=== PATIENT | female | born 1990 | race Caucasian/White ===

== ENCOUNTER 2020-07-16 08:35 | Outpatient (REF) | payer OTHER, SELFPAY ==
[2020-07-16 08:55] LABS: COVID-19 Test Negative (Negative); IDNOW Serial# 08D9AD1C
== END 2020-07-16 08:36 | disposition home or self-care (01) ==
LOC: HO.LAB 08:35
PROVIDERS: Visit Provider Internal Medicine
DX: Z20.822 Contact with and (suspected) exposure to COVID-19 (principal)
CPT/HCPCS: 36415; 87635; C9803

== ENCOUNTER 2023-08-28 02:51 | Inpatient (IN) | payer OTHER, SELFPAY ==
--- NOTE | ~2023-08-28 | XR_ITS ---
EXAMINATION: XR KNEE, RIGHT CLINICAL INFORMATION: Trauma. COMPARISON: None available. TECHNIQUE: Four views of the right knee. FINDINGS: The bone mineralization is within normal limits. There is an apparent distal femoral bone infarct. There are undisplaced fractures through the lateral as well as medial plateaus. There is also a mildly displaced fracture through the fibular neck. There is a moderate joint effusion with an air-fluid level. The soft tissues are unremarkable. XR/XR knee RT 3V IMPRESSION: 1. Undisplaced fractures through the lateral as well as medial plateaus. 2. Mildly displaced fracture through the fibular neck. 3. Moderate joint effusion with air-fluid level.
--- NOTE | ~2023-08-28 | FL_ITS ---
EXAMINATION: XR FLUOROSCOPY WITH IMAGES CLINICAL INFORMATION: Placement of only in the right tibia COMPARISON: 08/28/2023 TECHNIQUE: Fluoroscopy Supervised By: Dr. Bean Jones. Fluoroscopy Time: 0.6 minutes. Cumulative Dose: 3.30 mGy. DAP: 0.0574 Gycm2. Images: 4. FINDINGS: ORIF placed for compression of comminuted fracture of proximal right tibia with intra-articular involvement. FL/FL guidance in OR IMPRESSION: Well-positioned hardware
--- NOTE | ~2023-08-28 | CT_ITS ---
EXAMINATION: CT KNEE WITHOUT CONTRAST, RIGHT CLINICAL INFORMATION: Trauma. Fracture COMPARISON: None available. TECHNIQUE: Contiguous axial noncontrast CT scan images of the right knee obtained. Sagittal and coronal reformatted images also obtained. This CT examination was performed using dose optimization techniques as appropriate, variously including the following: *Automated exposure control *Adjustment of mA and/or kV according to patient size (this includes techniques or standardized protocols for targeted exams where dose is matched to indication/reason for exam; i.e. extremities or head) *Use of iterative reconstruction technique DLP: 291 mGy-cm FINDINGS: The bony structures are osteopenic. There is a comminuted fracture of the lateral tibial plateau with multiple fracture fragments and mild displacement extending to the joint space. There is also a fracture extending through the medial tibial plateau also to the joint space anteriorly without significant displacement. There is a comminuted mildly displaced fracture of the fibular head/neck. There is minimal degenerative change of the medial and lateral knee joint spaces with mild loss of joint space and subchondral sclerosis. There is a moderate joint effusion with a fat fluid level. There is arteriovascular calcification. CT/CT knee RT wo IV con IMPRESSION: 1. Comminuted fracture of the lateral tibial plateau with multiple fracture fragments and mild displacement. 2. Nondisplaced fracture of the medial tibial plateau. 3. Comminuted fracture of the fibular head/neck. 4. Lipohemarthrosis. 5. Arteriovascular calcification.
[2023-08-28 03:15] VITALS: BP 139/89; BP 150/80; PULSE 113; PULSE 121; RESP 20; TEMP 36.8; O2SAT 100; BMI 27.7
[2023-08-28] MEDS: Acetaminophen 325 MG TABLET 975 MG PO (03:39)
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
[2023-08-28 04:21] LABS: MANUAL DIFF FLAG NO
[2023-08-28 04:22] LABS: Basophils Percent Auto 0.3 % (0-2); Eosinophils Absolute Auto 0.1 X10*3/uL (0.0-0.4); Eosinophils Percent Auto 0.8 % (0-4); Imm Gran Abs Auto 0.02 X10*3/uL (0.00-0.03); Imm Gran Pct Auto 0.3 % (0.0-0.4); Lymphocytes Absolute Auto 1.1 X10*3/uL (1.2-4.9); Lymphocytes Percent Auto 15.1 % (20-40); Mean Corpuscular HGB Conc 33.3 g/dl (31.0-35.0); Mean Corpuscular Hemoglobin 26.9 pg (27.0-33.0); Mean Corpuscular Volume 80.7 fL (80.0-98.0); Mean Platelet Volume 11.5 fL (9.4-12.3); Monocytes Absolute Auto 0.3 X10*3/uL (0.1-1.2); Monocytes Percent Auto 4.4 % (2-11); Neutrophils Absolute Auto 5.9 x10*3/uL (2.0-8.3); Neutrophils Percent Auto 79.1 % (45-73); Platelet Count 206 X10*3/uL (160-400); Red Blood Count 4.09 X10*6/uL (4.20-5.50); Red Cell Distribution Width 13.1 % (11.0-16.0); White Blood Count 7.5 X10*3/uL (4.8-10.8)
[2023-08-28] MEDS: HYDROmorphone HCl 0.5 MG/0.5 ML SYRINGE IVPUSH (04:22)
[2023-08-28] MEDS: ondansetron HCL 4 MG/2 ML VIAL IVPUSH ×2 (04:22→14:49)
[2023-08-28 04:33] LABS: Ethanol 86 mg/dL
[2023-08-28 04:41] LABS: Anion Gap 17 (12-20); Blood Urea Nitrogen 20 mg/dL (9-16); Calcium 8.9 mg/dL (8.4-10.2); Carbon Dioxide 20 mmol/L (22-29); Chloride 104 mmol/L (96-108); Creatinine Clr Calc Pharmacy 57.9; Estimated Glomerular Filt Rate 53; Glucose Random 153 mg/dL (60-115); Potassium 3.8 mmol/L (3.3-5.1); Sodium 137 mmol/L (135-145)
[2023-08-28 04:49] LABS: HCG Quantitative < 2 mIU/mL
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
[2023-08-28] MEDS: Ibuprofen 400 MG TABLET PO ×2 (06:00→20:58)
[2023-08-28 07:26] VITALS: RESP 20
[2023-08-28] MEDS: HYDROmorphone HCl 1 MG/ML SYRINGE 0.5 MG IVPUSH ×3 (07:26→18:44)
[2023-08-28] MEDS: 0.9 % Sodium Chloride Flush 3 ML SYRINGE IVFLUSH ×3 (07:27→21:09)
[2023-08-28 07:29] LABS: Glucose, Whole Blood 91 mg/dL (60-115)
[2023-08-28 09:06] VITALS: BMI 29.1
[2023-08-28 09:19] VITALS: BP 107/73; PULSE 86; RESP 16; TEMP 36.1; O2SAT 98
--- NOTE | 2023-08-28 09:22 | PHA.MEDREC ---
Pharmacy Consult ? Medication Reconciliation Pharmacy has completed the medication reconciliation.
--- NOTE | 2023-08-28 09:22 | PM.EVENT ---
Event Note Date of Service: 08/28/23 Event Note: Right knee tibial plateau fx CT Scan reviewed with minimal depression Elevate Ice Edema minimizing modalities Knee immobilizer may f/u out patient Time Spent With Patient Time: Total time managing care of this patient today ____ minutes.
[2023-08-28 11:07] LABS: Glucose, Whole Blood 120 mg/dL (60-115)
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
--- NOTE | 2023-08-28 12:35 | PM.EVENT ---
Event Note Date of Service: 08/28/23 Event Note: Pt seen and examined, here with fall tibi plateu fracture, no surgery planned. PT eval tomorrow, dilaudid for pain, pt uses self manage insulin pump with back up Lantus and we shold be checking POC per hospital protol. Med rec completed Time Spent With Patient Time: Total time managing care of this patient today ____ minutes.
[2023-08-28 13:14] VITALS: BP 119/79
[2023-08-28] MEDS: Cholecalciferol (Vitamin D3) 25 MCG TABLET 50 MCG PO (13:14)
[2023-08-28] MEDS: amLODIPine Besylate 10 MG TABLET PO (13:14)
[2023-08-28] MEDS: Docusate Sodium 100 MG CAPSULE PO ×2 (13:15→20:58)
[2023-08-28] MEDS: Lactulose 20 GM/30 ML SOLUTION PO ×2 (13:15→20:59)
[2023-08-28] MEDS: Atorvastatin Calcium 40 MG TABLET PO (13:15)
--- NOTE | 2023-08-28 13:27 | PC.NURSE ---
requested pt to bring in her meds from home that are non-formulary Linzess and Medroxyprogesterone
[2023-08-28] MEDS: Heparin Sodium,Porcine 5,000 UNIT/ML VIAL 5000 UNIT SUBCUT ×2 (14:29→21:05)
[2023-08-28 15:19] VITALS: BP 127/72; PULSE 83; TEMP 36.2; O2SAT 99
--- NOTE | 2023-08-28 16:00 | MHC.CM.PN ---
PT REPORTS SHE LIVES AT HOME WITH HER S/O AND CHILDREN SHE IS INDEPENDENT WITH CARE AND USES AN INSULIN PUMP PT DECLINES TO COMPLETE A HCP PCP: JAKE LOVETT DCP: HOME NO SERVICES VIA PRIVATE TRANSPORT
[2023-08-28 16:09] LABS: Glucose, Whole Blood 134 mg/dL (60-115)
[2023-08-28 19:44] VITALS: BP 121/73; PULSE 86; RESP 16; TEMP 36.1; O2SAT 99
[2023-08-28 20:40] LABS: Glucose, Whole Blood 126 mg/dL (60-115)
[2023-08-29] MEDS: HYDROmorphone HCl 1 MG/ML SYRINGE 0.5 MG IVPUSH ×5 (00:19→21:46)
[2023-08-29 03:49] VITALS: BP 119/72; PULSE 85; RESP 16; TEMP 36.2; O2SAT 98
[2023-08-29] MEDS: Omeprazole 40 MG CAPSULE.DR PO ×2 (05:27→16:51)
[2023-08-29] MEDS: Heparin Sodium,Porcine 5,000 UNIT/ML VIAL 5000 UNIT SUBCUT ×3 (05:28→21:23)
[2023-08-29 07:18] VITALS: BP 133/76; PULSE 83; RESP 16; TEMP 36.2; O2SAT 99
[2023-08-29 07:35] LABS: Glucose, Whole Blood 127 mg/dL (60-115)
[2023-08-29] MEDS: amLODIPine Besylate 10 MG TABLET PO (08:20)
[2023-08-29] MEDS: Venlafaxine HCL 25 MG TABLET 75 MG PO (08:20)
[2023-08-29] MEDS: 0.9 % Sodium Chloride Flush 3 ML SYRINGE IVFLUSH ×3 (08:20→21:57)
[2023-08-29] MEDS: Cholecalciferol (Vitamin D3) 25 MCG TABLET 50 MCG PO (08:21)
[2023-08-29] MEDS: Ibuprofen 400 MG TABLET PO (08:21)
[2023-08-29] MEDS: Atorvastatin Calcium 40 MG TABLET PO (08:21)
[2023-08-29] MEDS: lisinopriL 40 MG TABLET PO (08:22)
[2023-08-29] MEDS: hydroCHLOROthiazide 50 MG TABLET PO (08:22)
[2023-08-29] MEDS: Docusate Sodium 100 MG CAPSULE PO ×2 (08:22→21:21)
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
--- NOTE | 2023-08-29 09:44 | P.PNIM_ITS ---
Subjective Subjective Date of Service: 08/29/23 Interval History: She still has signficant pain and taking iv dilaudid, not able to move on her own Physical Exam 2 Vital Signs: Vital Signs: Last Vital Signs Temp 97.2 F 08/29/23 07:18 Pulse 83 08/29/23 07:18 Resp 16 08/29/23 07:18 BP 133/76 08/29/23 07:18 Pulse Ox 99 08/29/23 07:18 O2 Del Method Room Air 08/29/23 07:18 BMI result Body Mass Index 29.1 General: AO X 3, no acute distress Resp: CTA bilateral CVS: S1,S2,RRR GI: +BS, NT, no distention Skin: No rash MSK imobilized right lower ext Neuro: motor grossly intact Psych: appropriate affect Objective Data Active Medications Amlodipine Besylate (Amlodipine Besylate 10 Mg Tablet) 10 mg PO DAILY [facility]; Protocol Last Admin: 08/29/23 08:20 Dose: 10 mg Documented By: ALINA Atorvastatin Calcium (Atorvastatin Calcium 40 Mg Tablet) 40 mg PO DAILY [facility] Last Admin: 08/29/23 08:21 Dose: 40 mg Documented By: ALINA Docusate Sodium (Docusate Sodium 100 Mg Capsule) 100 mg PO BID [facility] Last Admin: 08/29/23 08:22 Dose: 100 mg Documented By: ALINA Gabapentin (Gabapentin 100 Mg Capsule) 100 mg PO BEDTIME [facility] Last Admin: 08/28/23 20:58 Dose: Not Given Documented By: PABLO Non-Admin Reason: Patient Refused Heparin Sodium (Porcine) (Heparin Sodium,Porcine 5,000 Unit/Ml Vial) 5,000 unit SUBCUT Q8H [facility] Last Admin: 08/29/23 05:28 Dose: 5,000 unit Documented By: PABLO Hydrochlorothiazide (Hydrochlorothiazide 50 Mg Tablet) 50 mg PO DAILY [facility] Last Admin: 08/29/23 08:22 Dose: 50 mg Documented By: ALINA Hydromorphone HCl (Hydromorphone Hcl 1 Mg/Ml Syringe) 0.5 mg IVPUSH Q4H PRN; Protocol PRN Reason: Pain, Severe (Pain Scale 7-10) Last Admin: 08/29/23 08:18 Dose: 0.5 mg Documented By: ALINA Hydroxyzine HCl (Hydroxyzine Hcl 25 Mg Tablet) 25 mg PO DAILY PRN PRN Reason: anxiety Insulin Glargine (Insulin Glargine,Hum.Rec.Anlog 100 Unit/Ml 10 Ml Vial) 34 unit SUBCUT DAILY PRN PRN Reason: Insulin Pump Backup Insulin Pump (Patient Own (Subcutaneous Insulin Pump)) 1 each SUBCUT QIDACHS [facility]; Protocol Last Admin: 08/28/23 21:07 Dose: 1 each Documented By: PABLO Lactulose (Lactulose 20 Gm/30 Ml Solution) 20 gm PO BID [facility] Last Admin: 08/28/23 20:59 Dose: 20 gm Documented By: PABLO Lisinopril (Lisinopril 40 Mg Tablet) 40 mg PO DAILY [facility]; Protocol Last Admin: 08/29/23 08:22 Dose: 40 mg Documented By: ALINA Non-Formulary Medication (Linaclotide [Linzess]) 145 mcg PO DAILY [facility] Non-Formulary Medication (Medroxyprogesterone) 10 mg PO DAILY [facility] Omeprazole (Omeprazole 40 Mg Capsule.Dr) 40 mg PO BID@0630,1630 [facility] Last Admin: 08/29/23 05:27 Dose: 40 mg Documented By: PABLO Ondansetron HCl (Ondansetron Hcl 4 Mg/2 Ml Vial) 4 mg IVPUSH Q8H PRN PRN Reason: Nausea and Vomiting Last Admin: 08/28/23 14:49 Dose: 4 mg Documented By: LUPIS Oxycodone HCl (Oxycodone Hcl Immed Release 5 Mg Tablet) 5 mg PO Q6H PRN PRN Reason: Pain, Severe (Pain Scale 7-10) Sodium Chloride (0.9 % Sodium Chloride Flush 3 Ml Syringe) 3 ml IVFLUSH QSHIFT [facility] Last Admin: 08/29/23 08:20 Dose: 3 ml Documented By: ALINA Venlafaxine HCl (Venlafaxine Hcl 25 Mg Tablet) 75 mg PO DAILY [facility] Last Admin: 08/29/23 08:20 Dose: 75 mg Documented By: ALINA Vitamin D (Cholecalciferol (Vitamin D3) 25 Mcg Tablet) 50 mcg PO DAILY [facility] Last Admin: 08/29/23 08:21 Dose: 50 mcg Documented By: ALINA Labs 08/28/23 04:12 08/28/23 04:12 Labs: Laboratory Results - last 24 hr 08/28/23 08/28/23 08/28/23 11:03 15:58 20:14 POC Glucose 120 H 134 H 126 H 08/29/23 07:21 POC Glucose 127 H Assessment and Plan (1) Hyperlipidemia: Status: Acute (2) Essential hypertension: Status: Acute (3) Type 1 diabetes mellitus: Status: Acute (4) Closed tibia fracture: Status: Acute Plan 32/F w T1DM, HTN here with tibia plateau fx R tibia plateau fracture -conservative management with pain control with oxycodone, dilaudid, imobilizer, elevate, ice -ortho to reassess for surger [id number]--kwva management with insulin pump with back up Lantus, POC check per hospital dm protocol HTN--continue Lisinopril and HCTZ HLD--lipitor anemia--chronic and stable, Mood disorder--effexor GERD omeprazol dvt p heparin full code need for inpatient: pain control with IV narc for tibia plateau fracture and expert assessment for surgical repair Quality Stroke Does the patient have a stroke diagnosis?: No VTE Prior VTE?: No VTE Risk Level:: Medical - moderate - high VTE Device Contraindication: Treatment Not Indicated VTE Drug Contraindication: N/A - Med Ordered
[2023-08-29] MEDS: ondansetron HCL 4 MG/2 ML VIAL IVPUSH ×2 (09:55→21:23)
[2023-08-29 11:19] LABS: Glucose, Whole Blood 156 mg/dL (60-115)
--- NOTE | 2023-08-29 11:54 | MHC.CM.PN ---
PLAN IS FOR SURGICAL INTERVENTION. CM FOLLOWING FOR ANY CHANGES IN DC NEEDS.
[2023-08-29 12:23] VITALS: BP 122/78; PULSE 93; O2SAT 98
--- NOTE | 2023-08-29 12:27 | PM.PNORT ---
Subjective Subjective Date of Service: 08/29/23 Interval history: Patient resting in the recliner Pain reported with movement Immobilizer in place RLE No additional complaints Physical Exam Vital Signs: Vital Signs: Last Vital Signs Temp 97.2 F 08/29/23 07:18 Pulse 83 08/29/23 07:18 Resp 16 08/29/23 07:18 BP 133/76 08/29/23 07:18 Pulse Ox 99 08/29/23 07:18 O2 Del Method Room Air 08/29/23 07:18 BMI result Body Mass Index 29.1 Const: General: cooperative, healthy appearing and no acute distress Resp: Effort & Inspection: normal respiratory effort and able to speak in complete sentences Cardio: Rate: regular rate Peripheral pulses: Peripheral pulses 2+ throughout GI: Palpation (GI): Soft to palpation Skin: Lesions: no lesions Rashes: no rashes Extrem: Other: Right lower extremity in knee immobilizer. Compartments soft and compressible. Able to dorsi/plantar flex. Sensation intact. Pedal pulse intact. Procedures Date of Service Date of Service: 08/29/23 Progress Note: A&P Assessment and plan (1) Closed tibia fracture: Status: Acute Assessment and Plan: CT reviewed with Dr. Flores and has recommended surgery ORIF right tibial plateau. The patient was seen this afternoon with Dr. Flores who discussed the case with the patient and explained the extent of the injury and options available which include surgical intervention. Dr. Flores explained the procedure in detail along with the length of recovery and rehab course. Dr. Flores explained the risk, benefits and alternatives. Risk including, but not limited to infection, blood clots, bleeding, non union or malunion and nerve/tissue damage to surrounding areas. Dr. Flores answered all their questions and with their understanding they have consented to move forward with Operative Fixation of right tibial plateau fracture. The patient will be NPO after midnight and edema reevaluated tomorrow morning to determine if surgery may proceed or postpone until decrease in edema. (2) Type 1 diabetes mellitus: Status: Acute Time Spent With Patient Time: Total time managing care of this patient today ____ minutes. Quality Stroke Does the patient have a stroke diagnosis?: No VTE Prior VTE?: No VTE Risk Level:: Medical - moderate - high VTE Device Contraindication: Treatment Not Indicated VTE Drug Contraindication: N/A - Med Ordered
[2023-08-29 16:00] VITALS: BP 142/72; PULSE 81; RESP 18; TEMP 37.2; O2SAT 99
[2023-08-29 16:44] LABS: Glucose, Whole Blood 174 mg/dL (60-115)
[2023-08-29 20:00] VITALS: BP 141/78; PULSE 90; RESP 16; TEMP 36.9; O2SAT 100
[2023-08-29 20:35] LABS: Glucose, Whole Blood 168 mg/dL (60-115)
[2023-08-29] MEDS: Gabapentin 100 MG CAPSULE PO (21:21)
[2023-08-29] MEDS: Lactulose 20 GM/30 ML SOLUTION PO (21:21)
[2023-08-30] MEDS: HYDROmorphone HCl 1 MG/ML SYRINGE 0.5 MG IVPUSH ×4 (01:45→22:18)
[2023-08-30 03:31] VITALS: BP 117/70; PULSE 81; RESP 16; TEMP 36; O2SAT 98
[2023-08-30] MEDS: Omeprazole 40 MG CAPSULE.DR PO ×2 (06:15→17:07)
[2023-08-30] MEDS: Heparin Sodium,Porcine 5,000 UNIT/ML VIAL 5000 UNIT SUBCUT ×3 (06:15→22:19)
[2023-08-30 07:04] VITALS: BP 124/68; PULSE 80; RESP 16; TEMP 36.6; O2SAT 99
[2023-08-30 07:28] LABS: Glucose, Whole Blood 81 mg/dL (60-115)
[2023-08-30] MEDS: lisinopriL 40 MG TABLET PO (08:11)
[2023-08-30] MEDS: Docusate Sodium 100 MG CAPSULE PO (08:11)
[2023-08-30] MEDS: Atorvastatin Calcium 40 MG TABLET PO (08:11)
[2023-08-30] MEDS: amLODIPine Besylate 10 MG TABLET PO (08:11)
[2023-08-30] MEDS: Cholecalciferol (Vitamin D3) 25 MCG TABLET 50 MCG PO (08:11)
[2023-08-30] MEDS: Venlafaxine HCL 25 MG TABLET 75 MG PO (08:12)
[2023-08-30] MEDS: hydroCHLOROthiazide 50 MG TABLET PO (08:12)
[2023-08-30] MEDS: 0.9 % Sodium Chloride Flush 3 ML SYRINGE IVFLUSH ×3 (08:12→22:24)
[2023-08-30] MEDS: Lactulose 20 GM/30 ML SOLUTION PO (08:19)
--- NOTE | 2023-08-30 09:11 | HO.PM.IMPN ---
Subjective Subjective Date of Service: 08/30/23 Interval History: f/u on R tibia plateau fx, pain is controlled with dilaudid but causes itching Physical Exam Vital Signs: Vital Signs: Last Vital Signs Temp 98 F 08/30/23 07:04 Pulse 80 08/30/23 07:04 Resp 16 08/30/23 07:04 BP 124/68 08/30/23 07:04 Pulse Ox 99 08/30/23 07:04 O2 Del Method Room Air 08/30/23 07:04 BMI result Body Mass Index 29.1 General: AO X 3, no acute distress Resp: CTA bilateral CVS: S1,S2,RRR GI: +BS, NT, no distention Skin: No rash MSK imobilized right lower ext Neuro: motor grossly intact Psych: appropriate affect Objective Data Active Medications Amlodipine Besylate (Amlodipine Besylate 10 Mg Tablet) 10 mg PO DAILY [facility]; Protocol Last Admin: 08/30/23 08:11 Dose: 10 mg Documented By: ALINA Atorvastatin Calcium (Atorvastatin Calcium 40 Mg Tablet) 40 mg PO DAILY [facility] Last Admin: 08/30/23 08:11 Dose: 40 mg Documented By: ALINA Docusate Sodium (Docusate Sodium 100 Mg Capsule) 100 mg PO BID [facility] Last Admin: 08/30/23 08:11 Dose: 100 mg Documented By: ALINA Gabapentin (Gabapentin 100 Mg Capsule) 100 mg PO BEDTIME [facility] Last Admin: 08/29/23 21:21 Dose: 100 mg Documented By: ZONIA Heparin Sodium (Porcine) (Heparin Sodium,Porcine 5,000 Unit/Ml Vial) 5,000 unit SUBCUT Q8H [facility] Last Admin: 08/30/23 06:15 Dose: 5,000 unit Documented By: ZONIA Hydrochlorothiazide (Hydrochlorothiazide 50 Mg Tablet) 50 mg PO DAILY [facility] Last Admin: 08/30/23 08:12 Dose: 50 mg Documented By: ALINA Hydromorphone HCl (Hydromorphone Hcl 1 Mg/Ml Syringe) 0.5 mg IVPUSH Q4H PRN; Protocol PRN Reason: Pain, Severe (Pain Scale 7-10) Last Admin: 08/30/23 06:15 Dose: 0.5 mg Documented By: ZONIA Hydroxyzine HCl (Hydroxyzine Hcl 25 Mg Tablet) 25 mg PO DAILY PRN PRN Reason: anxiety Insulin Glargine (Insulin Glargine,Hum.Rec.Anlog 100 Unit/Ml 10 Ml Vial) 34 unit SUBCUT DAILY PRN PRN Reason: Insulin Pump Backup Insulin Pump (Patient Own (Subcutaneous Insulin Pump)) 1 each SUBCUT QIDACHS [facility]; Protocol Last Admin: 08/30/23 08:38 Dose: 1 each Documented By: ALINA Lactulose (Lactulose 20 Gm/30 Ml Solution) 20 gm PO BID [facility] Last Admin: 08/30/23 08:19 Dose: 20 gm Documented By: ALINA Lisinopril (Lisinopril 40 Mg Tablet) 40 mg PO DAILY [facility]; Protocol Last Admin: 08/30/23 08:11 Dose: 40 mg Documented By: ALINA Non-Formulary Medication (Linaclotide [Linzess]) 145 mcg PO DAILY [facility] Non-Formulary Medication (Medroxyprogesterone) 10 mg PO DAILY [facility] Omeprazole (Omeprazole 40 Mg Capsule.) 40 mg PO BID@0630,1630 [facility] Last Admin: 08/30/23 06:15 Dose: 40 mg Documented By: ZONIA Ondansetron HCl (Ondansetron Hcl 4 Mg/2 Ml Vial) 4 mg IVPUSH Q8H PRN PRN Reason: Nausea and Vomiting Last Admin: 08/29/23 21:23 Dose: 4 mg Documented By: ZONIA Oxycodone HCl (Oxycodone Hcl Immed Release 5 Mg Tablet) 5 mg PO Q6H PRN PRN Reason: Pain, Moderate(Pain Scale 4-6) Sodium Chloride (0.9 % Sodium Chloride Flush 3 Ml Syringe) [facility] Last Admin: 08/30/23 08:12 Dose: 3 ml Documented By: ALINA Venlafaxine HCl (Venlafaxine Hcl 25 Mg Tablet) 75 mg PO DAILY [facility] Last Admin: 08/30/23 08:12 Dose: 75 mg Documented By: ALINA Vitamin D (Cholecalciferol (Vitamin D3) 25 Mcg Tablet) 50 mcg PO DAILY [facility] Last Admin: 08/30/23 08:11 Dose: 50 mcg Documented By: ALINA Labs 08/28/23 04:12 08/28/23 04:12 Labs: Laboratory Results - last 24 hr 08/29/23 08/29/23 08/29/23 11:09 16:40 20:26 POC Glucose 156 H 174 H 168 H 08/30/23 07:08 POC Glucose 81 Assessment and Plan (1) Hyperlipidemia: Status: Acute (2) Essential hypertension: Status: Acute (3) Type 1 diabetes mellitus: Status: Acute (4) Closed tibia fracture: Status: Acute Plan 32/F w T1DM, HTN here with tibia plateau fx R tibia plateau fracture -pain control with dilaudid, oxy and APAP -Surgical repair tomorrow Q9HX--bmsp management with insulin pump with back up Lantus, POC check per hospital dm protocol HTN--continue Lisinopril and HCTZ HLD--lipitor anemia--chronic and stable, Mood disorder--effexor GERD omeprazol dvt p heparin full code need for inpatient: pain control with IV narc for tibia plateau fracture and expert assessment for surgical repair Quality Stroke Does the patient have a stroke diagnosis?: No VTE Prior VTE?: No VTE Risk Level:: Medical - moderate - high VTE Device Contraindication: Treatment Not Indicated VTE Drug Contraindication: N/A - Med Ordered
[2023-08-30] MEDS: ondansetron HCL 4 MG/2 ML VIAL IVPUSH (09:52)
[2023-08-30] MEDS: diphenhydrAMINE HCL 50 MG/ML VIAL 25 MG IVPUSH (09:56)
[2023-08-30] MEDS: Prochlorperazine Edisylate 10 MG/2 ML VIAL 5 MG IV (15:06)
[2023-08-30 15:14] VITALS: BP 127/73; PULSE 89; RESP 16; TEMP 36.2; O2SAT 97
[2023-08-30 16:21] LABS: Glucose, Whole Blood 93 mg/dL (60-115)
[2023-08-30 19:15] VITALS: BP 129/82; PULSE 94; RESP 18; TEMP 36.1; O2SAT 97
[2023-08-30 20:49] LABS: Glucose, Whole Blood 193 mg/dL (60-115)
[2023-08-31] VITALS (23 sets, daily range): BP systolic 122–174; BP diastolic 67–105; PULSE 83–96; RESP 8–20; TEMP 36.2–36.9; O2SAT 9–100
[2023-08-31] MEDS: HYDROmorphone HCl 1 MG/ML SYRINGE 0.5 MG IVPUSH ×4 (03:14→23:07)
[2023-08-31] MEDS: Omeprazole 40 MG CAPSULE.DR PO ×2 (06:13→17:47)
[2023-08-31 07:46] LABS: Glucose, Whole Blood 129 mg/dL (60-115)
--- NOTE | 2023-08-31 08:48 | P.PNIM_ITS ---
Subjective Subjective Date of Service: 08/31/23 Interval History: f/u on R tibia plateau fx, surgery done, has some pain in the knee Physical Exam 2 Vital Signs: Vital Signs: Last Vital Signs Temp 98 F 08/31/23 07:28 Pulse 88 08/31/23 07:28 Resp 16 08/31/23 07:28 BP 130/81 08/31/23 07:28 Pulse Ox 99 08/31/23 07:28 O2 Del Method Room Air 08/31/23 07:28 BMI result Body Mass Index 29.1 General: AO X 3, no acute distress Resp: CTA bilateral CVS: S1,S2,RRR GI: +BS, NT, no distention Skin: No rash MSK imobilized right lower ext Neuro: motor grossly intact Psych: appropriate affect Objective Data Active Medications Amlodipine Besylate (Amlodipine Besylate 10 Mg Tablet) 10 mg PO DAILY [facility]; Protocol Last Admin: 08/30/23 08:11 Dose: 10 mg Documented By: ALINA Atorvastatin Calcium (Atorvastatin Calcium 40 Mg Tablet) 40 mg PO DAILY [facility] Last Admin: 08/30/23 08:11 Dose: 40 mg Documented By: ALINA Diphenhydramine HCl (Diphenhydramine Hcl 50 Mg/Ml Vial) 25 mg IVPUSH Q6H PRN PRN Reason: Itching Last Admin: 08/30/23 09:56 Dose: 25 mg Documented By: ALINA Docusate Sodium (Docusate Sodium 100 Mg Capsule) 100 mg PO BID [facility] Last Admin: 08/30/23 22:24 Dose: Not Given Documented By: ELLE Non-Admin Reason: Patient Refused Gabapentin (Gabapentin 100 Mg Capsule) 100 mg PO BEDTIME [facility] Last Admin: 08/30/23 22:23 Dose: Not Given Documented By: ELLE Non-Admin Reason: Patient Refused Heparin Sodium (Porcine) (Heparin Sodium,Porcine 5,000 Unit/Ml Vial) 5,000 unit SUBCUT Q8H [facility] Last Admin: 08/31/23 06:08 Dose: Not Given Documented By: ELLE Non-Admin Reason: preop Hydrochlorothiazide (Hydrochlorothiazide 50 Mg Tablet) 50 mg PO DAILY [facility] Last Admin: 08/30/23 08:12 Dose: 50 mg Documented By: ALINA Hydromorphone HCl (Hydromorphone Hcl 1 Mg/Ml Syringe) 0.5 mg IVPUSH Q4H PRN; Protocol PRN Reason: Pain, Severe (Pain Scale 7-10) Last Admin: 08/31/23 07:40 Dose: 0.5 mg Documented By: KE Hydroxyzine HCl (Hydroxyzine Hcl 25 Mg Tablet) 25 mg PO DAILY PRN PRN Reason: anxiety Insulin Glargine (Insulin Glargine,Hum.Rec.Anlog 100 Unit/Ml 10 Ml Vial) 34 unit SUBCUT DAILY PRN PRN Reason: Insulin Pump Backup Insulin Pump (Patient Own (Subcutaneous Insulin Pump)) 1 each SUBCUT QIDACHS [facility]; Protocol Last Admin: 08/31/23 07:31 Dose: Not Given Documented By: KE Non-Admin Reason: NPO Lactulose (Lactulose 20 Gm/30 Ml Solution) 20 gm PO BID [facility] Last Admin: 08/30/23 22:23 Dose: Not Given Documented By: ELLE Non-Admin Reason: Patient Refused Lisinopril (Lisinopril 40 Mg Tablet) 40 mg PO DAILY [facility]; Protocol Last Admin: 08/30/23 08:11 Dose: 40 mg Documented By: ALINA Non-Formulary Medication (Linaclotide [Linzess]) 145 mcg PO DAILY [facility] Non-Formulary Medication (Medroxyprogesterone) 10 mg PO DAILY [facility] Omeprazole (Omeprazole 40 Mg Capsule.Dr) 40 mg PO BID@0630,1630 [facility] Last Admin: 08/31/23 06:13 Dose: 40 mg Documented By: ELLE Oxycodone HCl (Oxycodone Hcl Immed Release 5 Mg Tablet) 5 mg PO Q6H PRN PRN Reason: Pain, Moderate(Pain Scale 4-6) Prochlorperazine Edisylate (Prochlorperazine Edisylate 10 Mg/2 Ml Vial) 5 mg IV Q6H PRN PRN Reason: Nausea and Vomiting Last Admin: 08/30/23 15:06 Dose: 5 mg Documented By: ALINA Sodium Chloride (0.9 % Sodium Chloride Flush 3 Ml Syringe) [facility] Last Admin: 08/30/23 22:24 Dose: 3 ml Documented By: ELLE Venlafaxine HCl (Venlafaxine Hcl 25 Mg Tablet) 75 mg PO DAILY [facility] Last Admin: 08/30/23 08:12 Dose: 75 mg Documented By: ALINA Vitamin D (Cholecalciferol (Vitamin D3) 25 Mcg Tablet) 50 mcg PO DAILY [facility] Last Admin: 08/30/23 08:11 Dose: 50 mcg Documented By: ALINA Labs 08/28/23 04:12 08/28/23 04:12 Labs: Laboratory Results - last 24 hr 08/30/23 08/30/23 08/31/23 16:15 20:14 07:43 POC Glucose 93 193 H 129 H Assessment and Plan (1) Hyperlipidemia: Status: Acute (2) Essential hypertension: Status: Acute (3) Type 1 diabetes mellitus: Status: Acute (4) Closed tibia fracture: Status: Acute Plan 32/ w T1DM, HTN here with tibia plateau fx R tibia plateau fracture -pain control with dilaudid, oxy and APAP -Surgically repaired today U4BO--udyu management with insulin pump with back up Lantus, POC check per hospital dm protocol -no basal while NPO HTN--continue Lisinopril and HCTZ HLD--lipitor anemia--chronic and stable, Mood disorder--effexor GERD omeprazol dvt p heparin full code need for inpatient: pain control with IV narc for tibia plateau fracture and expert assessment for surgical repair Quality Stroke Does the patient have a stroke diagnosis?: No VTE Prior VTE?: No VTE Risk Level:: Medical - moderate - high VTE Device Contraindication: Treatment Not Indicated VTE Drug Contraindication: N/A - Med Ordered
--- NOTE | 2023-08-31 10:33 | HO.ANESPROP2 ---
HPI - Anesthesia Eval Consult details Narrative: for tibial plateau repair, no pre op block due to high risk of compartment syndrome PMFSH Active Problems Active Problems: All Active Problems Hyperlipidemia (Acute) Essential hypertension (Acute) Type 1 diabetes mellitus (Acute) Closed tibia fracture (Acute) Past Medical History Medical History Hyperlipidemia Essential hypertension Type 1 diabetes mellitus Family History Family history of problems with anesthesia: No Surgical History History of Problems with Anesthesia: No Social History Social History Household Members: Children Housing: House Do you presently have visiting nurse or other home services: No Patient Tobacco Use Status: Never used Tobacco Second Hand Smoke Exposure: No service: No Meds Allergies Allergy/AdvReac Type Severity Reaction Status Date / Time No Known Allergies Allergy Verified 08/28/23 03:18 Active Medications: Current Medications Amlodipine Besylate (Amlodipine Besylate 10 Mg Tablet) 10 mg PO DAILY [facility]; Protocol Last Admin: 08/31/23 09:32 Dose: Not Given Atorvastatin Calcium (Atorvastatin Calcium 40 Mg Tablet) 40 mg PO DAILY [facility] Last Admin: 08/31/23 09:32 Dose: Not Given Diphenhydramine HCl (Diphenhydramine Hcl 50 Mg/Ml Vial) 25 mg IVPUSH Q6H PRN PRN Reason: Itching Last Admin: 08/30/23 09:56 Dose: 25 mg Docusate Sodium (Docusate Sodium 100 Mg Capsule) 100 mg PO BID [facility] Last Admin: 08/31/23 09:32 Dose: Not Given Gabapentin (Gabapentin 100 Mg Capsule) 100 mg PO BEDTIME [facility] Last Admin: 08/30/23 22:23 Dose: Not Given Heparin Sodium (Porcine) (Heparin Sodium,Porcine 5,000 Unit/Ml Vial) 5,000 unit SUBCUT Q8H [facility] Last Admin: 08/31/23 06:08 Dose: Not Given Hydrochlorothiazide (Hydrochlorothiazide 50 Mg Tablet) 50 mg PO DAILY [facility] Last Admin: 08/31/23 09:33 Dose: Not Given Hydromorphone HCl (Hydromorphone Hcl 1 Mg/Ml Syringe) 0.5 mg IVPUSH Q4H PRN; Protocol PRN Reason: Pain, Severe (Pain Scale 7-10) Last Admin: 08/31/23 07:40 Dose: 0.5 mg Hydroxyzine HCl (Hydroxyzine Hcl 25 Mg Tablet) 25 mg PO DAILY PRN PRN Reason: anxiety Insulin Glargine (Insulin Glargine,Hum.Rec.Anlog 100 Unit/Ml 10 Ml Vial) 34 unit SUBCUT DAILY PRN PRN Reason: Insulin Pump Backup Insulin Pump (Patient Own (Subcutaneous Insulin Pump)) 1 each SUBCUT QIDACHS [facility]; Protocol Last Admin: 08/31/23 07:31 Dose: Not Given Lactulose (Lactulose 20 Gm/30 Ml Solution) 20 gm PO BID [facility] Last Admin: 08/31/23 09:33 Dose: Not Given Lisinopril (Lisinopril 40 Mg Tablet) 40 mg PO DAILY [facility]; Protocol Last Admin: 08/31/23 09:33 Dose: Not Given Non-Formulary Medication (Linaclotide [Linzess]) 145 mcg PO DAILY [facility] Non-Formulary Medication (Medroxyprogesterone) 10 mg PO DAILY [facility] Omeprazole (Omeprazole 40 Mg Capsule.Dr) 40 mg PO BID@0630,1630 [facility] Last Admin: 08/31/23 06:13 Dose: 40 mg Oxycodone HCl (Oxycodone Hcl Immed Release 5 Mg Tablet) 5 mg PO Q6H PRN PRN Reason: Pain, Moderate(Pain Scale 4-6) Prochlorperazine Edisylate (Prochlorperazine Edisylate 10 Mg/2 Ml Vial) 5 mg IV Q6H PRN PRN Reason: Nausea and Vomiting Last Admin: 08/30/23 15:06 Dose: 5 mg Sodium Chloride (0.9 % Sodium Chloride Flush 3 Ml Syringe) [facility] Last Admin: 08/31/23 09:35 Dose: Not Given Venlafaxine HCl (Venlafaxine Hcl 25 Mg Tablet) 75 mg PO DAILY [facility] Last Admin: 08/31/23 09:33 Dose: Not Given Vitamin D (Cholecalciferol (Vitamin D3) 25 Mcg Tablet) 50 mcg PO DAILY [facility] Last Admin: 08/31/23 09:32 Dose: Not Given Home Medications ?Medication ?Instructions ?Recorded ?Confirmed ?Last Taken ?Type amlodipine 5 mg tablet 10 mg PO DAILY 08/28/23 08/28/2324 History atorvastatin 40 mg tablet 40 mg PO DAILY 08/28/23 08/28/23 08/27/23 History chlorthalidone 25 mg tablet 25 mg PO DAILY 08/28/23 08/28/23 08/27/23 History cholecalciferol (vitamin D3) 50 50 mcg PO DAILY 08/28/23 08/28/23 08/27/23 History mcg (2,000 unit) capsule (Vitamin D3) docusate sodium 100 mg capsule 100 mg PO BID 08/28/23 08/28/23 08/27/23 History gabapentin 100 mg capsule 100 mg PO BEDTIME 08/28/23 08/28/23 Unknown History hydroxyzine HCl 25 mg tablet 25 mg PO DAILY PRN anxiety 08/28/23 08/28/23 Unknown History insulin glargine 100 unit/mL 34 unit subcut DAILY PRN Insulin 08/28/23 08/28/23 Unknown History subcutaneous solution (Lantus Pump Backup U-100 Insulin) insulin lispro 100 unit/mL 1 sliding scale dose subcut QIDACHS 08/28/23 08/28/23 08/27/23 History subcutaneous solution lactulose 10 gram/15 mL oral 30 ml PO BID 08/28/23 08/28/23 08/27/23 History solution linaclotide 145 mcg capsule 145 mcg PO DAILY 08/28/23 08/28/23 08/27/23 History (Linzess) lisinopril 40 mg tablet 40 mg PO DAILY 08/28/23 08/28/23 08/27/23 History medroxyprogesterone 10 mg tablet 10 mg PO DAILY 08/28/23 08/28/23 08/27/23 History omeprazole 40 mg capsule,delayed 40 mg PO BID 08/28/23 08/28/23 08/27/23 History release venlafaxine 37.5 mg tablet 75 mg PO DAILY 08/28/23 08/28/23 08/27/23 History Exam Height,Weight and Vital Signs: Height 5 ft Weight 67.5 kg Last Vital Signs Temp 98 F 08/31/23 07:28 Pulse 88 08/31/23 07:28 Resp 16 08/31/23 07:28 BP 130/81 08/31/23 09:33 Pulse Ox 99 08/31/23 07:28 O2 Del Method Room Air 08/31/23 07:28 Pertinent Lab Results Pertinent Lab Results: Laboratory Tests 08/28/23 08/28/23 08/28/23 04:12 07:25 11:03 WBC 7.5 RBC 4.09 L Hgb 11.0 L Hct 33.0 L MCV 80.7 MCH 26.9 L MCHC 33.3 RDW 13.1 Plt Count 206 MPV 11.5 Immature Gran % (Auto) 0.3 Neut % (Auto) 79.1 H Lymph % (Auto) 15.1 L [place] % (Auto) 4.4 Eos % (Auto) 0.8 Baso % (Auto) 0.3 Lymph # (Auto) 1.1 L [place] # (Auto) 0.3 Eos # (Auto) 0.1 Baso # (Auto) 0.0 Abs Immat Gran (auto) 0.02 Absolute Neuts (auto) 5.9 Absolute Nucleated RBC 0.000 Nucleated RBC % (auto) 0.0 Sodium 137 Potassium 3.8 Chloride 104 Carbon Dioxide 20 L Anion Gap 17 BUN 20 H Creatinine 1.19 Estim Creat Clear Calc 57.9 Estimated GFR 53 POC Glucose 91 120 H Random Glucose 153 H Calcium 8.9 Beta HCG, Quant < 2 Ethyl Alcohol 86 08/28/23 08/28/23 08/29/23 15:58 20:14 07:21 WBC RBC Hgb Hct MCV MCH MCHC RDW Plt Count MPV Immature Gran % (Auto) Neut % (Auto) Lymph % (Auto) [place] % (Auto) Eos % (Auto) Baso % (Auto) Lymph # (Auto) [place] # (Auto) Eos # (Auto) Baso # (Auto) Abs Immat Gran (auto) Absolute Neuts (auto) Absolute Nucleated RBC Nucleated RBC % (auto) Sodium Potassium Chloride Carbon Dioxide Anion Gap BUN Creatinine Estim Creat Clear Calc Estimated GFR POC Glucose 134 H 126 H 127 H Random Glucose Calcium Beta HCG, Quant Ethyl Alcohol 08/29/23 08/29/23 08/29/23 11:09 16:40 20:26 WBC RBC Hgb Hct MCV MCH MCHC RDW Plt Count MPV Immature Gran % (Auto) Neut % (Auto) Lymph % (Auto) [place] % (Auto) Eos % (Auto) Baso % (Auto) Lymph # (Auto) [place] # (Auto) Eos # (Auto) Baso # (Auto) Abs Immat Gran (auto) Absolute Neuts (auto) Absolute Nucleated RBC Nucleated RBC % (auto) Sodium Potassium Chloride Carbon Dioxide Anion Gap BUN Creatinine Estim Creat Clear Calc Estimated GFR POC Glucose 156 H 174 H 168 H Random Glucose Calcium Beta HCG, Quant Ethyl Alcohol 08/30/23 08/30/23 08/30/23 07:08 16:15 20:14 WBC RBC Hgb Hct MCV MCH MCHC RDW Plt Count MPV Immature Gran % (Auto) Neut % (Auto) Lymph % (Auto) [place] % (Auto) Eos % (Auto) Baso % (Auto) Lymph # (Auto) [place] # (Auto) Eos # (Auto) Baso # (Auto) Abs Immat Gran (auto) Absolute Neuts (auto) Absolute Nucleated RBC Nucleated RBC % (auto) Sodium Potassium Chloride Carbon Dioxide Anion Gap BUN Creatinine Estim Creat Clear Calc Estimated GFR POC Glucose 81 93 193 H Random Glucose Calcium Beta HCG, Quant Ethyl Alcohol 08/31/23 07:43 WBC RBC Hgb Hct MCV MCH MCHC RDW Plt Count MPV Immature Gran % (Auto) Neut % (Auto) Lymph % (Auto) [place] % (Auto) Eos % (Auto) Baso % (Auto) Lymph # (Auto) [place] # (Auto) Eos # (Auto) Baso # (Auto) Abs Immat Gran (auto) Absolute Neuts (auto) Absolute Nucleated RBC Nucleated RBC % (auto) Sodium Potassium Chloride Carbon Dioxide Anion Gap BUN Creatinine Estim Creat Clear Calc Estimated GFR POC Glucose 129 H Random Glucose Calcium Beta HCG, Quant Ethyl Alcohol Airway Mallampati Class: II TM Dist: >3cm Neck ROM: Full Heart: rrr Lungs: cta Assessment and Plan Assessment Anesthesia Assessment: Anesthesia Plan Discussed Final Anesthetic Review Family History of Problems with Anesthesia: No History of Problems with Anesthesia: No NPO: Yes ASA Class: III Final Preanesthetic Review: No Changes in Pt Med Stat, Meds/Allgs Chart Reviewed, Consent Obtained/Reviewed and Anes Risks/Benef Reviewed Patient Risk: Intermediate Procedure Risk: Intermediate Anesthetic Plan Anesthetic Plan: GA Disposition: Standard PACU
[2023-08-31 11:14] LABS: Glucose, Whole Blood 173 mg/dL (60-115)
--- NOTE | 2023-08-31 11:17 | MHC.SHP ---
Pre-Procedural Eval Section A - 24 Hr Update-Section A only Date of Service: 08/31/23 The patient is an INPATIENT: Yes Changes since office visit: No Cold of Flu in the past 2 weeks, No New Medical Problems, No Changes in Medication and No Patient answered all questions The patient has been examined within 24 hours of the surgical procedure. The History & Physical has been completed within 30 days and I have reviewed it.: Yes Section B - Complete if H&P > 30 days Chief Complaint: Right Fibula Neck Fracture Allergies: Allergies Allergy/AdvReac Type Severity Reaction Status Date / Time No Known Allergies Allergy Verified 08/28/23 03:18 Plan I have reviewed the history and physical and performed a pertinent physical examination on my patient. No changes have occurred unless specified. Time Spent With Patient Time: Total time managing care of this patient today ____ minutes.
[2023-08-31] MEDS: HYDROmorphone HCl 0.5 MG/0.5 ML SYRINGE 0.25 MG IVPUSH ×4 (14:48→15:15)
--- NOTE | 2023-08-31 15:30 | MHC.CM.PN ---
Per MD rounds no discharge today. Patient is scheduled for surgery tomorrow. DP home self care. Patient will arrange for a ride home at discharge.
[2023-08-31] MEDS: fentaNYL citrate/PF 100 MCG/2 ML VIAL 25 MCG IVPUSH (16:00)
[2023-08-31] MEDS: oxyCODONE HCl Immed Release 5 MG TABLET PO (16:19)
[2023-08-31] MEDS: ceFAZolin Sodium/Dextrose,Iso 2 GM/50 ML PIGGYBACK IV (17:47)
[2023-08-31] MEDS: 0.9 % Sodium Chloride Flush 3 ML SYRINGE IVFLUSH ×2 (17:48→19:36)
[2023-08-31 18:13] LABS: Glucose, Whole Blood 201 mg/dL (60-115)
[2023-08-31] MEDS: Lactulose 20 GM/30 ML SOLUTION PO (19:31)
[2023-08-31] MEDS: Docusate Sodium 100 MG CAPSULE PO (19:31)
[2023-08-31 20:18] LABS: Glucose, Whole Blood 143 mg/dL (60-115)
[2023-09-01] VITALS (9 sets, daily range): BP systolic 128–193; BP diastolic 68–92; PULSE 82–100; RESP 16–18; TEMP 36.1–36.7; O2SAT 94–98
[2023-09-01] MEDS: hydrOXYzine HCL 25 MG TABLET PO (00:35)
[2023-09-01] MEDS: oxyCODONE HCl Immed Release 5 MG TABLET PO ×2 (00:37→07:45)
[2023-09-01] MEDS: HYDROmorphone HCl 1 MG/ML SYRINGE IVPUSH ×3 (03:34→22:19)
--- NOTE | 2023-09-01 03:35 | MHC.PIE ---
p; pt in room crying in pain, note; pt reports pain meds given (dilaudid 0.5 and oxy 5 did little for pain ) i; dr ng notified. new order one time dose dilaudid 1 mg iv now e; will cont to monitor
[2023-09-01] MEDS: HYDROmorphone HCl 1 MG/ML SYRINGE 0.5 MG IVPUSH ×2 (05:18→09:12)
[2023-09-01] MEDS: Omeprazole 40 MG CAPSULE.DR PO ×2 (05:21→16:08)
--- NOTE | 2023-09-01 05:42 | PC.NURSE ---
2300 pt bladder scanned for less than 150. pt reported no urge to urinate. 0530. pt bladder scanned for over 500. pt reports urge to urinate, pt incourage to get up and on to commode with pt able to urinate over 500 onto commode.
[2023-09-01] MEDS: lisinopriL 40 MG TABLET PO (07:44)
[2023-09-01] MEDS: Docusate Sodium 100 MG CAPSULE PO ×2 (07:44→20:30)
[2023-09-01] MEDS: Atorvastatin Calcium 40 MG TABLET PO (07:45)
[2023-09-01] MEDS: hydroCHLOROthiazide 50 MG TABLET PO (07:45)
[2023-09-01] MEDS: amLODIPine Besylate 10 MG TABLET PO (07:45)
[2023-09-01] MEDS: Cholecalciferol (Vitamin D3) 25 MCG TABLET 50 MCG PO (07:45)
[2023-09-01] MEDS: 0.9 % Sodium Chloride Flush 3 ML SYRINGE IVFLUSH ×4 (07:46→21:42)
[2023-09-01 07:55] LABS: Glucose, Whole Blood 146 mg/dL (60-115)
[2023-09-01 08:36] LABS: Hematocrit 28.2 % (37.0-47.0); Hemoglobin 9.2 g/dl (12.0-16.0); Mean Corpuscular HGB Conc 32.6 g/dl (31.0-35.0); Mean Corpuscular Hemoglobin 26.5 pg (27.0-33.0); Mean Corpuscular Volume 81.3 fL (80.0-98.0); Mean Platelet Volume 11.9 fL (9.4-12.3); Platelet Count 222 X10*3/uL (160-400); Red Blood Count 3.47 X10*6/uL (4.20-5.50); Red Cell Distribution Width 12.6 % (11.0-16.0); White Blood Count 9.5 X10*3/uL (4.8-10.8)
[2023-09-01 08:54] LABS: Anion Gap 15 (12-20); Blood Urea Nitrogen 21 mg/dL (9-16); Carbon Dioxide 23 mmol/L (22-29); Chloride 101 mmol/L (96-108); Creatinine Clr Calc Pharmacy 67.7; Estimated Glomerular Filt Rate > 60; Glucose Random 143 mg/dL (60-115); Potassium 4.3 mmol/L (3.3-5.1); Sodium 135 mmol/L (135-145)
--- NOTE | 2023-09-01 09:23 | HO.POSTANES ---
Post Anesthesia Evaluation Post Anesthesia Evaluation Date of Service: 08/31/23 Vital Signs: Vital Signs Temp Pulse Resp BP Pulse Ox O2 Del Method 09/01/23 08:00 98.1 F 83 18 193/92 H 97 Room Air 09/01/23 07:45 193/92 H 09/01/23 07:45 193/92 H 09/01/23 07:44 193/92 H 09/01/23 03:10 97.4 F 85 16 170/80 H 97 Room Air 08/31/23 23:07 97.3 F 85 19 166/81 H 98 Room Air Anesthesia: General Mental Status: Awake Pain Control: Satisfactory (no block done due to risk of compartment syndrome on this type of fracture, anticipated pain post op, relieved with ,eds.) Nausea/Vomiting: None Hydration: Adequate Anesthesia-Related Issues: No Anes. Related Issues
--- NOTE | 2023-09-01 09:26 | PM.PNORT ---
Subjective Subjective Date of Service: 09/01/23 Interval history: POD1 s/p right tibial plateau ORIF Patient is resting in bed - Complains of uncontrolled pain No overnight events No additional complaints Physical Exam Vital Signs: Vital Signs: Last Vital Signs Temp 98.1 F 09/01/23 08:00 Pulse 83 09/01/23 08:00 Resp 18 09/01/23 08:00 BP 193/92 H 09/01/23 08:00 Pulse Ox 97 09/01/23 08:00 O2 Del Method Room Air 09/01/23 08:00 O2 Flow Rate 1 08/31/23 16:44 BMI result Body Mass Index 29.1 Const: General: cooperative, healthy appearing and no acute distress Resp: Effort & Inspection: normal respiratory effort and able to speak in complete sentences Cardio: Rate: regular rate Peripheral pulses: Peripheral pulses 2+ throughout GI: Palpation (GI): Soft to palpation Skin: Lesions: no lesions Rashes: no rashes Extrem: Other: Right lower extremity compartments are soft and compressible. Dressing is c/d/i. Able to dorsi/plantar flex slightly. Sensation intact. Pedal pulse intact. Procedures Date of Service Date of Service: 09/01/23 Progress Note: A&P Assessment and plan (1) Type 1 diabetes mellitus: Status: Acute (2) Closed tibia fracture: Status: Acute Assessment and Plan: Continue pain mgmnt Begin Lovenox for dvt ppx begin PT for RLE tibial plateau ORIF - [facility] Dispo planning-Pending PT eval, pain mgmnt - medications adjusted Time Spent With Patient Time: Total time managing care of this patient today ____ minutes. Quality Stroke Does the patient have a stroke diagnosis?: No VTE Prior VTE?: No VTE Risk Level:: Medical - moderate - high VTE Device Contraindication: Treatment Not Indicated VTE Drug Contraindication: N/A - Med Ordered
[2023-09-01] MEDS: Acetaminophen 1,000 MG/100 ML PIGGYBACK 400 MG IV ×3 (09:49→21:42)
--- NOTE | 2023-09-01 10:30 | PC.NURSE ---
Pt endorsing severe pain MD Dominique made aware additional 0.5mg IV Dilaudid ordered, pending pharmacy approval. MD aware pt BP this AM 193/90, BP recheck 181/88, no additional orders at this time.
[2023-09-01] MEDS: HYDROmorphone HCl 0.5 MG/0.5 ML SYRINGE IVPUSH (10:46)
--- NOTE | 2023-09-01 11:20 | P.OP_ITS ---
Operative Note Operative Note Date of Service: 08/31/23 Narrative: Date of Service: 08/31/23 Pre-op diagnosis: Right tibial plateau fracture Post-op diagnosis: same Procedure: ORIF right tibial plateau Implants: Ana Tibial plateau locking plate Hydroset bone substitute 10 cc Surgeon: Houston Flores MD Anesthesia: GETA and local Was an Lead Worker Of Housekeeping [employer] used for this Procedure?: Yes Lead Worker Of Housekeeping [employer] Laundry: Tracey Soriano Estimated blood loss (mL): 20 Tourniquet time (min): 65 IV fluids (mL): 1,200 Pathology: none sent Condition: stable Disposition: PACU Patient was brought to the operating room and placed supine on the surgical table. He was prepped and draped in standard sterile fashion and a time out was called to identify proper site, proper procedure and IV antibiotics per weight were administered. I began by exsanguinating the limb. I then made a curvilinear incision over the ITB extending distally over the joint line and arching anteriorly over Gerdy's tubercle. Full thickness skin flaps were developed and the ITB was incised in line with the skin incision. The capsule was identified and then incised releasing hematogenous fluid. The coronal ligaments were transected and the lateral meniscus was tagged and retracted proximally. There was a split lateral plateau fracture with posteromedial depression.. I elevated the ITB off of Gerdy's tubercle and lateral and distal to this I made a small cortical window and placed a tamp through this. Under both radiographic and dire ct visualization I tamped up the articular surface until I was satisfied that the articular anatomy was as closely reproduced as possible. I then mixed 10 ml of Hydroset and injected this intoh the metaphyseal portion of the fracture. I confirmed that this remained intra-osseous both visually and with flouro guidance. Once this was dry a lateral locking plate was selected and then placed. Using standard AO technique my proximal locking screws and distal non- locking cortical screws were placed. Biplanar fluro was used to confirm fracture reduction and hardware alignment. Once I was satisfied with both final fluorscopic images were taken. The tourniquet was then let down and there was no brisk bleeding. The anterior compartment fascia was left open. A layered closure was performed with the meniscus repaired to the capsule laterally and then the ITB and then skin with absorbable subq and the maurisio. Sterile dressings were applies and a hinged knee brace as well. Patient was extubated and brought to the recovery room in stable condition. There were no known complications.
--- NOTE | 2023-09-01 11:37 | HO.PM.IMPN ---
Subjective Subjective Date of Service: 09/01/23 Interval History: f/u on R tibia plateau fx, surgery done yesterday, having lots of pain in the knee and could not sleep well Physical Exam Vital Signs: Vital Signs: Last Vital Signs Temp 98.1 F 09/01/23 08:00 Pulse 83 09/01/23 08:00 Resp 18 09/01/23 08:00 BP 181/88 H 09/01/23 10:22 Pulse Ox 97 09/01/23 08:00 O2 Del Method Room Air 09/01/23 08:00 O2 Flow Rate 1 08/31/23 16:44 BMI result Body Mass Index 29.1 General: AO X 3, no acute distress Resp: CTA bilateral CVS: S1,S2,RRR GI: +BS, NT, no distention Skin: No rash MSK imobilized right lower ext Neuro: motor grossly intact Psych: appropriate affect Objective Data Active Medications Amlodipine Besylate (Amlodipine Besylate 10 Mg Tablet) 10 mg PO DAILY [facility]; Protocol Last Admin: 09/01/23 07:45 Dose: 10 mg Documented By: WARREN Atorvastatin Calcium (Atorvastatin Calcium 40 Mg Tablet) 40 mg PO DAILY [facility] Last Admin: 09/01/23 07:45 Dose: 40 mg Documented By: WARREN Diphenhydramine HCl (Diphenhydramine Hcl 50 Mg/Ml Vial) 25 mg IVPUSH Q6H PRN PRN Reason: Itching Last Admin: 08/30/23 09:56 Dose: 25 mg Documented By: ALINA Docusate Sodium (Docusate Sodium 100 Mg Capsule) 100 mg PO BID [facility] Last Admin: 09/01/23 07:44 Dose: 100 mg Documented By: WARREN Enoxaparin Sodium (Enoxaparin Sodium 40 Mg/0.4 Ml Syringe) 40 mg SUBCUT Q24H [facility] Gabapentin (Gabapentin 100 Mg Capsule) 100 mg PO BEDTIME [facility] Last Admin: 08/31/23 19:34 Dose: Not Given Documented By: ELLE Non-Admin Reason: Patient Refused Hydrochlorothiazide (Hydrochlorothiazide 50 Mg Tablet) 50 mg PO DAILY [facility] Last Admin: 09/01/23 07:45 Dose: 50 mg Documented By: WARREN Hydromorphone HCl (Hydromorphone Hcl 1 Mg/Ml Syringe) 0.5 mg IVPUSH Q4H PRN; Protocol PRN Reason: Pain, Severe (Pain Scale 7-10) Last Admin: 09/01/23 09:12 Dose: 0.5 mg Documented By: WARREN Hydroxyzine HCl (Hydroxyzine Hcl 25 Mg Tablet) 25 mg PO DAILY PRN PRN Reason: anxiety Last Admin: 09/01/23 00:35 Dose: 25 mg Documented By: ELLE Acetaminophen ([facility]) 1,000 mg in 100 mls @ 400 mls/hr IV Q6H [facility] Stop: 09/02/23 03:29 Last Infusion: 09/01/23 10:04 Dose: Infused Documented By: WARREN Insulin Glargine (Insulin Glargine,Hum.Rec.Anlog 100 Unit/Ml 10 Ml Vial) 34 unit SUBCUT DAILY PRN PRN Reason: Insulin Pump Backup Insulin Pump (Patient Own (Subcutaneous Insulin Pump)) 1 each SUBCUT QIDACHS [facility]; Protocol Last Admin: 09/01/23 09:12 Dose: 1 each Documented By: WARREN Lactulose (Lactulose 20 Gm/30 Ml Solution) 20 gm PO BID [facility] Last Admin: 09/01/23 08:13 Dose: Not Given Documented By: WARREN Non-Admin Reason: Patient Refused Lisinopril (Lisinopril 40 Mg Tablet) 40 mg PO DAILY [facility]; Protocol Last Admin: 09/01/23 07:44 Dose: 40 mg Documented By: WARREN Non-Formulary Medication (Linaclotide [Linzess]) 145 mcg PO DAILY [facility] Non-Formulary Medication (Medroxyprogesterone) 10 mg PO DAILY [facility] Omeprazole (Omeprazole 40 Mg Capsule.Dr) 40 mg PO BID@0630,1630 [facility] Last Admin: 09/01/23 05:21 Dose: 40 mg Documented By: ELLE Oxycodone HCl (Oxycodone Hcl Immed Release 5 Mg Tablet) 10 mg PO Q4H PRN PRN Reason: Pain, Moderate(Pain Scale 4-6) Prochlorperazine Edisylate (Prochlorperazine Edisylate 10 Mg/2 Ml Vial) 5 mg IV Q6H PRN PRN Reason: Nausea and Vomiting Last Admin: 08/30/23 15:06 Dose: 5 mg Documented By: ALINA Sodium Chloride (0.9 % Sodium Chloride Flush 3 Ml Syringe) [facility] Last Admin: 09/01/23 07:46 Dose: 3 ml Documented By: WARREN Sodium Chloride (0.9 % Sodium Chloride Flush 3 Ml Syringe) 3 [facility] Last Admin: 09/01/23 08:12 Dose: Not Given Documented By: WARREN Non-Admin Reason: Duplicate Order Venlafaxine HCl (Venlafaxine Hcl 25 Mg Tablet) 75 mg PO DAILY [facility] Last Admin: 09/01/23 07:46 Dose: Not Given Documented By: WARREN Non-Admin Reason: Patient Refused Vitamin D (Cholecalciferol (Vitamin D3) 25 Mcg Tablet) 50 mcg PO DAILY [facility] Last Admin: 09/01/23 07:45 Dose: 50 mcg Documented By: WARREN Labs 09/01/23 08:11 09/01/23 08:11 Labs: Laboratory Results - last 24 hr 08/31/23 08/31/23 09/01/23 16:40 20:09 07:50 MCV MCH MCHC RDW Plt Count MPV Absolute Nucleated RBC Nucleated RBC % (auto) Anion Gap Estim Creat Clear Calc Estimated GFR POC Glucose 201 H 143 H 146 H Random Glucose Calcium 09/01/23 08:11 MCV 81.3 MCH 26.5 L MCHC 32.6 RDW 12.6 Plt Count 222 MPV 11.9 Absolute Nucleated RBC 0.000 Nucleated RBC % (auto) 0.0 Anion Gap 15 Estim Creat Clear Calc 67.7 Estimated GFR > 60 POC Glucose Random Glucose 143 H Calcium 9.0 Assessment and Plan (1) Hyperlipidemia: Status: Acute (2) Essential hypertension: Status: Acute (3) Type 1 diabetes mellitus: Status: Acute (4) Closed tibia fracture: Status: Acute Plan 30/ w T1DM, HTN here with tibia plateau fx R tibia plateau fracture -s/p surgical repair on 08/30 -pain control with dilaudid and transition to PO oxy and APAP - [id number]--soxf management with insulin pump with back up Lantus, POC check per hospital dm protocol HTN--continue Lisinopril and HCTZ, BP higher likely d/t pain, pain meds adjusted HLD--lipitor anemia--chronic and stable, Mood disorder--effexor GERD omeprazol dvt p heparin full code need for inpatient: pain control with IV narc for tibia plateau fracture and expert assessment for surgical repair PT eval and ultimately home Quality Stroke Does the patient have a stroke diagnosis?: No VTE Prior VTE?: No VTE Risk Level:: Medical - moderate - high VTE Device Contraindication: Treatment Not Indicated VTE Drug Contraindication: N/A - Med Ordered
[2023-09-01 11:40] LABS: Glucose, Whole Blood 132 mg/dL (60-115)
[2023-09-01] MEDS: oxyCODONE HCl Immed Release 5 MG TABLET 10 MG PO ×2 (12:06→20:30)
[2023-09-01] MEDS: Enoxaparin Sodium 40 MG/0.4 ML SYRINGE SUBCUT (13:22)
[2023-09-01 16:21] LABS: Glucose, Whole Blood 166 mg/dL (60-115)
[2023-09-01 20:17] LABS: Glucose, Whole Blood 210 mg/dL (60-115)
[2023-09-01] MEDS: Lactulose 20 GM/30 ML SOLUTION PO (20:30)
[2023-09-01] MEDS: Gabapentin 100 MG CAPSULE PO (20:30)
[2023-09-02] VITALS (7 sets, daily range): BP systolic 104–133; BP diastolic 61–76; PULSE 77–100; RESP 16–18; TEMP 36–36.5; O2SAT 96–99
[2023-09-02] MEDS: oxyCODONE HCl Immed Release 5 MG TABLET 10 MG PO ×4 (01:39→16:46)
[2023-09-02] MEDS: Acetaminophen 1,000 MG/100 ML PIGGYBACK 400 MG IV (03:04)
[2023-09-02] MEDS: HYDROmorphone HCl 1 MG/ML SYRINGE IVPUSH ×4 (04:26→23:40)
--- NOTE | 2023-09-02 05:22 | PC.NURSE ---
throughout the night pt c/o pain 6-9/10 and numbness on right sole, provide by eMar, PRN oxycodone, dilaudid, and scheduled gabapentin. provided compression boots on left leg, pt refused for the right leg. ice pack on right knee. two times OOB to bedside commode. voided well greater than 700 mL, pt changed pump herself on left posterior upper arm, offered for help. will cont. monitor.
[2023-09-02] MEDS: Omeprazole 40 MG CAPSULE.DR PO ×2 (06:02→15:58)
--- NOTE | 2023-09-02 06:03 | PC.NURSE ---
pt changed the insulin pump to RLQ.
[2023-09-02 07:41] LABS: Glucose, Whole Blood 188 mg/dL (60-115)
[2023-09-02] MEDS: lisinopriL 40 MG TABLET PO (07:50)
[2023-09-02] MEDS: Docusate Sodium 100 MG CAPSULE PO ×2 (07:50→20:43)
[2023-09-02] MEDS: amLODIPine Besylate 10 MG TABLET PO (07:50)
[2023-09-02] MEDS: Atorvastatin Calcium 40 MG TABLET PO (07:50)
[2023-09-02] MEDS: hydroCHLOROthiazide 50 MG TABLET PO (07:50)
[2023-09-02] MEDS: Cholecalciferol (Vitamin D3) 25 MCG TABLET 50 MCG PO (07:51)
[2023-09-02] MEDS: 0.9 % Sodium Chloride Flush 3 ML SYRINGE IVFLUSH ×4 (07:53→20:45)
--- NOTE | 2023-09-02 08:40 | P.PNOP_ITS ---
Subjective Subjective Date of Service: 09/02/23 Interval history: POD2 s/p right tibial plateau ORIF Patient is resting in bed - Complains of uncontrolled pain No overnight events No additional complaints Physical Exam Vital Signs: Vital Signs: Last Vital Signs Temp 97.0 F 09/02/23 07:29 Pulse 88 09/02/23 07:29 Resp 16 09/02/23 07:29 BP 122/72 09/02/23 07:29 Pulse Ox 96 09/02/23 07:29 O2 Del Method Room Air 09/02/23 07:29 O2 Flow Rate 1 08/31/23 16:44 BMI result Body Mass Index 29.1 Const: General: cooperative, healthy appearing and no acute distress Resp: Effort & Inspection: normal respiratory effort and able to speak in complete sentences Cardio: Rate: regular rate Peripheral pulses: Peripheral pulses 2+ throughout GI: Palpation (GI): Soft to palpation Skin: Lesions: no lesions Rashes: no rashes Extrem: Other: Right lower extremity compartments are soft and compressible. Dressing is c/d/i. Able to dorsi/plantar flex slightly. Sensation intact. Pedal pulse intact. Procedures Date of Service Date of Service: 09/02/23 Progress Note: A&P Assessment and plan (1) Type 1 diabetes mellitus: Status: Acute (2) Closed tibia fracture: Status: Acute Assessment and Plan: Continue pain mgmnt Begin Lovenox for dvt ppx begin PT for RLE tibial plateau ORIF - [facility] Dispo planning-Pending PT eval, pain mgmnt - medications adjusted Time Spent With Patient Time: Total time managing care of this patient today ____ minutes. Quality Stroke Does the patient have a stroke diagnosis?: No VTE Prior VTE?: No VTE Risk Level:: Medical - moderate - high VTE Device Contraindication: Treatment Not Indicated VTE Drug Contraindication: N/A - Med Ordered
--- NOTE | 2023-09-02 09:46 | P.PNIM_ITS ---
Subjective Subjective Date of Service: 09/02/23 Interval History: f/u on R tibia plateau fx, surgery done 08/30, still have not achieved acceptable pain control Physical Exam 2 Vital Signs: Vital Signs: Last Vital Signs Temp 97.0 F 09/02/23 07:29 Pulse 88 09/02/23 07:29 Resp 16 09/02/23 07:29 BP 122/72 09/02/23 07:29 Pulse Ox 96 09/02/23 07:29 O2 Del Method Room Air 09/02/23 07:29 O2 Flow Rate 1 08/31/23 16:44 BMI result Body Mass Index 29.1 Const: Other: General: AO X 3, no acute distress Resp: CTA bilateral CVS: S1,S2,RRR GI: +BS, NT, no distention Skin: No rash MSK imobilized right lower ext Neuro: motor grossly intact Psych: appropriate affect Objective Data Active Medications Amlodipine Besylate (Amlodipine Besylate 10 Mg Tablet) 10 mg PO DAILY [facility]; Protocol Last Admin: 09/02/23 07:50 Dose: 10 mg Documented By: SHARON Atorvastatin Calcium (Atorvastatin Calcium 40 Mg Tablet) 40 mg PO DAILY [facility] Last Admin: 09/02/23 07:50 Dose: 40 mg Documented By: SHARON Diphenhydramine HCl (Diphenhydramine Hcl 50 Mg/Ml Vial) 25 mg IVPUSH Q6H PRN PRN Reason: Itching Last Admin: 08/30/23 09:56 Dose: 25 mg Documented By: ALINA Docusate Sodium (Docusate Sodium 100 Mg Capsule) 100 mg PO BID [facility] Last Admin: 09/02/23 07:50 Dose: 100 mg Documented By: SHARON Enoxaparin Sodium (Enoxaparin Sodium 40 Mg/0.4 Ml Syringe) 40 mg SUBCUT Q24H [facility] Last Admin: 09/01/23 13:22 Dose: 40 mg Documented By: SHANTELLE Gabapentin (Gabapentin 100 Mg Capsule) 100 mg PO BEDTIME [facility] Last Admin: 09/01/23 20:30 Dose: 100 mg Documented By: MIRYAM Hydrochlorothiazide (Hydrochlorothiazide 50 Mg Tablet) 50 mg PO DAILY [facility] Last Admin: 09/02/23 07:50 Dose: 50 mg Documented By: SHARON Hydromorphone HCl (Hydromorphone Hcl 1 Mg/Ml Syringe) 1 mg IVPUSH Q6H PRN; Protocol PRN Reason: Pain, Severe (Pain Scale 7-10) Last Admin: 09/02/23 04:26 Dose: 1 mg Documented By: MIRYAM Hydroxyzine HCl (Hydroxyzine Hcl 25 Mg Tablet) 25 mg PO DAILY PRN PRN Reason: anxiety Last Admin: 09/01/23 00:35 Dose: 25 mg Documented By: ELLE Insulin Glargine (Insulin Glargine,Hum.Rec.Anlog 100 Unit/Ml 10 Ml Vial) 34 unit SUBCUT DAILY PRN PRN Reason: Insulin Pump Backup Insulin Pump (Patient Own (Subcutaneous Insulin Pump)) 1 each SUBCUT QIDACHS [facility]; Protocol Last Admin: 09/02/23 08:52 Dose: 1 each Documented By: WARREN Lactulose (Lactulose 20 Gm/30 Ml Solution) 20 gm PO BID [facility] Last Admin: 09/02/23 07:54 Dose: Not Given Documented By: SHARON Non-Admin Reason: Patient Refused Lisinopril (Lisinopril 40 Mg Tablet) 40 mg PO DAILY [facility]; Protocol Last Admin: 09/02/23 07:50 Dose: 40 mg Documented By: SHARON Non-Formulary Medication (Linaclotide [Linzess]) 145 mcg PO DAILY [facility] Non-Formulary Medication (Medroxyprogesterone) 10 mg PO DAILY [facility] Omeprazole (Omeprazole 40 Mg Capsule.Dr) 40 mg PO BID@0630,1630 [facility] Last Admin: 09/02/23 06:02 Dose: 40 mg Documented By: MIRYAM Oxycodone HCl (Oxycodone Hcl Immed Release 5 Mg Tablet) 10 mg PO Q4H PRN PRN Reason: Pain, Moderate(Pain Scale 4-6) Last Admin: 09/02/23 07:50 Dose: 10 mg Documented By: SHARON Prochlorperazine Edisylate (Prochlorperazine Edisylate 10 Mg/2 Ml Vial) 5 mg IV Q6H PRN PRN Reason: Nausea and Vomiting Last Admin: 08/30/23 15:06 Dose: 5 mg Documented By: ALINA Sodium Chloride (0.9 % Sodium Chloride Flush 3 Ml Syringe) 3 ml IVFLUSH QSHIFT [facility] Last Admin: 09/02/23 07:53 Dose: 3 ml Documented By: SHARON Sodium Chloride (0.9 % Sodium Chloride Flush 3 Ml Syringe) 3 ml IVFLUSH QSINFT [facility] Last Admin: 09/02/23 07:51 Dose: Not Given Documented By: SHARON Non-Admin Reason: Duplicate Order Venlafaxine HCl (Venlafaxine Hcl 25 Mg Tablet) 75 mg PO DAILY [facility] Last Admin: 09/02/23 07:54 Dose: Not Given Documented By: SHARON Non-Admin Reason: Patient Refused Vitamin D (Cholecalciferol (Vitamin D3) 25 Mcg Tablet) 50 mcg PO DAILY [facility] Last Admin: 09/02/23 07:51 Dose: 50 mcg Documented By: SHARON Labs 09/01/23 08:11 09/01/23 08:11 Labs: Laboratory Results - last 24 hr 09/01/23 09/01/23 09/01/23 11:35 16:08 20:14 POC Glucose 132 H 166 H 210 H 09/02/23 07:32 POC Glucose 188 H Assessment and Plan (1) Hyperlipidemia: Status: Acute (2) Essential hypertension: Status: Acute (3) Type 1 diabetes mellitus: Status: Acute (4) Closed tibia fracture: Status: Acute Plan 32/ w T1DM, HTN here with tibia plateau fx R tibia plateau fracture -s/p surgical repair on 08/30 -pain control with dilaudid PRN, adding long acting oxycontin 10 bid, PRN oxycodone as well - R4HU--ghir management with insulin pump with back up Lantus, POC check per hospital dm protocol, pump is function and she has enough insulin HTN--continue Lisinopril and HCTZ, BP is controlled HLD--lipitor anemia--chronic and stable, Mood disorder--effexor GERD omeprazole dvt Lovenox full code need for inpatient: pain control with IV narc for tibia plateau fracture and expert assessment for surgical repair PT eval and ultimately home Quality Stroke Does the patient have a stroke diagnosis?: No VTE Prior VTE?: No VTE Risk Level:: Medical - moderate - high VTE Device Contraindication: Treatment Not Indicated VTE Drug Contraindication: N/A - Med Ordered
[2023-09-02] MEDS: oxyCODONE HCl ER 10 MG TAB.ER.12H PO ×2 (10:43→20:44)
[2023-09-02 11:14] LABS: Glucose, Whole Blood 206 mg/dL (60-115)
--- NOTE | 2023-09-02 14:31 | MHC.CM.PN ---
CM MET WITH PT TO DISCUSS DC PLANS SHE IS AWARE PT HAS CLEARED HER TO RETURN HOME SHE SAYS HER MOTHER WILL BE HOME TOMORROW, SHE WILL FIND OUT WHAT TIME TODAY SHE IS AGREEABLE TO HOME PT/OT [facility] WILL START CARE ON TUESDAY PLAN IS FOR PT TO DC HOME TOMORROW BLS TRANSPORT
[2023-09-02] MEDS: Enoxaparin Sodium 40 MG/0.4 ML SYRINGE SUBCUT (15:55)
[2023-09-02 16:24] LABS: Glucose, Whole Blood 246 mg/dL (60-115)
[2023-09-02 20:33] LABS: Glucose, Whole Blood 177 mg/dL (60-115)
[2023-09-02] MEDS: Lactulose 20 GM/30 ML SOLUTION PO (20:43)
[2023-09-02] MEDS: Gabapentin 100 MG CAPSULE PO (20:44)
[2023-09-03] VITALS (8 sets, daily range): BP systolic 99–126; BP diastolic 55–73; PULSE 62–96; RESP 16–18; TEMP 36.2–36.8; O2SAT 97–99
[2023-09-03] MEDS: HYDROmorphone HCl 1 MG/ML SYRINGE IVPUSH (05:22)
[2023-09-03] MEDS: Omeprazole 40 MG CAPSULE.DR PO ×2 (05:22→15:44)
[2023-09-03 07:39] LABS: Glucose, Whole Blood 259 mg/dL (60-115)
[2023-09-03] MEDS: Lactulose 20 GM/30 ML SOLUTION PO (08:04)
[2023-09-03] MEDS: oxyCODONE HCl ER 10 MG TAB.ER.12H PO ×2 (08:05→21:06)
[2023-09-03] MEDS: Docusate Sodium 100 MG CAPSULE PO ×2 (08:05→21:06)
[2023-09-03] MEDS: amLODIPine Besylate 10 MG TABLET PO (08:05)
[2023-09-03] MEDS: Cholecalciferol (Vitamin D3) 25 MCG TABLET 50 MCG PO (08:06)
[2023-09-03] MEDS: 0.9 % Sodium Chloride Flush 3 ML SYRINGE IVFLUSH ×4 (08:06→21:58)
[2023-09-03] MEDS: hydroCHLOROthiazide 50 MG TABLET PO (08:06)
[2023-09-03] MEDS: Atorvastatin Calcium 40 MG TABLET PO (08:06)
[2023-09-03] MEDS: lisinopriL 40 MG TABLET PO (08:06)
[2023-09-03] MEDS: Acetaminophen 325 MG TABLET 650 MG PO ×3 (08:14→23:30)
--- NOTE | 2023-09-03 08:36 | HO.PM.IMPN ---
Subjective Subjective Date of Service: 09/03/23 Interval History: still c/o pain, 11/18 Physical Exam Vital Signs: Vital Signs: Last Vital Signs Temp 97.4 F 09/03/23 03:18 Pulse 94 09/03/23 07:49 Resp 18 09/03/23 07:49 BP 114/69 09/03/23 07:49 Pulse Ox 98 09/03/23 07:49 O2 Del Method Room Air 09/03/23 07:49 O2 Flow Rate 1 08/31/23 16:44 BMI result Body Mass Index 29.1 no change, imobolizer in place, some swelling around knee Objective Data Active Medications Acetaminophen (Acetaminophen 325 Mg Tablet) 650 mg PO Q4H PRN PRN Reason: Pain, Mild (Pain Scale 1-3) Last Admin: 09/03/23 08:14 Dose: 650 mg Documented By: ALFREDO Amlodipine Besylate (Amlodipine Besylate 10 Mg Tablet) 10 mg PO DAILY [facility]; Protocol Last Admin: 09/03/23 08:05 Dose: 10 mg Documented By: ALFREDO Atorvastatin Calcium (Atorvastatin Calcium 40 Mg Tablet) 40 mg PO DAILY [facility] Last Admin: 09/03/23 08:06 Dose: 40 mg Documented By: ALFREDO Diphenhydramine HCl (Diphenhydramine Hcl 50 Mg/Ml Vial) 25 mg IVPUSH Q6H PRN PRN Reason: Itching Last Admin: 08/30/23 09:56 Dose: 25 mg Documented By: ALINA Docusate Sodium (Docusate Sodium 100 Mg Capsule) 100 mg PO BID [facility] Last Admin: 09/03/23 08:05 Dose: 100 mg Documented By: ALFREDO Enoxaparin Sodium (Enoxaparin Sodium 40 Mg/0.4 Ml Syringe) 40 mg SUBCUT Q24H [facility] Last Admin: 09/02/23 15:55 Dose: 40 mg Documented By: WARREN Gabapentin (Gabapentin 100 Mg Capsule) 100 mg PO BEDTIME [facility] Last Admin: 09/02/23 20:44 Dose: 100 mg Documented By: MIRYAM Hydrochlorothiazide (Hydrochlorothiazide 50 Mg Tablet) 50 mg PO DAILY [facility] Last Admin: 09/03/23 08:06 Dose: 50 mg Documented By: ALFREDO Hydroxyzine HCl (Hydroxyzine Hcl 25 Mg Tablet) 25 mg PO DAILY PRN PRN Reason: anxiety Last Admin: 09/01/23 00:35 Dose: 25 mg Documented By: ELLE Insulin Glargine (Insulin Glargine,Hum.Rec.Anlog 100 Unit/Ml 10 Ml Vial) 34 unit SUBCUT DAILY PRN PRN Reason: Insulin Pump Backup Insulin Pump (Patient Own (Subcutaneous Insulin Pump)) 1 each SUBCUT QIDACHS [facility]; Protocol Last Admin: 09/03/23 08:04 Dose: 1 each Documented By: ALFREDO Lactulose (Lactulose 20 Gm/30 Ml Solution) 20 gm PO BID [facility] Last Admin: 09/03/23 08:04 Dose: 20 gm Documented By: ALFREDO Lisinopril (Lisinopril 40 Mg Tablet) 40 mg PO DAILY [facility]; Protocol Last Admin: 09/03/23 08:06 Dose: 40 mg Documented By: ALFREDO Non-Formulary Medication (Linaclotide [Linzess]) 145 mcg PO DAILY [facility] Non-Formulary Medication (Medroxyprogesterone) 10 mg PO DAILY [facility] Omeprazole (Omeprazole 40 Mg Capsule.Dr) 40 mg PO BID@0630,1630 [facility] Last Admin: 09/03/23 05:22 Dose: 40 mg Documented By: MIRYAM Oxycodone HCl (Oxycodone Hcl Immed Release 5 Mg Tablet) 10 mg PO Q4H PRN PRN Reason: Pain, Moderate(Pain Scale 4-6) Last Admin: 09/02/23 16:46 Dose: 10 mg Documented By: WARREN Oxycodone HCl (Oxycodone Hcl Er 10 Mg Tab.Er.12h) 10 mg PO BID [facility] Last Admin: 09/03/23 08:05 Dose: 10 mg Documented By: ALFREDO Prochlorperazine Edisylate (Prochlorperazine Edisylate 10 Mg/2 Ml Vial) 5 mg IV Q6H PRN PRN Reason: Nausea and Vomiting Last Admin: 08/30/23 15:06 Dose: 5 mg Documented By: ALINA Sodium Chloride (0.9 % Sodium Chloride Flush 3 Ml Syringe) 3 ml IVFLUSH QSHIFT [facility] Last Admin: 09/03/23 08:06 Dose: 3 ml Documented By: ALFREDO Sodium Chloride (0.9 % Sodium Chloride Flush 3 Ml Syringe) 3 ml IVFLUSH QSHIFT [facility] Last Admin: 09/03/23 08:07 Dose: Not Given Documented By: ALFREDO Non-Admin Reason: Duplicate Order Venlafaxine HCl (Venlafaxine Hcl 25 Mg Tablet) 75 mg PO DAILY [facility] Last Admin: 09/03/23 08:07 Dose: Not Given Documented By: ALFREDO Non-Admin Reason: Patient Refused Vitamin D (Cholecalciferol (Vitamin D3) 25 Mcg Tablet) 50 mcg PO DAILY [facility] Last Admin: 09/03/23 08:06 Dose: 50 mcg Documented By: ALFREDO Labs 09/01/23 08:11 09/01/23 08:11 Labs: Laboratory Results - last 24 hr 09/02/23 09/02/23 09/02/23 11:05 16:15 20:27 POC Glucose 206 H 246 H 177 H 09/03/23 07:35 POC Glucose 259 H Assessment and Plan (1) Hyperlipidemia: Status: Acute (2) Essential hypertension: Status: Acute (3) Type 1 diabetes mellitus: Status: Acute (4) Closed tibia fracture: Status: Acute Plan / w T1DM, HTN here with tibia plateau fx R tibia plateau fracture -s/p surgical repair on 08/30 -transition to oral pain meds with oxycontin and oxycodon, stop dilausidl [id number]--ahvx management with insulin pump with back up Lantus, POC check per hospital dm protocol, pump is function and she has enough insulin HTN--continue Lisinopril and HCTZ, BP is controlled HLD--lipitor anemia--chronic and stable, Mood disorder--effexor GERD omeprazole dvt Lovenox full code need for inpatient: pain control with IV narc for tibia plateau fracture and expert assessment for surgical repair PT redcommend home, will try for today Quality Stroke Does the patient have a stroke diagnosis?: No VTE Prior VTE?: No VTE Risk Level:: Medical - moderate - high VTE Device Contraindication: Treatment Not Indicated VTE Drug Contraindication: N/A - Med Ordered
[2023-09-03 11:16] LABS: Glucose, Whole Blood 225 mg/dL (60-115)
[2023-09-03] MEDS: oxyCODONE HCl Immed Release 5 MG TABLET 10 MG PO ×4 (11:21→23:45)
[2023-09-03] MEDS: Sodium Phosphate,Mono-Dibasic 133 ML ENEMA PR (12:42)
[2023-09-03 12:45] LABS: Glucose, Whole Blood 259 mg/dL (60-115)
[2023-09-03] MEDS: hydrOXYzine HCL 25 MG TABLET PO (14:38)
[2023-09-03] MEDS: Enoxaparin Sodium 40 MG/0.4 ML SYRINGE SUBCUT (14:39)
[2023-09-03 16:17] LABS: Glucose, Whole Blood 339 mg/dL (60-115)
[2023-09-03 17:28] LABS: Anion Gap 17 (12-20); Carbon Dioxide 22 mmol/L (22-29); Chloride 100 mmol/L (96-108); Potassium 4.2 mmol/L (3.3-5.1); Sodium 135 mmol/L (135-145)
[2023-09-03 20:24] LABS: Glucose, Whole Blood 243 mg/dL (60-115)
--- NOTE | 2023-09-03 21:03 | PM.PNORT ---
Subjective Subjective Date of Service: 09/03/23 Interval history: POD3 s/p right tibial plateau ORIF Patient is resting in bed - Complains of uncontrolled pain No overnight events No additional complaints Physical Exam Vital Signs: Vital Signs: Last Vital Signs Temp 97.2 F 09/03/23 19:48 Pulse 96 09/03/23 19:48 Resp 18 09/03/23 19:48 BP 117/73 09/03/23 19:48 Pulse Ox 99 09/03/23 19:48 O2 Del Method Room Air 09/03/23 19:48 O2 Flow Rate 1 08/31/23 16:44 BMI result Body Mass Index 29.1 Const: General: cooperative, healthy appearing and no acute distress Resp: Effort & Inspection: normal respiratory effort and able to speak in complete sentences Cardio: Rate: regular rate Peripheral pulses: Peripheral pulses 2+ throughout GI: Palpation (GI): Soft to palpation Skin: Lesions: no lesions Rashes: no rashes Extrem: Other: Right lower extremity compartments are soft and compressible. incision c/d/i. Able to dorsi/plantar flex slightly. Sensation intact. Pedal pulse intact. Procedures Date of Service Date of Service: 09/03/23 Progress Note: A&P Assessment and plan (1) Type 1 diabetes mellitus: Status: Acute (2) Closed tibia fracture: Status: Acute Assessment and Plan: Continue pain mgmnt Lovenox for dvt ppx PT for RLE tibial plateau ORIF - [facility]- spoke to PT about exercises for right foot to prevent foot frop --requested night splint for RLE Dispo planning-Pending, pain mgmnt Time Spent With Patient Time: Total time managing care of this patient today ____ minutes. Quality Stroke Does the patient have a stroke diagnosis?: No VTE Prior VTE?: No VTE Risk Level:: Medical - moderate - high VTE Device Contraindication: Treatment Not Indicated VTE Drug Contraindication: N/A - Med Ordered
[2023-09-03] MEDS: Gabapentin 100 MG CAPSULE PO (21:06)
[2023-09-03] MEDS: Melatonin 3 MG TABLET 6 MG PO (23:45)
[2023-09-04 01:59] VITALS: BP 116/74; PULSE 89; RESP 18; TEMP 36.7; O2SAT 99
[2023-09-04] MEDS: oxyCODONE HCl Immed Release 5 MG TABLET 10 MG PO ×2 (03:39→17:34)
[2023-09-04] MEDS: diphenhydrAMINE HCL 50 MG/ML VIAL 25 MG IVPUSH (03:40)
[2023-09-04] MEDS: Omeprazole 40 MG CAPSULE.DR PO ×2 (06:04→16:08)
[2023-09-04 07:29] VITALS: BP 127/78; PULSE 83; RESP 17; TEMP 36.6; O2SAT 98
[2023-09-04 07:45] LABS: Glucose, Whole Blood 113 mg/dL (60-115)
[2023-09-04] MEDS: amLODIPine Besylate 10 MG TABLET PO (08:12)
[2023-09-04] MEDS: lisinopriL 40 MG TABLET PO (08:12)
[2023-09-04] MEDS: hydroCHLOROthiazide 50 MG TABLET PO (08:13)
[2023-09-04] MEDS: oxyCODONE HCl ER 10 MG TAB.ER.12H PO (08:13)
[2023-09-04] MEDS: Docusate Sodium 100 MG CAPSULE PO (08:13)
[2023-09-04] MEDS: Cholecalciferol (Vitamin D3) 25 MCG TABLET 50 MCG PO (08:13)
[2023-09-04] MEDS: Atorvastatin Calcium 40 MG TABLET PO (08:14)
[2023-09-04] MEDS: 0.9 % Sodium Chloride Flush 3 ML SYRINGE IVFLUSH ×2 (08:16→16:10)
[2023-09-04] MEDS: Prochlorperazine Edisylate 10 MG/2 ML VIAL 5 MG IV (08:23)
[2023-09-04] MEDS: Acetaminophen 325 MG TABLET 650 MG PO (11:39)
[2023-09-04 11:41] LABS: Glucose, Whole Blood 170 mg/dL (60-115)
--- NOTE | 2023-09-04 11:47 | PM.PNORT ---
Subjective Subjective Date of Service: 09/04/23 Interval history: POD4 s/p right tibial plateau ORIF Patient is resting in bed - Pain is better controlled today, but patient reports stiffness in her Rt foot and calf. No overnight events No additional complaints Physical Exam Vital Signs: Vital Signs: Last Vital Signs Temp 97.8 F 09/04/23 07:29 Pulse 83 09/04/23 07:29 Resp 17 09/04/23 07:29 BP 127/78 09/04/23 07:29 Pulse Ox 98 09/04/23 07:29 O2 Del Method Room Air 09/04/23 07:29 O2 Flow Rate 1 08/31/23 16:44 BMI result Body Mass Index 29.1 Const: General: cooperative, healthy appearing and no acute distress Resp: Effort & Inspection: normal respiratory effort and able to speak in complete sentences Cardio: Rate: regular rate Peripheral pulses: Peripheral pulses 2+ throughout GI: Palpation (GI): Soft to palpation Skin: Lesions: no lesions Rashes: no rashes Extrem: Other: Right lower extremity compartments are soft and compressible. incision c/d/i. Able to dorsi/plantar flex slightly. Sensation intact. Pedal pulse intact. Patient foot resting in plantar flexion with limited active dorsiflexion. Procedures Date of Service Date of Service: 09/04/23 Progress Note: A&P Assessment and plan (1) Type 1 diabetes mellitus: Status: Acute (2) Closed tibia fracture: Status: Acute Assessment and Plan: Continue pain mgmnt Lovenox for dvt ppx PT for RLE tibial plateau ORIF - [facility]- spoke to PT about exercises for right foot to prevent foot frop --requested night splint for RLE Dispo planning-Pending, pain mgmnt Time Spent With Patient Time: Total time managing care of this patient today ____ minutes. Quality Stroke Does the patient have a stroke diagnosis?: No VTE Prior VTE?: No VTE Risk Level:: Medical - moderate - high VTE Device Contraindication: Treatment Not Indicated VTE Drug Contraindication: N/A - Med Ordered
[2023-09-04 12:00] VITALS: BP 108/66; PULSE 94; RESP 16; TEMP 36.4; O2SAT 99
--- NOTE | 2023-09-04 15:00 | MHC.CM.PN ---
Addendum entered by Delia Josue 09/04/23 15:52: BLS TRANSPORT SCHEDULED FOR 1800 HOURS Original Note: CM MET WITH PT TO DISCUSS DC SHE REPORTS HER MOTHER IS STILL NOT HOME, BUT HER SISTER WILL HELP HER IF NEEDED HER SISTER WILL ALSO GO TO THE PHARMACY FOR HER TODAY SHE SAYS SHE SPOKE TO THE ORTHO PA AND THEY SAID SHE SHOULD ASK FOR A RX FOR A WALKER MESSAGE SENT TO [facility] REQUESTING RX PT WILL DC HOME VIA [facility] AND IS AWARE [facility] WILL PROVIDE SOC ON TUESDAY
[2023-09-04 15:55] VITALS: BP 102/61; PULSE 91; RESP 17; TEMP 36; O2SAT 98
[2023-09-04] MEDS: Enoxaparin Sodium 40 MG/0.4 ML SYRINGE SUBCUT (16:09)
--- NOTE | 2023-09-04 16:30 | W.MHC.F2F ---
Service Date Service Date: 09/04/23 Encounter Date of encounter: 09/04/23 Reasons for Services Signs and symptoms assessed: Fracture knee, not able to walk Reason for physical therapy: home safety and mobility, therapeutic exercises, restore joint function and gait/transfer training Reason for occupational therapy: home safety and mobility, therapeutic exercises, gait/transfer training and ADL training Homebound: Leaving the home is medically contraindicated at this time without the asist of a device and/or another person due th the listed conditions above and below. Reason homebound: unsteady gait / fall risk, fall risk related to blood pressure changes and bedbound/chairbound Homebound supporting statement: Homebound due to fracture right knee, and is not to put weight on the right foot and therefore needs the assistance of another person Certification: Based on the above findings, I certify that this patient is confined to the home and needs intermittent longterm care, physical therapy and/or speech therapy, or continues to need occupational therapy. The patient is under my care, and I have initiated the establishment of the plan of care. The patient will be followed by a physician who will periodically review the plan of care. Time Spent With Patient Time: Total time managing care of this patient today ____ minutes.
[2023-09-04 16:37] LABS: Glucose, Whole Blood 148 mg/dL (60-115)
== END 2023-09-04 18:24 | disposition home or self-care (01) | DRG 313 ==
LOC: HO.ED 04:02 → HO.EDOVER 05:58 → HO.S3 07:37
PROVIDERS: Orthopaedic Surgery; Admitting Provider Internal Medicine; Emergency Provider Emergency Medicine Emergency Medical Services; PCP Family Medicine; Visit Provider Internal Medicine
DX: S82.141A Displaced bicondylar fracture of right tibia, initial encounter for closed fracture (principal); D64.9 Anemia, unspecified; E10.9 Type 1 diabetes mellitus without complications; E78.5 Hyperlipidemia, unspecified; I10 Essential (primary) hypertension; K21.9 Gastro-esophageal reflux disease without esophagitis; Z79.4 Long term (current) use of insulin; W22.8XXA Striking against or struck by other objects, initial encounter; Z96.41 Presence of insulin pump (external) (internal); Z79.899 Other long term (current) drug therapy
CPT/HCPCS: 36415; 73562; 73700; 80048; 80051; 80307; 82947; 84702; 85025; 85027; 97110; 97116; 97162; 97530; 99285; C1713; J0131; J0690; J0737; J1100; J1170; J1200; J1644; J1650; J2250; J2405; J2704; J2795; J3010

== ENCOUNTER → 2023-08-28 05:41 | Outpatient (BNV) | payer OTHER, SELFPAY | PROVIDERS: Admitting Provider Internal Medicine; Emergency Provider Emergency Medicine Emergency Medical Services; PCP Family Medicine; Visit Provider Physician Assistant | DX: S82.101A Unspecified fracture of upper end of right tibia, initial encounter for closed fracture (principal); E10.69 Type 1 diabetes mellitus with other specified complication | CPT/HCPCS: 27535; 99024; 99222; 99232; 99499 ==

== ENCOUNTER → 2023-08-28 05:41 | Outpatient (BNV) | payer OTHER, SELFPAY | PROVIDERS: Admitting Provider Internal Medicine; Emergency Provider Emergency Medicine Emergency Medical Services; PCP Family Medicine; Visit Provider Internal Medicine | DX: S82.201A Unspecified fracture of shaft of right tibia, initial encounter for closed fracture (principal) | CPT/HCPCS: 99222; 99232; 99239; 99499; G0180 ==

== ENCOUNTER 2023-09-12 09:53 | Outpatient (REF) | payer OTHER, SELFPAY ==
--- NOTE | ~2023-09-12 | XR_ITS ---
EXAMINATION: XR KNEE, RIGHT CLINICAL INFORMATION: Pain in unspecified knee area COMPARISON: Right knee 08/28/2023 TECHNIQUE: AP and lateral of the right knee. FINDINGS: Since the prior study, the patient has undergone ORIF of the nondisplaced fractures of the lateral as well as the medial tibial plateaus with sideplate and horizontal and oblique screws. There is no evidence of hardware complication. No significant change in position or alignment of the mildly displaced fracture through the fibular neck. There is a moderate joint effusion. Amorphous calcification in the distal femur is unchanged and likely represents an enchondroma. XR/XR knee RT 2V IMPRESSION: Status post ORIF of the nondisplaced fractures of the lateral as well as the medial tibial plateaus. No change in position or alignment of the mildly displaced fracture through the fibular neck.
== END 2023-09-12 09:54 | disposition home or self-care (01) ==
LOC: HO.HOSX 09:53
PROVIDERS: Visit Provider Physician Assistant
DX: S82.201D Unspecified fracture of shaft of right tibia, subsequent encounter for closed fracture with routine healing (principal)
CPT/HCPCS: 73560; 99212

== ENCOUNTER 2023-09-12 11:15 | Outpatient (AMB) | payer OTHER, SELFPAY ==
--- NOTE | 2023-09-12 11:36 | MHC.OFFVIS ---
Vital Signs 09/12/23 11:43 Height 5 ft Weight 142 lb BMI 27.7 Intake Visit Reasons: N/P P/O ORIF tibial plateau NE 08/31/23 Intake Note: Karol is a 32 year old female who presents today for a post op appointment s/p right ORIF tibial plateau 08/31/23 NE. Patient reports she is having a lot of pain and discomfort. Allergies No Known Allergies Allergy (Verified 09/12/23 11:42) HPI HPI N/P P/O ORIF tibial plateau NE 08/31/23: Details: 32-year-old female who presents in the office today 12 days status post right tibial plateau ORIF, which was performed on 08/31/[address] Flores. While in the office today the patient reports having ?a lot? of pain and discomfort in the right knee. Patient has a significant medical history of diabetes mellitus, type 1. [facility] Medical History Hyperlipidemia Essential hypertension Type 1 diabetes mellitus Social History Household Members: Children Housing: House Do you presently have visiting nurse or other home services: No Patient Tobacco Use Status: Never used Tobacco Second Hand Smoke Exposure: No service: No Review of Systems Const All systems reviewed & are unremarkable except as noted in HPI and below Physical Exam Vital Signs: BMI result Body Mass Index 27.7 Const General: cooperative, healthy appearing and no acute distress Resp Effort & Inspection: normal respiratory effort and able to speak in complete sentences Cardio Rate: regular rate Peripheral pulses: Peripheral pulses 2+ throughout GI Palpation (GI): Soft to palpation Skin Lesions: no lesions Rashes: no rashes Extrem Other: Right knee: Right lateral incision site are clean, dry, and intact. Aida intact. No surround erythema or drainage. No signs of infection. Able to plantarflex and dorsiflex. NVI. Assessment & Plan Assessment & Plan (1) Closed tibia fracture: Comment: Right tibial plateau ORIF 08/31/2023 NE Code(s): S82.209A - Unspecified fracture of shaft of unspecified tibia, initial encounter for closed fracture Category: Surgical Qualifiers: Encounter type: initial encounter Fracture alignment: displaced Laterality: right Plan Ms. Sheffield is a 32-year-old female who presents in the office today 12 days status post right tibial plateau ORIF, which was performed on 08/31/[address] Flores. While in the office today the patient reports having ?a lot? of pain and discomfort in the right knee. Patient has a significant medical history of diabetes mellitus, type 1. Sheldon were removed and steri-stripes were applied. She will transition into an ACL brace, off the shelf, locked in extension with ambulation. She may unlock the brace to work on ROM during non-weight bearing activities. The patient was given a blue night splint, off the shelf, today to help assist the patient and keep her foot dorsiflexed. Follow-up will be in 4 weeks, or sooner if needed. X-rays of the right knee which were obtained while in the office today and were reviewed by me, Tracey Soriano PA-C, revealed Intact orthopedic hardware with routine healing. Orders: Orders XR knee RT 2V Today M25.569 - Pain in unspecified knee Patient Instructions: Scribed by Farida Palma ophthalmic medical assistant, for Tracey Soriano PA-C on 09/12/2023 at 11:29 am, EST. Coding Level of Care Code Global (17954) Diagnoses Closed tibia fracture S82.209A Encounter type: initial encounter Fracture alignment: displaced Laterality: right
[2023-09-12 11:43] VITALS: BMI 27.7
== END 2023-09-12 12:23 | disposition home or self-care (01) ==
PROVIDERS: PCP Family Medicine; Visit Provider Physician Assistant
DX: S82.209A Unspecified fracture of shaft of unspecified tibia, initial encounter for closed fracture (principal)
CPT/HCPCS: 99024

== ENCOUNTER 2023-10-18 11:04 | Outpatient (REF) | payer OTHER, SELFPAY ==
--- NOTE | ~2023-10-18 | XR_ITS ---
EXAMINATION: XR KNEE, RIGHT CLINICAL INFORMATION: Pain in unspecified knee. COMPARISON: 08/31/2023 fluoroscopic in OR images, 08/28/2023 CT and x-rays right knee. TECHNIQUE: Three view of the right knee. FINDINGS: Moderate joint effusion. Status post ORIF with plate and screw transfixing previously noted comminuted fracture of the lateral tibial plateau. Alignment is maintained. Hardware appears intact. Fracture lines are still visible, although there has been some interval bridging callus formation. Previously described fracture of the fibular neck redemonstrated, but difficult to assess due to overlying bone and hardware. Redemonstration of heterogeneous sclerosis in the distal shaft of the femur. Previously identified fracture through the medial tibial plateau is less conspicuous. XR/XR knee RT 3V IMPRESSION: 1. Status post ORIF with plate and screw transfixing previously noted comminuted fracture of the lateral tibial plateau. Alignment is maintained. Hardware appears intact. Fracture lines are still visible, although there has been some interval bridging callus formation. 2. Previously described fracture of the fibular neck redemonstrated, but difficult to assess due to overlying bone and hardware. 3. Redemonstration of heterogeneous sclerosis in the distal shaft of the femur possibly related to bone infarct or chondroid lesion. 4. Previously identified fracture through the medial tibial plateau is less conspicuous.
== END 2023-10-18 11:05 | disposition home or self-care (01) ==
LOC: HO.HOSX 11:04
PROVIDERS: Visit Provider Physician Assistant
DX: S82.141A Displaced bicondylar fracture of right tibia, initial encounter for closed fracture (principal); Y92.9 Unspecified place or not applicable; Y93.9 Activity, unspecified; Y99.9 Unspecified external cause status
CPT/HCPCS: 73562; 99212

== ENCOUNTER 2023-10-18 12:35 | Outpatient (AMB) | payer OTHER, SELFPAY ==
[2023-10-18 12:38] VITALS: BMI 27.7
--- NOTE | 2023-10-18 12:38 | MHC.OFFVIS ---
Vital Signs 10/18/23 12:38 Height 5 ft Weight 142 lb BMI 27.7 Intake Visit Reasons: PO-ORIF tibial plateau NE 08/31/23-w/xray Intake Note: Karol is a 32 year old female who presents today for a post op appointment s/p right ORIF tibial plateau 08/31/23 NE. Patient reports having no pain or discomfort. Allergies No Known Allergies Allergy (Verified 10/18/23 12:51) HPI HPI PO-ORIF tibial plateau NE 08/31/23-w/xray: Details: Ms.. Sheffield presents to the office today status post right tibial plateau ORIF performed on 08/31/[address] Flores. Patient continues to be nonweightbearing. She reports no pain. She has continued with physical therapy. Denies any additional complaints. [facility] Medical History Hyperlipidemia Essential hypertension Type 1 diabetes mellitus Social History Household Members: Children Housing: House Do you presently have visiting nurse or other home services: No Patient Tobacco Use Status: Never used Tobacco Second Hand Smoke Exposure: No service: No Review of Systems Const All systems reviewed & are unremarkable except as noted in HPI and below Physical Exam Vital Signs: BMI result Body Mass Index 27.7 Const General: cooperative, healthy appearing and no acute distress Resp Effort & Inspection: normal respiratory effort and able to speak in complete sentences Cardio Rate: regular rate Peripheral pulses: Peripheral pulses 2+ throughout GI Palpation (GI): Soft to palpation Skin Lesions: no lesions Rashes: no rashes Extrem Other: Right knee normal to inspection no ecchymosis erythema or edema. Prior incision site is completely healed with no signs of infection. ROM 10-90 degrees. NVI. Assessment & Plan Assessment & Plan (1) Closed tibia fracture: Comment: Right tibial plateau ORIF 08/31/2023 NE Code(s): S82.209A - Unspecified fracture of shaft of unspecified tibia, initial encounter for closed fracture Category: Surgical Qualifiers: Encounter type: initial encounter Fracture alignment: displaced Laterality: right Plan Ms. Sheffield presents to the office today status post right tibial plateau ORIF performed on 08/31/[address] Flores. Patient continues to be nonweightbearing. She reports no pain. She has continued with physical therapy. Denies any additional complaints. The patient will continue to remain nonweightbearing. She may unlock her brace while sedentary to work on ROM and her physical therapy. While she is ambulatory she should have her brace locked in extension at all times. She will f/u in 6 weeks, sooner if needed. X-rays obtained in the office today were reviewed by me, Tracey Soriano PA-C, and revealed intact orthopedic hardware with routine healing. Orders: Orders XR knee RT 3V Today M25.569 - Pain in unspecified knee Coding Level of Care Code Global (62984) Diagnoses Closed tibia fracture S82.209A Encounter type: initial encounter Fracture alignment: displaced Laterality: right
== END 2023-10-18 13:25 | disposition home or self-care (01) ==
PROVIDERS: PCP Family Medicine; Visit Provider Physician Assistant
DX: S82.209A Unspecified fracture of shaft of unspecified tibia, initial encounter for closed fracture (principal)
CPT/HCPCS: 99024

== ENCOUNTER 2023-12-02 10:46 | Outpatient (REF) | payer OTHER, SELFPAY | END 2023-12-02 10:47 | disposition home or self-care (01) | LOC: HO.HOSX 10:46 | PROVIDERS: Visit Provider Physician Assistant | DX: S82.209A Unspecified fracture of shaft of unspecified tibia, initial encounter for closed fracture (principal) | CPT/HCPCS: 99212 ==

== ENCOUNTER 2023-12-02 14:23 | Outpatient (AMB) | payer OTHER, SELFPAY ==
--- NOTE | 2023-12-02 14:28 | MHC.OFFVIS ---
Intake Visit Reasons: PO-ORIF tibial plateau NE 08/31/23 Intake Note: Karol is a 32 year old female who presents today for a post op appointment s/p right ORIF tibial plateau 08/31/23 NE. Patient reports she is doing good. She has been working with PT which is helping her, however she has been noticing some swelling which she was told from PT that is normal. Allergies No Known Allergies Allergy (Verified 12/02/23 14:32) HPI HPI PO-ORIF tibial plateau NE 08/31/23: Details: 32-year-old female who presents in the office today 3 months status post right tibial plateau ORIF, which was performed on 08/31/[address] Flores. I last saw the patient in the office on 10/18/23 when the patient was to remain non-weight bearing. She was instructed that she may unlock the brace when sedentary to work on ROM and PT but while ambulating the brace should be locked in extension.? ? While in the office today, the patient reports she has been doing good. She confirms participating in PT, which she states is helping her. She does reports mild edema that she discussed with PT and was told this was normal. ? ? Patient has a significant medical history of diabetes mellitus, type 1.? [facility] Medical History Hyperlipidemia Essential hypertension Type 1 diabetes mellitus Social History Household Members: Children Housing: House Do you presently have visiting nurse or other home services: No Patient Tobacco Use Status: Never used Tobacco Second Hand Smoke Exposure: No service: No Review of Systems Const All systems reviewed & are unremarkable except as noted in HPI and below Physical Exam Const General: cooperative, healthy appearing and no acute distress Resp Effort & Inspection: normal respiratory effort and able to speak in complete sentences Cardio Rate: regular rate Peripheral pulses: Peripheral pulses 2+ throughout GI Palpation (GI): Soft to palpation Skin Lesions: no lesions Rashes: no rashes Extrem Other: Right knee: Incision sites are clean, dry, and intact; completely healed. No signs of infection. ROM is 0-95 degrees. NVI Assessment & Plan Assessment & Plan (1) Closed tibia fracture: Comment: Right tibial plateau ORIF 08/31/2023 NE Code(s): S82.209A - Unspecified fracture of shaft of unspecified tibia, initial encounter for closed fracture Category: Surgical Qualifiers: Encounter type: initial encounter Fracture alignment: displaced Laterality: right Plan Ms. Sheffield is a 32-year-old female who presents in the office today 3 months status post right tibial plateau ORIF, which was performed on 08/31/[address] Flores. I last saw the patient in the office on 10/18/23 when the patient was to remain non-weight bearing. She was instructed that she may unlock the brace when sedentary to work on ROM and PT but while ambulating the brace should be locked in extension.? ? While in the office today, the patient reports she has been doing good. She confirms participating in PT, which she states is helping her. She does reports mild edema that she discussed with PT and was told this was normal. ? ? Patient has a significant medical history of diabetes mellitus, type 1.? ? The patient is going to continue to work with physical therapy. She may begin to weight bear as tolerated, as this is three months out from her surgery. She will stay in the brace, at this time. Physical therapy will begin to wean her out of the brace once quad control allows. Follow-up will be in 6 weeks, or sooner if needed. ? Patient Instructions: Scribed by Farida Palma biomedical technician, for Tracey Soriano PA-C on 12/02/2023 at 2:26 pm, EST.? Coding Level of Care Code Global (92178) Diagnoses Closed tibia fracture S82.209A Encounter type: initial encounter Fracture alignment: displaced Laterality: right
== END 2023-12-02 15:03 | disposition home or self-care (01) ==
PROVIDERS: PCP Family Medicine; Visit Provider Physician Assistant
DX: S82.201A Unspecified fracture of shaft of right tibia, initial encounter for closed fracture (principal)
CPT/HCPCS: 99213

== ENCOUNTER 2024-01-13 11:26 | Outpatient (REF) | payer OTHER, SELFPAY | END 2024-01-13 11:27 | disposition home or self-care (01) | LOC: HO.HOSX 11:26 | PROVIDERS: Visit Provider Physician Assistant | DX: M25.561 Pain in right knee (principal); S82.209D Unspecified fracture of shaft of unspecified tibia, subsequent encounter for closed fracture with routine healing; Z98.890 Other specified postprocedural states | CPT/HCPCS: 73560; 99212 ==

== ENCOUNTER 2024-01-13 13:18 | Outpatient (AMB) | payer OTHER, SELFPAY ==
--- NOTE | 2024-01-13 13:43 | MHC.OFFVIS ---
Intake Visit Reasons: OV-ORIF tibial plateau NE 08/31/23 Intake Note: Karol is a 32 year old female who presents today for a follow up visit s/p right ORIF tibial plateau 08/31/23 NE. Pt states her leg has been starting to be more painful and she states she is having trouble walking again. Pt states she has to take multiple breaks while walking. Pt states her ROM is doing well she is just concerned about the pain. Pt states she is still going to PT 2x a week but missed 2 weeks of PT due to another health issue. Allergies No Known Allergies Allergy (Verified 01/13/24 13:43) [facility] Medical History Hyperlipidemia Essential hypertension Type 1 diabetes mellitus Social History Household Members: Children Housing: House Do you presently have visiting nurse or other home services: No Patient Tobacco Use Status: Never used Tobacco Second Hand Smoke Exposure: No service: No Review of Systems Const All systems reviewed & are unremarkable except as noted in HPI and below Physical Exam Const General: cooperative, healthy appearing and no acute distress Resp Effort & Inspection: normal respiratory effort and able to speak in complete sentences Cardio Rate: regular rate Peripheral pulses: Peripheral pulses 2+ throughout GI Palpation (GI): Soft to palpation Skin Lesions: no lesions Rashes: no rashes Extrem Other: Right knee: Incision sites are clean, dry, and intact; completely healed. Hypersensitivity at the lateral incision site. No signs of infection. ROM is 0-110 degrees. NVI Assessment & Plan Assessment & Plan (1) Closed tibia fracture: Comment: Right tibial plateau ORIF 08/31/2023 NE Code(s): S82.209A - Unspecified fracture of shaft of unspecified tibia, initial encounter for closed fracture Category: Surgical Qualifiers: Encounter type: initial encounter Fracture alignment: displaced Laterality: right Plan Ms. Rockwell is a 33-year-old female who presents in the office today 4 months status post right tibial plateau ORIF, which was performed on 08/31/[address] Flores. I last saw the patient in the office on 12/02/23 when she was recommended to continue physical therapy and may weight bear as tolerated. She was advised to remain in the brace until PT weans her out of the brace once quad control allows. While in the office today, the patient reports worsening right knee pain and difficulty with ambulation. She states she has to take multiple breaks while ambulating. She reports good range of motion; however, she is concerned about her right knee pain. She is doing physical therapy twice a week. She missed 2 weeks of physical therapy sessions due to other health issues. Patient has a significant medical history of diabetes mellitus, type 1. I educated the patient that it is normal to have continuous pain and difficulty with standing for prolonged duration of time. She will restart physical therapy to work on the hypersensitivity over the lateral incision site. Follow-up will be 6 weeks, or sooner if needed. X-rays of the right knee which were obtained while in the office today and were reviewed by me, Tracey Soriano PA-C, revealed: Intact orthopedic hardware with routine healing. Orders: Orders XR knee RT 2V 01/13/24 M25.569 - Pain in unspecified knee Patient Instructions: Scribed by Ana Morrison medical laboratory technicians, for Tracey Soriano PA-C on 01/13/24 at 1:46 pm EST. Coding Level of Care Code Est Pt Level 3 (28667) Diagnoses Closed tibia fracture S82.209A Encounter type: initial encounter Fracture alignment: displaced Laterality: right
== END 2024-01-13 14:31 | disposition home or self-care (01) ==
PROVIDERS: PCP Family Medicine; Visit Provider Physician Assistant
DX: S82.201D Unspecified fracture of shaft of right tibia, subsequent encounter for closed fracture with routine healing (principal)
CPT/HCPCS: 99213

== ENCOUNTER 2024-02-24 12:38 | Outpatient (AMB) | payer OTHER, SELFPAY ==
--- NOTE | 2024-02-24 12:54 | A.OFFVIS_ITS ---
Vital Signs 02/24/24 12:55 Height 5 ft Weight 142 lb BMI 27.7 Intake Visit Reasons: OV-ORIF tibial plateau NE 08/31/23 Intake Note: Karol is a 33 year old female who presents today for a follow up of her Right Knee s/p Right Tibial Plateau ORIF 08/31/23. At patients last visit with Tracey Soriano patient reported that she had continued pain and difficulty standing/walking for prolonged periods of time. She was reassured that this is normal in post operative recovery. Patient reports that she is having continued pain in the knee, worse at the end of the day. Increased pain with flexion of the knee. She has discontinued therapy as she recently had ingrown toenails removed and has a busy schedule with three kids. She is requesting a cane rx Allergies No Known Allergies Allergy (Verified 01/13/24 13:43) HPI HPI OV-ORIF tibial plateau NE 08/31/23: Details: Doing well 6 mo post op. Pain over hardware and with extended ambulation. [facility] Medical History Hyperlipidemia Essential hypertension Type 1 diabetes mellitus Social History Household Members: Children Housing: House Do you presently have visiting nurse or other home services: No Patient Tobacco Use Status: Never used Tobacco Second Hand Smoke Exposure: No service: No Physical Exam Vital Signs: BMI result Body Mass Index 27.7 Const General: cooperative, healthy appearing and no acute distress Resp Effort & Inspection: normal respiratory effort and able to speak in complete sentences Cardio Rate: regular rate Peripheral pulses: Peripheral pulses 2+ throughout GI Palpation (GI): Soft to palpation Skin Lesions: no lesions Rashes: no rashes Extrem Other: Right knee: Incision sites are clean, dry, and intact; completely healed. Hypersensitivity at the lateral incision site. No signs of infection. ROM is 0- 125 degrees. NVI Assessment & Plan Assessment & Plan (1) Closed tibia fracture: Comment: Right tibial plateau ORIF 08/31/2023 NE Code(s): S82.209A - Unspecified fracture of shaft of unspecified tibia, initial encounter for closed fracture Category: Surgical Qualifiers: Encounter type: initial encounter Fracture alignment: displaced Laterality: right Plan: Continued pain over hardware but otherwise improving. Continue activity as tolerated. F/u 3 mo and can discuss JOHNNY Coding Level of Care Code Est Pt Level 3 (90867) Diagnoses Closed tibia fracture S82.209A Encounter type: initial encounter Fracture alignment: displaced Laterality: right
[2024-02-24 12:55] VITALS: BMI 27.7
== END 2024-02-24 13:28 | disposition home or self-care (01) ==
PROVIDERS: PCP Family Medicine; Visit Provider Orthopaedic Surgery
DX: S82.209A Unspecified fracture of shaft of unspecified tibia, initial encounter for closed fracture (principal)
CPT/HCPCS: 99213

== ENCOUNTER → 2024-02-24 12:38 | Outpatient (BNVA) | payer OTHER, SELFPAY | PROVIDERS: PCP Family Medicine; Visit Provider Orthopaedic Surgery | DX: S82.209D Unspecified fracture of shaft of unspecified tibia, subsequent encounter for closed fracture with routine healing (principal) | CPT/HCPCS: 99212 ==

== ENCOUNTER 2024-05-24 08:32 | Outpatient (AMB) | payer OTHER, SELFPAY ==
[2024-05-24 08:34] VITALS: BMI 27.7
--- NOTE | 2024-05-24 08:34 | A.OFFVIS_ITS ---
Vital Signs 05/24/24 08:34 Height 5 ft Weight 142 lb BMI 27.7 Intake Visit Reasons: OV-ORIF tibial plateau-discuss JOHNNY Intake Note: Karol is a 33 year old female who presents today for a follow up of her right knee s/p Right Tibial Plateau ORIF 08/31/23. Discuss possible JOHNNY. Patient reports that she is having continued pain with walking, pain increases with walking and cold temperatures Allergies No Known Allergies Allergy (Verified 05/24/24 08:36) HPI HPI OV-ORIF tibial plateau-discuss JOHNNY: Details: This is a 33-year-old woman who is now proximally 9 months status post ORIF right tibial plateau. She is doing very well. She is working out and lifting weights and jogging occasionally and she only has pain when she does deep squatting. She has pain over the hardware at other times however. She has no swelling. Her knee range of motion is full according to her. Her only significant complaint is pain over the hardware anterolaterally. [facility] Medical History Hyperlipidemia Essential hypertension Type 1 diabetes mellitus Social History Household Members: Children Housing: House Do you presently have visiting nurse or other home services: No Patient Tobacco Use Status: Never used Tobacco Second Hand Smoke Exposure: No service: No Physical Exam Vital Signs: BMI result Body Mass Index 27.7 Extrem Other: Full range of motion right knee. Well-healed anterolateral incision. She has tenderness over the anterolateral tibial plateau. Is 2+ dorsalis pedis pulse in his walking normally. Assessment & Plan Assessment & Plan (1) Closed tibia fracture: Comment: Right tibial plateau ORIF 08/31/2023 NE Code(s): S82.209A - Unspecified fracture of shaft of unspecified tibia, initial encounter for closed fracture Category: Surgical Qualifiers: Encounter type: initial encounter Fracture alignment: displaced Laterality: right Plan: This is a 33-year-old woman with a displaced tibial plateau fracture treated with ORIF last summer. She is doing very well but has some pain on over the hardware. She has no knee pain, or at least minimal knee pain, and none with sedentary activities. Occasionally with squatting in the gym she has some discomfort. I think it is reasonable to remove the hardware in approximately 2- 3 months. I discussed with her the risks, benefits and alternatives including, but not limited to, the risk of infection, pain, bleeding, need for additional surgery. She expressed understanding and we will proceed forward accordingly Coding Level of Care Code Est Pt Level 4 (64728) Diagnoses Closed tibia fracture S82.209A Encounter type: initial encounter Fracture alignment: displaced Laterality: right
--- OUTSIDE RECORDS SUMMARY | 2024-05-24 08:40 | XMS_ITS | Clinical Summary ---
Author Organization [facility], Address [address] [place] [address] [place] [address] Phone Care Team Providers Care Electronics Lead Name Role Phone RigobertoPorfirio [email or web address] Primary Care Provider Allergies Active Allergy Reactions Criticality Noted Date Comments Iodinated Contrast Media 09/15/2022 Other reaction(s): vomiting Metoclopramide 09/15/2022 Other reaction(s): rash pt reports severe agitation with this medication Medications atorvastatin (LIPITOR) 40 MG tablet Take 40 mg by mouth 1 (one) time each day 10/24/2022 Active chlorthalidone 25 MG tablet Take 1 tablet (25 mg total) by mouth 1 (one) time each day 30 tablet 5 02/10/2023 Active lisinopril 40 MG tablet Take 1 tablet (40 mg total) by mouth 1 (one) time each day 30 tablet 5 02/10/2023 Active Insulin Lispro (HUMALOG SC) Inject 2-12 Units under the skin in the morning and 2-12 Units at noon and 2-12 Units in the evening. Inject with meals. Active medroxyPROGESTE Lew (PROVERA) 10 MG tablet Take 10 mg by mouth 1 (one) time each day Active amLODIPine (NORVASC) 5 MG tablet Take 2 tablets (10 mg total) by mouth 1 (one) time each day 60 tablet 11 08/23/2023 5 Active Active Problems Problem Noted Date Diagnosed Date Proteinuria 08/16/2023 Primary hypertension 08/15/2023 Microalbuminuria 08/15/2023 Chronic kidney disease, stage 2 (mild) 4 Type 1 diabetes mellitus 10/29/2022 Hyperlipidemia 10/29/2022 Anemia 10/29/2022 Immunizations Name Administration Dates Next Due H1N1 Inj Preservative Free 03/05/2009 Influenza Whole 03/05/2009 Influenza, MDCK, PF, Quadrivalent 03/07/2018 Tdap 07/19/2018,03/07/2018,04/18/2014 Family History Medical History Relation Comments Other Father back pain Depression Mother Constipation Son Other Son renal agenesis Relation Status Comments Father Mother Son Social History Tobacco Use Types Packs/Day Years Used Date Smoking Tobacco: Never Smokeless Tobacco: Never Comments Unknown Sex and Gender Information Value Date Recorded Sex Assigned at Not on file Legal Sex Female 2:16 PM EDT Gender Identity Not on file Sexual Orientation Not on file Last Filed Vital Signs Vital Sign Reading Time Taken Comments Blood Pressure 120/86 08/23/2023 4:55 PM EDT Pulse 89 10/29/2022 3:22 PM EDT Temperature - - Respiratory Rate - - Oxygen Saturation - - Inhaled Oxygen Concentration - - Weight - - Height - - Body Mass Index - - Plan of Treatment Upcoming Encounters Date Type Department Care Team (Late st Contact Info) Description 08/16/2024 1:30 PM EDT Office Visit [facility], [address] [place] [address] Thuan De Guzman MD [address] [place] [address] Health Maintenance Due Date Last Done Comments Pneumococcal Vaccine: Pediat rics (0 to 5 Years) and At-Risk Patients (6 to 64 Years) (1 of 2 - PCV) 1998 Hepatitis B Vaccine (1 of 3 - 19+ 3-dose series) 12/09/2011 06/25/2021, 04/06/2021 Diabetes: Hemoglobin A1C 10/29/2022 Diabetes: Pedal Pulse Checked 10/29/2022 Diabetes: Sensory Foot Exam 10/29/2022 Diabetes: Visual Foot Exam 10/29/2022 Influenza Vaccine (#1) 2023 , 03/07/2018, 03/05/2009 Diabetes: Ophthalmology Exam 05/13/2024 05/13/2023, 08/25/2022 Insurance [facility] [employer] Care Teams Electronics Lead Relationship Specialty Start Date End Date Erick Angeles PCP - General 09/22/22
--- OUTSIDE RECORDS SUMMARY | 2024-05-24 08:40 | XMS_ITS | Encounter Summary ---
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 Name Role Phone Erick Angeles MD Primary Care Pr ovider Reason for Visit * Reason Comments Consult * Consultation (Routine) - Closed Specialty Diagnoses / Procedures Referred By Contact Referred To Contact Hematology / Hematology and Oncology Diagnoses Normocytic anemia Erick Angeles MD [address] [place] [id number] Phone: tel: fax: [facility] Hematology Oncology [address] [place] [phone] Phone: tel: fax: Referral ID Status Reason Start Date Expiration Date V isits Requested Visits Authorized [id number] Closed Specialty Services Required 02/20/2024 02/19/2025 1 1 Encounter Details Date Type Department Care Team (Late st Contact Info) Description 04/24/2024 1:00 PM EST Office Visit [facility] Hematology Oncology [address] [place] [phone] Rhonda Rg PA [address] [place] [address] Normocytic anemia (Primary Dx); Menorrhagia with regular cycle Social History Tobacco Use Types Packs/Day Years Used Date Smoking Tobacco: Never Smokeless Tobacco: Never Tobacco Cessation:Counseling Given: Not Answered Alcohol Use Standard Drinks/Week Comments Yes 0 (1 standard drink = 0.6 oz pur e alcohol) Comments Unknown Sex and Gender Information Value Date Recorded Sex Assigned at Not on file Legal Sex Female 4:54 AM EST Gender Identity Not on file Sexual Orientation Not on file documented as of this encounter Last Filed Vital Signs Vital Sign Reading Time Taken Comments Blood Pressure 112/75 04/24/2024 12:56 PM EST Pulse 81 04/24/2024 12:56 PM EST Temperature 36.4 ??C (97.5 ??F) 04/24/2024 12:[address] Respiratory Rate - - Oxygen Saturation 100% 04/24/2024 12:56 PM EST Inhaled Oxygen Concentration - - Weight 67.6 kg (149 lb) 04/24/2024 12:56 PM EST Height 152.4 cm (5') 04/24/2024 12:56 PM EST Body Mass Index 29.1 04/24/2024 12:56 PM EST documented in this encounter Ordered Prescriptions Prescription Sig Dispense Quantity Refills Last Filled Start Date End Date ferrous sulfate (Slow Fe) 137 mg (45 mg iron) tablet extended release Take 1 tablet by mouth every other day. 45 tablet 1 04/24/2024 07/23/2024 documented in this encounter Progress Notes * WAQAR Garces - 04/24/2024 1:00 PM EST Images from the original note were not included. Hematology/Oncology Consult Note Date of Consult: 04/24/2024 Patient's Primary Care Physician: Erick Angeles MD Subjective History of Present Illness 33-year-old female with PMHx of DM, HTN, HLD, constipation, fatty liver, GERD, elevated LFTs, anxiety, depression who was referred to our hematology clinic by PCP team for further evaluation of anemia. She is accompanied by her mother. Records indicate presence of anemia since at least 2020. She has normal renal and thyroid functions. LFTs have been elevated, she is followed by GI. Cause was not identified and it was deemed fatty liver/BRINK. She drinks alcohol every other weekend. No excessive tylenol use. Per PCP notes, she has hx of WYATT due to heavy menses, which started after she had tubes tied in 2019. She is on Norethindrone to control menses since late 2023, which helped a little but for the first couple days her flow is still heavy. She took iron supplements in the past, was off the iron for 3months due to constipation. Resumed iron in February, she has been taking it daily but she reports constipation. She has BM every other day but stools are hard. She takes lubiprostone and stool softener, with no significant response. NO other source of clinical bleeding or black stools. She had a blood transfusion in 2018 right after she gave to her daughter due to hemorrhage. Per GI notes, she has ongoing issues with swallowing. She takes Omeprazole. Had EGD in June 2023 that noted changes consistent with eosinophilic esophagitis; however, biopsies did not support diagnosis. 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; COMMENT: perineal Type 1 diabetes (CMS/HCC) DX:Type 1 diabetes (HCC) Past Surgical History Past Surgical History: Procedure Laterality Date APPENDECTOMY 04/11/2003 PROCEDURE: HISTORICAL APPENDECTOMY; COMMENT: age 13 HAND SURGERY Left 12/16/2022 PROCEDURE: HISTORICAL HAND SURGERY LEG SURGERY 08/31/2023 PROCEDURE: HISTORICAL LEG SURGERY; COMMENT: Right tibial plateau fracture status post ORIF TUBAL LIGATION Bilateral 2019 PROCEDURE: HISTORICAL TUBAL LIGATION Eye surgery - June 2022 due to retinal detachment Family History Family History Problem Relation Name Age of Onset Other (Other: back pain) Father Depression Mother Other (Other: only 1 kidney) Son Breast cancer Neg Hx Ovarian cancer Neg Hx Colon cancer Neg Hx Pancreatic cancer Neg Hx Kidney cancer Neg Hx Cancer of Small Bowel Neg Hx Uterine cancer Neg Hx Personal and Social History Social History Tobacco Use Smoking Status Never Smokeless Tobacco Never Social History Substance and Sexual Activity Alcohol Use Yes Social History Substance and Sexual Activity Drug Use No REVIEW OF SYSTEMS: Constitutional: No fevers, weight loss, nightsweats, chills, fatigue HEENT: No oral lesions Respiratory: No cough, shortness of breath Cardiac: No chest pain, palpitations GI: No nausea, vomiting, diarrhea, constipation, abdominal pain : No urinary complaints Skin: No rashes or ease of bruising Neuro: No headaches, dizziness, focal weakness, paresthesias Musculoskeletal: No bone pain, no joint pain. Hem/Lymph : No palpable lymph nodes, no bleeding or easy bruising Objective Medications Current Outpatient Medications: acetaminophen (TYLENOL) 325 mg tablet, Take 2 tablets (650 mg total) by mouth., Disp: , Rfl: atorvastatin (LIPITOR) 40 mg tablet, Take 1 tablet (40 mg total) by mouth 1 (one) time each day., Disp: , Rfl: chlorthalidone (HYGROTON) 25 mg tablet, Take 1 tablet (25 mg total) by mouth 1 (one) time each day., Disp: , Rfl: cholecalciferol (VITAMIN D-3) 50 mcg (2,000 unit) capsule, Take 1 capsule (2,000 Units total) by mouth 1 (one) time each day., Disp: , Rfl: cyclobenzaprine (FLEXERIL) 5 mg tablet, TAKE 1 TABLET BY MOUTH AT BEDTIME NEEDED FOR MUSCLE SPASMS., Disp: , Rfl: docusate sodium (COLACE) 100 mg capsule, Take 1 capsule (100 mg total) by mouth 2 (two) times a day., Disp: , Rfl: escitalopram (LEXAPRO) 20 mg tablet, Take 1 tablet (20 mg total) by mouth 1 (one) time each day., Disp: , Rfl: ferrous sulfate 324 mg (65 mg elemental iron) EC tablet, Take 1 tablet (324 mg total) by mouth daily., Disp: , Rfl: gabapentin (NEURONTIN) 100 mg capsule, Take 1 Capsule by mouth at bedtime., Disp: , Rfl: Glucagon HCl, rDNA, (Glucagon Emergency Kit, human,) 1 mg injection, Inject 1 Kit into the muscle once for 1 dose., Disp: , Rfl: insulin lispro (HumaLOG KwikPen Insulin) 100 unit/mL injection pen, Inject into the skin 3 times daily (before meals). 2 to 12 units three times daily sliding scale, Disp: , Rfl: lisinopril (PRINIVIL,ZESTRIL) 40 mg tablet, Take 1 tablet (40 mg total) by mouth 1 (one) time each day., Disp: , Rfl: lubiprostone (AMITIZA) 24 mcg capsule, Take 1 capsule (24 mcg total) by mouth 2 (two) times a day with meals. Take with meals, Disp: 180 each, Rfl: 3 norethindrone (FRANCIS,KAEL,ZEHRA,MICRONOR) 0.35 mg tablet, Take 1 tablet (0.35 mg total) by mouth 1 (one) time each day., Disp: , Rfl: omeprazole (PriLOSEC) [address] capsule, Take 1 capsule (40 mg total) by mouth 2 (two) times a day.,Disp: , Rfl: Omnipod 5 G6 Pods, Gen 5, cartridge, USE TO INFUSE INSULIN CONTINUOUSLY, CHANGE POD EVERY 3 DAYS, Disp: , Rfl: alcohol swabs pads, medicated, 1 Each by Does not apply route 4 times daily., Disp: , Rfl: amLODIPine (NORVASC) 5 mg tablet, Take 1 Tablet by mouth daily for 180 days., Disp: , Rfl: ferrous sulfate (Slow Fe) 137 mg (45 mg iron) tablet extended release, Take 1 tablet by mouth everyother day., Disp: 45 tablet, Rfl: 1 LORazepam (ATIVAN) 0.5 mg tablet, Take 1 tablet (0.5 mg total) by mouth 1 (one) time each day if needed for anxiety. Max Daily Amount: 0.5 mg, Disp: 28 tablet, Rfl: 0 pen needle, diabetic (BD Ultra-Fine Short Pen Needle) 31 gauge x 5/16 needle, USE 5 TIMES A DAY, Disp: , Rfl: silver sulfADIAZINE (Silvadene) 1 % cream, Apply topically 1 (one) time each day. (Patient not taking: Reported on 04/24/2024), Disp: 50 g, Rfl: 0 Trulance 3 mg tablet, Take 1 tablet (3 mg total) by mouth 1 (one) time each day. (Patient not taking: Reported on 04/24/2024), Disp: , Rfl: Allergies Allergies Allergen Reactions Iodinated Contrast Media Itching Physical Exam Vitals: 04/24/24 1256 BP: 112/75 BP Location: Right arm BP Cuff Size: Adult long Pulse: 81 Temp: 36.4 ??C (97.5 ??F) SpO2: 100% Weight: 67.6 kg (149 lb) Height: 1.524 m (60 ) Body mass index is 29.1 kg/m??. General: well appearing, in no acute distress Eyes: conjunctiva pink and sclera are Normal without icterus Oral cavity: No erythema or exudates Neck Neck supple, no adenopathy, Lymph: No palpable cervical, supraclavicular or axillary adenopathy. Resp: CTA; normal inspiratory effort, no wheezes, rhonchi or rales Cardio: RRR, no murmurs rubs or gallops Abdomen: soft non tender, non distended, normoactive bowel sounds, MSK: FROM of UE and Les bilaterally; no edema Skin: warm, dry, no rashes Neuro: alert and oriented, normal speech, normal gait Imaging US Liver - 05/10/23 - 0942 Report Status:Signed HISTORY: The patient is a 32-year-old female with abnormal liver function enzyme levels. FINDINGS: Real-time ultrasonography of the abdominal right upper quadrant is performed. The visualized portion of the inferior vena cava is patent. The mid body of the pancreas is of normal appearance; the remainder of the pancreas is poorly visualized. The liver is normal in echotexture and size, with a span of 14.8 cm. No hepatic mass is seen. The portal vein is patent with hepatopetal flow. There is no intra- or extra-hepatic biliary dilatation. The gallbladder is of normal appearance without calculus, wall thickening, or pericholecystic fluid. There is no sonographic Hand's sign per technologist notes. Survey images of the right kidney demonstrate no hydronephrosis. The right kidney measures 10.6 cm in length. No ascites is seen. IMPRESSION: The pancreas is incompletely visualized on this study. Otherwise, normal examination. Dictating Physician: DANG REY MD Labs HGB HISTORY: TSH 1.20 (05/20/23) Assessment & Plan Anemia (WYATT); menorrhagia: Chronic anemia since 2020 after she developed heavy menses Mild; stable Hx of WYATT in the setting of heavy menses On BCPs since late 2023 On iron supplementation but can not tolerate it very well due to constipation B12 is wnl Folate is suboptimal, would benefit from supplementation if it remains in the single digits Most recent labs showed that iron levels are satisfactory ? Superimposed anemia of chronic disease Update anemia labs today - ok to discuss results via mychart She is agreeable to infusion if indicated Stop ferrous sulfate Start Slow Fe every other day instead to see if she can tolerate it better (an alternative would beover the counter <BLOOD BUILDER> as suggested during visit) C/W bowel regimen FU with GI FOV in 3 months with labs prior ; RTO sooner prn If anemia remains stable/controlled, then PCP team can monitor it moving forward and she may returnif an iron infusion is needed in the future Please note, this note may have been created in part by using [employer] dictation software, and therefore, it may contain typographical and/or grammatical errors inherent in a voice recognition software program Sign: Rhonda Rg PA-C Hematology/Oncology [facility] [phone] Cosigned by Tahmina Gabriel DO at 04/24/2024 9:38 PM EST documented in this encounter Plan of Treatment Upcoming Encounters Date Type Department Care Team (Late st Contact Info) Description 06/18/2024 11:00 AM EDT Office Visit Gastroenterology - 299 [facility] [address] [phone] Aj Riley PA [address] [address] 06/28/2024 10:30 AM EDT Office Visit Orthopedic Surgery - [place] [address] [phone] Juan Luis Geronimo DPM [address] [address] 07/23/2024 1:30 PM EDT Office Visit [facility] Hematology Oncology [address] [place] [phone] Rhonda Rg PA [address] [place] [address] Scheduled Orders Name Type Priority Associated Diagnoses Orde r Schedule Iron and TIBC Lab Routine Normocytic anemia Menorrhagia with regular cycle Expected: 07/23/2024, Expires: 08/22/2024 CBC and differential Lab Routine Normocytic anemia Menorrhagia with regular cycle Expected: 07/23/2024 (Approximate), Expires: 08/22/2024 Ferritin Lab Routine Normocytic anemia Menorrhagia with regular cycle Expected: 07/23/2024 (Approximate), Expires: 08/22/2024 Vitamin B12 and folate Lab Routine Normocytic anemia Menorrhagia with regular cycle Expected: 07/23/2024 (Approximate), Expires: 08/22/2024 documented as of this encounter Results * (ABNORMAL) Lactate dehydrogenase (04/24/2024 1:40 PM EST) Pathologist [facility] LDH 279(H) 120 - 246 unit/L LAB CHEMISTRY METHOD 04/24/2024 8:33 PM EST [facility] Blood Venous blood specimen / Unknown Venipuncture / Unknown 04/24/2024 1:40 PM EST 04/24/2024 4:39 PM EST us Rhonda ZAVALETA LAB BLOOD ORDERABLES Final Resul t [facility] [address] [place] [address], * Vitamin B12 and folate (04/24/2024 1:40 PM EST) Vitamin B-12 461 250 - 900 pcg/mL LAB CHEMISTRY METHOD 04/24/2024 9:01 PM EST [facility] Folate 9.1 2.8 - 17.0 ng/ml LAB CHEMISTRY METHOD 04/24/2024 9:01 PM EST [facility] Blood Venous blood specimen / Unknown Venipuncture / Unknown 04/24/2024 1:40 PM EST 04/24/2024 4:39 PM EST Rhonda ZAVALETA LAB BLOOD ORDERABLES Final Resul t Performing Organization Address [facility] Co de Phone Number [facility] [address] [place] [address], [place] [phone] * (ABNORMAL) Reticulocyte count (04/24/2024 1:40 PM EST) Retic Ct Abs 0.100(H) 0.030 - 0.090 M/mcL LAB HEMETOLOGY METHOD 04/24/2024 5:01 PM EST [facility] Retic Ct Pct 2.4(H) 0.7 - 1.7 % LAB HEMETOLOGY METHOD 04/24/2024 5:01 PM [facility] Immature Retic Fract 15.9 2.3 - 15.9 % LAB HEMETOLOGY METHOD 04/24/2024 5:01 PM [facility] Reticulocyte Hemoglobin 29.7 >29.0 pcg LAB HEMETOLOGY METHOD 04/24/2024 5:01 PM [facility] Blood Venous blood specimen / Unknown Venipuncture / Unknown 04/24/2024 1:40 PM EST 04/24/2024 4:38 PM EST Rhonda ZAVALETA LAB BLOOD ORDERABLES Final Resul t Performing Organization Address [facility]/ZIP Co de Phone Number [facility] [address] [place] [address], [place] [phone] * Iron and TIBC (04/24/2024 1:40 PM EST) Iron 56 40 - 150 mcg/dL LAB CHEMISTRY METHOD 04/24/2024 9:01 PM EST [facility] TIBC 368 250 - 450 mcg/dL LAB CHEMISTRY METHOD 04/24/2024 9:01 PM EST [facility] Iron Saturation 15 15 - 50 % LAB CHEMISTRY METHOD 04/24/2024 9:01 PM EST [facility] Blood Venous blood specimen / Unknown Venipuncture / Unknown 04/24/2024 1:40 PM EST 04/24/2024 4:39 PM EST us Rhonda ZAVALETA LAB BLOOD ORDERABLES Final Resul t Performing Organization Address City/[facility]/ZIP Co de Phone Number [facility] [address] [place] [address], [place] [phone] * Haptoglobin (04/24/2024 1:40 PM EST) Haptoglobin 128 16 - 200 mg/dL LAB CHEMISTRY METHOD 04/24/2024 9:01 PM EST [facility] Blood Venous blood specimen / Unknown Venipuncture / Unknown 04/24/2024 1:40 PM EST 04/24/2024 4:39 PM EST us Rhonda ZAVALETA LAB BLOOD ORDERABLES Final Resul t Performing Organization Address [facility]/ZIP Co de Phone Number [facility] [address] [place] [address], [place] [phone] * Ferritin (04/24/2024 1:40 PM EST) Ferritin 44 8 - 252 ng/mL LAB CHEMISTRY METHOD 04/24/2024 9:01 PM EST [facility] Blood Venous blood specimen / Unknown Venipuncture / Unknown 04/24/2024 1:40 PM EST 04/24/2024 4:39 PM EST us Rhonda ZAVALETA LAB BLOOD ORDERABLES Final Resul t Performing Organization Address City/[facility]/ZIP Co de Phone Number [facility] [address] [place] [address], [place] [phone] * Erythropoietin (04/24/2024 1:40 PM EST) Erythropoietin 8.1 2.6 - 18.5 mIU/mL 04/27/2024 11:22 PM EST [facility] Comment: Test performed at [facility], [address], [place], [place] ??[address] ? [phone] Josie Melgar MD, PhD - Health Worker Blood Venous blood specimen / Unknown Venipuncture / Unknown 04/24/2024 1:40 PM EST 04/24/2024 4:39 PM EST Rhonda ZAVALETA LAB BLOOD ORDERABLES Final Resul t [facility] [address] 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
--- OUTSIDE RECORDS SUMMARY | 2024-05-24 08:40 | XMS_ITS | Data Portability ---
Author Organization [facility], [address] Address [address] [place] [address] Care Team Providers Care Bessemer Regulator Name Role Phone JAKE LOVETT Primary Care Provider Assessment No assessment recorded. Plan of Treatment Reminders Order Date Submit Date Provider Last Modified By Organization Details Last Modified Time Details Appointments None recorded. Lab rapid SARS CoV 2 Ag, QL IA, respiratory specimen 2022 023 [place] [address], [address] [place] [address], [phone], 18:39:28 rapid strep group A, throat 2022 023 [place] [address], [address] [place] [address], [phone], 18:39:27 Referral None recorded. Procedures None recorded. Surgeries None recorded. Imaging None recorded. Medication Orders amoxicillin 875 mg tablet 2022 023 [facility] #[id number], [address] [facility], [place], [address], 18:40:06 Patient TargetsNo targets recorded. Patient Instructions Encounter Date Encounter Id Patient Instructions Last Modified By Organization Details Last Modified Time 06/28/2022 [id number] strep throat: care instructions eal Not available 06/28/2022 18:39:28 Reason for Referral None Reported. Results Created Date Observation Date Name Description Value Unit Range Abnormal Flag Note LastModifiedBy Organization Detail LastModifiedTime 06/29/19 23 06/28/2022 rapid strep group A, throa t Unknown Analyte Normal = Negati ve Not Available [address] [address], [address], 06/28/2022 18:08:47 06/29/19 23 06/28/2022 rapid strep group A, throa t Unknown Analyte positi ve Not Available [address], [address], 06/28/2022 18:08:47 Result Notes None recorded. Problems Name Problem SNOMED Code Status Onset Date Resolution Date Notes Provider Name and Address Organization Details Recorded Time Diabetes mellitus 59769145 Active 2022 [facility] Farrell - [facility] 18:12:30 Hypertensive disorder 96357731 Active 2022 Mehreen wood PA - [facility] 18:12:36 Hypercholestero lemia 02765201 Active 2022 Mehreen wood PA - [facility] 18:12:43 Problem Notes None recorded. Medical Equipment None Reported. Allergies No known drug allergies Medications Name Sig Start Date Stop Date Status Note LastModified by Organization Details LastModified Time cyclobenzap rine 10 mg tablet TAKE 1 TABLET BY MOUTH DAILY AT BEDTIME FOR 7 DAYS 06/28 completed Not Available Not Available Not Available medroxyprog esterone 10 mg tablet TAKE 1 TABLET BY MOUTH EVERY DAY active Not Available Not Available No t Available atorvastati n 40 mg tablet TAKE 1 TABLET BY MOUTH EVERY DAY active Not Available Not Available No t Available BD Alcohol Swabs USE 4 TIMES A DAY 06/28 completed Not Available Not Available Not Available norgestimat e 0.25 mg-ethinyl estradiol 35 mcg tablet TAKE 1 TABLET BY MOUTH EVERY DAY 06/28 completed Not Available Not Available Not Available acetaminoph en 325 mg tablet TAKE 2 TABLETS BY MOUTH EVERY 6 HOURS FOR 7 DAYS NEEDED FOR PAIN active Not Available Not Available No t Available polyethylen e glycol 3350 17 gram oral powder packet TAKE 1 PACKET DAILY BY MOUTH active Not Available Not Available No t Available atorvastati n 10 mg tablet TAKE 1 TABLET BY MOUTH EVERY DAY active Not Available Not Available No t Available ofloxacin 0.3 % eye drops INSTILL 1 DROP INTO THE LEFT EYE 4 TIMES A DAY.START ING 3 DAYS PRIOR TO SURGERY AND CONTINUIN G 06/28 completed Not Available Not Available Not Available FreeStyle Lancets 28 gauge USE 4 TIMES A DAY 06/28 completed Not Available Not Available Not Available amoxicillin 875 mg tablet Take 1 tablet every 12 hours by oral route for 10 days. 2022 active Not Available Not Available Not Avai lable prednisolon e acetate 1 % eye drops,suspe nsion INSTILL 1 DROP INTO THE LEFT EYE 4 TIMES A DAY. STARTING THE DAY AFTER SURGERY AND CONTINUIN G active Not Available Not Available No t Available lisinopril 10 mg tablet TAKE 1 TABLET BY MOUTH EVERY DAY active Not Available Not Available No t Available ergocalcife rol (vitamin D2) 1,250 mcg (50,000 unit) capsule active Not Available Not Available Not Available insulin lispro (U-100) 100 unit/mL subcutaneou s solution INFUSE INSULIN VIA INSULIN PUMP CONTINUOU SLY, MAX DAILY DOSE 60 UNITS, E10.9 active Not Available Not Available No t Available ibuprofen 600 mg tablet TAKE 1 TABLET BY MOUTH EVERY 6 HOURS FOR 7 DAYS 06/28 completed Not Available Not Available Not Available lisinopril 2.5 mg tablet TAKE 1 TABLET BY MOUTH EVERY DAY 06/28 completed Not Available Not Available Not Available insulin lispro (U-100) 100 unit/mL subcutaneou s pen PLEASE SEE ATTACHED FOR DETAILED DIRECTION S active Not Available Not Available No t Available BD Ultra-Fine Mini Pen Needle 31 gauge x 06/24 USE PEN NEEDLES TO INJECT INSULIN 4 TIMES A DAY 06/28 completed Not Available Not Available Not Available FreeStyle Lite Meter kit USE DIRECTED FOR TYPE 1 DIABETES MELLITUS 4 X DAILY. 06/28 completed Not Available Not Available Not Available FreeStyle Lite Strips TEST 4 TIMES DAILY (MUST LAST 30 DAYS PER INS) 06/28 completed Not Available Not Available Not Available Lantus Solostar U-100 Insulin 100 unit/mL (3 mL) subcutaneou s pen INJECT 26 UNITS IN THE MORNING AND 26 UNITS AT BEDTIME BY SUBCUTANE OUS INJECTION DAILY 06/28 completed Not Available Not Available Not Available Baqsimi 3 mg/actuatio n nasal spray PLEASE SEE ATTACHED FOR DETAILED DIRECTION S 06/28 completed Not Available Not Available Not Available Omnipod 5 G6 Pods (Gen 5) subcutaneou s cartridge USE TO INFUSE INSULIN CONTINUOU SLY, CHANGE POD EVERY 3 DAYS 06/28 completed Not Available Not Available Not Available Omnipod 5 G6 Intro Kit (Gen 5) subcutaneou s cartridge with controller USE TO INFUSE INSULIN CONTINUOU SLY, CHANGE POD EVERY 3 DAYS, E10.9 06/28 completed Not Available Not Available Not Available Vitals Date Recorded Body height Body mass index (BMI) Body weight Pain severity - 0-10 verbal numeric rating [Score] - Reported Oxygen saturation Oxygen saturation in Arterial blood by Pulse oximetry Heart rate Respiratory rate Body temperature Systolic blood pressure Diastolic blood pressure Provider Name and Address Organization Details Last Updated DateTime 152.4 cm 27.3 kg/m2 04293.9 3 g 7 99 % 99 % 102 /min 18 /min 98.2 [degF] 119 mm[Hg] 83 mm[Hg] Mehreen [email or web address] 18:16:02 Social History Question Answer Notes LastModified by Organizat ion Details LastModified Time Tobacco Smoking Status Never Smoker [facility] Farrell [facility] 06/28/2022 18:13:05 What Is Your Level Of Alcohol Consumption? Occasional Information not available 06/28/2022 How Many Times Per Week Do You Consume Alcohol? Less Than 1 Time Per Week Information not available 06/28/2022 Do You Use Any Illicit Or Recreational Drugs? No Information not available 06/28/2022 Have You Recently Traveled Abroad? No Information not available 06/28/2022 Do You Or Have You Ever Used Any Other Forms Of Tobacco Or Nicotine? No Information not available 06/28/2022 Sex: Unknown Functional Status None recorded. Mental Status None recorded. Family History Relationship Description Onset Age of this Age Resolved Age Notes LastModified by Organization Details LastModified Time Father No current problems or disability [email or web address] Not available 06/28 18:12:53 Mother No current problems or disability [email or web address] Not available 06/28 18:12:53 Medical History No medical history recorded. Gynecological HistoryNo gynecological history recorded. Obstetrics History GPAL:G 0 P 0 0 0 0 Immunizations Vaccine Type Date Status Note Provider Nam e and Address Organization Details Recorded Time Influenza, MDCK, quadrivalent, PF 8 completed Mehreen Monfette null, PA - [facility] 06/28/2022 18:10:01 COVID-19, mRNA, LNP-S, PF, 30 mcg/0.3 mL dose 1 completed Mehreen Monfette null, PA - [facility] 06/28/2022 18:10:01 COVID-19, mRNA, LNP-S, PF, 30 mcg/0.3 mL dose 1 completed Mehreen Monfette null, PA - [facility] 06/28/2022 18:10:01 Tdap 5 completed Mehreen Monfette null, PA - [facility] 06/28/2022 18:10:01 Tdap 8 completed Mehreen Monfette null, PA - [facility] 06/28/2022 18:10:01 Influenza, split virus, trivalent, preservative 4 completed Mehreen Monfette null, PA - [facility] 06/28/2022 18:10:01 Influenza, split virus, trivalent, preservative 9 completed Mehreen Monfette null, PA - [facility] 06/28/2022 18:10:01 Novel [id number], preservative-free 9 completed Mehreen Monfette null, PA - [facility] 06/28/2022 18:10:01 Hep B, adult 2 completed Mehreen Monfette null, PA - [facility] 06/28/2022 18:10:01 Hep B, adult 1 completed Mehreen Monfette null, PA - [facility] 06/28/2022 18:10:01 Influenza, split virus, quadrivalent, PF 3 completed Mehreen Lazar [facility] 06/28/2022 18:10:01 Past Encounters Encounter ID Performer Location Encounter Start Date Encounter Closed Date Diagnosis/Indication Diagnosis SNOMED-CT Code Diagnosis ICD10 Code Diagnosis Note [id number] [address] [address] 11/08/2017 17:55:18 11/08/2017 20:02:04 [id number] [address] [address] [place] [address] 03/07/2017 15:22:26 03/07/2017 16:55:09 [id number] [address] [facility] [place] [address] 05/17/2018 17:28:36 05/17/2018 18:20:48 [id number] [address] [place] [address] 04/27/2017 14:06:25 04/27/2017 14:31:00 [id number] [address] [place] [address] 10/31/2021 12:37:26 10/31/2021 13:24:23 [id number] [address] [place] [address] 12/05/2017 14:02:01 12/05/2017 15:13:33 [id number] [address] [place] [address] 05/17/2021 12:07:21 05/17/2021 12:59:00 [id number] [address] [place] [address] 07/17/2017 13:29:56 07/17/2017 14:19:38 [id number] [address] [place] [address] 08/26/2020 15:48:54 08/26/2020 17:03:04 [id number] [address] [place] [address] 10/17/2017 14:03:10 10/17/2017 14:28:02 [id number] [address] [place] [address] 03/09/2016 18:21:27 03/09/2016 18:54:12 [id number] [address] [place] [address] 11/06/2017 19:42:44 11/06/2017 20:17:26 [id number] [address] [place] [address] 10/04/2016 09:41:44 10/04/2016 11:06:41 [id number] [address] [place] [address] 06/28/2017 17:04:49 06/28/2017 17:52:31 [id number] [address] [place] [address] 08/15/2018 12:11:29 08/15/2018 13:06:45 [id number] [address] [place] [address] 11/21/2021 19:40:10 11/23/2021 20:02:35 [id number] [address] [place] [address] 02/09/2016 13:59:41 02/09/2016 14:27:17 [id number] Oleg Walters MD [address] [place] [address] 06/28/2022 14:49:19 06/28/2022 18:53:19 Streptococcal sore throat 68958724 J02.0 Health Concerns Section Related Observation LastModified by Organization Detai ls LastModified Time None Recorded Concern Status LastModified by Organization Details LastModified Time None Recorded Advance Directives Directive None Recorded Payers Encounter Date Sequence Insurance Name Policy Number Policy Basilio Covered Member ID Basilio Member ID Guarantor Name 08/26/2020 1 [employer] (MEDICAID HMO) LETY Sheffield [id number] Karol Sheffield 05/17/2021 1 [employer] ([employer]ICAID HMO) LETY Sheffield [id number] Karol Sheffield 10/31/2021 1 [employer] (MEDICAID HMO) LETY Sheffield [id number] Karol Sheffield 11/21/2021 1 [employer] (MEDICAID HMO) LETY Sheffield [id number] Karol Sheffield 06/28/2022 1 [facility] (MEDICAID HMO) LETY Sheffield [id number] Karol Sheffield Notes Date Note Type Note Provider Name and Address Organization Details Recorded Time 06/28/2022 text/html Sore throatRepor shantell bypatient.Location:[facility] Severity:moderate Quality:sharp Onset/Timin days Associated Symptoms:no cough; no sputum production; no shortness of breath; no wheezing; no sinus pain; no vomiting; no nausea; No hoarseness Context:sick contact Modifying Factors:exposed to Strep household * Oleg Walters MD [address] [place] [address] [place], [address], PA - [facility] 06/29/2022 11:35:32 OBGyn Episode No OBEpisode recorded.
--- OUTSIDE RECORDS SUMMARY | 2024-05-24 08:40 | XMS_ITS | Encounter Summary ---
Author Organization [facility] Address [address] [place] [address] Phone Care Team Providers Care Biometrics Specialist Name Role Phone Erick Angeles Primary Care Provider Encounter Details Date Type Department Care Team (Late Contact Info) Description 12/09/2023 Documentation Only [facility] [address] [place] [address] Shane Barr MD [address] [place] [address] [place] [address] Social History Tobacco Use Types Packs/Day Years Used Date Smoking Tobacco: Never Smokeless Tobacco: Never Comments Unknown Sex and Gender Information Value Date Recorded Sex Assigned at Not on file Legal Sex Female 2:16 PM EDT Gender Identity Not on file Sexual Orientation Not on file documented as of this encounter Plan of Treatment Upcoming Encounters Date Type Department Care Team (Late st Contact Info) Description 08/16/2024 1:30 PM EDT Office Visit [facility] [address] [place] [address] Thuan De Guzman MD [address] [place] [address] [place] [address] documented as of this encounter Visit Diagnoses Not on filedocumented in this encounter Care Teams Biometrics Specialist Relationship Specialty Start Date End Date Erick Angeles PCP - General 09/22/22 documented as of this encounter
--- OUTSIDE RECORDS SUMMARY | 2024-05-24 08:40 | XMS_ITS | Encounter Summary ---
Author Organization [facility] Address [address] [place] [address] Phone Care Team Providers Care Chainstitch Felled Seam Operator Name Role Phone Erick Angeles Primary Care Provider Encounter Details Date Type Department Care Team (Late st Contact Info) Description 08/15/2023 Documentation Only [facility] [address] [place] [address] Inna Macias [address] [place] [address] Social History Tobacco Use Types Packs/Day Years [...] Visit [facility] [address] [place] [address] Thuan De Guzman MD [address] [place] [address] [place] [address] documented as of this encounter Visit Diagnoses Not on filedocumented in this encounter Care Teams Chainstitch Felled Seam Operator Relationship Specialty Start Date End Date Erick Angeles PCP - General 09/22/22 documented as of this encounter
--- OUTSIDE RECORDS SUMMARY | 2024-05-24 08:40 | XMS_ITS | Clinical Summary ---
Author Organization [address] Address [address] [place] [phone] Phone Care Team Providers Care Human Resources Associate Name Role Phone Erick Angeles MD Primary Care Pr ovider Allergies Active Allergy Reactions Criticality Noted Date Comments Iodinated Contrast Media Itching 01/04/2023 Medications acetaminophen (TYLENOL) 325 mg tablet Take 2 tablets (650 mg total) by mouth. 04/21/19 20 Active alcohol swabs pads, medicated 1 Each by Does not apply route 4 times daily. 07/07/19 22 Active amLODIPine (NORVASC) 5 mg tablet Take 1 Tablet by mouth daily for 180 days. 10/19/19 24 Active atorvastatin (LIPITOR) 40 mg tablet Take 1 tablet (40 mg total) by mouth 1 (one) time each day. 08/31/19 24 Active chlorthalidone (HYGROTON) 25 mg tablet Take 1 tablet (25 mg total) by mouth 1 (one) time each day. 10/19/19 24 Active cholecalciferol (VITAMIN D-3) 50 mcg (2,000 unit) capsule Take 1 capsule (2,000 Units total) by mouth 1 (one) time each day. 06/22/19 24 Active cyclobenzaprine (FLEXERIL) 5 mg tablet TAKE 1 TABLET BY MOUTH AT BEDTIME NEEDED FOR MUSCLE SPASMS. 03/09/20 23 Active docusate sodium (COLACE) 100 mg capsule Take 1 capsule (100 mg total) by mouth 2 (two) times a day. 10/19/19 24 Active gabapentin (NEURONTIN) 100 mg capsule Take 1 Capsule by mouth at bedtime. 10/19/19 24 Active Glucagon HCl, rDNA, (Glucagon Emergency Kit, human,) 1 mg injection Inject 1 Kit into the muscle once for 1 dose. 01/01/20 17 Active insulin lispro (HumaLOG KwikPen Insulin) 100 unit/mL injection pen Inject into the skin 3 times daily (before meals). 2 to 12 units three times daily sliding scale 06/23/19 22 Active pen needle, diabetic (BD Ultra-Fine Short Pen Needle) 31 gauge x 5/16 needle USE 5 TIMES A DAY 07/19/19 18 Active lisinopril (PRINIVIL,ZESTR IL) 40 mg tablet Take 1 tablet (40 mg total) by mouth 1 (one) time each day. 10/19/19 Active omeprazole (PriLOSEC) [address] capsule Take 1 capsule (40 mg total) by mouth 2 (two) times a day. 10/19/19 24 Active silver sulfADIAZINE (Silvadene) 1 % cream Apply topically 1 (one) time each day. 50 g 02/16/20 24 025 Active Additional Information Patient not taking.Reported on 04/24/2024 LORazepam (ATIVAN) 0.5 mg tabletIndicatio ns:Anxiety and depression Take 1 tablet (0.5 mg total) by mouth 1 (one) time each day if needed for anxiety. Max Daily Amount: 0.5 mg 28 tablet 02/20/20 Active norethindrone (FRANCIS,KAEL,H EAT,MICRONOR ) 0.35 mg tablet Take 1 tablet (0.35 mg total) by mouth 1 (one) time each day. Active ferrous sulfate 324 mg (65 mg elemental iron) EC tablet Take 1 tablet (324 mg total) by mouth daily. 10/19/19 24 Active Omnipod 5 G6 Pods, Gen 5, cartridge USE TO INFUSE INSULIN CONTINUOUSLY, CHANGE POD EVERY 3 DAYS 02/16/20 Active Trulance 3 mg tablet Take 1 tablet (3 mg total) by mouth 1 (one) time each day. 02/14/20 24 Active lubiprostone (AMITIZA) 24 mcg capsuleIndicati ons:Chronic constipation Take 1 capsule (24 mcg total) by mouth 2 (two) times a day with meals. Take with meals 180 each 3 03/19/20 24 025 Active escitalopram (LEXAPRO) 20 mg tabletIndicatio ns:Generalized anxiety disorder,Major depressive disorder, recurrent, moderate (CMS/HCC) TAKE 1 TABLET BY MOUTH EVERY DAY 90 tablet 1 04/26/19 25 Active ferrous sulfate (Slow Fe) 137 mg (45 mg iron) tablet extended release Take 1 tablet by mouth every other day. 45 tablet 1 04/24/19 25 025 Active escitalopram (LEXAPRO) 20 mg tablet Take 1 tablet (20 mg total) by mouth 1 (one) time each day. 10/19/19 24 025 Discontinued Active Problems Problem Noted Date Diagnosed Date Abnormal LFTs 03/19/2024 Pharyngoesophageal dysphagia 03/19/2024 Herpes simplex vulvovaginitis 02/20/2024 Diabetic neuropathy associat ed with type 1 diabetes mellitus 10/19/2023 Fatty liver 10/19/2023 Generalized anxiety disorder 10/19/2023 Hemorrhoids 10/19/2023 Menorrhagia with regular cycle 10/19/2023 Moderate episode of recurrent major depressive d isorder 10/19/2023 Recurrent UTI 10/19/2023 Tibia/fibula fracture, right, closed, initial en counter 10/19/2023 Chronic kidney disease, stage 2 (mild) ASCUS of cervix with negative high risk HPV 06/09 Overview (01/11/2024): Cotesting in 3 years per ASCCP guidelines Elevated alkaline phosphatase level 06/22/2023 Gastroesophageal reflux dise ase with esophagitis without hemorrhage 06/22/2023 Anxiety and depression 02/24/2023 Diabetic nephropathy associa shantell with type 1 diabetes mellitus 02/24/2023 Insomnia due to other mental disorder 02/24/2023 Degenerative joint disease (DJD) of lumbar spine 09/01/2022 Chronic constipation 06/15/2022 Normocytic anemia 06/15/2022 Primary hypertension 06/15/2022 Diabetic retinopathy 06/26/2021 Vitamin D deficiency 01/05/2021 Type 1 diabetes mellitus 07/20/2018 Hyperlipidemia 12/31/2016 Tattoo of skin 01/30/2015 Encounters Date Type Department Care Team Description 04/24/2024 1:00 PM EST Office Visit [facility] Hematology Oncology [address] [place] [phone] Rhonda Rg PA Normocytic anemia (Primary Dx); Menorrhagia with regular cycle 03/26/2024 Telephone Adult Medicine [facility] [address] [place] [phone] Sumi Otero RN 03/20/2024 Telephone Gastroenterology - [address] [phone] Emmy Davis [place] 03/19/2024 10:40 AM EST Office Visit Gastroenterology - [address] [phone] Aj Riley PA Chronic constipation (Primary Dx); Abnormal LFTs; Pharyngoesophageal dysphagia 03/01/2024 2:00 PM EST Office Visit Orthopedic Surgery [facility] [address] [phone] Juan Luis Geronimo DPM Ingrowing nail (Primary Dx); Diabetic mononeuropathy simplex (CMS/HCC) from Last 3 Months Immunizations Name Administration Dates Next Due H1N1 Inj Preservative Free 03/05/2009 Hepatitis B (Recombivax HB-D ialysis) 18yo and older 06/25/2021,04/06/2021 Influenza Quadravalent, MDCK , 0.5ml, preservative free (Flucelvax) 6mo and older 03/07/2018 Influenza Quadravalent, MDCK , 0.5ml, with preservative (Flucelvax) 6mo and older 04/28/2022 Influenza trivalent, with pr eservative (Fluzone; Afluria) 6mo and older 01/17/2014,03/05/2009 Influenza, Unspecified 03/05/2009 PPD Test 12/07/2017 Tdap Tetanus diptheria acell ular pertussis (Boostrix; Adacel) 7yo and older 07/19/2018,03/07/2018,04/18/2014 Surgical History Surgery Date Site/Laterality Comments APPENDECTOMY 04/11/2003 PROCEDURE: HISTORICAL APPENDECTOMY; COMMENT: age 13 TUBAL LIGATION 2019 Bilateral PROCEDURE: HISTORICAL TUBAL LIGATION HAND SURGERY 12/16/2022 Left PROCEDURE: HISTORICAL HAND SURGERY LEG SURGERY 08/31/2023 PROCEDURE: HISTORICAL LEG SURGERY; COMMENT: Right tibial plateau fracture status post ORIF Medical History Medical History Date Comments Type 1 diabetes (CMS/HCC) DX:Typ e 1 diabetes (HCC) 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 (herpes simplex virus 1) infection; COMMENT: perineal Family History Medical History Relation Name Comments Other: back pain Father Depression Mother Other: only 1 kidney Son Breast cancer Neg Hx Cancer of Small Bowel Neg Hx Colon cancer Neg Hx Kidney cancer Neg Hx Ovarian cancer Neg Hx Pancreatic cancer Neg Hx Uterine cancer Neg Hx Relation Name Status Comments Father Alive Mother Alive Son Alive Social History Tobacco Use Types Packs/Day Years [...] on file Sexual Orientation Not on file Obstetrics History Last Filed Vital Signs Vital Sign Reading Time Taken Comments Blood Pressure 112/75 04/24/2024 12:56 PM EST Pulse 81 04/24/2024 12:56 PM EST Temperature 36.4 ??C (97.5 ??F) 04/24/2024 12:[address] Respiratory Rate 18 02/20/2024 8:33 AM EST Oxygen Saturation 100% 04/24/2024 12:56 PM EST Inhaled Oxygen Concentration - - Weight 67.6 kg (149 lb) 04/24/2024 12:56 PM EST Height 152.4 cm (5') 04/24/2024 12:56 PM EST Body Mass Index 29.1 04/24/2024 12:56 PM EST Plan of Treatment Upcoming Encounters Date Type Department Care Team (Late st Contact Info) Description 06/18/2024 11:00 AM EDT Office Visit Gastroenterology - 299 Thu 299 [facility] [address] [place] [phone] Aj Riley PA [address] [phone] 06/28/2024 10:30 AM EDT Office Visit Orthopedic Surgery [place] [address] [phone] Juan Luis Geronimo, DPM [address] [address] 07/23/2024 1:30 PM EDT Office Visit [facility] Hematology Oncology [address] [place] [phone] Rhonda Rg PA [address] [place] [address] Health Maintenance Due Date Last Done Comments Hepatitis A Vaccines (1 of 2 - Risk 2-dose series) 12/09/2011 DTaP,Tdap,and Td Vaccines (3 - Td or Tdap) 01/18/2019 07/19/2018, 03/07/2018, 04/18/2014 COVID-19 Vaccine (3 - Pfizer risk series) 02/20/2021 01/23/2021, 01/02/2021 Hepatitis B Vaccines (3 of 3 - 19+ 3-dose series) 10/05/2021 06/25/2021, 04/06/2021 Social Influencers of Health Screening 03/14/2022 Diabetes: Annual Retina Eye Exam 02/23/2024 02/22/2023 Diabetes: Annual Foot Exam 06/21/2024 06/22/2023 Diabetes: Blood Sugar Control Test (HGBA1C) 08/19/2024 02/20/2024, 10/19/2023, 10/19/2023 Depression Screening 10/18/2024 10/19/2023 Diabetes: Annual Urine Albumin-Creatinine Ratio (uACR) 01/30/2025 01/31/2024, 06/22/2023 Diabetes: Annual GFR (Glomerular Filtration Rate) 02/19/2025 02/20/2024, 02/24/2023, 11/28/2022 Hypertension/CHF/CAD Annual BMP Blood Test 02/19/2025 02/20/2024, 02/24/2023, 11/28/2022 Cervical Cancer Screening: HPV 06/08/2028 06/09/2023 Cholesterol Screening (Lipid Panel) 02/19/2029 02/20/2024, 02/24/2023 Influenza Vaccine Discontinued 04/28/2022, , 01/17/2014, Additional history exists HIV Screening Completed 06/09/2023 Hepatitis C Screening Completed 06/09/2023 HIB Vaccines Aged Out No longer eligi ble based on patient's age to complete this topic HPV Vaccines Aged Out No longer eligi ble based on patient's age to complete this topic IPV Vaccines Aged Out No longer eligi ble based on patient's age to complete this topic MMR Vaccines Aged Out No longer eligi ble based on patient's age to complete this topic Meningococcal ACWY Vaccine Aged Out N o longer eligible based on patient's age to complete this topic Meningococcal B Vacine Aged Out No lo nger eligible based on patient's age to complete this topic Pneumococcal Vaccine: Pediatrics (0 to 5 Years) and At-Risk Patients (6 to 64 Years) Discontinued RSV Immunization Patients Under 20 months Aged Out No longer eligible based on patient's age to complete this topic Varicella Vaccines Aged Out No longer eligible based on patient's age to complete this topic Procedures Procedure Name Priority Date/Time Associated Diagnosis Comments CBC WITH AUTO DIFFERENTIAL Routine 04/24/2024 1:40 PM EST Normocytic anemia LACTATE DEHYDROGENASE Routine 04/24/2024 1:40 PM EST Normocytic anemia VITAMIN B12 AND FOLATE Routine 04/24/2024 1:40 PM EST Normocytic anemia RETICULOCYTE COUNT Routine 04/24/2024 1: 40 PM EST Normocytic anemia IRON AND TIBC Routine 04/24/2024 1:40 PM EST Normocytic anemia HAPTOGLOBIN Routine 04/24/2024 1:40 PM EST Normocytic anemia FERRITIN Routine 04/24/2024 1:40 PM EST Normocytic anemia ERYTHROPOIETIN Routine 04/24/2024 1:40 PM EST Normocytic anemia CBC AND DIFFERENTIAL Routine 04/24/2024 1:40 PM EST Normocytic anemia HEPATIC FUNCTION PANEL Routine 03/19/2024 11:15 AM EST Abnormal LFTs COMPREHENSIVE METABOLIC PANEL Routine 02/20/2024 10:23 AM EST 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 (CMS/HCC) HEMOGLOBIN A1C Routine 02/20/2024 10:23 AM EST 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 (CMS/HCC) LIPID PANEL WITH REFLEX TO DIRECT LDL Routine 02/20/2024 10:23 AM EST Mixed hyperlipidemia HM DEPRESSION SCREENING Routine 10/19/2023 HM URINE ALBUMIN CREATININE RATIO Routine 06/22/2023 HM DIABETES FOOT EXAM Routine 06/22/2023 HM HPV Routine 06/09/2023 HM HEPATITIS C SCREENING Routine 06/09/2023 HM HIV SCREENING Routine 06/09/2023 HM DIABETES EYE EXAM Routine 02/22/2023 from Last 3 Months or Most Recently Relevant to Health Maintenance Results * Vitamin B12 and folate (04/24/2024 1:40 PM EST) Vitamin B-12 461 250 - 900 pcg/mL LAB CHEMISTRY METHOD 04/24/2024 9:01 PM EST [facility] Folate 9.1 2.8 - 17.0 ng/ml LAB CHEMISTRY METHOD 04/24/2024 9:01 PM [facility] Blood Venous blood specimen / Unknown Venipuncture / Unknown 04/24/2024 1:40 PM EST 04/24/2024 4:39 PM EST us Rhonda ZAVALETA LAB BLOOD ORDERABLES Final Resul t [facility] [address] [place] [address], * (ABNORMAL) CBC auto differential (04/24/2024 1:40 PM EST) WBC 7.3 4.8 - 10.8 K/mcL LAB HEMETOLOGY METHOD 04/24/2024 5:01 PM [facility] RBC 4.30 3.80 - 4.80 M/mcL LAB HEMETOLOGY METHOD 04/24/2024 5:01 PM [facility] Hemoglobin 11.4(L) 11.5 - 16.0 g/dL LAB HEMETOLOGY METHOD 04/24/2024 5:01 PM [facility] Hematocrit 37.1 35.0 - 47.0 % LAB HEMETOLOGY METHOD 04/24/2024 5:01 PM [facility] MCV 86.5 79.0 - 98.0 FL LAB HEMETOLOGY METHOD 04/24/2024 5:01 PM [facility] MCH 26.6(L) 27.0 - 32.0 pcg LAB HEMETOLOGY METHOD 04/24/2024 5:01 PM [facility] MCHC 30.7(L) 32.0 - 37.0 g/dL LAB HEMETOLOGY METHOD 04/24/2024 5:01 PM [facility] RDW 13.8 11.0 - 15.0 % LAB HEMETOLOGY METHOD 04/24/2024 5:01 PM [facility] Platelets 270 130 - 400 K/mcL LAB HEMETOLOGY METHOD 04/24/2024 5:01 PM [facility] MPV 12.2(H) 7.0 - 11.0 FL LAB HEMETOLOGY METHOD 04/24/2024 5:01 PM [facility] NRBC 0.0 <1.0 % LAB HEMETOLOGY METHOD 04/24/2024 5:01 PM [facility] NRBC Absolute 0.00 <0.10 K/mcL LAB HEMETOLOGY METHOD 04/24/2024 5:01 PM [facility] Neutrophils Relative 61.2 % LAB HEMETOLOGY METHOD 04/24/2024 5:01 PM [facility] Lymphocytes Relative 29.7 % LAB HEMETOLOGY METHOD 04/24/2024 5:01 PM [facility] Monocytes Relative 5.5 % LAB HEMETOLOGY METHOD 04/24/2024 5:01 PM [facility] Eosinophils Relative 2.9 % LAB HEMETOLOGY METHOD 04/24/2024 5:01 PM [facility] Basophils Relative 0.3 % LAB HEMETOLOGY METHOD 04/24/2024 5:01 PM [facility] Immature Granulocytes Relative 0.4 % LAB HEMETOLOGY METHOD 04/24/2024 5:01 PM [facility] Neutrophils Absolute 4.46 1.50 - 7.00 K/mcL LAB HEMETOLOGY METHOD 04/24/2024 5:01 PM [facility] Lymphocytes Absolute 2.16 1.00 - 5.00 K/mcL LAB HEMETOLOGY METHOD 04/24/2024 5:01 PM [facility] Monocytes Absolute 0.40 0.20 - 1.00 K/mcL LAB HEMETOLOGY METHOD 04/24/2024 5:01 PM [facility] Eosinophils Absolute 0.21 0.00 - 0.50 K/[facility] LAB HEMETOLOGY METHOD 04/24/2024 5:01 PM EST [facility] Basophils Absolute 0.02 0.00 - 0.20 K/[facility] LAB HEMETOLOGY METHOD 04/24/2024 5:01 PM EST [facility] Immature Granulocytes Absolute 0.03 0.00 - 0.03 K/[facility] LAB HEMETOLOGY METHOD 04/24/2024 5:01 PM EST [facility] Blood Venous blood specimen / Unknown Venipuncture / Unknown 04/24/2024 1:40 PM EST 04/24/2024 4:38 PM EST us Rhonda Ifrah PA LAB BLOOD ORDERABLES Final Resul t [facility] [address] [place] [address], * Erythropoietin (04/24/2024 1:40 PM EST) Erythropoietin 8.1 2.6 - 18.5 mIU/mL 04/27/2024 11:22 PM EST [facility] Comment: Test performed at [facility], [address] , [place], [place] ??[address] ? [phone] Josie Melgar MD, PhD - [employer] Blood Venous blood specimen / Unknown Venipuncture / Unknown 04/24/2024 1:40 PM EST 04/24/2024 4:39 PM EST us Rhonda Ifrah PA LAB BLOOD ORDERABLES Final Resul t [facility] [address] [place] [address] * Iron and TIBC (04/24/2024 1:40 PM EST) Iron 56 40 - 150 mcg/dL LAB CHEMISTRY METHOD 04/24/2024 9:01 PM [facility] TIBC 368 250 - 450 mcg/dL LAB CHEMISTRY METHOD 04/24/2024 9:01 PM [facility] Iron Saturation 15 15 - 50 % LAB CHEMISTRY METHOD 04/24/2024 9:01 PM [facility] Blood Venous blood specimen / Unknown Venipuncture / Unknown 04/24/2024 1:40 PM EST 04/24/2024 4:39 PM EST us Rhonda ZAVALETA LAB BLOOD ORDERABLES Final Resul t Performing Organization Address City/[facility]/ZIP Co de Phone Number [facility] [address] [place] [address], [place] [phone] * (ABNORMAL) Reticulocyte count (04/24/2024 1:40 PM EST) Retic Ct Abs 0.100(H) 0.030 - 0.090 M/mcL LAB HEMETOLOGY METHOD 04/24/2024 5:01 PM [facility] Retic Ct Pct 2.4(H) 0.7 - 1.7 % LAB HEMETOLOGY METHOD 04/24/2024 5:01 PM [facility] Immature Retic Fract 15.9 2.3 - 15.9 % LAB HEMETOLOGY METHOD 04/24/2024 5:01 PM [facility] Reticulocyte Hemoglobin 29.7 >29.0 pcg LAB HEMETOLOGY METHOD 04/24/2024 5:01 PM [facility] Blood Venous blood specimen / Unknown Venipuncture / Unknown 04/24/2024 1:40 PM EST 04/24/2024 4:38 PM EST us Rhonda ZAVALETA LAB BLOOD ORDERABLES Final Resul t [facility] [address] [place] [address], [place] [phone] * (ABNORMAL) Lactate dehydrogenase (04/24/2024 1:40 PM EST) LDH 279(H) 120 - 246 unit/L LAB CHEMISTRY METHOD 04/24/2024 8:33 PM EST [facility] Blood Venous blood specimen / Unknown Venipuncture / Unknown 04/24/2024 1:40 PM EST 04/24/2024 4:39 PM EST Rhonda ZAVALETA LAB BLOOD ORDERABLES Final Resul t [facility] [address] [place] [address], [place] [phone] * Haptoglobin (04/24/2024 1:40 PM EST) Pathologist [facility] Haptoglobin 128 16 - 200 mg/dL LAB CHEMISTRY METHOD 04/24/2024 9:01 PM EST [facility] Blood Venous blood specimen / Unknown Venipuncture / Unknown 04/24/2024 1:40 PM EST 04/24/2024 4:39 PM EST Rhonda ZAVALETA LAB BLOOD ORDERABLES Final Resul t [facility] [address] [place] [address], [place] [phone] * Ferritin (04/24/2024 1:40 PM EST) Pathologist [facility] Ferritin 44 8 - 252 ng/mL LAB CHEMISTRY METHOD 04/24/2024 9:01 PM EST [facility] Blood Venous blood specimen / Unknown Venipuncture / Unknown 04/24/2024 1:40 PM EST 04/24/2024 4:39 PM EST us Rhonda ZAVALETA LAB BLOOD ORDERABLES Final Resul t [facility] [address] [place] [address], [place] [phone] * (ABNORMAL) Hepatic function panel (03/19/2024 11:15 AM EST) Total Protein 6.8 6.0 - 8.0 g/dL LAB CHEMISTRY METHOD 03/19/2024 12:25 PM EST [facility] Albumin 3.5 3.2 - 5.0 g/dL LAB CHEMISTRY METHOD 03/19/2024 12:25 PM EST [facility] Total Bilirubin 0.2 0.0 - 1.4 mg/dL LAB CHEMISTRY METHOD 03/19/2024 12:25 PM [facility] Bilirubin, Direct <0.1 0.0 - 0.3 mg/dL LAB CHEMISTRY METHOD 03/19/2024 12:25 PM [facility] Bilirubin, Indirect LAB CHEMISTRY METHOD 03/19/2024 12:25 PM [facility] Comment:Unable to calculate Indirect Bilirubin. ALT (SGPT) 78(H) 10 - 60 unit/L LAB CHEMISTRY METHOD 03/19/2024 12:25 PM [facility] AST (SGOT) 87(H) 10 - 42 unit/L LAB CHEMISTRY METHOD 03/19/2024 12:25 PM EST [facility] Alkaline Phosphatase 233(H) 42 - 121 unit/L LAB CHEMISTRY METHOD 03/19/2024 12:25 PM [facility] Blood Venous blood specimen / Unknown Venipuncture / Unknown 03/19/2024 11:15 AM EST 03/19/2024 11:30 AM EST us Aj ZAVALETA LAB BLOOD ORDERABLES Final R esult [facility] [address] [place] [address], [place] [phone] * (ABNORMAL) Lipid panel with reflex to direct LDL (02/20/2024 10:23 AM EST) Cholesterol 237(H) 0 - 200 mg/dL LAB CHEMISTRY METHOD 02/20/2024 12:34 PM [facility] Triglycerides 260(H) 0 - 150 mg/dL LAB CHEMISTRY METHOD 02/20/2024 12:34 PM EST [facility] HDL 55 >=40 mg/dL LAB CHEMISTRY METHOD 02/20/2024 12:34 PM [facility] LDL Calculated 130(H) 0 - 100 mg/dL LAB CHEMISTRY METHOD 02/20/2024 12:34 PM [facility] VLDL Cholesterol [place] 52 mg/dL LAB CHEMISTRY METHOD 02/20/2024 12:34 PM [facility] Non HDL Chol. (LDL+VLDL) 182(H) <145 mg/dL LAB CHEMISTRY METHOD 02/20/2024 12:34 PM [facility] Chol/HDL Ratio 4.3 0.0 - 4.4 LAB CHEMISTRY METHOD 02/20/2024 12:34 PM [facility] Blood Venous blood specimen / Unknown Venipuncture / Unknown 02/20/2024 10:23 AM EST 02/20/2024 10:23 AM EST Erick Angeles MD LAB BLOOD ORDERA BLES Final Result [facility] [address] [place] [address], * (ABNORMAL) Hemoglobin A1c (02/20/2024 10:23 AM EST) Hemoglobin A1C 8.2(H) <6.5 % LAB CHEMISTRY METHOD 02/20/2024 2:17 PM [facility] Mean Bld Glu Estim. 189 mg/dL LAB CHEMISTRY METHOD 02/20/2024 2:17 PM [facility] Blood Venous blood specimen / Unknown Venipuncture / Unknown 02/20/2024 10:23 AM EST 02/20/2024 10:23 AM EST Erick Angeles MD LAB BLOOD ORDERA BLES Final Result [facility] [address] [place] [address], [place] [phone] * (ABNORMAL) Comprehensive metabolic panel (02/20/2024 10:23 AM EST) Sodium 139 133 - 145 mmol/L LAB CHEMISTRY METHOD 02/20/2024 12:34 PM [facility] Potassium 4.5 3.5 - 5.5 mmol/L LAB CHEMISTRY METHOD 02/20/2024 12:34 PM [facility] Chloride 106 96 - 110 mmol/L LAB CHEMISTRY METHOD 02/20/2024 12:34 PM [facility] CO2 26 21 - 32 mmol/L LAB CHEMISTRY METHOD 02/20/2024 12:34 PM [facility] Anion Gap 7 3 - 11 LAB CHEMISTRY METHOD 02/20/2024 12:34 PM [facility] Glucose 174(H) 70 - 100 mg/dL LAB CHEMISTRY METHOD 02/20/2024 12:34 PM [facility] BUN 25 5 - 25 mg/dL LAB CHEMISTRY METHOD 02/20/2024 12:34 PM [facility] Creatinine 1.07 0.50 - 1.10 mg/dL LAB CHEMISTRY METHOD 02/20/2024 12:34 PM [facility] eGFR 71 >=60 mL/min/1. 73m2 LAB CHEMISTRY METHOD 02/20/2024 12:34 PM [facility] Comment:Calculation based on the??Chronic Kidney Disease Epidemiology Collaboration (CKD-EPI) equation refit??without adjustment for race. BUN/Creatinine Ratio 23.4 LAB CHEMISTRY METHOD 02/20/2024 12:34 PM [facility] Calcium 9.8 8.5 - 10.5 mg/dL LAB CHEMISTRY METHOD 02/20/2024 12:34 PM [facility] AST (SGOT) 81(H) 10 - 42 unit/L LAB CHEMISTRY METHOD 02/20/2024 12:34 PM [facility] ALT (SGPT) 88(H) 10 - 60 unit/L LAB CHEMISTRY METHOD 02/20/2024 12:34 PM [facility] Alkaline Phosphatase 229(H) 42 - 121 unit/L LAB CHEMISTRY METHOD 02/20/2024 12:34 PM [facility] Total Protein 7.0 6.0 - 8.0 g/dL LAB CHEMISTRY METHOD 02/20/2024 12:34 PM [facility] Albumin 3.6 3.2 - 5.0 g/dL LAB CHEMISTRY METHOD 02/20/2024 12:34 PM [facility] Total Bilirubin 0.2 0.0 - 1.4 mg/dL LAB CHEMISTRY METHOD 02/20/2024 12:34 PM [facility] Blood Venous blood specimen / Unknown Venipuncture / Unknown 02/20/2024 10:23 AM EST 02/20/2024 10:23 AM EST Erick Angeles MD LAB BLOOD ORDERA BLES Final Result [facility] [address] [place] [address], [place] [phone] * Depression Screening (10/19/2023) Depression Screening abstracted Historical Provider HEALTH MAINTENANCE Final Result * Urine Albumin Creatinine Ratio (06/22/2023) [facility] Urine Albumin Creatinine Ratio abstracted [facility] Provider HEALTH MAINTENANCE Final Result * Diabetes Foot Exam (06/22/2023) [facility] Diabetes: Annual Foot Exam abstracted [facility] Provider HEALTH MAINTENANCE Final Result * Cervical Cancer Screening: HPV (06/09/2023) [facility] Cervical Cancer Screening: HPV negative,a bstracted Result [facility] Provider HEALTH MAINTENANCE Final Result * HIV Screening (06/09/2023) [facility] HIV Screening abstracted Result [facility] Provider HEALTH MAINTENANCE Final Result * Hepatitis C Screening (06/09/2023) [facility] Hepatitis C Screening abstracted Result [facility] Provider HEALTH MAINTENANCE Final Result * Diabetes Eye Exam (02/22/2023) [facility] Diabetes: Annual Retina Eye Exam abstracted Result [facility] Provider HEALTH MAINTENANCE Final Result from Last 3 Months or Most Recently Relevant to Health Maintenance Insurance [facility] Care Teams Human Resources Associate Relationship Specialty Start Date End Date Erick Angeles MD [address] [place], [place] PCP - General Internal Medicine 10/30/21
--- OUTSIDE RECORDS SUMMARY | 2024-05-24 08:40 | XMS_ITS | Clinical Summary ---
Author Organization [facility] Address [address] [place] [address] Care Team Providers Care Tablet Making Machine Operator Helper Name Role Phone Pcp, No Primary Care Provider Unavailabl e Allergies No known active allergies Medications Medication Sig Dispensed Refills Start Date End Date Status oxyCODONE (ROXICODONE) 5 MG immediate release tablet Take 1 tablet (5 mg total) by mouth every 4 (four) hours as needed for severe pain. Max Daily Amount: 30 mg 15 tablet 11/28/2022 Active Social History Tobacco Use Types Packs/Day Years Used Date Smoking Tobacco: Never Assessed Sex and Gender Information Value Date Recorded Sex Assigned at Female 11/28/2022 7:19 PM EDT Gender Identity Female 11/28/2022 7:19 PM EDT Sexual Orientation Heterosexual (straight) 11/28 7:19 PM EDT Last Filed Vital Signs Vital Sign Reading Time Taken Comments Blood Pressure 142/82 11/28/2022 10:44 PM EDT Pulse 86 11/28/2022 10:44 PM EDT Temperature 36.8 ??C (98.2 ??F) 11/28/2022 10:44 PM E DT Respiratory Rate 20 11/28/2022 10:44 PM EDT Oxygen Saturation 99% 11/28/2022 10:44 PM EDT Inhaled Oxygen Concentration - - Weight - - Height - - Body Mass Index - - Plan of Treatment Health Maintenance Due Date Last Done Comments Hepatitis C Virus Screening 1992 HIV Screening 2005 DTaP/Tdap/Td Vaccines (1 - Tdap) 12/09/2011 Hepatitis B Vaccines (1 of 3 - 19+ 3-dose series) 12/09/2011 Pap Smear (Ages 21-65) 2013 Influenza Vaccine 11/10/2023 COVID-19 Vaccine (2023-2 5 season) 2023 HPV Vaccines Aged Out No longer eligi ble based on patient's age to complete this topic Pneumococcal Vaccine: Pediat bang (0-5 Years) and At-Risk Patients (6 to 49 Years) Aged Out No longer eligible b ased on patient's age to complete this topic Care Teams Tablet Making Machine Operator Helper Relationship Specialty Start Date End Date Pcp, No PCP - General 11/28/22
--- OUTSIDE RECORDS SUMMARY | 2024-05-24 08:40 | XMS_ITS | Encounter Summary ---
Author Organization [facility] Address [address] [place] [address] Phone Care Team Providers Care Leather Sorter Name Role Phone Erick Angeles Primary Care Provider Encounter Details Date Type Department Care Team (Late st Contact Info) Description 09/22/2022 Documentation Only [facility] [address] [place] [address] Erick Angeles [address] [place] [id number] Social History Tobacco Use Types Packs/Day Years Used Date Smoking Tobacco: Never Assessed Comments Unknown Sex and Gender Information Value Date Recorded Sex Assigned at Not on file Legal Sex Female 2:16 PM EDT Gender Identity Not on file Sexual Orientation Not on file documented as of this encounter Plan of Treatment Upcoming Encounters Date Type Department Care Team (Late st Contact Info) Description 08/16/2024 1:30 PM EDT Office Visit [facility] [address] [place] [address] Thuan De Guzman MD [address] [place] [address] [place] [address] documented as of this encounter Visit Diagnoses Not on filedocumented in this encounter Care Teams Leather Sorter Relationship Specialty Start Date End Date Erick Angeles PCP - General 09/22/22 documented as of this encounter
--- OUTSIDE RECORDS SUMMARY | 2024-05-24 08:41 | XMS_ITS | Encounter Summary ---
Author Organization [facility] Address [address] [place] [address] Phone Care Team Providers Care Custodial Laborer Name Role Phone Erick Angeles Primary Care Provider Encounter Details Date Type Department Care Team (Late st Contact Info) Description 08/17/2023 Documentation Only [facility] [address] [place] [address] Inna Macias [address] [place] [address] Social History Tobacco Use Types [...] Visit [facility] [address] [place] [address] Thuan De Guzman MD [address] [place] [address] [place] [address] documented as of this encounter Visit Diagnoses Not on filedocumented in this encounter Care Teams Custodial Laborer Relationship Specialty Start Date End Date Erick Angeles PCP - General 09/22/22 documented as of this encounter
--- OUTSIDE RECORDS SUMMARY | 2024-05-24 08:41 | XMS_ITS | Clinical Summary ---
Author Organization [facility] Address [address] [place] [address] Care Team Providers Care Reeling Machine Setup Operator Name Role Phone Unavailable Primary Care Provider Unavailabl e Allergies Active Allergy Reactions Criticality Noted Date Comments Iodinated Contrast Media 09/15/2022 Other reaction(s): vomiting Metoclopramide 09/15/2022 Other reaction(s): rash pt reports severe agitation with this medication Medications Alcohol Swabs (B-D SINGLE USE SWABS REGULAR) pads USE 4 TIMES A DAY 03/26/20 22 Active Blood Glucose Monitoring Suppl (FreeStyle Lite) w/Device kit USE DIRECTED FOR TYPE 1 DIABETES MELLITUS 4 X DAILY. 03/06/20 22 Active chlorthalidone (Hygroton) 25 MG tablet Take 25 mg by mouth in the morning. 07/03/19 23 Active Continuous Blood Gluc Sensor (Dexcom G6 Sensor) [facility] 08/19/19 23 Active Continuous Blood Gluc Transmit (Dexcom G6 transmitter) [facility] 07/28/19 23 Active cyclobenzaprine (Flexeril) 5 MG tablet 08/19/19 23 Active ergocalciferol (Vitamin D2) 1.25 MG (75162 UT) capsule TAKE 1 CAPSULE BY MOUTH ONCE A WEEK FOR 56 DAYS. 06/17/19 23 Active Baqsimi Two Pack 3 MG/DOSE nasal powder PLEASE SEE ATTACHED FOR DETAILED DIRECTIONS 03/30/20 22 Active FREESTYLE LITE test strip 08/24/19 23 Active hydrOXYzine HCl (Atarax) 25 MG tablet 08/19/19 23 Active Insulin Disposable Pump (Omnipod 5 G6 Pod, Gen 5,) [facility] 07/27/19 23 Active B-D UF III MINI PEN NEEDLES 31G X 5 MM [facility] USE PEN NEEDLES TO INJECT INSULIN 4 TIMES A DAY 06/04/19 23 Active lisinopril 40 MG tablet Take 40 mg by mouth in the morning. 06/29/19 23 Active Continuous Blood Gluc Sensor (Dexcom G6 Sensor) [facility] Dexcom G6 sensor 3 pack, See Instructions, # 3 each, Refills 3, Tot. Refills 3, Maintenance, E11.9 for 90 days supply [facility]: [address]-29, 11/30/22 15:21:00 EDT, Supply, 153, cm, 11/29/22 18:40:00 EDT, Height, 59, kg, 11/29/22 18:40:00 EDT, Dry Weight 02/09/20 22 Active nitrofurantoin, macrocrystal-monoh ydrate, (Macrobid) 100 MG capsule TAKE 1 CAPSULE BY MOUTH TWICE A DAY FOR 5 DAYS 10/23/19 23 Active oxyCODONE (Roxicodone) 5 MG immediate release tablet Take 5 mg by mouth every 4 (four) hours if needed. 11/29/19 23 Active amLODIPine (Norvasc) 5 MG tablet Take 1 tablet by mouth in the morning. 03/07/20 23 Active DULoxetine (Cymbalta) [address] capsule TAKE 1 CAPSULE BY MOUTH DAILY FOR 7 DAYS, THEN 2 CAPSULES DAILY 02/29/20 23 Active gabapentin (Neurontin) 300 MG capsule TAKE 1 CAPSULE BY MOUTH EVERYDAY AT BEDTIME 03/06/20 23 Active insulin glargine (Lantus SoloStar) 100 UNIT/ML pen Inject under the skin. Active lactulose (Chronulac) 10 GM/15ML solution TAKE 30 ML BY MOUTH TWICE A DAY 04/28/19 24 Active ondansetron ODT (Zofran-ODT) 4 MG disintegrating tablet TAKE 1 TABLET EVERY 6 HOURS NEEDED NAUSEA 12/18/19 23 Active cefpodoxime (Vantin) 200 MG tablet TAKE 1 TABLET BY MOUTH 2 TIMES PER DAY FOR 5 DAYS TAKE 1 HOUR PRIOR TO TAKING YOUR OMEPRAZOLE 10/05/19 24 Active cephalexin (Keflex) 500 MG capsule TAKE 1 CAPSULE BY MOUTH 4 TIMES A DAY,X5 DAYS 09/16/19 24 Active docusate sodium (Colace) 100 MG capsule 10/19/19 24 Active omeprazole (PriLOSEC) [address] capsule Take 40 mg by mouth 2 times daily. 08/03/19 24 Active medroxyPROGESTERon e (Provera) 10 MG tablet Take 1 tablet by mouth Once per day. Active insulin lispro (HumaLOG) 100 UNIT/ML injection PLEASE SEE ATTACHED FOR DETAILED DIRECTIONS Active gabapentin (Neurontin) 100 MG capsule 10/19/19 Active atorvastatin (Lipitor) 10 MG tablet Take 1 tablet by mouth Once per day. Active atorvastatin (Lipitor) 40 MG tablet Take 1 tablet by mouth Once per day. Active venlafaxine (Effexor) 37.5 MG tablet TAKE 1 TABLET BY MOUTH DAILY FOR 7 DAYS, THEN 2 TABLETS DAILY FOR 90 DAYS. 06/23/19 24 Active sulfamethoxazole-t rimethoprim (Bactrim DS) 800-160 MG tablet Take 1 tablet by mouth 2 times daily. 10/02/19 24 Active GaviLyte-G 236 g solution TAKE 240 ML DISSOLVED IN WATER DIRECTED 08/03/19 Active LORazepam (Ativan) 0.5 MG tablet 10/19/19 Active BD Insulin Syringe U/F 31G X 5/16 0.5 ML misc USE DIRECTED FOR INSULIN ADMINISTRATION UP TO 4 TIMES DAILY, USED IN CASE OF PUMP FAILURE 07/15/19 Active ferrous sulfate 324 (65 Fe) MG EC tablet Take 324 mg by mouth Once per day. 10/19/19 Active escitalopram (Lexapro) 20 MG tablet 10/19/19 Active prednisoLONE acetate (Pred-Forte) 1 % ophthalmic suspension Administer 1 drop into the left eye 4 times daily. Shake 2-3 times before using. 10 mL 10/21/19 Active Linzess 290 MCG capsule Take 290 mcg by mouth Once per day. 10/26/19 Active valACYclovir (Valtrex) 1 g tablet Take 1,000 mg by mouth 2 times daily. 12/28/19 Active lidocaine 2 % gel USE 5 ML TOPICALLY NEEDED UP TO 3 TIMES PER DAY. 12/24/19 Active Active Problems Problem Noted Date Diagnosed Date History of panretinal photocoagulation 4 Epiretinal membrane, both eyes 01/24/2024 Family History Medical History Relation Name Comments Glaucoma Maternal Grandmother Glaucoma Mother Relation Name Status Comments Maternal Grandmother Mother Social History Tobacco Use Types Packs/Day Years Used Date Smoking Tobacco: Never Smokeless Tobacco: Never Tobacco Cessation:Counseling Given: Not Answered Comments Unknown Sex and Gender Information Value Date Recorded Sex Assigned at Female 02/08/2022 10:39 AM EDT Legal Sex Female 10:39 AM EDT Gender Identity Female 02/08/2022 10:39 AM EDT Sexual Orientation Straight 02/08/2022 10 :39 AM EDT Plan of Treatment Upcoming Encounters Date Type Department Care Team (Late st Contact Info) Description 07/09/2024 11:00 AM EDT Office Visit [facility] [address] [place] [address] Syd, Aidee, OD [address] [place] [address] Health Maintenance Due Date Last Done Comments Depression Screening 1992 Diabetes: Hemoglobin A1C 1992 HIV Screening 1992 Lipid Panel 1992 SDOH Screening 1992 Diabetes: Foot Exam 2002 Alcohol/Substance Use Screening 2004 Family Planning (PISQ) 12/09/2007 Hepatitis C Screening 2010 Pneumococcal Vaccine: Pediatrics (0 to 5 Years) and At-Risk Patients (6 to 49) Years) (1 of 2 - PCV) 12/09/2011 Pap Smear 2013 Hepatitis B Vaccines (3 of 3 - 19+ 3-dose series) 10/05/2021 06/25/2021, 04/06/2021 Cervical Cancer Screening 2022 HPV/Cotest 2022 Diabetes: Urine Protein Screening 10/30/2023 10/29/2022 COVID-19 Vaccine ( - season) 2023 01/23/2021, 01/02/2021 Influenza Vaccine (#1) 2023 , 03/07/2018, 01/17/2014, Additional history exists Eye Exam 01/08/2025 01/09/2024, 12/12, 01/09/2024, Additional history exists Tobacco Screening 01/19/2025 01/20/2024 DTaP/Tdap/Td Vaccines (4 - Td or Tdap) 07/19/2028 07/19/2018, 03/07/2018, 04/18/2014 Zoster Vaccines (1 of 2) 2042 RSV Patients and Patients Aged 60 years or older (1 - 1-dose 75+ series) 12/09/2067 HIB Vaccines Aged Out No longer eligi ble based on patient's age to complete this topic HPV Vaccines Aged Out No longer eligi ble based on patient's age to complete this topic Hepatitis A Vaccines Aged Out No long er eligible based on patient's age to complete this topic IPV Vaccines Aged Out No longer eligi ble based on patient's age to complete this topic Meningococcal Vaccine Aged Out No ron ina eligible based on patient's age to complete this topic RSV under 20 months Aged Out No longe r eligible based on patient's age to complete this topic Rotavirus Vaccines Aged Out No longer eligible based on patient's age to complete this topic Insurance [employer] Member Subscriber Plan / Payer (Ef fective 2022-Present) Name:Karol Sheffield Relation to Subscriber:Self Name:Karol Sheffield Payer ID:Not on file Group ID:[id number] Type:Not on file Address: [address] [employer]
--- OUTSIDE RECORDS SUMMARY | 2024-05-24 08:41 | XMS_ITS | Encounter Summary ---
Author Organization [facility] Address [address] [place] [address] Phone Care Team Providers Care Fire Control Mechanic Name Role Phone Erick Angeles Primary Care Provider Encounter Details Date Type Department Care Team (Late st Contact Info) Description 08/15/2023 Documentation Only [facility] [address] [place] [address] Inna Macias [address] [place] [address] Social History Tobacco Use Types [...] Visit [facility] [address] [place] [address] Thuan De Guzman MD [address] [place] [address] [place] [address] documented as of this encounter Visit Diagnoses Not on filedocumented in this encounter Care Teams Fire Control Mechanic Relationship Specialty Start Date End Date Erick Angeles PCP - General 09/22/22 documented as of this encounter
--- OUTSIDE RECORDS SUMMARY | 2024-05-24 08:41 | XMS_ITS | Encounter Summary ---
Author Organization [facility] Address [address] [place] [address] Phone Care Team Providers Care Try On Baster Name Role Phone Erick Angeles Primary Care Provider [phone] Encounter Details Date Type Department Care Team (Late st Contact Info) Description 08/16/2023 Documentation Only [facility] [address] [place] [address] Inna Macias [address] [place] [address] Social History Tobacco Use Types [...] [facility] [address] [place] [address] Thuan De Guzman MD [address] [place] [address] [place] [address] documented as of this encounter Visit Diagnoses Not on filedocumented in this encounter Care Teams Try On Baster Relationship Specialty Start Date End Date Erick Angeles PCP - General 09/22/22 documented as of this encounter
--- OUTSIDE RECORDS SUMMARY | 2024-05-24 08:41 | XMS_ITS | Encounter Summary ---
Author Organization [facility] Address [address] [place] [address] Phone Care Team Providers Care Gang Ripsaw Operator Name Role Phone Erick Angeles Primary Care Provider Encounter Details Date Type Department Care Team (Late st Contact Info) Description 08/25/2023 Documentation Only [facility] [address] [place] [address] Inna Macias [address] [place] [address] Social History Tobacco Use Types [...] Visit [facility] [address] [place] [address] Thuan De Guzman MD [address] [place] [address] [place] [address] documented as of this encounter Visit Diagnoses Not on filedocumented in this encounter Care Teams Gang Ripsaw Operator Relationship Specialty Start Date End Date Erick Angeles PCP - General 09/22/22 documented as of this encounter
--- OUTSIDE RECORDS SUMMARY | 2024-05-24 08:41 | XMS_ITS | Encounter Summary ---
Author Organization [facility] Address [address] [place] [address] Phone Care Team Providers Care Hazmat Cdl A Driver Name Role Phone Erick Angeles Primary Care Provider Reason for Visit * Reason Comments Med Refill Encounter Details Date Type Department Care Team (Late st Contact Info) Description 09/10/2023 Refill [facility] [address] [place] [address] Thuan De Guzman MD [address] [place] [address] [place] [address] Social History Tobacco Use Types [...] Visit [facility] [address] [place] [address] Thuan De Guzman MD [address] [facility] [place] [address] documented as of this encounter Visit Diagnoses Not on filedocumented in this encounter Care Teams Hazmat Cdl A Driver Relationship Specialty Start Date End Date Erick Angeles PCP - General 6/14/23 documented as of this encounter
--- OUTSIDE RECORDS SUMMARY | 2024-05-24 08:41 | XMS_ITS | Encounter Summary ---
Author Organization [facility] Address [address] [place] [address] Phone Care Team Providers Care Assurance Manager Name Role Phone Erick Angeles Primary Care Provider Encounter Details Date Type Department Care Team (Late st Contact Info) Description 08/15/2023 Documentation Only [facility] [address] [place] [place] [address] Inna Macias [address] [place] [address] Social History Tobacco Use Types [...] Visit [facility] [address] [place] [address] Thuan De Guzman MD [address] [place] [address] [place] [address] documented as of this encounter Visit Diagnoses Not on filedocumented in this encounter Care Teams Assurance Manager Relationship Specialty Start Date End Date Erick Angeles PCP - General 09/22/22 documented as of this encounter
== END 2024-05-24 09:08 | disposition home or self-care (01) ==
PROVIDERS: PCP Family Medicine; Visit Provider Orthopaedic Surgery
DX: S82.201D Unspecified fracture of shaft of right tibia, subsequent encounter for closed fracture with routine healing (principal)
CPT/HCPCS: 99214

== ENCOUNTER → 2024-05-24 08:32 | Outpatient (BNVA) | payer OTHER, SELFPAY | PROVIDERS: PCP Family Medicine; Visit Provider Orthopaedic Surgery | DX: S82.201D Unspecified fracture of shaft of right tibia, subsequent encounter for closed fracture with routine healing (principal) | CPT/HCPCS: 99212 ==

== ENCOUNTER 2024-07-17 12:27 | Outpatient (AMB) | payer OTHER, SELFPAY ==
--- NOTE | 2024-07-17 12:32 | MHC.OFFVIS ---
Vital Signs 07/17/24 12:41 Height 5 ft Weight 142 lb BMI 27.7 Intake Visit Reasons: Preop RT knee JOHNNY 07/25/24 NE Intake Note: Karol is a 33 year old female who presents today for a pre op appointment for her RT knee removal of hardware 07/25/24 NE. Allergies No Known Allergies Allergy (Verified 07/17/24 12:32) HPI HPI Preop RT knee JOHNNY 07/25/24 NE: Details: Ms. Sheffield is a 33-year-old female who presents the office today for her preoperative history and physical examination pending right knee removal of hardware on 07/25/[address] Flores. Of note patient is a type 1 diabetic and for surgical procedures in the past she has had to stay overnight for observation as result of hyperglycemia postoperatively. [facility] Medical History Hyperlipidemia Essential hypertension Type 1 diabetes mellitus Social History Household Members: Children Housing: House Do you presently have visiting nurse or other home services: No Patient Tobacco Use Status: Never used Tobacco Second Hand Smoke Exposure: No service: No Review of Systems Const All systems reviewed & are unremarkable except as noted in HPI and below Physical Exam Vital Signs: BMI result Body Mass Index 27.7 Const General: cooperative, healthy appearing, comfortable, no acute distress, well developed, alert and awake Orientation/consciousness: patient oriented x3 HEENT Head: Yes normal to inspection, Yes normocephalic and Yes atraumatic Eyes General: appearance normal, both eyes and all related structures Neck Neck: Yes normal visual inspection and Yes no lymphadenopathy Resp Effort & Inspection: normal respiratory effort and able to speak in complete sentences Cardio Rate: regular rate Peripheral pulses: Peripheral pulses 2+ throughout GI Inspection: Yes normal to inspection Palpation (GI): Soft to palpation Skin General skin exam: no rashes or lesions noted Neuro General: patient oriented x3 Extrem Other: Full range of motion right knee. Well-healed anterolateral incision. She has tenderness over the anterolateral tibial plateau. Is 2+ dorsalis pedis pulse in his walking normally. Psych Mental Status: mental status grossly normal Assessment & Plan Assessment & Plan (1) Closed tibia fracture: Comment: Right tibial plateau ORIF 08/31/2023 NE Code(s): S82.209A - Unspecified fracture of shaft of unspecified tibia, initial encounter for closed fracture Category: Surgical Qualifiers: Encounter type: initial encounter Fracture alignment: displaced Laterality: right (2) Painful orthopaedic hardware: Code(s): T84.84XA - Pain due to internal orthopedic prosthetic devices, implants and grafts, initial encounter Category: Medical Plan Ms. Sheffield is a 33-year-old female who presents the office today for her preoperative history and physical examination pending right knee removal of hardware on 07/25/[address] Flores. Of note patient is a type 1 diabetic and for surgical procedures in the past she has had to stay overnight for observation as result of hyperglycemia postoperatively. I discussed in detail the procedure and what to expect pre and post operatively. We discussed the risks, benefits and alternatives to the surgery as well as the rehabilitation course. The risks; which include, but are not limited to infection, bleeding, nerve injury, ongoing pain, swelling, and stiffness, perioperative risk of injury to bones and soft tissues, and blood clots. I?ve answered all questions and with their understanding they have consented to move forward with removal of hardware right knee with Dr. Flores. Coding Level of Care Code Global (10740) Diagnoses Closed tibia fracture S82.209A Encounter type: initial encounter Fracture alignment: displaced Laterality: right Painful orthopaedic hardware T84.84XA
[2024-07-17 12:41] VITALS: BMI 27.7
--- OUTSIDE RECORDS SUMMARY | 2024-07-17 15:03 | XMS_ITS | Encounter Summary ---
Author Organization [facility] Address [address] [place] [address] Phone Care Team Providers Care Presentation Specialist Name Role Phone Erick Angeles Primary Care Provider Encounter Details Date Type Department Care Team (Late st Contact Info) Description 08/15/2023 Documentation Only [facility] [address] [place] [address] Inna Macias [address] [place] [address] Social History Tobacco Use Types [...] Visit [facility] [address] [place] [address] Thuan De Guzman MD [address] [place] [address] [place] [address] documented as of this encounter Visit Diagnoses Not on filedocumented in this encounter Care Teams Presentation Specialist Relationship Specialty Start Date End Date Erick Angeles PCP - General 09/22/22 documented as of this encounter
--- OUTSIDE RECORDS SUMMARY | 2024-07-17 15:03 | XMS_ITS | Encounter Summary ---
Author Organization [facility] Address [address] [place] [address] Phone Care Team Providers Care Milk Pickup Driver Name Role Phone Erick Angeles Primary Care Provider Encounter Details Date Type Department Care Team (Late st Contact Info) Description 08/15/2023 Documentation Only [facility] [address] [place] [address] Inna Macias [address] [place] [address] Social History Tobacco Use Types [...] Visit [facility] [address] [place] [address] Thuan De Guzman MD [address] [place] [address] [place] [address] documented as of this encounter Visit Diagnoses Not on filedocumented in this encounter Care Teams Milk Pickup Driver Relationship Specialty Start Date End Date Erick Angeles PCP - General 09/22/22 documented as of this encounter
--- OUTSIDE RECORDS SUMMARY | 2024-07-17 15:03 | XMS_ITS | Encounter Summary ---
Author Organization [facility] Address [address] [place] [address] Phone Care Team Providers Care Middle School Resource Teacher Name Role Phone Ercik Angeles Primary Care Provider Encounter Details Date Type Department Care Team (Late st Contact Info) Description 08/15/2023 Documentation Only [facility] [address] [place] [address] Inna Macias [address] [place] [address] Social History Tobacco Use Types [...] Visit [facility] [address] [place] [address] Thuan De Guzman MD [address] [place] [address] [place] [address] documented as of this encounter Visit Diagnoses Not on filedocumented in this encounter Care Teams Middle School Resource Teacher Relationship Specialty Start Date End Date Erick Angeles PCP - General 09/22/22 documented as of this encounter
--- OUTSIDE RECORDS SUMMARY | 2024-07-17 15:03 | XMS_ITS | Clinical Summary ---
Author Organization [facility] Address [address] [place] [address] Care Team Providers Care Electric Meter Tester Name Role Phone Pcp, No Primary Care [...] age to complete this topic Care Teams Electric Meter Tester Relationship Specialty Start Date End Date Pcp, No PCP - General 11/28/22
--- OUTSIDE RECORDS SUMMARY | 2024-07-17 15:03 | XMS_ITS | Encounter Summary ---
Author Organization [facility] Address [address] [place] [address] Phone Care Team Providers Care Linter Operator Name Role Phone Erick Angeles Primary Care Provider Encounter Details Date Type Department Care Team (Late st Contact Info) Description 09/22/2022 Documentation Only [facility] [address] [place] [address] Erick Angeles [address] [place] [id number] Social History Tobacco Use Types Packs/Day Years [...] Visit [facility] [address] [place] [address] Thuan De Guzman MD [address] [place] [address] [place] [address] documented as of this encounter Visit Diagnoses Not on filedocumented in this encounter Care Teams Linter Operator Relationship Specialty Start Date End Date Erick Angeles PCP - General 09/22/22 documented as of this encounter
--- OUTSIDE RECORDS SUMMARY | 2024-07-17 15:03 | XMS_ITS | Encounter Summary ---
Author Organization [facility] Address [address] [place] [address] Phone Care Team Providers Care Quality Assurance Qa Lab Analyst Name Role Phone Erick Angeles Primary Care Provider Encounter Details Date Type Department Care Team (Late st Contact Info) Description 08/17/2023 Documentation Only [facility] [address] [place] [address] Inna Macias [address] [place] [address] Social History Tobacco Use Types [...] [facility] [address] [place] [address] Thuan De Guzman MD [address] [place] [address] [place] [address] documented as of this encounter Visit Diagnoses Not on filedocumented in this encounter Care Teams Quality Assurance Qa Lab Analyst Relationship Specialty Start Date End Date Erick Agneles PCP - General 09/22/22 documented as of this encounter
--- OUTSIDE RECORDS SUMMARY | 2024-07-17 15:03 | XMS_ITS | Encounter Summary ---
Author Organization [facility] Address [address] [place] [address] Phone Care Team Providers Care Process Controller Name Role Phone Erick Angeles Primary Care Provider Encounter Details Date Type Department Care Team (Late Contact Info) Description 12/09/2023 Documentation Only [facility] [address] [place] [address] Shane Barr MD [address] [place] [address] [place] [address] Social History Tobacco Use Types [...] Visit [facility] [address] [place] [address] Thuan De Guzman MD [address] [place] [address] [place] [address] documented as of this encounter Visit Diagnoses Not on filedocumented in this encounter Care Teams Process Controller Relationship Specialty Start Date End Date Erick Angeles PCP - General 09/22/22 documented as of this encounter
--- OUTSIDE RECORDS SUMMARY | 2024-07-17 15:03 | XMS_ITS | Clinical Summary ---
Author Organization [facility] [facility] Address [address] [address] [place] [address] Care Team Providers Care Stripping Shovel Operator Name Role Phone Unavailable Primary Care [...] Continuous Blood Gluc Sensor (Dexcom G6 Sensor) [facility] 08/19/19 23 Active Continuous Blood Gluc Transmit (Dexcom G6 transmitter) [facility] [place] 07/28/19 23 Active cyclobenzaprine (Flexeril) 5 MG tablet 08/19/19 23 Active ergocalciferol (Vitamin D2) 1.25 MG (36806 UT) capsule TAKE 1 CAPSULE BY MOUTH ONCE A WEEK FOR 56 DAYS. 06/17/19 23 Active Baqsimi Two Pack 3 MG/DOSE nasal powder PLEASE SEE ATTACHED FOR DETAILED DIRECTIONS 03/30/20 22 Active FREESTYLE LITE test strip 08/24/19 23 Active hydrOXYzine HCl (Atarax) 25 MG tablet 08/19/19 23 Active Insulin Disposable Pump (Omnipod 5 G6 Pod, Gen 5,) [facility] [place] 07/27/19 23 Active B-D UF III MINI PEN NEEDLES 31G X 5 MM [facility] [place] USE PEN NEEDLES TO INJECT INSULIN 4 TIMES A DAY 06/04/19 23 Active lisinopril 40 MG tablet Take 40 mg by mouth in the morning. 06/29/19 23 Active Continuous Blood Gluc Sensor (Dexcom G6 Sensor) [facility] [place] Dexcom G6 sensor 3 pack, See Instructions, # 3 each, Refills 3, Tot. Refills 3, Maintenance, E11.9 for 90 days supply [facility]: [id number], 11/30/22 15:21:00 EDT, Supply, 153, cm, 11/29/22 [...] UP TO 3 TIMES PER DAY. 12/24/19 24 Active Active Problems Problem Noted Date Diagnosed Date History of panretinal photocoagulation 4 Epiretinal membrane, both eyes 01/24/2024 Encounters Date Type Department Care Team Description 07/09/2024 3:30 PM EDT Office Visit [facility] [address] [place] [address] Syd, Aidee, OD Dry eye syndrome of both eyes (Primary Dx) 07/09/2024 Travel from Last 3 Months Family History Medical History Relation Name Comments [...] 10 :39 AM EDT Plan of Treatment Health Maintenance Due Date Last Done Comments Depression Screening 1992 Diabetes: Hemoglobin A1C 1992 HIV Screening 1992 Lipid Panel 1992 SDOH Screening 1992 Diabetes: Foot Exam 2002 Alcohol/Substance Use Screening 2004 Family Planning (PISQ) 12/09/2007 Hepatitis C Screening 2010 Hepatitis A Vaccines (1 of 2 - Risk 2-dose series) 12/09/2011 Pneumococcal Vaccine: Pediatrics (0 to 5 Years) and At-Risk Patients (6 to 49) Years) (1 of 2 - PCV) 12/09/2011 Pap Smear 2013 Hepatitis B Vaccines (3 of 3 - 19+ 3-dose series) 10/05/2021 06/25/2021, 06/25/2021, 04/06/2021, Additional history exists Cervical Cancer Screening 2022 HPV/Cotest 2022 Diabetes: Urine Protein Screening 10/30/2023 10/29/2022 COVID-19 Vaccine ( season) 2023 01/23/2021, 01/02/2021 Influenza Vaccine (#1) 2023 , 03/07/2018, 01/17/2014, Additional history exists Tobacco Screening 01/19/2025 01/20/2024 Eye Exam 07/09/2025 07/09/2024, 06/11, 07/09/2024, Additional history exists DTaP/Tdap/Td Vaccines (4 - Td or Tdap) [...] age to complete this topic Insurance ACO ACO
--- OUTSIDE RECORDS SUMMARY | 2024-07-17 15:03 | XMS_ITS | Clinical Summary ---
Author Organization [facility], Address [address] [place] [address] [place] [address] Phone Care Team Providers Care Applications Support Specialist Name Role Phone Alli Angelesselenavernonjavy Primary Care Provider Allergies Active Allergy Reactions [...] [facility] [place], [address] [place] [address] Thuan De Guzman MD [address] [place] [address] Health Maintenance Due Date Last Done Comments Pneumococcal Vaccine: Pediat rics (0 to 5 Years) and At-Risk Patients (6 to 64 Years) (1 of 2 - PCV) 1998 Hepatitis B Vaccine (1 of 3 - 19+ 3-dose series) 12/09/2011 06/25/2021, 06/25/2021, 04/06/2021, Additional history exists Diabetes: Pedal Pulse Checked 10/29/2022 Diabetes: Sensory Foot Exam 10/29/2022 Diabetes: Visual Foot Exam 10/29/2022 Diabetes: Ophthalmology Exam 05/13/2024 05/13/2023, 08/25/2022 Diabetes: Hemoglobin A1C 05/22/2024 02/20/2024 Influenza Vaccine (Season Ended) 2024 04/28/2022, 03/07/2018, 03/05/2009, Additional history exists Insurance [facility] Care Teams Applications Support Specialist Relationship Specialty Start Date End Date Erick Angeles PCP - General 09/22/22
--- OUTSIDE RECORDS SUMMARY | 2024-07-17 15:03 | XMS_ITS | Encounter Summary ---
Author Organization [facility] Address [address] [place] [address] Phone Care Team Providers Care Ballistics Teacher Name Role Phone Erick Angeles Primary Care Provider Encounter Details Date Type Department Care Team (Late st Contact Info) Description 08/16/2023 Documentation Only [facility] [address] [place] [address] Inna Macias [address] [place] [address] Social History Tobacco Use Types [...] [facility] [address] [place] [address] Thuan De Guzman MD [address] [place] [address] [place] [address] documented as of this encounter Visit Diagnoses Not on filedocumented in this encounter Care Teams Ballistics Teacher Relationship Specialty Start Date End Date Erick Angeles PCP - General 09/22/22 documented as of this encounter
--- OUTSIDE RECORDS SUMMARY | 2024-07-17 15:03 | XMS_ITS | Clinical Summary ---
Author Organization [address] Address [address] [place] [phone] Phone Care Team Providers Care Associate Artistic Director Name Role Phone Erick Angeles MD Primary Care Pr ovider Allergies Active Allergy Reactions Criticality Noted Date Comments Iodinated Contrast Media Itching 01/04/2023 Medications acetaminophen (TYLENOL) 325 mg tablet Take 2 tablets (650 mg total) by mouth. 0 Active alcohol swabs pads, medicated 1 Each by Does not apply route 4 times daily. 2 Active atorvastatin (LIPITOR) 40 mg tablet Take 1 tablet (40 mg total) by mouth 1 (one) time each day. 4 Active chlorthalidone (HYGROTON) 25 mg tablet Take 1 tablet (25 mg total) by mouth 1 (one) time each day. 4 Active cholecalciferol (VITAMIN D-3) 50 mcg (2,000 unit) capsule Take 1 capsule (2,000 Units total) by mouth 1 (one) time each day. 4 Active cyclobenzaprine (FLEXERIL) 5 mg tablet TAKE 1 TABLET BY MOUTH AT BEDTIME NEEDED FOR MUSCLE SPASMS. 3 Active docusate sodium (COLACE) 100 mg capsule Take 1 capsule (100 mg total) by mouth 2 (two) times a day. 4 Active gabapentin (NEURONTIN) 100 mg capsule Take 1 Capsule by mouth at bedtime. 4 Active Glucagon HCl, rDNA, (Glucagon Emergency Kit, human,) 1 mg injection Inject 1 Kit into the muscle once for 1 dose. 7 Active insulin lispro (HumaLOG KwikPen Insulin) 100 unit/mL injection pen Inject into the skin 3 times daily (before meals). 2 to 12 units three times daily sliding scale 2 Active pen needle, diabetic (BD Ultra-Fine Short Pen Needle) 31 gauge x 5/16 needle USE 5 TIMES A DAY 8 Active lisinopril (PRINIVIL,ZESTRI L) 40 mg tablet Take 1 tablet (40 mg total) by mouth 1 (one) time each day. 4 Active omeprazole (PriLOSEC) [address] capsule Take 1 capsule (40 mg total) by mouth 2 (two) times a day. 4 Active silver sulfADIAZINE (Silvadene) 1 % cream Apply topically 1 (one) time each day. 50 g 4 02/16/20 25 Active Additional Information Patient not taking.Reported on 07/09/2024 LORazepam (ATIVAN) 0.5 mg tabletIndication s:Anxiety and depression Take 1 tablet (0.5 mg total) by mouth 1 (one) time each day if needed for anxiety. Max Daily Amount: 0.5 mg 28 tablet 4 Active norethindrone (FRANCIS,KAEL,HE ATHER,MICRONOR) 0.35 mg tablet Take 1 tablet (0.35 mg total) by mouth 1 (one) time each day. Active ferrous sulfate 324 mg (65 mg elemental iron) EC tablet Take 1 tablet (324 mg total) by mouth daily. 4 Active Omnipod 5 G6 Pods, Gen 5, cartridge USE TO INFUSE INSULIN CONTINUOUSLY, CHANGE POD EVERY 3 DAYS 4 Active Trulance 3 mg tablet Take 1 tablet (3 mg total) by mouth 1 (one) time each day. 4 Active lubiprostone (AMITIZA) 24 mcg capsuleIndicatio ns:Chronic constipation Take 1 capsule (24 mcg total) by mouth 2 (two) times a day with meals. Take with meals 180 each 3 4 03/19/20 25 Active escitalopram (LEXAPRO) 20 mg tabletIndication s:Generalized anxiety disorder,Major depressive disorder, recurrent, moderate (CMS/HCC) TAKE 1 TABLET BY MOUTH EVERY DAY 90 tablet 1 5 Active ferrous sulfate (Slow Fe) 137 mg (45 mg iron) tablet extended release Take 1 tablet by mouth every other day. 45 tablet 1 5 07/24/19 25 Active Additional Information Patient not taking.Reported on 07/09/2024 amLODIPine (NORVASC) 5 mg tabletIndication s:Essential (primary) hypertension TAKE 1 TABLET BY MOUTH EVERY DAY 90 tablet 1 5 Active hydrOXYzine HCL (ATARAX) 25 mg tabletIndication s:Anxiety disorder, unspecified TAKE 1 TABLET BY MOUTH AT BEDTIME NEEDED FOR ANXIETY 90 tablet 1 5 Active prucalopride (Motegrity) 2 mg tabletIndication s:Chronic constipation Take 2 mg by mouth 1 (one) time each day. 90 tablet 3 5 07/10/19 26 Active polyethylene glycol (MIRALAX) 17 gram packetIndication s:Chronic constipation Take 17 g by mouth 1 (one) time each day. 1530 g 3 5 07/10/19 26 Active pantoprazole (PROTONIX) 40 mg EC tabletIndication s:Pharyngoesopha geal dysphagia,Gastro esophageal reflux disease without esophagitis Take 1 tablet (40 mg total) by mouth 1 (one) time each day. Do not crush, chew, or split. 90 each 3 5 07/10/19 26 Active Active Problems Problem Noted Date Diagnosed Date Abnormal LFTs 03/19/2024 Pharyngoesophageal dysphagia 03/19/2024 Assessment & Plan (07/09/2024 12:18 PM EDT): Reschedule barium swallow Repeat EGD if unremarkable EOE suspected: PPI not helping, flovent a little helpful ?dupixent Orders: XR Esophagram; Future pantoprazole (PROTONIX) 40 mg EC tablet; Take 1 tablet (40 mg total) by mouth 1 (one) time each day. Do not crush, chew, or split. 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 Potential side effects discussed, including depression/SI. If not covered, restart Linzess 290mcg daily and Miralax daily Cont stool softners Prunes/Kiwi Orders: prucalopride (Motegrity) 2 mg tablet; Take 2 mg by mouth 1 (one) time each day. polyethylene glycol (MIRALAX) 17 gram packet; Take 17 g by mouth 1 (one) time each day. Normocytic anemia 06/15/2022 Primary hypertension 06/15/2022 Diabetic retinopathy 06/26/2021 Vitamin D deficiency 01/05/2021 Type 1 diabetes mellitus 07/20/2018 Hyperlipidemia 12/31/2016 Tattoo of skin 01/30/2015 Encounters Date Type Department Care Team Description 07/17/2024 Telephone Gastroenterology - [address] [facility] [address] [place] [phone] Emmy Davis MA [employer] 07/09/2024 11:20 AM EDT Office Visit Gastroenterology - [address] [facility] 299 [facility] [address] [place] [phone] Aj Riley PA Chronic constipation (Primary Dx); Pharyngoesophageal dysphagia; Gastroesophageal reflux disease without esophagitis; BRINK (nonalcoholic steatohepatitis) 06/28/2024 10:30 AM EDT Office Visit Orthopedic Surgery [facility] [address] [facility] [address] [place] [phone] Juan Luis Geronimo DPM Diabetic mononeuropathy simplex (CMS/HCC) (Primary Dx) 06/07/2024 Telephone Gastroenterology - [address] [phone] Yessy Turner MA 04/24/2024 1:00 PM EST Office Visit [facility] Hematology Oncology [address] [place] [phone] Rhonda Rg PA Normocytic anemia (Primary Dx); Menorrhagia with regular cycle from Last 3 Months Immunizations Name Administration [...] Right tibial plateau fracture status post ORIF ESOPHAGOGASTRODUODENOSCOPY 06/10/2023 - 07/10/2023 esophageal mucosal changes consistent with EoE, dilated. Biopsy chronic esophagitis including eosinophils (up to 16/HPF) and reactive changes Medical History Medical History Date Comments Type [...] EST Inhaled Oxygen Concentration - - Weight 67.1 kg (148 lb) 07/09/2024 11:21 AM EDT Height 152.4 cm (5') 07/09/2024 11:21 AM EDT Body Mass Index 28.9 07/09/2024 11:21 AM EDT Plan of Treatment Upcoming Encounters Date Type Department Care Team (Late st Contact Info) Description 07/23/2024 1:30 PM EDT Office Visit [facility] Hematology Oncology [address] [place] [phone] Rhonda Rg PA [address] [place] [address] 10/08/2024 9:40 AM EDT Office Visit Gastroenterology - [address] Thu [address] [facility] [address] [phone] Aj Riley PA [address] [phone] Health Maintenance Due Date Last Done Comments Hepatitis A Vaccines (1 of 2 - Risk 2-dose series) 12/09/2011 COVID-19 Vaccine (3 - Pfizer risk series) [...] 11/28/2022 Cervical Cancer Screening: HPV 06/08/2028 06/09/2023 DTaP,Tdap,and Td Vaccines (4 - Td or Tdap) 07/19/2028 07/19/2018, 03/07/2018, 04/18/2014 Cholesterol Screening (Lipid Panel) 02/19/2029 02/20/2024, 02/24/2023 [...] age to complete this topic Meningococcal B Vaccine Aged Out No l onger eligible based on patient's age to complete [...] Routine 04/24/2024 1:40 PM EST Normocytic anemia COMPREHENSIVE METABOLIC PANEL Routine 02/20/2024 10:23 AM [...] EXAM Routine 06/22/2023 HM HPV Routine 06/09/2023 HEPATITIS C SCREENING Routine 06/09/2023 HIV SCREENING Routine 06/09/2023 DIABETES EYE EXAM Routine 02/22/2023 from Last 3 Months or Most Recently Relevant to Health Maintenance Results * Vitamin B12 and folate (04/24/2024 1:40 PM EST) Vitamin B-12 461 250 - 900 pcg/mL LAB CHEMISTRY METHOD 04/24/2024 9:01 PM EST [facility] Folate 9.1 2.8 - 17.0 ng/ml LAB CHEMISTRY METHOD 04/24/2024 9:01 PM EST [facility] Blood Venous blood specimen / Unknown Venipuncture / Unknown 04/24/2024 1:40 PM EST 04/24/2024 4:39 PM EST us Rhonda ZAVALETA LAB BLOOD ORDERABLES Final Resul t [facility] [address] [place] [address], * (ABNORMAL) CBC auto differential (04/24/2024 1:40 PM EST) [facility] WBC 7.3 4.8 - 10.8 K/mcL LAB HEMETOLOGY METHOD 04/24/2024 5:01 PM [facility] RBC 4.30 3.80 - 4.80 M/mcL LAB HEMETOLOGY METHOD 04/24/2024 5:01 PM [facility] Hemoglobin 11.4(L) 11.5 - 16.0 g/dL LAB HEMETOLOGY METHOD 04/24/2024 5:01 PM [facility] Hematocrit 37.1 35.0 - 47.0 % LAB HEMETOLOGY METHOD 04/24/2024 5:01 PM [facility] MCV 86.5 79.0 - 98.0 FL LAB HEMETOLOGY METHOD 04/24/2024 5:01 PM [facility] MCH 26.6(L) 27.0 - 32.0 pcg LAB HEMETOLOGY METHOD 04/24/2024 5:01 PM [facility] MCHC 30.7(L) 32.0 - 37.0 g/dL LAB HEMETOLOGY METHOD 04/24/2024 5:01 PM [facility] RDW 13.8 11.0 - 15.0 % LAB HEMETOLOGY METHOD 04/24/2024 5:01 PM [facility] Platelets 270 130 - 400 K/mcL LAB HEMETOLOGY METHOD 04/24/2024 5:01 PM [facility] MPV 12.2(H) 7.0 - 11.0 FL LAB HEMETOLOGY METHOD 04/24/2024 5:01 PM [facility] NRBC 0.0 <1.0 % LAB HEMETOLOGY METHOD 04/24/2024 5:01 PM [facility] NRBC Absolute 0.00 <0.10 K/mcL LAB HEMETOLOGY METHOD 04/24/2024 5:01 PM [facility] Neutrophils Relative 61.2 % LAB HEMETOLOGY METHOD 04/24/2024 5:01 PM [facility] Lymphocytes Relative 29.7 % LAB HEMETOLOGY METHOD 04/24/2024 5:01 PM [facility] Monocytes Relative 5.5 % LAB HEMETOLOGY METHOD 04/24/2024 5:01 PM [facility] Eosinophils Relative 2.9 % LAB HEMETOLOGY METHOD 04/24/2024 5:01 PM [facility] Basophils Relative 0.3 % LAB HEMETOLOGY METHOD 04/24/2024 5:01 PM [facility] Immature Granulocytes Relative 0.4 % LAB HEMETOLOGY METHOD 04/24/2024 5:01 PM [facility] Neutrophils Absolute 4.46 1.50 - 7.00 K/mcL LAB HEMETOLOGY METHOD 04/24/2024 5:01 PM [facility] Lymphocytes Absolute 2.16 1.00 - 5.00 K/mcL LAB HEMETOLOGY METHOD 04/24/2024 5:01 PM [facility] Monocytes Absolute 0.40 0.20 - 1.00 K/mcL LAB HEMETOLOGY METHOD 04/24/2024 5:01 PM [facility] Eosinophils Absolute 0.21 0.00 - 0.50 K/mcL LAB HEMETOLOGY METHOD 04/24/2024 5:01 PM [facility] Basophils Absolute 0.02 0.00 - 0.20 K/mcL LAB HEMETOLOGY METHOD 04/24/2024 5:01 PM [facility] Immature Granulocytes Absolute 0.03 0.00 - 0.03 K/mcL LAB HEMETOLOGY METHOD 04/24/2024 5:01 PM EST [facility] Blood Venous blood specimen / Unknown Venipuncture / Unknown 04/24/2024 1:40 PM EST 04/24/2024 4:38 PM EST Rhonda ZAVALETA LAB BLOOD ORDERABLES Final Resul t Performing Organization Address City/[facility]/ZIP Co de Phone Number [facility]) [facility] [address] [place] [address], [place] [phone] * Erythropoietin (04/24/2024 1:40 PM EST) Erythropoietin 8.1 2.6 - 18.5 mIU/mL 04/27/2024 11:22 PM EST [facility] Comment: Test performed at [facility], [address] , [place], [place] ??[address] ? [phone] Josie Melgar MD, PhD - Crossband Layer Blood Venous blood specimen / Unknown Venipuncture / Unknown 04/24/2024 1:40 PM EST 04/24/2024 4:39 PM EST Rhonda ZAVALETA LAB BLOOD ORDERABLES Final Resul t Performing Organization Address [facility]/ZIP Co de Phone Number [facility] [address] [place] [address] * Iron and TIBC (04/24/2024 1:40 PM EST) Iron 56 40 - 150 mcg/dL LAB CHEMISTRY METHOD 04/24/2024 9:01 PM EST [facility] TIBC 368 250 - 450 mcg/dL LAB CHEMISTRY METHOD 04/24/2024 9:01 PM EST [facility] Iron Saturation 15 15 - 50 % LAB CHEMISTRY METHOD 04/24/2024 9:01 PM EST [facility] Blood Venous blood specimen / Unknown Venipuncture / Unknown 04/24/2024 1:40 PM EST 04/24/2024 4:39 PM EST Rhonda ZAVALETA LAB BLOOD ORDERABLES Final Resul t Performing Organization Address [facility] Co de Phone Number [facility] [address] [place] [address], [place] [phone] * (ABNORMAL) Reticulocyte count (04/24/2024 1:40 PM EST) Pathologist [facility] Retic Ct Abs 0.100(H) 0.030 - 0.090 M/mcL LAB HEMETOLOGY METHOD 04/24/2024 5:01 PM EST [facility] Retic Ct Pct 2.4(H) 0.7 - 1.7 % LAB HEMETOLOGY METHOD 04/24/2024 5:01 PM [facility] Immature Retic Fract 15.9 2.3 - 15.9 % LAB HEMETOLOGY METHOD 04/24/2024 5:01 PM EST [facility] Reticulocyte Hemoglobin 29.7 >29.0 pcg LAB HEMETOLOGY METHOD 04/24/2024 5:01 PM EST [facility] Blood Venous blood specimen / Unknown Venipuncture / Unknown 04/24/2024 1:40 PM EST 04/24/2024 4:38 PM EST Rhonda ZAVALETA LAB BLOOD ORDERABLES Final Resul t Performing Organization Address City/[facility]/ZIP Co de Phone Number [facility] [address] [place] [address], [place] [phone] * (ABNORMAL) Lactate dehydrogenase (04/24/2024 1:40 PM EST) Pathologist [facility] LDH 279(H) 120 - 246 unit/L LAB CHEMISTRY METHOD 04/24/2024 8:33 PM [facility] Blood Venous blood specimen / Unknown Venipuncture / Unknown 04/24/2024 1:40 PM EST 04/24/2024 4:39 PM EST us Rhonda ZAVALETA LAB BLOOD ORDERABLES Final Resul t Performing Organization Address [facility]/ZIP Co de Phone Number [facility] [address] [place] [address], [place] [phone] * Haptoglobin (04/24/2024 1:40 PM EST) Pathologist [facility] Haptoglobin 128 16 - 200 mg/dL LAB CHEMISTRY METHOD 04/24/2024 9:01 PM EST [facility] Blood Venous blood specimen / Unknown Venipuncture / Unknown 04/24/2024 1:40 PM EST 04/24/2024 4:39 PM EST us Rhonda ZAVALETA LAB BLOOD ORDERABLES Final Resul t Performing Organization Address [facility]/ZIP Co de Phone Number [facility] [address] [place] [address], [place] [phone] * Ferritin (04/24/2024 1:40 PM EST) [facility] Ferritin 44 8 - 252 ng/mL LAB CHEMISTRY METHOD 04/24/2024 9:01 PM EST [facility] Blood Venous blood specimen / Unknown Venipuncture / Unknown 04/24/2024 1:40 PM EST 04/24/2024 4:39 PM EST Rhonda ZAVALETA LAB BLOOD ORDERABLES Final Resul t Performing Organization Address City/[facility]/ZIP Co de Phone Number [facility] [address] [place] [address], [place] [phone] * (ABNORMAL) Lipid panel with reflex to direct LDL (02/20/2024 10:23 AM EST) Pathologist [facility] Cholesterol 237(H) 0 - 200 mg/dL LAB CHEMISTRY METHOD 02/20/2024 12:34 PM EST [facility] Triglycerides 260(H) 0 - 150 mg/dL LAB CHEMISTRY METHOD 02/20/2024 12:34 PM EST [facility] HDL 55 >=40 mg/dL LAB CHEMISTRY METHOD 02/20/2024 12:34 PM [facility] LDL Calculated 130(H) 0 - 100 mg/dL LAB CHEMISTRY METHOD 02/20/2024 12:34 PM EST [facility] VLDL Cholesterol [place] 52 mg/dL LAB CHEMISTRY METHOD 02/20/2024 12:34 PM [facility] Non HDL Chol. (LDL+VLDL) 182(H) <145 mg/dL LAB CHEMISTRY METHOD 02/20/2024 12:34 PM [facility] Chol/HDL Ratio 4.3 0.0 - 4.4 LAB CHEMISTRY METHOD 02/20/2024 12:34 PM [facility] Blood Venous blood specimen / Unknown Venipuncture / Unknown 02/20/2024 10:23 AM EST 02/20/2024 10:23 AM EST Erick Angeles MD LAB BLOOD ORDERA BLES Final Result [facility] [address] [place] [address], * (ABNORMAL) Hemoglobin A1c (02/20/2024 10:23 AM EST) Hemoglobin A1C 8.2(H) <6.5 % LAB CHEMISTRY METHOD 02/20/2024 2:17 PM EST [facility] Mean Bld Glu Estim. 189 mg/dL LAB CHEMISTRY METHOD 02/20/2024 2:17 PM EST [facility] Blood Venous blood specimen / Unknown Venipuncture / Unknown 02/20/2024 10:23 AM EST 02/20/2024 10:23 AM EST Erick Angeles MD LAB BLOOD ORDERA BLES Final Result [facility] [address] [place] [address], [place] [phone] * (ABNORMAL) Comprehensive metabolic panel (02/20/2024 10:23 AM EST) Sodium 139 133 - 145 mmol/L LAB CHEMISTRY METHOD 02/20/2024 12:34 PM [facility] Potassium 4.5 3.5 - 5.5 mmol/L LAB CHEMISTRY METHOD 02/20/2024 12:34 PM [facility] Chloride 106 96 - 110 mmol/L LAB CHEMISTRY METHOD 02/20/2024 12:34 PM [facility] CO2 26 21 - 32 mmol/L LAB CHEMISTRY METHOD 02/20/2024 12:34 PM [facility] Anion Gap 7 3 - 11 LAB CHEMISTRY METHOD 02/20/2024 12:34 PM [facility] Glucose 174(H) 70 - 100 mg/dL LAB CHEMISTRY METHOD 02/20/2024 12:34 PM [facility] BUN 25 5 - 25 mg/dL LAB CHEMISTRY METHOD 02/20/2024 12:34 PM [facility] Creatinine 1.07 0.50 - 1.10 mg/dL LAB CHEMISTRY METHOD 02/20/2024 12:34 PM [facility] eGFR 71 >=60 mL/min/1. 73m2 LAB CHEMISTRY METHOD 02/20/2024 12:34 PM [facility] Comment:Calculation based on the??Chronic Kidney Disease Epidemiology Collaboration (CKD-EPI) equation refit??without adjustment for race. BUN/Creatinine Ratio 23.4 LAB CHEMISTRY METHOD 02/20/2024 12:34 PM [facility] Calcium 9.8 8.5 - 10.5 mg/dL LAB CHEMISTRY METHOD 02/20/2024 12:34 PM [facility] AST (SGOT) 81(H) 10 - 42 unit/L LAB CHEMISTRY METHOD 02/20/2024 12:34 PM [facility] ALT (SGPT) 88(H) 10 - 60 unit/L LAB CHEMISTRY METHOD 02/20/2024 12:34 PM [facility] Alkaline Phosphatase 229(H) 42 - 121 unit/L LAB CHEMISTRY METHOD 02/20/2024 12:34 PM [facility] Total Protein 7.0 6.0 - 8.0 g/dL LAB CHEMISTRY METHOD 02/20/2024 12:34 PM [facility] Albumin 3.6 3.2 - 5.0 g/dL LAB CHEMISTRY METHOD 02/20/2024 12:34 PM [facility] Total Bilirubin 0.2 0.0 - 1.4 mg/dL LAB CHEMISTRY METHOD 02/20/2024 12:34 PM [facility] Blood Venous blood specimen / Unknown Venipuncture / Unknown 02/20/2024 10:23 AM EST 02/20/2024 10:23 AM EST Erick Angeles MD LAB BLOOD ORDERA BLES Final Result [facility] [address] [place] [address], * Depression Screening (10/19/2023) Depression Screening abstracted us Historical Provider HEALTH MAINTENANCE Final Result * Urine Albumin Creatinine Ratio (06/22/2023) Urine Albumin Creatinine Ratio abstracted Historical Provider HEALTH MAINTENANCE Final Result * Diabetes Foot Exam (06/22/2023) HM Diabetes: Annual Foot Exam abstracted [facility] Provider HEALTH MAINTENANCE Final Result * Cervical Cancer Screening: HPV (06/09/2023) [facility] Cervical Cancer Screening: HPV negative,a bstracted Result [facility] Provider HEALTH MAINTENANCE Final Result * HIV Screening (06/09/2023) [facility] HIV Screening abstracted [facility] Provider HEALTH MAINTENANCE Final Result * Hepatitis C Screening (06/09/2023) [facility] Hepatitis C Screening abstracted Result [facility] Provider HEALTH MAINTENANCE Final Result * Diabetes Eye Exam (02/22/2023) [facility] Diabetes: Annual Retina Eye Exam abstracted Result [facility] Provider HEALTH MAINTENANCE Final Result from Last 3 Months or Most Recently Relevant to Health Maintenance Insurance [facility] Care Teams Associate Artistic Director Relationship Specialty Start Date End Date Erick Angeles MD [address] [place], [place] PCP - General Internal Medicine 10/30/21
--- OUTSIDE RECORDS SUMMARY | 2024-07-17 15:03 | XMS_ITS | Data Portability ---
Author Organization [facility], [address] Address [address] [place] [address] Care Team Providers Care Jack Winder Name Role Phone JAKE LOVETT Primary Care Provider Assessment No assessment recorded. Plan of Treatment Reminders Order Date Submit Date Provider Last Modified By Organization Details Last Modified Time Details Appointments None recorded. Lab rapid SARS CoV 2 Ag, QL IA, respiratory specimen 2022 023 [place] [address] 20[facility], [address] [place] [address], [address], 18:39:28 rapid strep group A, throat 2022 023 [place] [address] 20995[facility], [address] [place] [address], [address], 18:39:27 Referral None recorded. Procedures None recorded. Surgeries None recorded. Imaging None recorded. Medication Orders amoxicillin 875 mg tablet 2022 023 [facility] #[id number], [address] [facility], [place], [address], 18:40:06 Patient TargetsNo targets recorded. Patient Instructions Encounter Date Encounter Id Patient Instructions Last Modified By Organization Details Last Modified Time 06/28/2022 [id number] strep throat: care instructions eal Not available 06/28/2022 18:39:28 Reason for Referral None Reported. Results Created Date Observation Date Name Description Value Unit Range Abnormal Flag Note LastModifiedBy Organization Detail LastModifiedTime 06/29/19 23 06/28/2022 rapid strep group A, throa t Unknown Analyte Normal = Negati ve Not Available [address], [address], 06/28/2022 18:08:47 06/29/19 23 06/28/2022 rapid strep group A, throa t Unknown Analyte positi ve Not Available [address], [address], 06/28/2022 18:08:47 Result Notes None recorded. Problems Name Problem SNOMED Code Status Onset Date Resolution Date Notes Provider Name and Address Organization Details Recorded Time Diabetes mellitus 71316708 Active 2022 WAQAR Farrell - [facility] 3 18:12:30 Hypertensive disorder 71177941 Active 2022 Mehreen wood PA - [facility] 3 18:12:36 Hypercholestero lemia 82412315 Active 2022 [facility] - [facility] [...] Not Available norgestimat e 0.25 mg-ethinyl estradiol 0.035 mg tablet TAKE 1 TABLET BY MOUTH [...] Ultra-Fine Mini Pen Needle 31 gauge x 16 USE PEN NEEDLES TO INJECT INSULIN 4 [...] Last Updated DateTime 152.4 cm 27.3 kg/m2 92695.9 3 g 7 99 % 99 % 102 /min 18 /min 98.2 [degF] 119 mm[Hg] 83 mm[Hg] Mehreen Rachel [facility] [employer] [facility] 18:16:02 Social History Question Answer Notes LastModified by Organizat ion Details LastModified Time Tobacco Smoking Status Never Smoker WAQAR Farrell [facility] 06/28/2022 18:13:05 What Is Your Level [...] PA - [facility] 06/28/2022 18:10:01 Novel oaniikmpg-[id number], preservative-free 9 completed Mehreen Monfette null, PA - [facility] 06/28/2022 18:10:01 Hep B, adult 2 completed Mehreen Monfette null, PA - [facility] 06/28/2022 18:10:01 Hep B, adult 1 completed Mehreen Monfette null, PA - [facility] 06/28/2022 18:10:01 Influenza, split virus, quadrivalent, PF 3 completed Mehreen [facility] 06/28/2022 18:10:01 Past Encounters Encounter ID Performer Location Encounter Start Date Encounter Closed Date Diagnosis/Indication Diagnosis SNOMED-CT Code Diagnosis ICD10 Code Diagnosis Note [id number] [address] [address] 11/08/2017 17:55:18 11/08/2017 20:02:04 [id number] [address] [place] [address] 03/07/2017 15:22:26 03/07/2017 16:55:09 [id number] [address] [place] [address] 05/17/2018 17:28:36 05/17/2018 18:20:48 [id number] [address] [place] [address] 04/27/2017 14:06:25 04/27/2017 14:31:00 [id number] [address] [place] [address] 10/31/2021 12:37:26 10/31/2021 13:24:23 [id number] [address] [place] [address] 12/05/2017 14:02:01 12/05/2017 15:13:33 [id number] [address] [place] [address] 05/17/2021 12:07:21 05/17/2021 12:59:00 [id number] [address] [place] [address] 07/17/2017 13:29:56 07/17/2017 14:19:38 [id number] [address] [place] [address] 08/26/2020 15:48:54 08/26/2020 17:03:04 [id number] [address] [place] [address] 10/17/2017 14:03:10 10/17/2017 14:28:02 [id number] [address] [place] [address] 03/09/2016 18:21:27 03/09/2016 18:54:12 [id number] [address] [place] [address] 11/06/2017 19:42:44 11/06/2017 20:17:26 [id number] [address] [place] [address] 10/04/2016 09:41:44 10/04/2016 11:06:41 [id number] [address] [place] [address] 06/28/2017 17:04:49 06/28/2017 17:52:31 [id number] [address] [place] [address] 08/15/2018 12:11:29 08/15/2018 13:06:45 [id number] [address] [place] [address] 11/21/2021 19:40:10 11/23/2021 20:02:35 [id number] [address] [place] [address] 02/09/2016 13:59:41 02/09/2016 14:27:17 [id number] Oleg Walters MD [address] [place] [address] 06/28/2022 14:49:19 06/28/2022 18:53:19 Streptococcal sore throat 37293593 J02.0 Health Concerns Section Related Observation LastModified by Organization Detai ls LastModified Time None Recorded Concern Status LastModified by Organization Details LastModified Time None Recorded Advance Directives Directive None Recorded Payers Encounter Date Sequence Insurance Name Policy Number Policy Basilio Covered Member ID Basilio Member ID Guarantor Name 08/26/2020 1 [facility] PLAN (MEDICAID HMO) LETY Sheffield [id number] Karol Sheffield 05/17/2021 1 [facility] (MEDICAID HMO) LETY Sheffield [id number] Karol Sheffield 10/31/2021 1 [facility] PLAN (MEDICAID HMO) LETY Sheffield [id number] Karol Sheffield 11/21/2021 1 [facility] PLAN (MEDICAID HMO) LETY Sheffield [id number] Karol Sheffield 06/28/2022 1 [facility] PLAN (MEDICAID HMO) LETY Sheffield [id number] Karol Sheffield Notes Date Note Type Note Provider Name and Address Organization Details Recorded Time 06/28/2022 text/html Sore throatRepor shantell [facility] Severity:moderate Quality:sharp Onset/Timin days Associated Symptoms:no cough; no sputum production; no shortness of breath; no wheezing; no sinus pain; no vomiting; no nausea; No hoarseness Context:sick contact Modifying Factors:exposed to Strep household * Oleg Walters MD [address] [place], [place] [address], [address], PA - [facility] 06/29/2022 11:35:32 OBGyn Episode No OBEpisode recorded.
--- OUTSIDE RECORDS SUMMARY | 2024-07-17 15:04 | XMS_ITS | Encounter Summary ---
Author Organization [facility] Address [address] [place] [address] Phone Care Team Providers Care Radio Repairer Name Role Phone Erick Angeles Primary Care Provider Reason for Visit * Reason Comments Med Refill Encounter Details Date Type Department Care Team (Late st Contact Info) Description 09/10/2023 Refill [facility] [address] [place] [address] Thuan De Guzman MD [address] [place] [address] [place] [address] Social History Tobacco Use Types [...] Visit [facility] [address] [place] [address] Thuan De Guzman MD [address] [facility] [place] [address] documented as of this encounter Visit Diagnoses Not on filedocumented in this encounter Care Teams Radio Repairer Relationship Specialty Start Date End Date Erick Angeles PCP - General 6/14/23 documented as of this encounter
--- OUTSIDE RECORDS SUMMARY | 2024-07-17 15:04 | XMS_ITS | Encounter Summary ---
Author Organization [facility] Address [address] [place] [address] Care Team Providers Care Nurse Special Name Role Phone Erick Angeles MD Primary Care Pr ovider Reason for Visit * Reason Onset Date Comments Motegrity 07/17/2024 Encounter Details Date Type Department Care Team (Late st Contact Info) Description 07/17/2024 Telephone Gastroenterology - [address] [place] [address] Emmy Davis MA Motegrity Social History Tobacco Use Types Packs/Day Years Used Date Smoking Tobacco: Never Smokeless Tobacco: Never Alcohol Use Standard Drinks/Week Comments Yes 0 (1 standard drink = 0.6 oz pur e alcohol) Comments Unknown Sex and Gender Information Value Date Recorded Sex Assigned at Not on file Legal Sex Female 4:54 AM EST Gender Identity Not on file Sexual Orientation Not on file documented as of this encounter Progress Notes * Emmy Davis MA - 07/17/2024 11:23 AM EDT Motegrity was denied by insurance. LMOM for pt to cb documented in this encounter Plan of Treatment Upcoming Encounters Date Type Department Care Team (Late st Contact Info) Description 07/23/2024 1:30 PM EDT Office Visit [facility] Hematology Oncology [address] [place] [address] Rhonda Rg PA [address] [place] [address] 10/08/2024 9:40 AM EDT Office Visit Gastroenterology - [address] [address] Aj Riley PA [address] [address] documented as of this encounter Visit Diagnoses Not on filedocumented in this encounter Care Teams Nurse Special Relationship Specialty Start Date End Date Erick Angeles MD [address] [facility], [place] PCP - General Internal Medicine 10/30/21 documented as of this encounter
--- OUTSIDE RECORDS SUMMARY | 2024-07-17 15:04 | XMS_ITS | Encounter Summary ---
Author Organization [facility] Address [address] [place] [address] Phone Care Team Providers Care Worm Farmer Name Role Phone Erick Angeles Primary Care Provider Encounter Details Date Type Department Care Team (Late st Contact Info) Description 08/25/2023 Documentation Only [facility] [address] [place] [address] Inna Macias [address] [place] [address] Social History Tobacco Use Types [...] Visit [facility] [address] [place] [address] Thuan De Guzman MD [address] [place] [address] [place] [address] documented as of this encounter Visit Diagnoses Not on filedocumented in this encounter Care Teams Worm Farmer Relationship Specialty Start Date End Date Erick Angeles PCP - General 09/22/22 documented as of this encounter
== END 2024-07-17 12:58 | disposition home or self-care (01) ==
LOC: HO.HOS 12:27
PROVIDERS: PCP Family Medicine; Visit Provider Physician Assistant
DX: S82.201A Unspecified fracture of shaft of right tibia, initial encounter for closed fracture (principal); T84.84XA Pain due to internal orthopedic prosthetic devices, implants and grafts, initial encounter
CPT/HCPCS: 99024

== ENCOUNTER → 2024-07-17 12:27 | Outpatient (BNVA) | payer OTHER, SELFPAY | PROVIDERS: PCP Family Medicine; Visit Provider Physician Assistant | DX: S82.201A Unspecified fracture of shaft of right tibia, initial encounter for closed fracture (principal); T84.84XA Pain due to internal orthopedic prosthetic devices, implants and grafts, initial encounter | CPT/HCPCS: 99212 ==

== ENCOUNTER 2024-07-25 05:53 | Day surgery (SDC) | payer OTHER, SELFPAY ==
[2024-07-23 07:50] VITALS: BMI 27.7
--- OUTSIDE RECORDS SUMMARY | 2024-07-23 17:00 | XMS_ITS | Encounter Summary ---
Author Organization [facility] Address [address] [place] [address] Phone Care Team Providers Care Explosives Worker Name Role Phone Erick Angeles Primary Care Provider Encounter Details Date Type Department Care Team (Late st Contact Info) Description 08/15/2023 Documentation Only [facility] [address] [place] [address] Inna Macias [address] [place] [address] Social History Tobacco Use Types [...] Visit [facility] [address] [place] [address] Thuan De Guzman MD [address] [place] [address] [place] [address] documented as of this encounter Visit Diagnoses Not on filedocumented in this encounter Care Teams Explosives Worker Relationship Specialty Start Date End Date Erick Angeles PCP - General 09/22/22 documented as of this encounter
--- OUTSIDE RECORDS SUMMARY | 2024-07-23 17:00 | XMS_ITS | Clinical Summary ---
Author Organization [facility] [place], Address [address] [place] [address] [place] [address] Phone Care Team Providers Care Track Repair Laborer Name Role Phone Erick Angeles Primary Care Provider Allergies Active Allergy Reactions [...] mellitus 10/29/2022 Hyperlipidemia 10/29/2022 Anemia 10/29/2022 Immunizations Immunization Administration Dates Next Due H1N1 Inj Preservative [...] Visit [facility] [place], [address] [facility] [place] [address] Thuan De Guzman MD [address] [facility] [place] [address] Health Maintenance Due Date Last Done Comments Hepatitis B Vaccine (1 of 3 - 19+ 3-dose series) 12/09/2011 06/25/2021, 06/25/2021, 04/06/2021, Additional history exists Pneumococcal Vaccine: Peds ( 0 to 5 Years) and At-Risk Patients (6 to 49 Years) (1 of 2 - PCV) 12/09/2011 Diabetes: Pedal Pulse Checked 10/29/2022 Diabetes: Sensory Foot Exam 10/29/2022 Diabetes: Visual Foot Exam 10/29/2022 Diabetes: Ophthalmology Exam 05/13/2024 05/13/2023, 08/25/2022 Diabetes: Hemoglobin A1C 05/22/2024 02/20/2024 Influenza Vaccine (Season Ended) 2024 04/28/2022, 03/07/2018, 03/05/2009, Additional history exists Insurance [facility] [employer] Care Teams Track Repair Laborer Relationship Specialty Start Date End Date Erick Angeles PCP - General 09/22/22
--- OUTSIDE RECORDS SUMMARY | 2024-07-23 17:00 | XMS_ITS | Clinical Summary ---
Author Organization [facility] Address [address] [facility] 7t [place] [address] Care Team Providers Care Sales Office Coordinator Name Role Phone Unavailable Primary Care Provider [...] Continuous Blood Gluc Sensor (Dexcom G6 Sensor) [facility] 08/19/19 23 Active Continuous Blood Gluc Transmit (Dexcom G6 transmitter) [facility] 07/28/19 23 Active cyclobenzaprine (Flexeril) 5 MG tablet 08/19/19 23 Active ergocalciferol (Vitamin D2) 1.25 MG (32261 UT) capsule TAKE 1 CAPSULE BY MOUTH ONCE A WEEK FOR 56 DAYS. 06/17/19 23 Active Baqsimi Two Pack 3 MG/DOSE nasal powder PLEASE SEE ATTACHED FOR DETAILED DIRECTIONS 03/30/20 22 Active FREESTYLE LITE test strip 08/24/19 23 Active hydrOXYzine HCl (Atarax) 25 MG tablet 08/19/19 23 Active Insulin Disposable Pump (Omnipod 5 G6 Pod, Gen 5,) [facility] 07/27/19 23 Active B-D UF III MINI PEN NEEDLES 31G X 5 MM [facility] USE PEN NEEDLES TO INJECT INSULIN 4 TIMES A DAY 06/04/19 23 Active lisinopril 40 MG tablet Take 40 mg by mouth in the morning. 06/29/19 23 Active Continuous Blood Gluc Sensor (Dexcom G6 Sensor) [facility] Dexcom G6 sensor 3 pack, See Instructions, # 3 each, Refills 3, Tot. Refills 3, Maintenance, E11.9 for 90 days supply [facility]: [id number], 11/30/22 15:21:00 EDT, Supply, 153, cm, 11/29/22 [...] Description 07/09/2024 3:30 PM EDT Office Visit [facility] OPT[facility] [address] [place] [address] Syd, Aidee, OD Dry eye syndrome of [...] 03/07/2018, 01/17/2014, Additional history exists Eye Exam 07/09/2025 07/09/2024, 06/11, 07/09/2024, Additional history exists Tobacco Screening 07/20/2025 07/20/2024 DTaP/Tdap/Td Vaccines (4 - Td or Tdap) [...]
--- OUTSIDE RECORDS SUMMARY | 2024-07-23 17:00 | XMS_ITS | Encounter Summary ---
Author Organization [facility] Address [address] [place] [address] Phone Care Team Providers Care Canvas Goods Maker Name Role Phone Erick Angeles Primary Care Provider Encounter Details Date Type Department Care Team (Late st Contact Info) Description 09/22/2022 Documentation Only [facility] [address] [place] [address] Erick Angeles [address] [place] [address] Social History Tobacco Use Types Packs/Day Years [...] Visit [facility] [address] [place] [address] Thuan De Guzman MD [address] [place] [address] [place] [address] documented as of this encounter Visit Diagnoses Not on filedocumented in this encounter Care Teams Canvas Goods Maker Relationship Specialty Start Date End Date Erick Angeles PCP - General 09/22/22 documented as of this encounter
--- OUTSIDE RECORDS SUMMARY | 2024-07-23 17:00 | XMS_ITS | Encounter Summary ---
Author Organization [facility] Address [address] [place] [address] Phone Care Team Providers Care Direct Selling Counselor Name Role Phone Erick Angeles Primary Care Provider Encounter Details Date Type Department Care Team (Late st Contact Info) Description 08/17/2023 Documentation Only [facility] [address] [place] [address] Inna Macias [address] [place] [address] Social History Tobacco Use Types [...] Visit [facility] [address] [place] [address] Thuan De Guzman MD [address] [place] [address] [place] [address] documented as of this encounter Visit Diagnoses Not on filedocumented in this encounter Care Teams Direct Selling Counselor Relationship Specialty Start Date End Date Erick Angeles PCP - General 09/22/22 documented as of this encounter
--- OUTSIDE RECORDS SUMMARY | 2024-07-23 17:00 | XMS_ITS | Data Portability ---
Author Organization [facility], [address] Address [address] [place] [address] Care Team Providers Care Computator Name Role Phone JAKE LOVETT Primary Care Provider Assessment No assessment recorded. Plan of Treatment Reminders Order Date Submit Date Provider Last Modified By Organization Details Last Modified Time Details Appointments None recorded. Lab rapid SARS CoV 2 Ag, QL IA, respiratory specimen 2022 023 [place] [address] [facility], [address] [place] [address], [address], 18:39:28 rapid strep group A, throat 2022 023 [place] [address] 20[facility], [address] [place] [address], [address], 18:39:27 Referral None recorded. Procedures None recorded. Surgeries None recorded. Imaging None recorded. Medication Orders amoxicillin 875 mg tablet 2022 023 [facility]/Pharmacy #[id number], [address] [facility], [place], [address], 18:40:06 Patient TargetsNo targets recorded. Patient Instructions Encounter Date Encounter Id Patient Instructions Last Modified By Organization Details Last Modified Time 06/28/2022 [id number] strep throat: care instructions eal Not available 06/28/2022 18:39:28 Reason for Referral None Reported. Results Created Date Observation Date Name Description Value Unit Range Abnormal Flag Note LastModifiedBy Organization Detail LastModifiedTime 06/29/19 23 06/28/2022 rapid strep group A, throa t Unknown Analyte Normal = Negati ve Not Available [address], [address], 06/28/2022 18:08:47 06/29/19 23 06/28/2022 rapid strep group A, throa t Unknown Analyte positi ve Not Available [address], [address], 06/28/2022 18:08:47 Result Notes None recorded. Problems Name Problem SNOMED Code Status Onset Date Resolution Date Notes Provider Name and Address Organization Details Recorded Time Diabetes mellitus 23829292 Active 2022 WAQAR Farrell - [facility] 3 18:12:30 Hypertensive disorder 49588805 Active 2022 Mehreen wood PA - [facility] 18:12:36 Hypercholestero lemia 85051343 Active 2022 Mehreen wood PA - [facility] [...] Last Updated DateTime 152.4 cm 27.3 kg/m2 42675.9 3 g 7 99 % 99 % 102 /min 18 /min 98.2 [degF] 119 mm[Hg] 83 mm[Hg] Mehreen Rachel [employer] [facility] 18:16:02 Social History Question Answer Notes LastModified by Organizat ion Details LastModified Time Tobacco Smoking Status Never Smoker [facility]rell [facility] 06/28/2022 18:13:05 What Is Your Level [...] PA - [facility] 06/28/2022 18:10:01 Novel kqywpqkcm-E6Q2-14, preservative-free 9 completed Mehreen Monfette null, PA [...] SNOMED-CT Code Diagnosis ICD10 Code Diagnosis Note [id number] [address] [address] 11/08/2017 17:55:18 11/08/2017 20:02:04 [id number] [facility] [address] [place] [address] 03/07/2017 15:22:26 03/07/2017 16:55:09 [id number] [facility] [address] [place] [address] 05/17/2018 17:28:36 05/17/2018 18:20:48 [id number] [facility] [address] [place] [address] 04/27/2017 14:06:25 04/27/2017 14:31:00 [id number] [address] [place] [address] 10/31/2021 12:37:26 10/31/2021 13:24:23 [id number] [address] [address] [place] [address] 12/05/2017 14:02:01 12/05/2017 15:13:33 [id number] [address] [place] [address] 05/17/2021 12:07:21 05/17/2021 12:59:00 [id number] [address] [place] [address] 07/17/2017 13:29:56 07/17/2017 14:19:38 [id number] [address] [address] [place] [address] 08/26/2020 15:48:54 08/26/2020 17:03:04 [id number] [address] [place] [address] 10/17/2017 14:03:10 10/17/2017 14:28:02 [id number] [address] [place] [address] 03/09/2016 18:21:27 03/09/2016 18:54:12 [id number] [address] [place] [address] 11/06/2017 19:42:44 11/06/2017 20:17:26 [id number] [address] [place] [address] 10/04/2016 09:41:44 10/04/2016 11:06:41 [id number] [address] [place] [address] 06/28/2017 17:04:49 06/28/2017 17:52:31 [id number] [address] [place] [address] 08/15/2018 12:11:29 08/15/2018 13:06:45 [id number] [address] [place] [address] 11/21/2021 19:40:10 11/23/2021 20:02:35 [id number] [address] [place] [address] 02/09/2016 13:59:41 02/09/2016 14:27:17 [id number] Oleg Walters MD [address] [place] [address] 06/28/2022 14:49:19 06/28/2022 18:53:19 Streptococcal sore throat 54918998 J02.0 Health Concerns Section Related Observation LastModified by Organization Detai ls LastModified Time None Recorded Concern Status LastModified by Organization Details LastModified Time None Recorded Advance Directives Directive None Recorded Payers Encounter Date Sequence Insurance Name Policy Number Policy Basilio Covered Member ID Basilio Member ID Guarantor Name 08/26/2020 1 [facility] PLAN (MEDICAID HMO) LETY Sheffield [id number] Karol Sheffield 05/17/2021 1 [facility] (MEDICAID HMO) LETY Sheffield [id number] Karol Sheffield 10/31/2021 1 [facility] PLAN (MEDICAID HMO) LETY Sheffield [id number] Karol Sheffield 11/21/2021 1 [facility] PL[facility] (MEDICAID HMO) LETY Sheffield [id number] Karol Sheffield 06/28/2022 1 [facility] PL[facility] (MEDICAID HMO) LETY Sheffield [id number] Karol Sheffield Notes Date Note Type Note Provider Name and Address Organization Details Recorded Time 06/28/2022 text/html Sore throatRepor shantell [facility]patient.[facility] Severity:moderate Quality:sharp Onset/Timin days Associated Symptoms:no cough; no sputum production; no shortness of breath; no wheezing; no sinus pain; no vomiting; no nausea; No hoarseness Context:sick contact Modifying Factors:exposed to Strep household * Oleg Walters MD [address] [place], [place] [address], [address], PA - [facility] 06/29/2022 11:35:32 OBGyn Episode No OBEpisode recorded.
--- OUTSIDE RECORDS SUMMARY | 2024-07-23 17:00 | XMS_ITS | Encounter Summary ---
Author Organization [facility] Address [address] [place] [address] Care Team Providers Care Shoe Salesperson Name Role Phone Erick Angeles MD Primary Care Pr ovider Reason for Visit * Reason Onset Date Comments Motegrity 07/17/2024 Encounter Details Date Type Department Care Team (Late st Contact Info) Description 07/17/2024 Telephone Gastroenterology - 299 Thu [address] [place] [address] Emmy Davis MA Motegrity Social [...] on file documented as of this encounter Ordered Prescriptions Prescription Sig Dispense Quantity Refills Last Filled Start Date End Date linaCLOtide (Linzess) 145 mcg capsuleIndications :Chronic constipation Take 1 capsule (145 mcg total) by mouth 1 (one) time each day before breakfast. 30 each 11 07/18/2024 documented in this encounter Progress Notes * Emmy Davis MA - 07/18/2024 3:12 PM EDT Pt would like to go back to [place] since Motegrity was denied. She will call pharmacy to find out if Pantoprazole needs a PA as well. She states Linzess shouldn'tneed one because it was authorized not too long ago. * Emmy Davis MA - 07/17/2024 11:23 AM EDT Motegrity was denied by insurance. LMOM for pt to cb documented in this encounter Plan of Treatment Upcoming Encounters Date Type Department Care Team (Late st Contact Info) Description 10/08/2024 9:40 AM EDT Office Visit Gastroenterology - 299 Thu [address] [place] [phone] Aj Riley PA [address] [place] [id number] documented as of this encounter Visit Diagnoses Diagnosis Chronic constipation- Primary Unspecified constipation documented in this encounter Care Teams Shoe Salesperson Relationship Specialty Start Date End Date Erick Angeles MD [address] [place], [place] PCP - General Internal Medicine 10/30/21 documented as of this encounter
--- OUTSIDE RECORDS SUMMARY | 2024-07-23 17:00 | XMS_ITS | Encounter Summary ---
Author Organization [facility] Address [address] [place] [address] Phone Care Team Providers Care Wood Floor Refinisher Name Role Phone Erick Angeles Primary Care Provider Encounter Details Date Type Department Care Team (Late st Contact Info) Description 08/15/2023 Documentation Only [facility] [address] [address] Inna Macias [address] [place] [address] Social History Tobacco Use Types [...] Visit [facility] [address] [address] Thuan De Guzman MD [address] [place] [address] [place] [address] documented as of this encounter Visit Diagnoses Not on filedocumented in this encounter Care Teams Wood Floor Refinisher Relationship Specialty Start Date End Date Erick Angeles PCP - General 09/22/22 documented as of this encounter
--- OUTSIDE RECORDS SUMMARY | 2024-07-23 17:00 | XMS_ITS | Encounter Summary ---
Author Organization [facility] Address [address] [place] [address] Phone Care Team Providers Care Assistant Director Of Security Name Role Phone Erick Angeles Primary Care Provider Encounter Details Date Type Department Care Team (Late Contact Info) Description 12/09/2023 Documentation Only [facility] [address] [place] [address] Shane Barr MD [address] [place] [address] [place] [address] Social History Tobacco Use Types [...] Visit [facility] [address] [place] [address] Thuan De Guzman MD [address] [place] [address] [place] [address] documented as of this encounter Visit Diagnoses Not on filedocumented in this encounter Care Teams Assistant Director Of Security Relationship Specialty Start Date End Date Erick Angeles PCP - General 09/22/22 documented as of this encounter
--- OUTSIDE RECORDS SUMMARY | 2024-07-23 17:00 | XMS_ITS | Clinical Summary ---
Author Organization [facility] Address [address] [place] [address] Care Team Providers Care Antenna Design Engineer Name Role Phone Pcp, No Primary Care [...] age to complete this topic Care Teams Antenna Design Engineer Relationship Specialty Start Date End Date Pcp, No PCP - General 11/28/22
--- OUTSIDE RECORDS SUMMARY | 2024-07-23 17:00 | XMS_ITS | Encounter Summary ---
Author Organization [facility] Address [address] [place] [address] Phone Care Team Providers Care Aircraft Avionics Technician Name Role Phone Erick Angeles Primary Care Provider Encounter Details Date Type Department Care Team (Late st Contact Info) Description 08/15/2023 Documentation Only [facility] [address] [place] [address] Inna Macias [address] [place] [address] Social History Tobacco Use Types [...] Visit [facility] [address] [place] [address] Thuan De Guzman MD [address] [place] [address] [place] [address] documented as of this encounter Visit Diagnoses Not on filedocumented in this encounter Care Teams Aircraft Avionics Technician Relationship Specialty Start Date End Date Erick Angeles PCP - General 09/22/22 documented as of this encounter
--- OUTSIDE RECORDS SUMMARY | 2024-07-23 17:00 | XMS_ITS | Clinical Summary ---
Author Organization [address] Address [address] [place] [phone] Phone Care Team Providers Care Gut Carrier Name Role Phone Erick Angeles MD Primary Care Pr ovider Allergies Active Allergy Reactions Criticality Noted Date Comments Iodinated Contrast Media Itching 01/04/2023 Medications acetaminophen (TYLENOL) 325 mg tablet Take 2 tablets (650 mg total) by mouth. 04/21/19 20 Active alcohol swabs pads, medicated 1 Each by Does not apply route 4 times daily. 07/07/19 22 Active atorvastatin (LIPITOR) 40 mg tablet Take [...] (one) time each day. 10/19/19 24 Active omeprazole (PriLOSEC) [address] capsule Take 1 capsule (40 mg total) by mouth 2 (two) times a day. 10/19/19 24 Active silver sulfADIAZINE (Silvadene) 1 % cream Apply topically 1 (one) time each day. 50 g 02/16/20 24 025 Active Additional Information Patient not taking.Reported on 07/09/2024 norethindrone (KAEL BLANCO H EATHER,MICRONOR ) 0.35 mg tablet Take 1 tablet (0.35 mg total) by mouth 1 (one) time each day. Active ferrous sulfate 324 mg (65 mg elemental iron) EC tablet Take 1 tablet (324 mg total) by mouth daily. 10/19/19 24 Active Omnipod 5 G6 Pods, Gen 5, cartridge USE TO INFUSE INSULIN CONTINUOUSLY, CHANGE POD EVERY 3 DAYS 02/16/20 24 Active Trulance 3 mg tablet Take 1 [...] ns:Generalized anxiety disorder,Major depressive disorder, recurrent, moderate (CMS/HCC V24, CMS/HCC V28) TAKE 1 TABLET BY MOUTH EVERY DAY 90 tablet 1 04/26/19 25 Active ferrous sulfate (Slow Fe) 137 mg (45 mg iron) tablet extended release Take 1 tablet by mouth every other day. 45 tablet 1 04/24/19 25 025 Active Additional Information Patient not taking.Reported on 07/09/2024 amLODIPine (NORVASC) 5 mg tabletIndicatio ns:Essential (primary) hypertension TAKE 1 TABLET BY MOUTH EVERY DAY 90 tablet 1 05/28/19 25 Active hydrOXYzine HCL (ATARAX) 25 mg tabletIndicatio ns:Anxiety disorder, unspecified TAKE 1 TABLET BY MOUTH AT BEDTIME NEEDED FOR ANXIETY 90 tablet 1 06/14/19 25 Active prucalopride (Motegrity) 2 mg tabletIndicatio ns:Chronic constipation Take 2 mg by mouth 1 (one) time each day. 90 tablet 3 07/10/19 25 026 Active polyethylene glycol (MIRALAX) 17 gram packetIndicatio ns:Chronic constipation Take 17 g by mouth 1 (one) time each day. 1530 g 3 07/10/19 25 026 Active pantoprazole (PROTONIX) 40 mg EC tabletIndicatio ns:Pharyngoesop hageal dysphagia,Gastr oesophageal reflux disease without esophagitis Take 1 tablet (40 mg total) by mouth 1 (one) time each day. Do not crush, chew, or split. 90 each 07/10/19 25 026 Active linaCLOtide (Linzess) 145 mcg capsuleIndicati ons:Chronic constipation Take 1 capsule (145 mcg total) by mouth 1 (one) time each day before breakfast. 30 each 11 07/19/19 026 Active LORazepam (ATIVAN) 0.5 mg tabletIndicatio ns:Anxiety and depression TAKE 1 TABLET (0.5 MG TOTAL) BY MOUTH DAILY NEEDED FOR ANXIETY MAX DAILY AMOUNT: 0.5 MG 28 tablet 07/19/19 25 Active LORazepam (ATIVAN) 0.5 mg tabletIndicatio ns:Anxiety and depression Take 1 tablet (0.5 mg total) by mouth 1 (one) time each day if needed for anxiety. Max Daily Amount: 0.5 mg 28 tablet 02/20/20 24 025 Discontinued Active Problems Problem Noted [...] associat ed with type 1 diabetes mellitus ([facility] V24, [facility] V28) 10/19/2023 Fatty liver 10/19/2023 Generalized anxiety disorder 10/19/2023 Hemorrhoids 10/19/2023 Menorrhagia with regular cycle 10/19/2023 Moderate episode of recurren t major depressive disorder ([facility] V24, [facility] V28) 10/19/2023 Recurrent UTI 10/19/2023 Tibia/fibula fracture, right, closed, initial en counter 10/19/2023 Chronic kidney disease, stage 2 (mild) ASCUS of cervix with negative high risk HPV 06/09 Overview (01/11/2024): Cotesting in 3 years per ASCCP guidelines Elevated alkaline phosphatase level 06/22/2023 Gastroesophageal reflux dise ase with esophagitis without hemorrhage 06/22/2023 Anxiety and depression 02/24/2023 Diabetic nephropathy associa shantell with type 1 diabetes mellitus ([facility] V24, [facility] V28) 02/24/2023 Insomnia due to other mental disorder 02/24/2023 Degenerative joint disease (DJD) of lumbar spine 09/01/2022 Chronic constipation 06/15/2022 Assessment & Plan (07/09/2024 12:18 PM EDT): Failed Rima Leger and Amitiza (Linzess worked best) Plan to [...] anemia 06/15/2022 Primary hypertension 06/15/2022 Diabetic retinopathy ([facility] V24, [facility] V28) 06/26/2021 Vitamin D deficiency 01/05/2021 Type 1 diabetes mellitus ([facility] V24, [facility] V 28) 07/20/2018 Hyperlipidemia 12/31/2016 Tattoo of skin 01/30/2015 Encounters Date Type Department Care Team Description 07/17/2024 Telephone Gastroenterology - [address] [phone] Emmy Davis [place] Motegrity 07/09/2024 11:20 AM EDT Office Visit Gastroenterology - [address] [phone] Aj Riley PA Chronic constipation (Primary Dx); Pharyngoesophageal dysphagia; Gastroesophageal reflux disease without esophagitis; BRINK (nonalcoholic steatohepatitis) 06/28/2024 10:30 AM EDT Office Visit Orthopedic Surgery [facility] [address] [phone] Juan Luis Geronimo, DPM Diabetic mononeuropathy simplex ([facility] V24, [facility] V28) (Primary Dx) 06/07/2024 Telephone Gastroenterology - [address] [phone] Yessy Turner MA 04/24/2024 1:00 PM EST Office Visit [facility] Hematology Oncology [address] [place] [phone] Rhonda Rg PA Normocytic anemia (Primary Dx); [...] Medical History Date Comments Type 1 diabetes ([facility]/HCC V24 , CMS/HCC V28) DX:Type 1 diabetes (HCC) HSV-1 (herpes simplex virus [...] Office Visit Gastroenterology - [address] [place] [address] Aj Riley PA [address] [place] [address] Health Maintenance Due Date Last Done Comments [...] 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 (CMS/HCC V24, CMS/HCC V28) HEMOGLOBIN A1C Routine 02/20/2024 10:23 AM EST 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 (CMS/HCC V24, CMS/HCC V28) LIPID PANEL WITH REFLEX TO DIRECT LDL [...] folate (04/24/2024 1:40 PM EST) Vitamin B-12 735 946 - 900 pcg/mL LAB CHEMISTRY METHOD 04/24/2024 9:01 PM [facility] Folate 9.1 2.8 - 17.0 ng/ml LAB CHEMISTRY METHOD 04/24/2024 9:01 PM [facility] Blood Venous blood specimen / Unknown Venipuncture / Unknown 04/24/2024 1:40 PM EST 04/24/2024 4:39 PM EST us Rhonda ZAVALETA LAB BLOOD ORDERABLES Final Resul t [facility] [address] [place] [address], * (ABNORMAL) CBC auto differential (04/24/2024 1:40 PM EST) [facility] WBC 7.3 4.8 - 10.8 K/mcL LAB HEMETOLOGY METHOD 04/24/2024 5:01 PM [facility] RBC 4.30 3.80 - 4.80 M/mcL LAB HEMETOLOGY METHOD 04/24/2024 5:01 PM [facility] Hemoglobin 11.4(L) 11.5 - 16.0 g/dL LAB HEMETOLOGY METHOD 04/24/2024 5:01 PM [facility] Hematocrit 37.1 35.0 - 47.0 % LAB HEMETOLOGY METHOD 04/24/2024 5:01 PM [facility] MCV 86.5 79.0 - 98.0 FL LAB HEMETOLOGY METHOD 04/24/2024 5:01 PM [facility] MCH 26.6(L) 27.0 - 32.0 pcg LAB HEMETOLOGY METHOD 04/24/2024 5:01 PM [facility] MCHC 30.7(L) 32.0 - 37.0 g/dL LAB HEMETOLOGY METHOD 04/24/2024 5:01 PM [facility] RDW 13.8 11.0 - 15.0 % LAB HEMETOLOGY METHOD 04/24/2024 5:01 PM [facility] Platelets 270 130 - 400 K/mcL LAB HEMETOLOGY METHOD 04/24/2024 5:01 PM [facility] MPV 12.2(H) 7.0 - 11.0 FL LAB HEMETOLOGY METHOD 04/24/2024 5:01 PM [facility] NRBC 0.0 <1.0 % LAB HEMETOLOGY METHOD 04/24/2024 5:01 PM [facility] NRBC Absolute 0.00 <0.10 K/mcL LAB HEMETOLOGY METHOD 04/24/2024 5:01 PM [facility] Neutrophils Relative 61.2 % LAB HEMETOLOGY METHOD 04/24/2024 5:01 PM [facility] Lymphocytes Relative 29.7 % LAB HEMETOLOGY METHOD 04/24/2024 5:01 PM [facility] Monocytes Relative 5.5 % LAB HEMETOLOGY METHOD 04/24/2024 5:01 PM [facility] Eosinophils Relative 2.9 % LAB HEMETOLOGY METHOD 04/24/2024 5:01 PM [facility] Basophils Relative 0.3 % LAB HEMETOLOGY METHOD 04/24/2024 5:01 PM [facility] Immature Granulocytes Relative 0.4 % LAB HEMETOLOGY METHOD 04/24/2024 5:01 PM [facility] Neutrophils Absolute 4.46 1.50 - 7.00 K/mcL LAB HEMETOLOGY METHOD 04/24/2024 5:01 PM [facility] Lymphocytes Absolute 2.16 1.00 - 5.00 K/mcL LAB HEMETOLOGY METHOD 04/24/2024 5:01 PM EST [facility] Monocytes Absolute 0.40 0.20 - 1.00 K/mcL LAB HEMETOLOGY METHOD 04/24/2024 5:01 PM EST [facility] Eosinophils Absolute 0.21 0.00 - 0.50 K/mcL LAB HEMETOLOGY METHOD 04/24/2024 5:01 PM EST [facility] Basophils Absolute 0.02 0.00 - 0.20 K/mcL LAB HEMETOLOGY METHOD 04/24/2024 5:01 PM EST [facility] Immature Granulocytes Absolute 0.03 0.00 - 0.03 K/mcL LAB HEMETOLOGY METHOD 04/24/2024 5:01 PM EST [facility] Blood Venous blood specimen / Unknown Venipuncture / Unknown 04/24/2024 1:40 PM EST 04/24/2024 4:38 PM EST us Rhonda Ifrah PA LAB BLOOD ORDERABLES Final Resul t [facility] [address] [place] [address], * Erythropoietin (04/24/2024 1:40 PM EST) Erythropoietin 8.1 2.6 - 18.5 mIU/mL 04/27/2024 11:22 PM EST [facility] Comment: Test performed at [facility], [address] , [place], [place] ??[address] ? [phone] Josie Melgar MD, PhD - Chronic Disease Manager Blood Venous blood specimen / Unknown Venipuncture / Unknown 04/24/2024 1:40 PM EST 04/24/2024 4:39 PM EST us Rhonda Ifrah PA LAB BLOOD ORDERABLES Final Resul t [facility] [address] [place] [address] * Iron and TIBC (04/24/2024 1:40 PM EST) Iron 56 40 - 150 mcg/dL LAB CHEMISTRY METHOD 04/24/2024 9:01 PM [facility] TIBC 368 250 - 450 mcg/dL LAB CHEMISTRY METHOD 04/24/2024 9:01 PM [facility] Iron Saturation 15 15 - 50 % LAB CHEMISTRY METHOD 04/24/2024 9:01 PM [facility] Blood Venous blood specimen / Unknown Venipuncture / Unknown 04/24/2024 1:40 PM EST 04/24/2024 4:39 PM EST us Rhonda ZAVALETA LAB BLOOD ORDERABLES Final Resul t [facility] [address] [place] [address], * (ABNORMAL) Reticulocyte count (04/24/2024 1:40 PM EST) Retic Ct Abs 0.100(H) 0.030 - 0.090 M/mcL LAB HEMETOLOGY METHOD 04/24/2024 5:01 PM [facility] Retic Ct Pct 2.4(H) 0.7 - 1.7 % LAB HEMETOLOGY METHOD 04/24/2024 5:01 PM [facility] Immature Retic Fract 15.9 2.3 - 15.9 % LAB HEMETOLOGY METHOD 04/24/2024 5:01 PM [facility] Reticulocyte Hemoglobin 29.7 >29.0 pcg LAB HEMETOLOGY METHOD 04/24/2024 5:01 PM [facility] Blood Venous blood specimen / Unknown Venipuncture / Unknown 04/24/2024 1:40 PM EST 04/24/2024 4:38 PM EST Rhonda ZAVALETA LAB BLOOD ORDERABLES Final Resul t Performing Organization Address City/[facility]/ZIP Co de Phone Number [facility] [address] [place] [address], [place] [phone] * (ABNORMAL) Lactate dehydrogenase (04/24/2024 1:40 PM EST) LDH 279(H) 120 - 246 unit/L LAB CHEMISTRY METHOD 04/24/2024 8:33 PM EST [facility] Blood Venous blood specimen / Unknown Venipuncture / Unknown 04/24/2024 1:40 PM EST 04/24/2024 4:39 PM EST Rhonda ZAVALETA LAB BLOOD ORDERABLES Final Resul t Performing Organization Address [facility] Co de Phone Number [facility] [address] [place] [address], [place] [phone] * Haptoglobin (04/24/2024 1:40 PM EST) Haptoglobin 128 16 - 200 mg/dL LAB CHEMISTRY METHOD 04/24/2024 9:01 PM EST [facility] Blood Venous blood specimen / Unknown Venipuncture / Unknown 04/24/2024 1:40 PM EST 04/24/2024 4:39 PM EST Rhonda ZAVALETA LAB BLOOD ORDERABLES Final Resul t Performing Organization Address City/[facility]/ZIP Co de Phone Number [facility] [address] [place] [address], [place] [phone] * Ferritin (04/24/2024 1:40 PM EST) Ferritin 44 8 - 252 ng/mL LAB CHEMISTRY METHOD 04/24/2024 9:01 PM EST [facility] Blood Venous blood specimen / Unknown Venipuncture / Unknown 04/24/2024 1:40 PM EST 04/24/2024 4:39 PM EST us Rhonda ZAVALETA LAB BLOOD ORDERABLES Final Resul t [facility] [address] [place] [address], [place] [phone] * (ABNORMAL) Lipid panel with reflex to direct LDL (02/20/2024 10:23 AM EST) Pathologist [facility] Cholesterol 237(H) 0 - 200 mg/dL LAB CHEMISTRY METHOD 02/20/2024 12:34 PM EST [facility] Triglycerides 260(H) 0 - 150 mg/dL LAB CHEMISTRY METHOD 02/20/2024 12:34 PM EST [facility] HDL 55 >=40 mg/dL LAB CHEMISTRY METHOD 02/20/2024 12:34 PM EST [facility] LDL Calculated 130(H) 0 - 100 mg/dL LAB CHEMISTRY METHOD 02/20/2024 12:34 PM EST [facility] VLDL Cholesterol [place] 52 mg/dL LAB CHEMISTRY METHOD 02/20/2024 12:34 PM EST [facility] Non HDL Chol. (LDL+VLDL) 182(H) <145 mg/dL LAB CHEMISTRY METHOD 02/20/2024 12:34 PM EST [facility] Chol/HDL Ratio 4.3 0.0 - 4.4 LAB CHEMISTRY METHOD 02/20/2024 12:34 PM EST [facility] Blood Venous blood specimen / Unknown Venipuncture / Unknown 02/20/2024 10:23 AM EST 02/20/2024 10:23 AM EST us Erick Angeles MD LAB BLOOD ORDERA BLES Final Result [facility] [address] [place] [address], [place] [phone] * (ABNORMAL) Hemoglobin A1c (02/20/2024 10:23 AM EST) Hemoglobin A1C 8.2(H) <6.5 % LAB CHEMISTRY METHOD 02/20/2024 2:17 PM [facility] Mean Bld Glu Estim. 189 mg/dL LAB CHEMISTRY METHOD 02/20/2024 2:17 PM [facility] Blood Venous blood specimen / Unknown Venipuncture / Unknown 02/20/2024 10:23 AM EST 02/20/2024 10:23 AM EST Erick Angeles MD LAB BLOOD ORDERA BLES Final Result [facility] [address] [place] [address], * (ABNORMAL) Comprehensive metabolic panel (02/20/2024 10:23 AM EST) Pathologist [facility] Sodium 139 133 - 145 mmol/L LAB CHEMISTRY METHOD 02/20/2024 12:34 PM [facility] Potassium 4.5 3.5 - 5.5 mmol/L LAB CHEMISTRY METHOD 02/20/2024 12:34 PM [facility] Chloride 106 96 - 110 mmol/L LAB CHEMISTRY METHOD 02/20/2024 12:34 PM [facility] CO2 26 21 - 32 mmol/L LAB CHEMISTRY METHOD 02/20/2024 12:34 PM [facility] Anion Gap 7 3 - 11 LAB CHEMISTRY METHOD 02/20/2024 12:34 PM [facility] Glucose 174(H) 70 - 100 mg/dL LAB CHEMISTRY METHOD 02/20/2024 12:34 PM [facility] BUN 25 5 - 25 mg/dL LAB CHEMISTRY METHOD 02/20/2024 12:34 PM [facility] Creatinine 1.07 0.50 - 1.10 mg/dL LAB CHEMISTRY METHOD 02/20/2024 12:34 PM [facility] eGFR 71 >=60 mL/min/1. 73m2 LAB CHEMISTRY METHOD 02/20/2024 12:34 PM [facility] Comment:Calculation based on the??Chronic Kidney Disease Epidemiology Collaboration (CKD-EPI) equation refit??without adjustment for race. BUN/Creatinine Ratio 23.4 LAB CHEMISTRY METHOD 02/20/2024 12:34 PM [facility] Calcium 9.8 8.5 - 10.5 mg/dL LAB CHEMISTRY METHOD 02/20/2024 12:34 PM [facility] AST (SGOT) 81(H) 10 - 42 unit/L LAB CHEMISTRY METHOD 02/20/2024 12:34 PM [facility] ALT (SGPT) 88(H) 10 - 60 unit/L LAB CHEMISTRY METHOD 02/20/2024 12:34 PM [facility] Alkaline Phosphatase 229(H) 42 - 121 unit/L LAB CHEMISTRY METHOD 02/20/2024 12:34 PM [facility] Total Protein 7.0 6.0 - 8.0 g/dL LAB CHEMISTRY METHOD 02/20/2024 12:34 PM [facility] Albumin 3.6 3.2 - 5.0 g/dL LAB CHEMISTRY METHOD 02/20/2024 12:34 PM [facility] Total Bilirubin 0.2 0.0 - 1.4 mg/dL LAB CHEMISTRY METHOD 02/20/2024 12:34 PM [facility] Blood Venous blood specimen / Unknown Venipuncture / Unknown 02/20/2024 10:23 AM EST 02/20/2024 10:23 AM EST Erick Angeles MD LAB BLOOD ORDERA BLES Final Result [facility] [address] [place] [address], * Depression Screening (10/19/2023) [facility] Depression Screening abstracted Historical Provider HEALTH MAINTENANCE Final Result * Urine Albumin Creatinine Ratio (06/22/2023) [facility] Urine Albumin Creatinine Ratio abstracted Historical Provider HEALTH MAINTENANCE Final Result * Diabetes Foot Exam (06/22/2023) [facility] Diabetes: Annual Foot Exam abstracted [facility] Provider HEALTH MAINTENANCE Final Result * Cervical Cancer Screening: HPV (06/09/2023) [facility] Cervical Cancer Screening: HPV negative,a bstracted Result [facility] Provider HEALTH MAINTENANCE Final Result * HIV Screening (06/09/2023) [facility] HIV Screening abstracted [facility] Provider HEALTH MAINTENANCE Final Result * Hepatitis C Screening (06/09/2023) [facility] Hepatitis C Screening abstracted [facility] Provider HEALTH MAINTENANCE Final Result * Diabetes Eye Exam (02/22/2023) [facility] Diabetes: Annual Retina Eye Exam abstracted Historical Provider HEALTH MAINTENANCE Final Result from Last 3 Months or Most Recently Relevant to Health Maintenance Insurance [facility] [place] [address] Care Teams Gut Carrier Relationship Specialty Start Date End Date Erick Angeles MD [address] [facility], [place] PCP - General Internal Medicine 10/30/21
--- OUTSIDE RECORDS SUMMARY | 2024-07-23 17:00 | XMS_ITS | Encounter Summary ---
Author Organization [facility] Address [address] [place] [address] Phone Care Team Providers Care Recording Studio Set Up Worker Name Role Phone Erick Angeles Primary Care Provider Reason for Visit * Reason Comments Med Refill Encounter Details Date Type Department Care Team (Late st Contact Info) Description 09/10/2023 Refill [facility] [address] [place] [address] Thuan De Guzman MD [address] [place] [address] [place] [address] Social History Tobacco Use Types [...] [facility] [address] [place] [address] Thuan De Guzman MD [address] [facility] [facility] [place] [address] documented as of this encounter Visit Diagnoses Not on filedocumented in this encounter Care Teams Recording Studio Set Up Worker Relationship Specialty Start Date End Date Erick Angeles PCP - General 6/14/23 documented as of this encounter
--- OUTSIDE RECORDS SUMMARY | 2024-07-23 17:00 | XMS_ITS | Encounter Summary ---
Author Organization [facility] Address [address] [place] [address] Phone Care Team Providers Care Frame Expander Name Role Phone Erick Angeles Primary Care Provider [phone] Encounter Details Date Type Department Care Team (Late st Contact Info) Description 08/16/2023 Documentation Only [facility] [address] [place] [address] Inna Macias [address] [place] [address] Social History Tobacco Use Types [...] Visit [facility] [address] [place] [address] Thuan De Guzman MD [address] [place] [address] [place] [address] documented as of this encounter Visit Diagnoses Not on filedocumented in this encounter Care Teams Frame Expander Relationship Specialty Start Date End Date Erick Angeles PCP - General 09/22/22 documented as of this encounter
--- OUTSIDE RECORDS SUMMARY | 2024-07-23 17:00 | XMS_ITS | Encounter Summary ---
Author Organization [facility] Address [address] [place] [address] Phone Care Team Providers Care Staffing Mgr Name Role Phone Erick Angeles Primary Care Provider Encounter Details Date Type Department Care Team (Late st Contact Info) Description 08/25/2023 Documentation Only [facility] [address] [place] [address] Inna Macias [address] [place] [address] Social History Tobacco Use Types [...] Visit [facility] [address] [place] [address] Thuan De Guzman MD [address] [place] [address] [place] [address] documented as of this encounter Visit Diagnoses Not on filedocumented in this encounter Care Teams Staffing Mgr Relationship Specialty Start Date End Date Erick Angeles PCP - General 09/22/22 documented as of this encounter
[2024-07-25] VITALS (25 sets, daily range): BP systolic 115–165; BP diastolic 67–93; PULSE 69–92; RESP 11–18; TEMP 36.1–36.7; O2SAT 93–100; BMI 28.5
--- NOTE | ~2024-07-25 | FL_ITS ---
EXAMINATION: FL GUIDANCE ONLY HISTORY: or guidance COMPARISON: Correlation is made with plain films of the right knee dated 01/13/2024. TECHNIQUE: Fluoroscopy time: Less than 1 minute. Cumulative Dose: 0.49420 mGy. DAP: [id number] mGym2 Images: 1. FINDINGS: Single AP view of the right knee demonstrates removal of the previously noted hardware along the proximal and lateral tibia. FL/FL guidance in OR IMPRESSION: Fluoroscopy during procedure. Please see procedure report for additional information. Electronically signed by: Gómez Olmedo MD 07/25/2024 09:18 AM EDT
[2024-07-25] MEDS: Lactated Ringers 1,000 ML 50 ML IVCONT (06:46)
--- NOTE | 2024-07-25 07:26 | HO.ANESPROP2 ---
HPI - Anesthesia Eval Consult details Narrative: removal hardware PMFSH Active Problems Active Problems: All Active Problems Painful orthopaedic hardware (Acute) Closed tibia fracture (Acute) Past Medical History Medical History Insulin pump in place History of blood transfusion Hyperlipidemia Essential hypertension Type 1 diabetes mellitus Family History Family history of problems with anesthesia: No Surgical History Surgical History History of appendectomy H/O hand surgery H/O eye surgery Tubal ligation status H/O knee surgery History of Problems with Anesthesia: No Social History Social History Household Members: Children Housing: House Are you a primary childcare administrator to a significant other at home: No Do you presently have visiting nurse or other home services: No Patient Tobacco Use Status: Never used Tobacco Second Hand Smoke Exposure: No Use of substances other than those prescribed or required for medical reasons: No Have you been hit, kicked, punched, or otherwise hurt by someone within the past year? If so, by whom?: No Are you DNR?: No Advance Directives: No Advance Directives Information Provided: No Advance Directives on File: No Patient : No : No Poor oral hygiene: No service: No Meds Allergies Allergy/AdvReac Type Severity Reaction Status Date / Time Iodinated Contrast Media Allergy Severe Rash, Verified 07/25/24 06:02 [IV Contrast Dye] Nausea Active Medications: Current Medications Lactated Ringer's (Lr) 1,000 mls @ 50 mls/hr IVCONT .Q20H REINA Last Admin: 07/25/24 06:46 Dose: 50 mls/hr Home Medications ?Medication ?Instructions ?Recorded ?Confirmed ?Last Taken ?Type amlodipine 5 mg tablet 10 mg PO DAILY 08/28/23 07/25/24 07/25/24 History atorvastatin 40 mg tablet 40 mg PO DAILY 08/28/23 07/25/24 08/27/23 History chlorthalidone 25 mg tablet 25 mg PO DAILY 08/28/23 07/25/24 08/27/23 History cholecalciferol (vitamin D3) 50 50 mcg PO DAILY 08/28/23 07/25/24 08/27/23 History mcg (2,000 unit) capsule (Vitamin D3) docusate sodium 100 mg capsule 100 mg PO BID 08/28/23 07/25/24 08/27/23 History gabapentin 100 mg capsule 100 mg PO BEDTIME 08/28/23 07/25/24 Unknown History hydroxyzine HCl 25 mg tablet 25 mg PO DAILY PRN anxiety 08/28/23 07/25/24 Unknown History insulin glargine 100 unit/mL 48 unit subcut DAILY PRN Insulin 08/28/23 07/25/24 07/25/24 05:00 History subcutaneous solution (Lantus Pump Backup 24 units U-100 Insulin) insulin lispro 100 unit/mL 1 sliding scale dose subcut QIDACHS 08/28/23 07/25/24 08/27/23 History subcutaneous solution linaclotide 145 mcg capsule 145 mcg PO DAILY 08/28/23 07/25/24 08/27/23 History (Linzess) lisinopril 40 mg tablet 40 mg PO DAILY 08/28/23 07/25/24 07/24/24 History medroxyprogesterone 10 mg tablet 10 mg PO DAILY 08/28/23 07/25/24 08/27/23 History omeprazole 40 mg capsule,delayed 40 mg PO BID 08/28/23 07/25/24 08/27/23 History release venlafaxine 37.5 mg tablet 75 mg PO DAILY 08/28/23 07/25/24 08/27/23 History Exam Height,Weight and Vital Signs: Height 5 ft Weight 66.3 kg Last Vital Signs Temp 97.2 F 07/25/24 06:18 Pulse 86 07/25/24 06:18 Resp 16 07/25/24 06:18 BP 130/78 07/25/24 06:18 Pulse Ox 98 07/25/24 06:18 O2 Del Method Room Air 07/25/24 06:18 Airway Mallampati Class: II TM Dist: >3cm Neck ROM: Full Heart: rrr Lungs: cta Assessment and Plan Assessment Anesthesia Assessment: Anesthesia Plan Discussed and Chart Reviewed Final Anesthetic Review Family History of Problems with Anesthesia: No History of Problems with Anesthesia: No NPO: Yes ASA Class: III Final Preanesthetic Review: No Changes in Pt Med Stat, Meds/Allgs Chart Reviewed, Consent Obtained/Reviewed and Anes Risks/Benef Reviewed Patient Risk: Intermediate Procedure Risk: Low Anesthetic Plan Anesthetic Plan: GA Disposition: Standard PACU
--- NOTE | 2024-07-25 07:30 | PC.NURSE ---
Patients omnipod monitor as well as cell phone brought into OR in labeled plastic bag per anesthesia Dr. Gutierrez to ensure proper blood sugar monitoring during case. Patients blood sugar reading in the 250's when rolling out of preop. ACTIONSCRIPT DEVELOPER aware.
--- NOTE | 2024-07-25 07:30 | MHC.SHP ---
Pre-Procedural Eval Section A - 24 Hr Update-Section A only Date of Service: 07/25/24 The patient is an INPATIENT: No Changes since office visit: No Cold of Flu in the past 2 weeks, No New Medical Problems, No Changes in Medication and No Patient answered all questions The patient has been examined within 24 hours of the surgical procedure. The History & Physical has been completed within 30 days and I have reviewed it.: Yes Section B - Complete if H&P > 30 days Chief Complaint: Unspecified fracture of shaft of unspecified tibia Allergies: Allergies Allergy/AdvReac Type Severity Reaction Status Date / Time Iodinated Contrast Media Allergy Severe Rash, Verified 07/25/24 06:02 [IV Contrast Dye] Nausea Plan I have reviewed the history and physical and performed a pertinent physical examination on my patient. No changes have occurred unless specified. Time Spent With Patient Time: Total time managing care of this patient today ____ minutes.
--- NOTE | 2024-07-25 08:30 | PM.OP ---
Brief Operative Note Date of Service: 07/25/24 Pre-op diagnosis: retained ortho hardware right tibia Post-op diagnosis: same Procedure: JOHNNY right tibia, deep Implants: none Surgeon: Houston Flores MD Anesthesia: GETA Was an Certified Master Locksmith used for this Procedure?: Yes Certified Master Locksmith: Tracey Soriano Estimated blood loss (mL): 50 IV fluids (mL): 750 Pathology: none sent Condition: stable Disposition: PACU
[2024-07-25] MEDS: fentaNYL citrate/PF 100 MCG/2 ML VIAL 25 MCG IVPUSH ×4 (08:40→09:05)
[2024-07-25] MEDS: ondansetron HCL 4 MG/2 ML VIAL IVPUSH (08:54)
[2024-07-25] MEDS: Ketorolac Tromethamine 15 MG/ML VIAL IVPUSH (08:57)
[2024-07-25] MEDS: Haloperidol Lactate 5 MG/ML VIAL 1 MG IVPUSH (09:46)
[2024-07-25] MEDS: Lactated Ringers 1,000 ML 100 ML IVCONT ×2 (13:51→23:59)
[2024-07-25] MEDS: Acetaminophen 325 MG TABLET 650 MG PO (13:57)
--- NOTE | 2024-07-25 14:44 | PHA.MEDREC ---
Addendum entered by Chase Galan RPh 07/25/24 15:05: MED REC CHECKED BY [facility] Original Note: Pharmacy Consult ? Medication Reconciliation Pharmacy has completed the medication reconciliation. Spoke with patient and she confirmed her medications. Patient confirmed she is taking her Atorvastatin 40mg tab on Mondays, Wednesdays and Fridays due to her liver panel being high.
--- NOTE | 2024-07-25 15:23 | P.CONHOSP_ITS ---
History of Present Illness Data of Consult Service Date: 07/25/24 Requesting physician: Houston Flores Primary Care Provider: Erick Angeles MD [facility] Reason for consult: Medical management 33-year-old female with a history of type 1 diabetes, hypertension,hyperlipidemia presents for elective hardware removal by ortho. Per notes surgery uneventful procedure. Consulted for medical management Review of Systems Review of Systems: Denies chest pain Denies shortness of breath Denies nausea vomiting diarrhea Denies fever and chills PMFSH Medical History (Updated 07/25/24 @ 15:27 by Beto Wolff DO) Essential hypertension Type 1 diabetes mellitus Insulin pump in place History of blood transfusion Hyperlipidemia Surgical History History of appendectomy H/O hand surgery H/O eye surgery Tubal ligation status H/O knee surgery Social History Household Members: Children Housing: House Are you a primary pet caregiver to a significant other at home: No Do you presently have visiting nurse or other home services: No Comment: faces scale; pt was asleep most of the time in pacu Patient Tobacco Use Status: Never used Tobacco Second Hand Smoke Exposure: No Use of substances other than those prescribed or required for medical reasons: No Have you been hit, kicked, punched, or otherwise hurt by someone within the past year? If so, by whom?: No Are you DNR?: No Advance Directives: No Advance Directives Information Provided: No Advance Directives on File: No Patient : No : No Poor oral hygiene: No service: No Meds Allergies Allergy/AdvReac Type Severity Reaction Status Date / Time Iodinated Contrast Media Allergy Severe Rash, Verified 07/25/24 06:02 [IV Contrast Dye] Nausea Active Medications: Current Medications Acetaminophen (Acetaminophen 325 Mg Tablet) 650 mg PO Q6H PRN PRN Reason: pain (scale score 4-6) Last Admin: 07/25/24 13:57 Dose: 650 mg Acetaminophen (Acetaminophen 325 Mg Tablet) 650 mg PO Q6H PRN PRN Reason: Pain, Mild 1-3,fever,headache Amlodipine Besylate (Amlodipine Besylate 10 Mg Tablet) 10 mg PO DAILY REINA; Protocol Atorvastatin Calcium (Atorvastatin Calcium 40 Mg Tablet) 40 mg PO DAILY [facility] Docusate Sodium (Docusate Sodium 100 Mg Capsule) 100 mg PO BID [facility] Gabapentin (Gabapentin 100 Mg Capsule) 100 mg PO BEDTIME [facility] Hydrochlorothiazide (Hydrochlorothiazide 25 Mg Tablet) 25 mg PO DAILY [facility] Hydroxyzine HCl (Hydroxyzine Hcl 25 Mg Tablet) 25 mg PO DAILY PRN PRN Reason: anxiety Lactated Ringer's (Lr) 1,000 mls @ 100 mls/hr IVCONT .Q10H [facility] Last Admin: 07/25/24 13:51 Dose: 100 mls/hr Lisinopril (Lisinopril 40 Mg Tablet) 40 mg PO DAILY [facility]; Protocol Non-Formulary Medication (Linaclotide [Linzess]) 145 mcg PO DAILY [facility] Omeprazole (Omeprazole 40 Mg Capsule.Dr) 40 mg PO BID@0630,1630 [facility] Sodium Chloride (0.9 % Sodium Chloride Flush 3 Ml Syringe) 3 ml IVFLUSH QSHIFT [facility] Venlafaxine HCl (Venlafaxine Hcl 25 Mg Tablet) 75 mg PO DAILY [facility] Vitamin D (Cholecalciferol (Vitamin D3) 25 Mcg Tablet) 50 mcg PO DAILY [facility] Home Medications ?Medication ?Instructions ?Recorded ?Confirmed ?Last Taken ?Type amlodipine 5 mg tablet 10 mg PO DAILY 08/28/23 07/25/24 07/24/24 History atorvastatin 40 mg tablet 40 mg PO MOWEFR 08/28/23 07/25/24 07/23/24 History chlorthalidone 25 mg tablet 25 mg PO DAILY 08/28/23 07/25/24 07/24/24 History cholecalciferol (vitamin D3) 50 50 mcg PO DAILY 08/28/23 07/25/24 07/24/24 History mcg (2,000 unit) capsule (Vitamin D3) gabapentin 100 mg capsule 100 mg PO BEDTIME PRN Muscle Pain 08/28/23 07/25/24 Unknown History hydroxyzine HCl 25 mg tablet 25 mg PO DAILY PRN anxiety 08/28/23 07/25/24 Unknown History insulin glargine 100 unit/mL 48 unit subcut DAILY PRN Insulin 08/28/23 07/25/24 Unknown History subcutaneous solution (Lantus Pump Backup U-100 Insulin) insulin lispro 100 unit/mL 1 sliding scale dose subcut QIDACHS 08/28/23 07/25/2407/24/25 History subcutaneous solution linaclotide 145 mcg capsule 145 mcg PO DAILY 08/28/23 07/25/24 07/24/24 History (Linzess) lisinopril 40 mg tablet 40 mg PO DAILY 08/28/23 07/25/24 07/24/24 History venlafaxine 37.5 mg tablet 75 mg PO DAILY 08/28/23 07/25/24 07/24/24 History Vitamin C 1 tab PO DAILY 07/25/24 07/25/24 07/24/24 History ferrous sulfate 142 mg (45 mg 142 mg PO DAILY 07/25/24 07/25/24 07/24/24 History iron) tablet,extended release (Slow Release Iron) lorazepam 0.5 mg tablet 0.5 mg PO DAILY PRN anxiety 07/25/24 07/25/24 Unknown History pantoprazole 40 mg tablet,delayed 40 mg PO DAILY@0630 07/25/24 07/25/24 07/24/24 History release Physical Exam Vital Signs and Narrative: Vital Signs: Last Vital Signs Temp 97.1 F 07/25/24 15:08 Pulse 81 07/25/24 15:08 Resp 16 07/25/24 15:08 BP 127/73 07/25/24 15:08 Pulse Ox 100 07/25/24 15:08 O2 Del Method Room Air 07/25/24 15:08 O2 Flow Rate 2 07/25/24 10:30 BMI result Body Mass Index 28.5 Const: Other: Awake alert no acute distress Resp: Other: Clear to auscultation bilaterally no rales rhonchi or wheezes Cardio: Other: No S4; positive S1-S2; no S3 murmurs rubs or gallops GI: Other: Soft nontender nondistended normoactive bowel sounds Extrem: Other: No edema. Results Imaging Radiologist's Impressions: Impressions Guidance Fluoroscopy 07/25/24 07:33 IMPRESSION: Fluoroscopy during procedure. Please see procedure report for additional information. Electronically signed by: Gómez Olmedo MD 07/25/2024 09:18 AM EDT Assessment and Plan (1) Painful orthopaedic hardware: Status: Acute (2) Type 1 diabetes mellitus: Qualifiers: Diabetes mellitus complication status: with other specified complication Qualified Code(s): E10.69 - Type 1 diabetes mellitus with other specified complication Status: Acute (3) Essential hypertension: Status: Acute Plan 33-year-old with a history of type 1 diabetes hypertension hypercholesterolemia presents for painful hardware removal by Orthopedics. Uneventful procedure 1. Status post hardware removal -as per ortho 2.Diabetes type 1 -continue insulin pump; patient we will manage herself. (recently filled) -we will DC Lantus as patient only uses as backup to pump -check point of cares q.i.d. a.c. and HS however no sliding scale is indicated -diabetic diet 3.Hypertension -acceptable control on current therapy -adjust only if indicated
[2024-07-25] MEDS: Omeprazole 40 MG CAPSULE.DR PO (16:05)
[2024-07-25] MEDS: Atorvastatin Calcium 40 MG TABLET PO (16:11)
[2024-07-25 16:22] LABS: Glucose, Whole Blood 156 mg/dL (60-115)
[2024-07-25] MEDS: Subcutaneous Insulin Pump 1 EACH SUBCUT ×2 (16:23→21:00)
[2024-07-25 20:09] LABS: Glucose, Whole Blood 229 mg/dL (60-115)
[2024-07-25] MEDS: Docusate Sodium 100 MG CAPSULE PO (20:22)
[2024-07-25] MEDS: Acetaminophen 1,000 MG/100 ML PIGGYBACK 400 MG IV (20:22)
[2024-07-25] MEDS: Gabapentin 100 MG CAPSULE PO (20:22)
[2024-07-26 03:40] VITALS: BP 136/79; PULSE 71; RESP 18; TEMP 37.1; O2SAT 100
[2024-07-26] MEDS: Acetaminophen 325 MG TABLET 650 MG PO ×2 (04:07→10:29)
[2024-07-26 06:27] LABS: MANUAL DIFF FLAG NO
[2024-07-26] MEDS: Omeprazole 40 MG CAPSULE.DR PO (06:29)
[2024-07-26 06:44] LABS: Basophils Percent Auto 0.3 % (0-2); Eosinophils Absolute Auto 0.2 X10*3/uL (0.0-0.4); Eosinophils Percent Auto 3.6 % (0-4); Hematocrit 31.3 % (37.0-47.0); Hemoglobin 9.9 g/dl (12.0-16.0); Imm Gran Abs Auto 0.01 X10*3/uL (0.00-0.03); Imm Gran Pct Auto 0.2 % (0.0-0.4); Lymphocytes Absolute Auto 1.8 X10*3/uL (1.2-4.9); Lymphocytes Percent Auto 28.7 % (20-40); Mean Corpuscular HGB Conc 31.6 g/dl (31.0-35.0); Mean Corpuscular Hemoglobin 26.1 pg (27.0-33.0); Mean Corpuscular Volume 82.6 fL (80.0-98.0); Mean Platelet Volume 11.9 fL (9.4-12.3); Monocytes Absolute Auto 0.5 X10*3/uL (0.1-1.2); Neutrophils Absolute Auto 3.7 x10*3/uL (2.0-8.3); Neutrophils Percent Auto 59.2 % (45-73); Platelet Count 220 X10*3/uL (160-400); Red Blood Count 3.79 X10*6/uL (4.20-5.50); Red Cell Distribution Width 12.6 % (11.0-16.0); White Blood Count 6.2 X10*3/uL (4.8-10.8)
[2024-07-26 07:19] LABS: Anion Gap 10 (12-20); Blood Urea Nitrogen 15 mg/dL (9-16); Calcium 8.2 mg/dL (8.4-10.2); Carbon Dioxide 25 mmol/L (22-29); Chloride 109 mmol/L (96-108); Creatinine Clr Calc Pharmacy 77.8; Estimated Glomerular Filt Rate > 60; Glucose Fasting 125 mg/dL (60-99); Potassium 3.9 mmol/L (3.3-5.1); Sodium 140 mmol/L (135-145)
--- NOTE | 2024-07-26 07:19 | PM.PNORT ---
Subjective Subjective Date of Service: 07/26/24 Interval history: Postop day 1 status post right knee removal of hardware Patient resting comfortably in bed this morning Reports that her dizziness has improved significantly from yesterday No acute events overnight Pain well managed No other acute complaints or concerns at this time Physical Exam Vital Signs: Vital Signs: Last Vital Signs Temp 98.7 F 07/26/24 03:40 Pulse 71 07/26/24 03:40 Resp 18 07/26/24 03:40 BP 136/79 07/26/24 03:40 Pulse Ox 100 07/26/24 03:40 O2 Del Method Room Air 07/26/24 03:40 O2 Flow Rate 2 07/25/24 10:30 BMI result Body Mass Index 28.5 Extrem: Other: Dressing on right knee clean, dry, intact No evidence of surrounding erythema, ecchymosis No evidence of infection Patient is able to flex and extend the digits of the right foot without difficulty Compartments soft, nontender Distal sensation intact Capillary refill brisk Procedures Date of Service Date of Service: 07/26/24 Progress Note: A&P Assessment and plan (1) Closed tibia fracture: Status: Acute Plan 1. Status post removal of hardware of right knee DOS 07/25/2024 Patient appears to be recovering well postoperatively Patient is educated about the typical recovery course Continue pain management: Patient states that she is only interested in Tylenol for pain management at this time PT eval-discharge home with outpatient PT when cleared by surgeon Time Spent With Patient Time: Total time managing care of this patient today ____ minutes. Quality Stroke Does the patient have a stroke diagnosis?: No VTE Prior VTE?: No VTE Risk Level:: Surgical - moderate VTE Device Contraindication: N/A - Device Ordered VTE Drug Contraindication: Treatment Not Indicated
[2024-07-26 07:31] LABS: Glucose, Whole Blood 110 mg/dL (60-115)
[2024-07-26 07:33] VITALS: BP 164/81; PULSE 66; RESP 16; TEMP 36.3; O2SAT 97
--- NOTE | 2024-07-26 07:41 | P.DS_ITS ---
DS: Providers Provider Date of Service: 07/26/24 Date of discharge: 07/26/24 Primary care physician: Erick Angeles MD Consults: 07/25/24 13:19 Consult to Hospitalist Routine Comment: Consulting Provider: [facility] Hospitalists Reason For Exam: post op dizziness, type 1 Diabetic DS: Diagnosis Discharge Diagnosis (1) Closed tibia fracture: Status: Acute DS: Summary Hospital Course Hospital Course: The patient underwent a successful removal of hardware of right knee on 07/25/2024, was transferred to PACU and then to the floor to recover. During their stay, their vitals were stable, afebrile at 97.4. Labs were unremarkable, H/H 9.9/ 31.3. They also received Physical Therapy services twice a day. Physical therapy should include gait training, ROM to tolerance and quad strength. Shr is WBAT. The dressing should remain intact and dry at all times. Any concerns with the dressing, please contact orthopedic office. No showering. No driving until able to ambulate without pain. The plan is to be discharged Time Attestation Discharge Coordination Time (in mins): 30 Quality: Safe Use of Opioids Does Pt have an Active Cancer Diagnosis on the Problem List?: No Quality: Stroke Does the patient have a stroke diagnosis?: No Physical Exam Vital Signs: Vital Signs: Last Vital Signs Temp 97.4 F 07/26/24 07:33 Pulse 66 07/26/24 07:33 Resp 16 07/26/24 07:33 BP 164/81 H 07/26/24 07:33 Pulse Ox 97 07/26/24 07:33 O2 Del Method Room Air 07/26/24 07:33 O2 Flow Rate 2 07/25/24 10:30 BMI result Body Mass Index 28.5 Extrem: Other: Dressing on right knee clean, dry, intact No evidence of surrounding erythema, ecchymosis No evidence of infection Patient is able to flex and extend the digits of the right foot without difficulty Compartments soft, nontender Distal sensation intact Capillary refill brisk DS: Data Data Completed and Pending Completed studies during hospitalization [Text1]: Procedures Reposition Right Tibia with Internal Fixation Device, Open Approach (08/28/23) Labs on day of discharge: Laboratory Results - last 24 hr 07/25/24 07/25/24 07/26/24 16:19 20:05 06:24 WBC 6.2 RBC 3.79 L Hgb 9.9 L Hct 31.3 L MCV 82.6 MCH 26.1 L MCHC 31.6 RDW 12.6 Plt Count 220 MPV 11.9 Immature Gran % (Auto) 0.2 Neut % (Auto) 59.2 Lymph % (Auto) 28.7 Wood % (Auto) 8.0 Eos % (Auto) 3.6 Baso % (Auto) 0.3 Lymph # (Auto) 1.8 Wood # (Auto) 0.5 Eos # (Auto) 0.2 Baso # (Auto) 0.0 Abs Immat Gran (auto) 0.01 Absolute Neuts (auto) 3.7 Absolute Nucleated RBC 0.000 Nucleated RBC % (auto) 0.0 Sodium 140 Potassium 3.9 Chloride 109 H Carbon Dioxide 25 Anion Gap 10 L BUN 15 Creatinine 0.89 Estim Creat Clear Calc 77.8 Estimated GFR > 60 POC Glucose 156 H 229 H Fasting Glucose 125 H Calcium 8.2 L D 07/26/24 07:26 WBC RBC Hgb Hct MCV MCH MCHC RDW Plt Count MPV Immature Gran % (Auto) Neut % (Auto) Lymph % (Auto) Wood % (Auto) Eos % (Auto) Baso % (Auto) Lymph # (Auto) Wood # (Auto) Eos # (Auto) Baso # (Auto) Abs Immat Gran (auto) Absolute Neuts (auto) Absolute Nucleated RBC Nucleated RBC % (auto) Sodium Potassium Chloride Carbon Dioxide Anion Gap BUN Creatinine Estim Creat Clear Calc Estimated GFR POC Glucose 110 Fasting Glucose Calcium Discharge Plan Discharge Patient Disposition: Home, Self-Care Referrals: Tracey Soriano PA-C [Physician Quality Management Nurse] - 08/02/24 1:15 pm Discharge Medications: Continued (DME) Crutches See Rx Instructions .ROUTE .MEDSUPPLY Qty: 1 0RF Rx Instructions: As directed (DME) Wheelchair See Rx Instructions .ROUTE .MEDSUPPLY Qty: 1 0RF Rx Instructions: with leg rest (DME) 3 in 1 commode See Rx Instructions .ROUTE .MEDSUPPLY Qty: 1 0RF Rx Instructions: as instructed atorvastatin 40 mg tablet 40 mg PO MOWEFR insulin glargine [Lantus U-100 Insulin] 100 unit/mL solution 48 unit subcut DAILY PRN (Reason: Insulin Pump Backup) chlorthalidone 25 mg tablet 25 mg PO DAILY amlodipine 5 mg tablet 10 mg PO DAILY venlafaxine 37.5 mg tablet 75 mg PO DAILY hydroxyzine HCl 25 mg tablet 25 mg PO DAILY PRN (Reason: anxiety) gabapentin 100 mg capsule 100 mg PO BEDTIME PRN (Reason: Muscle Pain) insulin lispro 100 unit/mL solution 1 sliding scale dose subcut QIDACHS Rx Instructions: MAX DAILY DOSE 60 UNITS; UTILIZES OMNIPOD 5 G6 PODS lisinopril 40 mg tablet 40 mg PO DAILY cholecalciferol (vitamin D3) [Vitamin D3] 50 mcg (2,000 unit) capsule 50 mcg PO DAILY Linzess 145 mcg capsule 145 mcg PO DAILY acetaminophen 325 mg Tablet 650 mg PO Q6H PRN (Reason: pain (scale score 4-6)) Qty: 30 0RF No Action lorazepam 0.5 mg tablet 0.5 mg PO DAILY PRN (Reason: anxiety) pantoprazole 40 mg tablet,delayed release (DR/EC) 40 mg PO DAILY@0630 ferrous sulfate [Slow Release Iron] 142 mg (45 mg iron) tablet extended release 142 mg PO DAILY Vitamin C 1 tab PO DAILY Discharge Orders: Discharge Order (Routine); Ordered 07/26/24 Ordered By: Henri Hassan Diet: Advance to usual diet Activity on Discharge: Walk with crutches Activity Restrictions/Additional Instructions: * WBAT with crutches until able to perform straight leg and safely able to ambulate * ROM of the knee * Dressing changes as needed * No tub bath or shower-Keep dressing clean, dry and intact * Follow up with orthopedics in 2 weeks Print Language: Romansh
[2024-07-26] MEDS: Venlafaxine HCL 25 MG TABLET 75 MG PO (08:01)
[2024-07-26] MEDS: Cholecalciferol (Vitamin D3) 25 MCG TABLET 50 MCG PO (08:01)
[2024-07-26] MEDS: lisinopriL 40 MG TABLET PO (08:01)
[2024-07-26] MEDS: amLODIPine Besylate 10 MG TABLET PO (08:01)
[2024-07-26] MEDS: Docusate Sodium 100 MG CAPSULE PO (08:02)
[2024-07-26] MEDS: Subcutaneous Insulin Pump 1 EACH SUBCUT (08:06)
--- NOTE | 2024-07-26 08:12 | PC.NURSE ---
Pt states understanding for D/C, no questions at this time, IV removed.
--- NOTE | 2024-07-26 08:52 | HO.POSTANES ---
Post Anesthesia Evaluation Post Anesthesia Evaluation Date of Service: 07/26/24 Vital Signs: Vital Signs Temp Pulse Resp BP Pulse Ox O2 Del Method 07/26/24 07:33 97.4 F 66 16 164/81 H 97 Room Air 07/26/24 03:40 98.7 F 71 18 136/79 100 Room Air 07/25/24 23:58 97.6 F 73 18 141/74 H 97 Room Air Anesthesia: General Mental Status: Awake Pain Control: Satisfactory (COMPLAINS OF PAIN, BEING TREATED) Nausea/Vomiting: None Hydration: Adequate Anesthesia-Related Issues: No Anes. Related Issues
--- NOTE | 2024-07-26 09:42 | MHC.CM.PN ---
Patient lives at home w/ S.O. and 3 children. Ambulates w/ crutches. Mother assists w/ ADL's PRN. Has insulin pump and dexcom. PCP Dr. Angeles No HCP. CM provided education and offered assistance. Patient declined. DP: PT rec home w/ family support. Medically cleared for dc. Family will transport ~11am. RN aware.
[2024-07-26 10:43] VITALS: BP 160/88; PULSE 68; RESP 16; TEMP 36.3; O2SAT 98
--- NOTE | 2024-07-26 16:33 | P.OP_ITS ---
Operative Note Operative Note Date of Service: 07/25/24 Narrative: Date of Service: 07/25/24 Pre-op diagnosis: retained ortho hardware right tibia Post-op diagnosis: same Procedure: JOHNNY right tibia, deep Implants: none Surgeon: Houston Flores MD Anesthesia: GETA Was an Reconciliation Manager used for this Procedure?: Yes Reconciliation Manager: Tracey Soriano Estimated blood loss (mL): 50 IV fluids (mL): 750 Pathology: none sent Condition: stable Disposition: PACU Patient was brought to the operating room and placed supine on the surgical table. She was prepped and draped in standard sterile fashion and a time out was called to proper site, proper procedure and IV antibiotics per weight were administered. I began by making an incision over the previous surgical incision over the right tibia. Full thickness flaps were taken down to the plate and a periosteal elevator was used to remove soft tissue from the plate. 8 screws and the plate were then removed without difficulty. The screw holes and extraneous bone were debrided with a currette and rongeur. I then irrigated and performed a layered closure with absorbable suture and skin glue. Local anesthetic was administered before and after incision. The patient was placed in sterile dressings, extubated and brought to the recovery room in stable condition.
== END 2024-07-26 11:45 | disposition home or self-care (01) ==
LOC: HO.SSS 11:45 → HO.S3 12:41
PROVIDERS: Physician Assistant; PCP Family Medicine; Visit Provider Orthopaedic Surgery
PROC: (CPT 20680; principal; 2024-07-25 07:30)
DX: T84.84XA Pain due to internal orthopedic prosthetic devices, implants and grafts, initial encounter (principal); M25.561 Pain in right knee; Y79.2 Prosthetic and other implants, materials and accessory orthopedic devices associated with adverse incidents; Z87.81 Personal history of (healed) traumatic fracture; I10 Essential (primary) hypertension; E10.69 Type 1 diabetes mellitus with other specified complication; Z96.41 Presence of insulin pump (external) (internal); Z79.4 Long term (current) use of insulin; E78.5 Hyperlipidemia, unspecified; Z86.2 Personal history of diseases of the blood and blood-forming organs and certain disorders involving the immune mechanism; Z79.899 Other long term (current) drug therapy; Z91.041 Radiographic dye allergy status; Z98.890 Other specified postprocedural states
CPT/HCPCS: 20680; 36415; 80048; 82947; 85025; 97161; J0131; J0690; J1630; J1885; J2003; J2250; J2405; J2704; J2795; J3010; J7120

== ENCOUNTER → 2024-07-25 05:53 | Outpatient (BNV) | payer OTHER, SELFPAY | PROVIDERS: PCP Family Medicine; Visit Provider Orthopaedic Surgery | DX: T84.84XA Pain due to internal orthopedic prosthetic devices, implants and grafts, initial encounter (principal); S82.209A Unspecified fracture of shaft of unspecified tibia, initial encounter for closed fracture | CPT/HCPCS: 20680; 99024 ==

== ENCOUNTER → 2024-07-25 05:53 | Outpatient (BNV) | payer OTHER, SELFPAY | PROVIDERS: PCP Family Medicine; Visit Provider Hospitalist | DX: E10.69 Type 1 diabetes mellitus with other specified complication (principal); I10 Essential (primary) hypertension; T84.84XA Pain due to internal orthopedic prosthetic devices, implants and grafts, initial encounter | CPT/HCPCS: 99214 ==

== ENCOUNTER 2024-08-02 08:39 | Outpatient (REF) | payer OTHER, SELFPAY ==
--- NOTE | ~2024-08-02 | XR_ITS ---
EXAMINATION: XR KNEE 3 VIEWS RIGHT HISTORY: M25.569 - Pain in unspecified knee COMPARISON: Comparison is made with the prior examination dated 01/13/2024. FINDINGS: Standing AP views of both knees and additional lateral and sunrise patellar views of the right knee are submitted. In the interval since the prior study. The previously seen internal fixation hardware along the proximal tibia has been removed. Cement is seen in the proximal tibial metaphysis. 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 There is no acute fracture or dislocation. The joint spaces are preserved. The soft tissues are unremarkable. There is no joint effusion. XR/XR knee RT 3V IMPRESSION: Postsurgical changes as described. No acute abnormality is identified. Electronically signed by: Gómez Olmedo MD 08/03/2024 03:56 PM EDT
--- OUTSIDE RECORDS SUMMARY | 2024-08-03 08:43 | XMS_ITS | Clinical Summary ---
Author Organization [facility] Address [address] [facility] 7t [place] [address] Care Team Providers Care Medical Office Administrator Name Role Phone Unavailable Primary Care Provider [...] Continuous Blood Gluc Sensor (Dexcom G6 Sensor) [facility] [place] 08/19/19 23 Active Continuous Blood Gluc Transmit (Dexcom G6 transmitter) [facility] [place] [place] 07/28/19 23 Active cyclobenzaprine (Flexeril) 5 MG tablet 08/19/19 23 Active ergocalciferol (Vitamin D2) 1.25 MG (89525 UT) capsule TAKE 1 CAPSULE BY MOUTH ONCE A WEEK FOR 56 DAYS. 06/17/19 23 Active Baqsimi Two Pack 3 MG/DOSE nasal powder PLEASE SEE ATTACHED FOR DETAILED DIRECTIONS 03/30/20 22 Active FREESTYLE LITE test strip 08/24/19 23 Active hydrOXYzine HCl (Atarax) 25 MG tablet 08/19/19 23 Active Insulin Disposable Pump (Omnipod 5 G6 Pod, Gen 5,) [facility] [place] 07/27/19 23 Active B-D UF III MINI PEN NEEDLES 31G X 5 MM [facility] [place] USE PEN NEEDLES TO INJECT INSULIN 4 TIMES A DAY 06/04/19 23 Active lisinopril 40 MG tablet Take 40 mg by mouth in the morning. 06/29/19 23 Active Continuous Blood Gluc Sensor (Dexcom G6 Sensor) [facility] Dexcom G6 sensor 3 pack, See Instructions, # 3 each, Refills 3, Tot. Refills 3, Maintenance, E11.9 for 90 days supply [facility]: [address]-73, 11/30/22 15:21:00 EDT, Supply, 153, cm, 11/29/22 [...] Description 07/09/2024 3:30 PM EDT Office Visit [facility] [address] [place] [id number] Syd, Aidee, OD Dry eye syndrome of [...] fective 2022-Present) Name:Karol Sheffield Relation to Subscriber:Self Name:aKrol Sheffield Payer ID:Not on file Group ID:[id number] Type:Not on file Address: [place] [phone] ACO
--- OUTSIDE RECORDS SUMMARY | 2024-08-03 08:43 | XMS_ITS | Clinical Summary ---
Author Organization [facility], Address [address] [place] [address] [place] [address] Phone Care Team Providers Care And Rescue Fire Fighter Crash Fire Name Role Phone Erick Angeles Primary Care [...] Visit [facility], [address] [facility] [place] [address] Thuan De Guzman MD [address] [facility] [place] [address] Health Maintenance Due Date Last [...] 04/28/2022, 03/07/2018, 03/05/2009, Additional history exists Insurance [facility] [employer] Care Teams And Rescue Fire Fighter Crash Fire Relationship Specialty Start Date End Date Erick Angeles PCP - General 09/22/22
--- OUTSIDE RECORDS SUMMARY | 2024-08-03 08:43 | XMS_ITS | Encounter Summary ---
Author Organization [facility] Address [address] [place] [address] Phone Care Team Providers Care Boat Dispatcher Name Role Phone Erick Angeles Primary Care Provider Encounter Details Date Type Department Care Team (Late st Contact Info) Description 09/22/2022 Documentation Only [facility] [address] [place] [address] Erick Angeles [address] [place] [id number] Social History Tobacco Use Types Packs/Day Years [...] [facility] [address] [place] [address] Thuan De Guzman MD [address] [place] [address] [place] [address] documented as of this encounter Visit Diagnoses Not on filedocumented in this encounter Care Teams Boat Dispatcher Relationship Specialty Start Date End Date Erick Angeles PCP - General 09/22/22 documented as of this encounter
--- OUTSIDE RECORDS SUMMARY | 2024-08-03 08:43 | XMS_ITS | Encounter Summary ---
Author Organization [facility] Address [address] [place] [address] Phone Care Team Providers Care Anti Air Warfare Operations Officer Name Role Phone Erick Angeles Primary Care Provider Encounter Details Date Type Department Care Team (Late Contact Info) Description 12/09/2023 Documentation Only [facility] [address] [place] [address] Shane Barr MD [address] [place] [address] [place] [address] Social History Tobacco Use Types [...] Visit [facility] [address] [place] [address] Thuan De Guzman MD [address] [place] [address] [place] [address] documented as of this encounter Visit Diagnoses Not on filedocumented in this encounter Care Teams Anti Air Warfare Operations Officer Relationship Specialty Start Date End Date Erick Angeles PCP - General 09/22/22 documented as of this encounter
--- OUTSIDE RECORDS SUMMARY | 2024-08-03 08:43 | XMS_ITS | Encounter Summary ---
Author Organization [facility] Address [address] [place] [address] Phone Care Team Providers Care Valet Manager Name Role Phone Erick Angeles Primary Care Provider Encounter Details Date Type Department Care Team (Late st Contact Info) Description 08/15/2023 Documentation Only [facility] [address] [place] [address] Inna Macias [address] [place] [address] Social History Tobacco Use Types [...] [facility] [address] [place] [address] Thuan De Guzman MD [address] [place] [address] [place] [address] documented as of this encounter Visit Diagnoses Not on filedocumented in this encounter Care Teams Valet Manager Relationship Specialty Start Date End Date Erick Angeles PCP - General 09/22/22 documented as of this encounter
--- OUTSIDE RECORDS SUMMARY | 2024-08-03 08:43 | XMS_ITS | Encounter Summary ---
Author Organization [facility] Address [address] [place] [address] Phone Care Team Providers Care Packaging Tech Name Role Phone Erick Angeles Primary Care Provider Encounter Details Date Type Department Care Team (Late st Contact Info) Description 08/25/2023 Documentation Only [facility] [address] [place] [address] Inna Macias [address] [place] [address] Social History Tobacco Use Types [...] Visit [facility] [address] [place] [address] Thuan De Guzman MD [address] [place] [address] [place] [address] documented as of this encounter Visit Diagnoses Not on filedocumented in this encounter Care Teams Packaging Tech Relationship Specialty Start Date End Date Erick Angeles PCP - General 09/22/22 documented as of this encounter
--- OUTSIDE RECORDS SUMMARY | 2024-08-03 08:43 | XMS_ITS | Clinical Summary ---
Author Organization [address] Address [address] [place] [phone] Phone Care Team Providers Care Risk Management Consultant Name Role Phone Erick Angeles MD Primary [...] associat ed with type 1 diabetes mellitus ([facility] V24, [facility] V28) 10/19/2023 Fatty liver 10/19/2023 Generalized anxiety disorder 10/19/2023 Hemorrhoids 10/19/2023 Menorrhagia with regular cycle 10/19/2023 Moderate episode of recurren t major depressive disorder ([facility] V24, [facility] V28) 10/19/2023 Recurrent UTI 10/19/2023 Tibia/fibula fracture, [...] associa shantell with type 1 diabetes mellitus ([facility] V24, [facility] V28) 02/24/2023 Insomnia due to other mental [...] anemia 06/15/2022 Primary hypertension 06/15/2022 Diabetic retinopathy ([facility] V24, [facility] V28) 06/26/2021 Vitamin D deficiency 01/05/2021 Type 1 diabetes mellitus ([facility] V24, [facility] V 28) 07/20/2018 Hyperlipidemia 12/31/2016 Tattoo of skin 01/30/2015 Encounters Date Type Department Care Team Description 07/17/2024 Telephone Gastroenterology - [address] [address] Emmy Davis [place] Motegrity 07/09/2024 11:20 AM EDT Office Visit Gastroenterology - [address] [address] Aj Riley PA Chronic constipation (Primary Dx); Pharyngoesophageal dysphagia; Gastroesophageal reflux disease without esophagitis; BRINK (nonalcoholic steatohepatitis) 06/28/2024 10:30 AM EDT Office Visit Orthopedic Surgery [facility] [address] [phone] Juan Luis Geronimo, DPM Diabetic mononeuropathy simplex ([facility] V24, [facility] V28) (Primary Dx) 06/07/2024 Telephone Gastroenterology - [address] [address] Yessy Turner MA from Last [...] Medical History Date Comments Type 1 diabetes ([facility] V24 , [facility] V28) DX:Type 1 diabetes ([facility]) 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 [address] [phone] Aj Riley PA [address] [address] 10/15/2024 8:45 AM EDT Appointment [facility] Xray [address] [place] [phone] Health Maintenance Due Date Last Done Comments [...] 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 ([facility] V24, [facility] V28) HEMOGLOBIN A1C Routine 02/20/2024 10:23 AM EST 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 ([facility] V24, [facility] V28) LIPID PANEL WITH REFLEX TO DIRECT [...] 02/20/2024 12:34 PM [facility] Triglycerides 260(H) 0 - 150 mg/dL LAB CHEMISTRY METHOD 02/20/2024 12:34 PM [facility] HDL 55 >=40 mg/dL LAB CHEMISTRY METHOD 02/20/2024 12:34 PM [facility] LDL Calculated 130(H) 0 - 100 mg/dL LAB CHEMISTRY METHOD 02/20/2024 12:34 PM [facility] VLDL Cholesterol [place] 52 mg/dL LAB CHEMISTRY METHOD 02/20/2024 12:34 PM [facility] Non HDL Chol. (LDL+VLDL) 182(H) <145 mg/dL LAB CHEMISTRY METHOD 02/20/2024 12:34 PM [facility] Chol/HDL Ratio 4.3 0.0 - 4.4 LAB CHEMISTRY METHOD 02/20/2024 12:34 PM [facility] Blood Venous blood specimen / Unknown Venipuncture / Unknown 02/20/2024 10:23 AM EST 02/20/2024 10:23 AM EST Erick Angeles MD LAB BLOOD ORDERA BLES Final Result Performing Organization Address [facility]/ZIP Co de Phone Number [facility] [address] [place] [address], [place] [phone] * (ABNORMAL) Hemoglobin A1c (02/20/2024 10:23 AM [...] ORDERA BLES Final Result Performing Organization Address [facility]/ZIP Co de Phone Number [facility] [address] [place] [address], [place] [phone] * (ABNORMAL) Comprehensive metabolic panel (02/20/2024 10:23 [...] Final Result [facility] [address] [place] [address], [place] [phone] * Depression Screening (10/19/2023) [facility] Depression Screening abstracted Result [facility] Provider HEALTH MAINTENANCE Final Result * Urine Albumin Creatinine Ratio (06/22/2023) [facility] Urine Albumin Creatinine Ratio abstracted Result [facility] Provider HEALTH MAINTENANCE Final Result * Diabetes Foot Exam (06/22/2023) [facility] Diabetes: Annual Foot Exam abstracted Result [facility] Provider HEALTH MAINTENANCE Final Result * Cervical Cancer Screening: HPV (06/09/2023) [facility] Cervical Cancer Screening: HPV negative,a bstracted Result [facility] Provider HEALTH MAINTENANCE Final Result * HIV Screening (06/09/2023) [facility] HIV Screening abstracted Result [facility] Provider HEALTH MAINTENANCE Final Result * Hepatitis C Screening (06/09/2023) [facility] Hepatitis C Screening abstracted [facility] Provider HEALTH MAINTENANCE Final Result * Diabetes Eye Exam (02/22/2023) [facility] Diabetes: Annual Retina Eye Exam abstracted [facility] Provider HEALTH MAINTENANCE Final Result from Last 3 Months or Most Recently Relevant to Health Maintenance Insurance [employer] [facility] Care Teams Risk Management Consultant Relationship Specialty Start Date End Date Erick Angeles MD [address] [place], [place] PCP - General Internal Medicine 10/30/21
--- OUTSIDE RECORDS SUMMARY | 2024-08-03 08:43 | XMS_ITS | Encounter Summary ---
Author Organization [facility] Address [address] [place] [address] Phone Care Team Providers Care Tack Puller Name Role Phone Erick Angeles Primary Care Provider Encounter Details Date Type Department Care Team (Late st Contact Info) Description 08/16/2023 Documentation Only [facility] [address] [place] [address] Inna Macias [address] [place] [address] Social History Tobacco Use Types [...] Visit [facility] [address] [place] [address] Thuan De Guzman MD [address] [place] [address] [place] [address] documented as of this encounter Visit Diagnoses Not on filedocumented in this encounter Care Teams Tack Puller Relationship Specialty Start Date End Date Erick Angeles PCP - General 09/22/22 documented as of this encounter
--- OUTSIDE RECORDS SUMMARY | 2024-08-03 08:43 | XMS_ITS | Encounter Summary ---
Author Organization [facility] Address [address] [place] [address] Phone Care Team Providers Care Hand Tennis Ball Coverer Name Role Phone Erick Angeles Primary Care Provider Encounter Details Date Type Department Care Team (Late st Contact Info) Description 08/15/2023 Documentation Only [facility] [address] [place] [address] Inna Macias [address] [place] [address] Social History Tobacco Use Types [...] [facility] [address] [place] [address] Thuan De Guzman MD [address] [place] [address] [place] [address] documented as of this encounter Visit Diagnoses Not on filedocumented in this encounter Care Teams Hand Tennis Ball Coverer Relationship Specialty Start Date End Date Erick Angeles PCP - General 09/22/22 documented as of this encounter
--- OUTSIDE RECORDS SUMMARY | 2024-08-03 08:43 | XMS_ITS | Clinical Summary ---
Author Organization [facility] Address [address] [place] [address] Care Team Providers Care Professional Volleyball Player Name Role Phone Pcp, No Primary Care [...] patient's age to complete this topic Insurance [facility] Care Teams Professional Volleyball Player Relationship Specialty Start Date End Date Pcp, No PCP - General 11/28/22
--- OUTSIDE RECORDS SUMMARY | 2024-08-03 08:43 | XMS_ITS | Encounter Summary ---
Author Organization [facility] Address [address] [place] [address] Phone Care Team Providers Care Wool Sacker Name Role Phone Erick Angeles Primary Care Provider Encounter Details Date Type Department Care Team (Late st Contact Info) Description 08/15/2023 Documentation Only [facility] [address] [place] [address] Inna Macias [address] [place] [address] Social History Tobacco Use Types [...] Visit [facility] [address] [place] [address] Thuan De Guzman MD [address] [place] [address] [place] [address] documented as of this encounter Visit Diagnoses Not on filedocumented in this encounter Care Teams Wool Sacker Relationship Specialty Start Date End Date Erick Angeles PCP - General 09/22/22 documented as of this encounter
--- OUTSIDE RECORDS SUMMARY | 2024-08-03 08:43 | XMS_ITS | Encounter Summary ---
Author Organization [facility] Address [address] [place] [address] Phone Care Team Providers Care Cracking And Fanning Machine Operator Name Role Phone Erick Angeles Primary Care Provider Encounter Details Date Type Department Care Team (Late st Contact Info) Description 08/17/2023 Documentation Only [facility] [address] [place] [address] Inna Macias [address] [place] [address] Social History Tobacco Use Types [...] [facility] [address] [place] [place] [address] Thuan De Guzman MD [address] [place] [address] [place] [address] documented as of this encounter Visit Diagnoses Not on filedocumented in this encounter Care Teams Cracking And Fanning Machine Operator Relationship Specialty Start Date End Date Erick Angeles PCP - General 09/22/22 documented as of this encounter
--- OUTSIDE RECORDS SUMMARY | 2024-08-03 08:43 | XMS_ITS | Encounter Summary ---
Author Organization [facility] Address [address] [place] [address] Phone Care Team Providers Care Propeller Engineer Name Role Phone Erick Angeles Primary Care Provider Reason for Visit * Reason Comments Med Refill Encounter Details Date Type Department Care Team (Late st Contact Info) Description 09/10/2023 Refill [facility] [address] [place] [address] Thuan De Guzman MD [address] [place] [address] [place] [address] Social History Tobacco Use Types [...] Visit [facility] [address] [place] [address] Thuan De Guzman MD [address] [facility] [place] [address] documented as of this encounter Visit Diagnoses Not on filedocumented in this encounter Care Teams Propeller Engineer Relationship Specialty Start Date End Date Erick Angeles PCP - General 6/14/23 documented as of this encounter
== END 2024-08-02 08:40 | disposition home or self-care (01) ==
LOC: HO.HOSX 08:39
PROVIDERS: Visit Provider Physician Assistant
DX: T84.84XD Pain due to internal orthopedic prosthetic devices, implants and grafts, subsequent encounter (principal)
CPT/HCPCS: 73562; 99212

== ENCOUNTER 2024-08-02 13:07 | Outpatient (AMB) | payer OTHER, SELFPAY ==
--- NOTE | 2024-08-02 13:11 | MHC.OFFVIS ---
Vital Signs 08/02/24 13:21 Height 5 ft Weight 142 lb BMI 27.7 Handedness Right Intake Visit Reasons: PO RT knee JOHNNY 07/25/24 NE Intake Note: Karol is a 33 year old female who presents today for a post op appointment for her right knee removal of hardware 07/25/24 NE. Patient report feels better than before the surgery. She reports pain with ambulation, flexion and extension of the right knee. Allergies Iodinated Contrast Media [IV Contrast Dye] Allergy (Severe, Verified 08/02/24 13:22) Rash, Nausea HPI HPI PO RT knee JOHNNY 07/25/24 NE: Details: Ms. Sheffield is a 33-year-old female who presents to the office today status post right knee removal of hardware on 07/25/[address] Flores. Overall the patient is doing very well. She only experiences mild discomfort occasionally. She is not taking any narcotic medications at this time. She is looking to return back to work on 08/07/2024. [facility] Medical History (Updated 07/25/24 @ 15:27 by Beto Wolff DO) Essential hypertension Type 1 diabetes mellitus Insulin pump in place History of blood transfusion Hyperlipidemia Surgical History History of appendectomy H/O hand surgery H/O eye surgery Tubal ligation status H/O knee surgery Social History Household Members: Children Housing: House Are you a primary transitional care liaison to a significant other at home: No Do you presently have visiting nurse or other home services: No Comment: faces scale; pt was asleep most of the time in pacu Patient Tobacco Use Status: Never used Tobacco Second Hand Smoke Exposure: No service: No Review of Systems Const All systems reviewed & are unremarkable except as noted in HPI and below Physical Exam Vital Signs: BMI result Body Mass Index 27.7 Const General: cooperative, healthy appearing and no acute distress Resp Effort & Inspection: normal respiratory effort and able to speak in complete sentences Extrem Other: Right knee incision site is clean dry and intact. Steri-Strips are intact. No surrounding erythema or drainage. No signs of infection. Full knee range of motion. NVI. Assessment & Plan Assessment & Plan (1) Painful orthopaedic hardware: Code(s): T84.84XA - Pain due to internal orthopedic prosthetic devices, implants and grafts, initial encounter Category: Medical Plan Ms. Sheffield is a 33-year-old female who presents to the office today status post right knee removal of hardware on 07/25/[address] Flores. Overall the patient is doing very well. She only experiences mild discomfort occasionally. She is not taking any narcotic medications at this time. She is looking to return back to work on 08/07/2024. Splint the patient was in the office today the dressings were removed. She may begin to shower at this time. No tub bath or soaking. Steri-Strips should remain on for an additional week. If they falls ahead of time patient does not need to replace him. If they are still remaining in 1 week's time she may remove them carefully. I would like to see her in 2 weeks for a wound check, sooner if needed. X-rays of the right knee which were obtained while in the office today and were reviewed by me, Tracey Soriano PA-C, revealed successful removal of hardware. Orders: Orders XR knee RT 3V Today M25.569 - Pain in unspecified knee Coding Level of Care Code Global (23668) Diagnoses Painful orthopaedic hardware T84.84XA
[2024-08-02 13:21] VITALS: BMI 27.7
--- OUTSIDE RECORDS SUMMARY | 2024-08-02 15:27 | XMS_ITS | Clinical Summary ---
Author Organization [address] Address [address] [place] [phone] Phone Care Team Providers Care Hand Loom Weaver Name Role Phone Erick Angeles MD Primary [...] DAY 90 tablet 1 04/26/19 25 Active amLODIPine (NORVASC) 5 mg tabletIndicatio ns:Essential (primary) [...] 1 (one) time each day. 1530 g 07/10/19 25 026 Active pantoprazole (PROTONIX) 40 mg EC tabletIndicatio ns:Pharyngoesop hageal dysphagia,Gastr oesophageal reflux disease without esophagitis Take 1 tablet (40 mg total) by mouth 1 (one) time each day. Do not crush, chew, or split. 90 each 3 07/10/19 25 026 Active linaCLOtide (Linzess) 145 mcg capsuleIndicati ons:Chronic constipation Take 1 capsule (145 mcg total) by mouth 1 (one) time each day before breakfast. 30 each 07/19/19 026 Active LORazepam (ATIVAN) 0.5 mg [...] mg 28 tablet 02/20/20 24 025 Discontinued ferrous sulfate (Slow Fe) 137 mg (45 mg iron) tablet extended release Take 1 tablet by mouth every other day. 45 tablet 1 04/24/19 25 025 Additional Information Patient not taking.Reported on 07/09/2024 Active Problems Problem Noted Date Diagnosed Date [...] associat ed with type 1 diabetes mellitus ([facility] V24, [facility] V28) 10/19/2023 Fatty liver 10/19/2023 Generalized anxiety disorder 10/19/2023 Hemorrhoids 10/19/2023 Menorrhagia with regular cycle 10/19/2023 Moderate episode of recurren t major depressive disorder ([facility] V24, [facility] V28) 10/19/2023 Recurrent UTI 10/19/2023 Tibia/fibula fracture, [...] associa shantell with type 1 diabetes mellitus ([facility] V24, [facility] V28) 02/24/2023 Insomnia due to other mental [...] anemia 06/15/2022 Primary hypertension 06/15/2022 Diabetic retinopathy ([facility] V24, [facility] V28) 06/26/2021 Vitamin D deficiency 01/05/2021 Type 1 diabetes mellitus ([facility] V24, [facility] V 28) 07/20/2018 Hyperlipidemia 12/31/2016 Tattoo of skin 01/30/2015 Encounters Date Type Department Care Team Description 07/17/2024 Telephone Gastroenterology - [address] [phone] Emmy Davis [place] Motegrity 07/09/2024 11:20 AM EDT Office Visit Gastroenterology - [address] [phone] Aj Riley PA Chronic constipation (Primary Dx); Pharyngoesophageal dysphagia; Gastroesophageal reflux disease without esophagitis; BRINK (nonalcoholic steatohepatitis) 06/28/2024 10:30 AM EDT Office Visit Orthopedic Surgery [facility] [address] [phone] Juan Luis Geronimo, DPM Diabetic mononeuropathy simplex ([facility] V24, [facility] V28) (Primary Dx) 06/07/2024 Telephone Gastroenterology - [address] [phone] Yessy Turner MA from Last 3 Months Immunizations Name Administration [...] Medical History Date Comments Type 1 diabetes ([facility] V24 , [facility] V28) DX:Type 1 diabetes ([facility]) 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 [...] Value Date Recorded Sex Assigned at Female 07/24/2024 12:08 PM EDT Legal Sex Female 4:54 AM EST Gender Identity Female 07/24/2024 12:08 PM EDT Sexual Orientation Straight 07/24/2024 12 :08 PM EDT Obstetrics History Last Filed Vital Signs Vital [...] AM EDT Office Visit Gastroenterology - 299 [facility] [address] [phone] Aj Riley PA [address] [address] 10/15/2024 8:45 AM EDT Appointment [facility] Xray [address] [place] [phone] Health Maintenance Due Date Last Done Comments [...] Procedure Name Priority Date/Time Associated Diagnosis Comments COMPREHENSIVE METABOLIC PANEL Routine 02/20/2024 10:23 AM EST 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 ([facility] V24, [facility] V28) HEMOGLOBIN A1C Routine 02/20/2024 10:23 AM EST 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 ([facility] V24, [facility] V28) LIPID PANEL WITH REFLEX TO DIRECT LDL Routine 02/20/2024 10:23 AM EST Mixed hyperlipidemia DEPRESSION SCREENING Routine 10/19/2023 URINE ALBUMIN CREATININE RATIO Routine 06/22/2023 DIABETES FOOT EXAM Routine 06/22/2023 HPV Routine 06/09/2023 HEPATITIS C SCREENING Routine 06/09/2023 HIV SCREENING Routine 06/09/2023 DIABETES EYE EXAM Routine 02/22/2023 from Last 3 Months or Most Recently Relevant to Health Maintenance Results * (ABNORMAL) Lipid panel with reflex to direct LDL (02/20/2024 10:23 AM EST) Cholesterol 237(H) 0 - 200 mg/dL LAB CHEMISTRY METHOD 02/20/2024 12:34 PM [facility] Triglycerides 260(H) 0 - 150 mg/dL LAB CHEMISTRY METHOD 02/20/2024 12:34 PM [facility] HDL 55 >=40 mg/dL LAB CHEMISTRY METHOD 02/20/2024 12:34 PM [facility] LDL Calculated 130(H) 0 - 100 mg/dL LAB CHEMISTRY METHOD 02/20/2024 12:34 PM [facility] VLDL Cholesterol [place] 52 mg/dL LAB CHEMISTRY METHOD 02/20/2024 12:34 PM [facility] Non HDL Chol. (LDL+VLDL) 182(H) <145 mg/dL LAB CHEMISTRY METHOD 02/20/2024 12:34 PM [facility] Chol/HDL Ratio 4.3 0.0 - 4.4 LAB CHEMISTRY METHOD 02/20/2024 12:34 PM [facility] Blood Venous blood specimen / Unknown Venipuncture / Unknown 02/20/2024 10:23 AM EST 02/20/2024 10:23 AM EST Erick Angeles MD LAB BLOOD ORDERA BLES Final Result Performing Organization Address [facility]/ZIP Co de Phone Number [facility] [address] [place] [address], [place] [phone] * (ABNORMAL) Hemoglobin A1c (02/20/2024 10:23 AM EST) Hemoglobin A1C 8.2(H) <6.5 % LAB CHEMISTRY METHOD 02/20/2024 2:17 PM EST [facility] Mean Bld Glu Estim. 189 mg/dL LAB CHEMISTRY METHOD 02/20/2024 2:17 PM EST [facility] Blood Venous blood specimen / Unknown Venipuncture / Unknown 02/20/2024 10:23 AM EST 02/20/2024 10:23 AM EST Erick Angeles MD LAB BLOOD ORDERA BLES Final Result Performing Organization Address [facility]/ZIP Co de Phone Number [facility] [address] [place] [address], [place] [phone] * (ABNORMAL) Comprehensive metabolic panel (02/20/2024 10:23 AM EST) Sodium 139 133 - 145 mmol/L LAB CHEMISTRY METHOD 02/20/2024 12:34 PM EST [facility] Potassium 4.5 3.5 - 5.5 mmol/L LAB CHEMISTRY METHOD 02/20/2024 12:34 PM EST [facility] Chloride 106 96 - 110 mmol/L LAB CHEMISTRY METHOD 02/20/2024 12:34 PM EST [facility] CO2 26 21 - 32 mmol/L LAB CHEMISTRY METHOD 02/20/2024 12:34 PM [facility] Anion Gap 7 3 - 11 LAB CHEMISTRY METHOD 02/20/2024 12:34 PM [facility] Glucose 174(H) 70 - 100 mg/dL LAB CHEMISTRY METHOD 02/20/2024 12:34 PM [facility] BUN 25 5 - 25 mg/dL LAB CHEMISTRY METHOD 02/20/2024 12:34 PM [facility] Creatinine 1.07 0.50 - 1.10 mg/dL LAB CHEMISTRY METHOD 02/20/2024 12:34 PM [facility] eGFR 71 >=60 mL/min/1. 73m2 LAB CHEMISTRY METHOD 02/20/2024 12:34 PM [facility] Comment:Calculation based on the??Chronic Kidney Disease Epidemiology Collaboration (CKD-EPI) equation refit??without adjustment for race. BUN/Creatinine Ratio 23.4 LAB CHEMISTRY METHOD 02/20/2024 12:34 PM [facility] Calcium 9.8 8.5 - 10.5 mg/dL LAB CHEMISTRY METHOD 02/20/2024 12:34 PM [facility] AST (SGOT) 81(H) 10 - 42 unit/L LAB CHEMISTRY METHOD 02/20/2024 12:34 PM [facility] ALT (SGPT) 88(H) 10 - 60 unit/L LAB CHEMISTRY METHOD 02/20/2024 12:34 PM [facility] Alkaline Phosphatase 229(H) 42 - 121 unit/L LAB CHEMISTRY METHOD 02/20/2024 12:34 PM [facility] Total Protein 7.0 6.0 - 8.0 g/dL LAB CHEMISTRY METHOD 02/20/2024 12:34 PM [facility] Albumin 3.6 3.2 - 5.0 g/dL LAB CHEMISTRY METHOD 02/20/2024 12:34 PM [facility] Total Bilirubin 0.2 0.0 - 1.4 mg/dL LAB CHEMISTRY METHOD 02/20/2024 12:34 PM EST [facility] Blood Venous blood specimen / Unknown Venipuncture / Unknown 02/20/2024 10:23 AM EST 02/20/2024 10:23 AM EST Erick Angeles MD LAB BLOOD ORDERA BLES Final Result [facility] [address] [place] [address], [place] [phone] * Depression Screening (10/19/2023) [facility] Depression Screening abstracted Result [facility] HEALTH MAINTENANCE Final Result * Urine Albumin Creatinine Ratio (06/22/2023) [facility] Urine Albumin Creatinine Ratio abstracted Result [facility] Provider HEALTH MAINTENANCE Final Result * Diabetes Foot Exam (06/22/2023) [facility] Diabetes: Annual Foot Exam abstracted Result [facility] Provider HEALTH MAINTENANCE Final Result * Cervical Cancer Screening: HPV (06/09/2023) [facility] Cervical Cancer Screening: HPV negative,a bstracted Result [facility] Provider HEALTH MAINTENANCE Final Result * HIV Screening (06/09/2023) [facility] HIV Screening abstracted Result [facility] Provider HEALTH MAINTENANCE Final Result * Hepatitis C Screening (06/09/2023) [facility] Hepatitis C Screening abstracted [facility] Provider HEALTH MAINTENANCE Final Result * Diabetes Eye Exam (02/22/2023) [facility] Diabetes: Annual Retina Eye Exam abstracted [facility] Provider HEALTH MAINTENANCE Final Result from Last 3 Months or Most Recently Relevant to Health Maintenance Insurance [facility] Care Teams Hand Loom Weaver Relationship Specialty Start Date End Date Erick Angeles MD [address] [place], [place] PCP - General Internal Medicine 10/30/21
--- OUTSIDE RECORDS SUMMARY | 2024-08-02 15:27 | XMS_ITS | Clinical Summary ---
Author Organization [facility] Address [address] [place] [address] Care Team Providers Care Cutting Machine Tender Decorative Name Role Phone Pcp, No Primary Care Provider Unavailabl e Allergies No known active allergies Medications oxyCODONE (ROXICODONE) 5 MG immediate release tablet Take 1 tablet (5 mg total) by mouth every 4 (four) hours as needed for severe pain. Max Daily Amount: 30 mg 15 tablet 11/28/2022 Active Social History Tobacco Use Types Packs/Day Years Used Date Smoking Tobacco: Never Assessed Comments Unknown Sex and Gender Information Value Date Recorded Sex Assigned at Female 11/28/2022 7:19 PM EDT Legal Sex Female 6:52 PM EST Gender Identity Female 11/28/2022 7:19 PM EDT [...] 21-65) 2013 Influenza Vaccine 11/10/2023 COVID-19 Vaccine ( - 2023-2 5 season) 2023 HPV Vaccines Aged Out No longer eligi ble based on patient's age to complete this topic Pneumococcal Vaccine: Pediat bang (0-5 Years) and At-Risk Patients (6 to 49 Years) Aged Out No longer eligible b ased on patient's age to complete this topic Insurance [facility] Care Teams Cutting Machine Tender Decorative Relationship Specialty Start Date End Date Pcp, No PCP - General 11/28/22
--- OUTSIDE RECORDS SUMMARY | 2024-08-02 15:27 | XMS_ITS | Encounter Summary ---
Author Organization [facility] Address [address] [place] [address] Phone Care Team Providers Care Telegraph Messenger Name Role Phone Erick Angeles Primary Care Provider Encounter Details Date Type Department Care Team (Late st Contact Info) Description 08/25/2023 Documentation Only [facility] [address] [place] [address] Inna Macias [address] [place] [address] Social History Tobacco Use Types [...] Visit [facility] [address] [place] [address] Thuan De Guzman MD [address] [place] [address] [place] [address] documented as of this encounter Visit Diagnoses Not on filedocumented in this encounter Care Teams Telegraph Messenger Relationship Specialty Start Date End Date Erick Angeles PCP - General 09/22/22 documented as of this encounter
--- OUTSIDE RECORDS SUMMARY | 2024-08-02 15:27 | XMS_ITS | Encounter Summary ---
Author Organization [facility] Address [address] [place] [address] Phone Care Team Providers Care Barrel Rib Matting Machine Operator Name Role Phone Erick Angeles Primary Care Provider [phone] Encounter Details Date Type Department Care Team (Late st Contact Info) Description 08/16/2023 Documentation Only [facility] [address] [place] [address] Inna Macias [address] [place] [address] Social History Tobacco Use Types [...] Visit [facility] [address] [place] [address] Thuan De Guzman MD [address] [place] [address] [place] [address] documented as of this encounter Visit Diagnoses Not on filedocumented in this encounter Care Teams Barrel Rib Matting Machine Operator Relationship Specialty Start Date End Date Erick Angeles PCP - General 09/22/22 documented as of this encounter
--- OUTSIDE RECORDS SUMMARY | 2024-08-02 15:27 | XMS_ITS | Clinical Summary ---
Author Organization [facility] Address [address] [facility] [address] [place] [address] Care Team Providers Care Director Of Recruiting Name Role Phone Unavailable Primary Care Provider [...] Continuous Blood Gluc Sensor (Dexcom G6 Sensor) [facility] 08/19/19 23 Active Continuous Blood Gluc Transmit (Dexcom G6 transmitter) [facility] 07/28/19 23 Active cyclobenzaprine (Flexeril) 5 MG tablet 08/19/19 23 Active ergocalciferol (Vitamin D2) 1.25 MG (45280 UT) capsule TAKE 1 CAPSULE BY MOUTH ONCE A WEEK FOR 56 DAYS. 06/17/19 23 Active Baqsimi Two Pack 3 MG/DOSE nasal powder PLEASE SEE ATTACHED FOR DETAILED DIRECTIONS 03/30/20 22 Active FREESTYLE LITE test strip 08/24/19 23 Active hydrOXYzine HCl (Atarax) 25 MG tablet 08/19/19 23 Active Insulin Disposable Pump (Omnipod 5 G6 Pod, Gen 5,) [facility] 07/27/19 23 Active B-D UF III MINI PEN NEEDLES 31G X 5 MM [facility] USE PEN NEEDLES TO INJECT INSULIN 4 TIMES A DAY 06/04/19 23 Active lisinopril 40 MG tablet Take 40 mg by mouth in the morning. 06/29/19 23 Active Continuous Blood Gluc Sensor (Dexcom G6 Sensor) [facility] Dexcom G6 sensor 3 pack, See Instructions, # 3 each, Refills 3, Tot. Refills 3, Maintenance, E11.9 for 90 days supply [facility]: [address]-48, 11/30/22 15:21:00 EDT, Supply, 153, cm, 11/29/22 [...] Description 07/09/2024 3:30 PM EDT Office Visit [facility] [address] [place] [id number] Syd, Aidee, OD Dry eye syndrome of both eyes (Primary Dx); History of diabetic retinopathy 07/09/2024 Travel from Last 3 Months Family [...] file Group ID:[id number] Type:Not on file Address: [place] [id number] ACO
--- OUTSIDE RECORDS SUMMARY | 2024-08-02 15:27 | XMS_ITS | Encounter Summary ---
Author Organization [facility] Address [address] [place] [address] Phone Care Team Providers Care Credit Authorizer Name Role Phone Erick Angeles Primary Care Provider [phone] Reason for Visit * Reason Comments Med Refill Encounter Details Date Type Department Care Team (Late st Contact Info) Description 09/10/2023 Refill [facility] [address] [place] [address] Thuan De Guzman MD [address] [place] [address] [place] [address] Social History Tobacco Use Types [...] [facility] [address] [place] [address] Thuan De Guzman MD [address] [facility] [place] [address] documented as of this encounter Visit Diagnoses Not on filedocumented in this encounter Care Teams Credit Authorizer Relationship Specialty Start Date End Date Erick Angeles PCP - General 6/14/23 documented as of this encounter
--- OUTSIDE RECORDS SUMMARY | 2024-08-02 15:27 | XMS_ITS | Encounter Summary ---
Author Organization [facility] Address [address] [place] [address] Phone Care Team Providers Care Relocation Specialist Name Role Phone Erick Angeles Primary Care Provider [phone] Encounter Details Date Type Department Care Team (Late st Contact Info) Description 08/17/2023 Documentation Only [facility] [address] [place] [address] Inna Macias [address] [place] [address] Social History Tobacco Use Types [...] [facility] [address] [place] [address] Thuan De Guzman MD [address] [place] [address] [place] [address] documented as of this encounter Visit Diagnoses Not on filedocumented in this encounter Care Teams Relocation Specialist Relationship Specialty Start Date End Date Erick Angeles PCP - General 09/22/22 documented as of this encounter
--- OUTSIDE RECORDS SUMMARY | 2024-08-02 15:27 | XMS_ITS | Encounter Summary ---
Author Organization [facility] Address [address] [place] [address] Phone Care Team Providers Care Manager Of Selection And Assessment Name Role Phone Erick [place] Primary Care Provider Encounter Details Date Type Department Care Team (Late Contact Info) Description 12/09/2023 Documentation Only [facility] [address] [place] [address] Shane Barr MD [address] [place] [address] [place] [address] Social History Tobacco Use Types [...] [facility] [address] [place] [address] Thuan De Guzman MD [address] [place] [address] [place] [address] documented as of this encounter Visit Diagnoses Not on filedocumented in this encounter Care Teams Manager Of Selection And Assessment Relationship Specialty Start Date End Date Erick [place] PCP - General 09/22/22 documented as of this encounter
--- OUTSIDE RECORDS SUMMARY | 2024-08-02 15:27 | XMS_ITS | Encounter Summary ---
Author Organization [facility] Address [address] [place] [address] Phone Care Team Providers Care Radio/Tv Technician Name Role Phone Erick [place] Primary Care Provider [phone] Encounter Details Date Type Department Care Team (Late st Contact Info) Description 08/15/2023 Documentation Only [facility] [address] [place] [address] Inna Macias [address] [place] [address] Social History Tobacco Use Types [...] [facility] [address] [place] [address] Thuan De Guzman MD [address] [place] [address] [place] [address] documented as of this encounter Visit Diagnoses Not on filedocumented in this encounter Care Teams Radio/Tv Technician Relationship Specialty Start Date End Date Erick [place] PCP - General 09/22/22 documented as of this encounter
--- OUTSIDE RECORDS SUMMARY | 2024-08-02 15:27 | XMS_ITS | Encounter Summary ---
Author Organization [facility] Address [address] [place] [address] Phone Care Team Providers Care Elocution Teacher Name Role Phone Erick [place] Primary Care Provider Encounter Details Date Type Department Care Team (Late st Contact Info) Description 08/15/2023 Documentation Only [facility] [address] [place] [address] Inna Macias [address] [place] [address] Social History Tobacco Use Types [...] Visit [facility] [address] [place] [address] Thuan De Guzman MD [address] [place] [address] [place] [address] documented as of this encounter Visit Diagnoses Not on filedocumented in this encounter Care Teams Elocution Teacher Relationship Specialty Start Date End Date Erick [place] PCP - General 09/22/22 documented as of this encounter
--- OUTSIDE RECORDS SUMMARY | 2024-08-02 15:27 | XMS_ITS | Clinical Summary ---
Author Organization [facility] [place], Address [address] [place] [address] [place] [address] Phone Care Team Providers Care Commutator Inspector Name Role Phone Erick [place] Primary Care [...] Visit [facility] [place], [address] [facility] [place] [address] Thuan De Guzman MD [address] [facility] [place] [address] Health Maintenance Due Date Last [...] 04/28/2022, 03/07/2018, 03/05/2009, Additional history exists Insurance [facility] [employer] Care Teams Commutator Inspector Relationship Specialty Start Date End Date Erick [place] PCP - General 09/22/22
--- OUTSIDE RECORDS SUMMARY | 2024-08-02 15:27 | XMS_ITS | Encounter Summary ---
Author Organization [facility] Address [address] [place] [address] Phone Care Team Providers Care Edging Machine Operator Name Role Phone Erick [place] Primary Care Provider Encounter Details Date Type Department Care Team (Late st Contact Info) Description 08/15/2023 Documentation Only [facility] [address] [place] [address] Inna Macias [address] [place] [address] Social History Tobacco Use Types [...] Visit [facility] [address] [place] [address] Thuan De Guzman MD [address] [place] [address] [place] [address] documented as of this encounter Visit Diagnoses Not on filedocumented in this encounter Care Teams Edging Machine Operator Relationship Specialty Start Date End Date Erick [place] PCP - General 09/22/22 documented as of this encounter
--- OUTSIDE RECORDS SUMMARY | 2024-08-02 15:27 | XMS_ITS | Data Portability ---
Author Organization [facility], [facility] Address [address] [place] [address] Care Team Providers Care Industrial Therapist Name Role Phone JAKE LOVETT Primary Care Provider Assessment No assessment recorded. Plan of Treatment Reminders Order Date Submit Date Provider Last Modified By Organization Details Last Modified Time Details Appointments None recorded. Lab rapid SARS CoV 2 Ag, QL IA, respiratory specimen 2022 023 [place] [address] [facility], [address] [place] [address], [phone], 18:39:28 rapid strep group A, throat 2022 023 [place] [address] [facility], [address] [place] [address], [phone], 18:39:27 Referral None recorded. Procedures None recorded. Surgeries None recorded. Imaging None recorded. Medication Orders amoxicillin 875 mg tablet 2022 023 [facility][id number], [address] [facility], [place], [address], 18:40:06 Patient TargetsNo targets recorded. Patient Instructions Encounter Date Encounter Id Patient Instructions Last Modified By Organization Details Last Modified Time 06/28/2022 [id number] strep throat: care instructions eal Not available 06/28/2022 18:39:28 Reason for Referral None Reported. Results Created Date Observation Date Name Description Value Unit Range Abnormal Flag Note LastModifiedBy Organization Detail LastModifiedTime 06/29/19 23 06/28/2022 rapid strep group A, throa t Unknown Analyte Normal = Negati ve Not Available [address] [address], [address], 06/28/2022 18:08:47 06/29/19 23 06/28/2022 rapid strep group A, throa t Unknown Analyte positi ve Not Available [address] [address] [address], [address], 06/28/2022 18:08:47 Result Notes None recorded. Problems Name Problem SNOMED Code Status Onset Date Resolution Date Notes Provider Name and Address Organization Details Recorded Time Diabetes mellitus 22437857 Active 2022 [facility] Farrell - [facility] 18:12:30 Hypertensive disorder 06888812 Active 2022 Mehreen wood PA - [facility] 18:12:36 Hypercholestero lemia 33616453 Active 2022 Mehreen wood PA - [facility] [...] Last Updated DateTime 152.4 cm 27.3 kg/m2 10069.9 3 g 7 99 % 99 % 102 /min 18 /min 98.2 [degF] 119 mm[Hg] 83 mm[Hg] Mehreen Rachel [employer] [facility] 18:16:02 Social History Question Answer Notes LastModified by Organizat ion Details LastModified Time Tobacco Smoking Status Never Smoker [facility] 06/28/2022 18:13:05 What Is Your Level [...] PA - [facility] 06/28/2022 18:10:01 Novel [id number], preservative-free 9 completed Mehreen Monfette null, PA [...] SNOMED-CT Code Diagnosis ICD10 Code Diagnosis Note [id number] [address] [address] 11/08/2017 17:55:18 11/08/2017 20:02:04 [id number] [facility] [address] [place] [address] 03/07/2017 15:22:26 03/07/2017 16:55:09 [id number] [facility] [address] [place] [address] 05/17/2018 17:28:36 05/17/2018 18:20:48 [id number] [facility] [address] [place] [address] 04/27/2017 14:06:25 04/27/2017 14:31:00 [id number] [address] [place] [address] 10/31/2021 12:37:26 10/31/2021 13:24:23 [id number] [facility] [address] [place] [address] 12/05/2017 14:02:01 12/05/2017 15:13:33 [id number] [address] [place] [address] 05/17/2021 12:07:21 05/17/2021 12:59:00 [id number] [address] [place] [address] 07/17/2017 13:29:56 07/17/2017 14:19:38 [id number] [facility] [place] [address] 08/26/2020 15:48:54 08/26/2020 17:03:04 [id number] [address] [place] [address] 10/17/2017 14:03:10 10/17/2017 14:28:02 [id number] [address] [place] [address] 03/09/2016 18:21:27 03/09/2016 18:54:12 [id number] [address] [place] [address] 11/06/2017 19:42:44 11/06/2017 20:17:26 [id number] [address] [place] [address] 10/04/2016 09:41:44 10/04/2016 11:06:41 [id number] [address] [place] [address] 06/28/2017 17:04:49 06/28/2017 17:52:31 [id number] [address] [place] [address] 08/15/2018 12:11:29 08/15/2018 13:06:45 [id number] [address] [place] [address] 11/21/2021 19:40:10 11/23/2021 20:02:35 [id number] [address] [place] [address] 02/09/2016 13:59:41 02/09/2016 14:27:17 [id number] Oleg Walters MD [address] [place] [address] 06/28/2022 14:49:19 06/28/2022 18:53:19 Streptococcal sore throat 02131739 J02.0 Health Concerns Section Related Observation LastModified by Organization Detai ls LastModified Time None Recorded Concern Status LastModified by Organization Details LastModified Time None Recorded Advance Directives Directive None Recorded Payers Encounter Date Sequence Insurance Name Policy Number Policy Basilio Covered Member ID Basilio Member ID Guarantor Name 08/26/2020 1 [facility] (MEDICAID HMO) LETY Sheffield [id number] Karol Sheffield 05/17/2021 1 [facility] (MEDICAID HMO) LETY Sheffield [id number] Karol Sheffield 10/31/2021 1 [facility] (MEDICAID HMO) LETY Sheffield [id number] Karol Sheffield 11/21/2021 1 [facility] (MEDICAID HMO) LETY Sheffield [id number] Karol Sheffield 06/28/2022 1 [facility] (MEDICAID HMO) LETY Sheffield [id number] Karol Sheffield Notes Date Note Type Note Provider Name and Address Organization Details Recorded Time 06/28/2022 text/html Sore throatRepor shantell [facility] Severity:moderate Quality:sharp Onset/Timin days Associated Symptoms:no cough; no sputum production; no shortness of breath; no wheezing; no sinus pain; no vomiting; no nausea; No hoarseness Context:sick contact Modifying Factors:exposed to Strep household * Oleg Walters MD [address] [place], [place] [address], [address], PA - [facility] 06/29/2022 11:35:32 OBGyn Episode No OBEpisode recorded.
--- OUTSIDE RECORDS SUMMARY | 2024-08-02 15:27 | XMS_ITS | Encounter Summary ---
Author Organization [facility] Address [address] [place] [address] Phone Care Team Providers Care Rubber Tester Name Role Phone Erick [place] Primary Care Provider Encounter Details Date Type Department Care Team (Late st Contact Info) Description 09/22/2022 Documentation Only [facility] [address] [place] [address] Erick [place] [address] [place] [address] Social History Tobacco Use Types Packs/Day Years [...] [facility] [address] [place] [address] Thuan De Guzman MD [address] [place] [address] [place] [address] documented as of this encounter Visit Diagnoses Not on filedocumented in this encounter Care Teams Rubber Tester Relationship Specialty Start Date End Date Erick [place] PCP - General 09/22/22 documented as of this encounter
== END 2024-08-02 14:04 | disposition home or self-care (01) ==
LOC: HO.HOS 13:07
PROVIDERS: PCP Family Medicine; Visit Provider Physician Assistant
DX: T84.84XA Pain due to internal orthopedic prosthetic devices, implants and grafts, initial encounter (principal)
CPT/HCPCS: 99024

== ENCOUNTER → 2024-08-02 13:15 | Outpatient (BNV) | payer OTHER, SELFPAY | PROVIDERS: Visit Provider Radiology Diagnostic Radiology | DX: M25.561 Pain in right knee (principal) | CPT/HCPCS: 73562 ==

== ENCOUNTER 2024-08-03 07:57 | Outpatient (AMB) | payer OTHER, SELFPAY ==
--- OUTSIDE RECORDS SUMMARY | 2024-08-03 08:00 | XMS_ITS | Clinical Summary ---
Author Organization [facility] [place], Address [address] [place] [address] [place] [address] Phone Care Team Providers Care Mixer Lever Operator Name Role Phone Erick [place] Primary [...] Visit [facility] [place], [address] [facility] [place] [address] Thuan De Guzman MD [address] [facility] [place] [address] Health Maintenance Due Date Last [...] 04/28/2022, 03/07/2018, 03/05/2009, Additional history exists Insurance [facility] [employer] Care Teams Mixer Lever Operator Relationship Specialty Start Date End Date Erick [place] PCP - General 09/22/22
--- OUTSIDE RECORDS SUMMARY | 2024-08-03 08:00 | XMS_ITS | Encounter Summary ---
Author Organization [facility] Address [address] [place] [address] Phone Care Team Providers Care Jail Guard Name Role Phone Erick [place] Primary Care Provider Encounter Details Date Type Department Care Team (Late st Contact Info) Description 08/16/2023 Documentation Only [facility] [address] [place] [address] Inna Macias [address] [place] [address] Social History Tobacco Use Types [...] Visit [facility] [address] [place] [address] Thuan De Guzman MD [address] [place] [address] [place] [address] documented as of this encounter Visit Diagnoses Not on filedocumented in this encounter Care Teams Jail Guard Relationship Specialty Start Date End Date Erick [place] PCP - General 09/22/22 documented as of this encounter
--- OUTSIDE RECORDS SUMMARY | 2024-08-03 08:00 | XMS_ITS | Encounter Summary ---
Author Organization [facility] Address [address] [place] [address] Phone Care Team Providers Care Founder Name Role Phone Erick [place] Primary Care Provider Encounter Details Date Type Department Care Team (Late st Contact Info) Description 08/17/2023 Documentation Only [facility] [address] [place] [address] Inna Macias [address] [place] [address] Social History Tobacco Use Types [...] Visit [facility] [address] [place] [address] Thuan De Guzman MD [address] [place] [address] [place] [address] documented as of this encounter Visit Diagnoses Not on filedocumented in this encounter Care Teams Founder Relationship Specialty Start Date End Date Erick [place] PCP - General 09/22/22 documented as of this encounter
--- OUTSIDE RECORDS SUMMARY | 2024-08-03 08:00 | XMS_ITS | Clinical Summary ---
Author Organization [address] Address [address] [place] [phone] Phone Care Team Providers Care Department Of Natural Resources Officer Name Role Phone Erick Angeles MD Primary [...] Information Patient not taking.Reported on 07/09/2024 norethindrone (AKEL BLANCO H EATHER,MICRONOR ) 0.35 mg tablet [...] associat ed with type 1 diabetes mellitus ([facility] V24, [facility] V28) 10/19/2023 Fatty liver 10/19/2023 Generalized anxiety disorder 10/19/2023 Hemorrhoids 10/19/2023 Menorrhagia with regular cycle 10/19/2023 Moderate episode of recurren t major depressive disorder ([facility] V24, [facility] V28) 10/19/2023 Recurrent UTI 10/19/2023 [...] associa shantell with type 1 diabetes mellitus ([facility] V24, [facility] V28) 02/24/2023 Insomnia due to [...] anemia 06/15/2022 Primary hypertension 06/15/2022 Diabetic retinopathy ([facility] V24, [facility] V28) 06/26/2021 Vitamin D deficiency 01/05/2021 Type 1 diabetes mellitus ([facility] V24, [facility] V 28) 07/20/2018 Hyperlipidemia 12/31/2016 Tattoo of skin 01/30/2015 Encounters Date Type Department Care Team Description 07/17/2024 Telephone Gastroenterology - [address] [phone] Emmy Davis MA Motegrity 07/09/2024 11:20 AM EDT Office Visit Gastroenterology - [address] [phone] Aj Riley PA Chronic constipation (Primary Dx); Pharyngoesophageal dysphagia; Gastroesophageal reflux disease without esophagitis; BRINK (nonalcoholic steatohepatitis) 06/28/2024 10:30 AM EDT Office Visit Orthopedic Surgery [facility] [address] [phone] Juan Luis Geronimo, DPM Diabetic mononeuropathy simplex ([facility] V24, [facility] V28) (Primary Dx) 06/07/2024 Telephone Gastroenterology - [address] [phone] Yessy Turner MA from Last [...] Medical History Date Comments Type 1 diabetes ([facility] V24 , [facility] V28) DX:Type 1 diabetes ([facility]) 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 [...] AM EDT Office Visit Gastroenterology - 299 [facility] [address] [phone] Aj Riley PA [address] [address] 10/15/2024 8:45 AM EDT Appointment [facility] [address] [place] [phone] Health Maintenance Due Date Last Done Comments [...] 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 ([facility] V24, [facility] V28) HEMOGLOBIN A1C Routine 02/20/2024 10:23 AM EST 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 ([facility] V24, [facility] V28) LIPID PANEL WITH REFLEX TO DIRECT [...] mg/dL LAB CHEMISTRY METHOD 02/20/2024 12:34 PM [facility] Triglycerides 260(H) 0 - 150 mg/dL LAB CHEMISTRY METHOD 02/20/2024 12:34 PM [facility] HDL 55 >=40 mg/dL LAB CHEMISTRY METHOD 02/20/2024 12:34 PM [facility] LDL Calculated 130(H) 0 - 100 mg/dL LAB CHEMISTRY METHOD 02/20/2024 12:34 PM [facility] VLDL Cholesterol [place] 52 mg/dL LAB CHEMISTRY METHOD 02/20/2024 12:34 PM [facility] Non HDL Chol. (LDL+VLDL) 182(H) <145 mg/dL LAB CHEMISTRY METHOD 02/20/2024 12:34 PM [facility] Chol/HDL Ratio 4.3 0.0 - 4.4 LAB CHEMISTRY METHOD 02/20/2024 12:34 PM [facility] Blood Venous blood specimen / Unknown Venipuncture / Unknown 02/20/2024 10:23 AM EST 02/20/2024 10:23 AM EST Erick Angeles MD LAB BLOOD ORDERA BLES Final Result Performing Organization Address [facility]/ZIP Co de Phone Number [facility] [address] [place] [address], [place] [phone] * (ABNORMAL) Hemoglobin A1c (02/20/2024 10:23 AM EST) Hemoglobin A1C 8.2(H) <6.5 % LAB CHEMISTRY METHOD 02/20/2024 2:17 PM EST [facility] Mean Bld Glu Estim. 189 mg/dL LAB CHEMISTRY METHOD 02/20/2024 2:17 PM EST [facility] Blood Venous blood specimen / Unknown Venipuncture / Unknown 02/20/2024 10:23 AM EST 02/20/2024 10:23 AM EST Erick Angeles MD LAB BLOOD ORDERA BLES Final Result Performing Organization Address [facility]/ZIP Co de Phone Number [facility] [address] [place] [address], [place] [phone] * (ABNORMAL) Comprehensive metabolic panel (02/20/2024 10:23 AM EST) Sodium 139 133 - 145 mmol/L LAB CHEMISTRY METHOD 02/20/2024 12:34 PM EST [facility] Potassium 4.5 3.5 - 5.5 mmol/L LAB CHEMISTRY METHOD 02/20/2024 12:34 PM EST [facility] Chloride 106 96 - 110 mmol/L LAB CHEMISTRY METHOD 02/20/2024 12:34 PM EST [facility] CO2 26 21 - 32 mmol/L LAB CHEMISTRY METHOD 02/20/2024 12:34 PM [facility] Anion Gap 7 3 - 11 LAB CHEMISTRY METHOD 02/20/2024 12:34 PM [facility] Glucose 174(H) 70 - 100 mg/dL LAB CHEMISTRY METHOD 02/20/2024 12:34 PM [facility] BUN 25 5 - 25 mg/dL LAB CHEMISTRY METHOD 02/20/2024 12:34 PM [facility] Creatinine 1.07 0.50 - 1.10 mg/dL LAB CHEMISTRY METHOD 02/20/2024 12:34 PM [facility] eGFR 71 >=60 mL/min/1. 73m2 LAB CHEMISTRY METHOD 02/20/2024 12:34 PM [facility] Comment:Calculation based on the??Chronic Kidney Disease Epidemiology Collaboration (CKD-EPI) equation refit??without adjustment for race. BUN/Creatinine Ratio 23.4 LAB CHEMISTRY METHOD 02/20/2024 12:34 PM [facility] Calcium 9.8 8.5 - 10.5 mg/dL LAB CHEMISTRY METHOD 02/20/2024 12:34 PM [facility] AST (SGOT) 81(H) 10 - 42 unit/L LAB CHEMISTRY METHOD 02/20/2024 12:34 PM [facility] ALT (SGPT) 88(H) 10 - 60 unit/L LAB CHEMISTRY METHOD 02/20/2024 12:34 PM [facility] Alkaline Phosphatase 229(H) 42 - 121 unit/L LAB CHEMISTRY METHOD 02/20/2024 12:34 PM [facility] Total Protein 7.0 6.0 - 8.0 g/dL LAB CHEMISTRY METHOD 02/20/2024 12:34 PM [facility] Albumin 3.6 3.2 - 5.0 g/dL LAB CHEMISTRY METHOD 02/20/2024 12:34 PM [facility] Total Bilirubin 0.2 0.0 - 1.4 mg/dL LAB CHEMISTRY METHOD 02/20/2024 12:34 PM EST [facility] Blood Venous blood specimen / Unknown Venipuncture / Unknown 02/20/2024 10:23 AM EST 02/20/2024 10:23 AM EST Erick Angeles MD LAB BLOOD ORDERA BLES Final Result [facility] [address] [place] [address], [place] [phone] * Depression Screening (10/19/2023) [facility] Depression Screening abstracted Result [facility] Provider HEALTH MAINTENANCE Final Result * Urine Albumin Creatinine Ratio (06/22/2023) [facility] Urine Albumin Creatinine Ratio abstracted Result [facility] Provider HEALTH MAINTENANCE Final Result * Diabetes Foot Exam (06/22/2023) [facility] Diabetes: Annual Foot Exam abstracted Result [facility] Provider HEALTH MAINTENANCE Final Result * Cervical Cancer Screening: HPV (06/09/2023) [facility] Cervical Cancer Screening: HPV negative,a bstracted Result [facility] Provider HEALTH MAINTENANCE Final Result * HIV Screening (06/09/2023) [facility] HIV Screening abstracted Result [facility] Provider HEALTH MAINTENANCE Final Result * Hepatitis C Screening (06/09/2023) [facility] Hepatitis C Screening abstracted [facility] Provider HEALTH MAINTENANCE Final Result * Diabetes Eye Exam (02/22/2023) [facility] Diabetes: Annual Retina Eye Exam abstracted [facility] Provider HEALTH MAINTENANCE Final Result from Last 3 Months or Most Recently Relevant to Health Maintenance Insurance [facility] Care Teams Department Of Natural Resources Officer Relationship Specialty Start Date End Date Erick Angeles MD [address] [place], [place] PCP - General Internal Medicine 10/30/21
--- OUTSIDE RECORDS SUMMARY | 2024-08-03 08:00 | XMS_ITS | Encounter Summary ---
Author Organization [facility] Address [address] [place] [address] Phone Care Team Providers Care Mail Courier Name Role Phone Erick Angeles Primary Care Provider Encounter Details Date Type Department Care Team (Late st Contact Info) Description 08/15/2023 Documentation Only [facility] [address] [place] [address] Inna Macias [address] [place] [address] Social History Tobacco Use Types [...] Visit [facility] [address] [place] [address] Thaun De Guzman MD [address] [place] [address] [place] [address] documented as of this encounter Visit Diagnoses Not on filedocumented in this encounter Care Teams Mail Courier Relationship Specialty Start Date End Date Erick Angeles PCP - General 09/22/22 documented as of this encounter
--- OUTSIDE RECORDS SUMMARY | 2024-08-03 08:00 | XMS_ITS | Clinical Summary ---
Author Organization [facility] Address [address] 7[address] [place] [address] Care Team Providers Care Portable Pinch Riveter Name Role Phone Unavailable Primary Care Provider [...] Continuous Blood Gluc Sensor (Dexcom G6 Sensor) [facility] 08/19/19 23 Active Continuous Blood Gluc Transmit (Dexcom G6 transmitter) [facility] 07/28/19 23 Active cyclobenzaprine (Flexeril) 5 MG tablet 08/19/19 23 Active ergocalciferol (Vitamin D2) 1.25 MG (80219 UT) capsule TAKE 1 CAPSULE BY MOUTH ONCE A WEEK FOR 56 DAYS. 06/17/19 23 Active Baqsimi Two Pack 3 MG/DOSE nasal powder PLEASE SEE ATTACHED FOR DETAILED DIRECTIONS 03/30/20 22 Active FREESTYLE LITE test strip 08/24/19 23 Active hydrOXYzine HCl (Atarax) 25 MG tablet 08/19/19 23 Active Insulin Disposable Pump (Omnipod 5 G6 Pod, Gen 5,) [facility] 07/27/19 23 Active B-D UF III MINI PEN NEEDLES 31G X 5 MM [facility] USE PEN NEEDLES TO INJECT INSULIN 4 TIMES A DAY 06/04/19 23 Active lisinopril 40 MG tablet Take 40 mg by mouth in the morning. 06/29/19 23 Active Continuous Blood Gluc Sensor (Dexcom G6 Sensor) [facility] Dexcom G6 sensor 3 pack, See Instructions, # 3 each, Refills 3, Tot. Refills 3, Maintenance, E11.9 for 90 days supply [facility]: [address]-01, 11/30/22 15:21:00 EDT, Supply, 153, cm, 11/29/22 [...] Description 07/09/2024 3:30 PM EDT Office Visit [facility] [address] [place] [id number] Syd, Aidee, OD Dry eye syndrome of [...] this topic Meningococcal Vaccine Aged Out No orn ina eligible based on patient's age to [...] file Group ID:[id number] Type:Not on file Address: [place] [id number] ACO
--- OUTSIDE RECORDS SUMMARY | 2024-08-03 08:00 | XMS_ITS | Clinical Summary ---
Author Organization [facility] Address [address] [place] [address] Care Team Providers Care Manager Support Services Name Role Phone Pcp, No Primary Care [...] patient's age to complete this topic Insurance [facility] Care Teams Manager Support Services Relationship Specialty Start Date End Date Pcp, No PCP - General 11/28/22
--- OUTSIDE RECORDS SUMMARY | 2024-08-03 08:00 | XMS_ITS | Encounter Summary ---
Author Organization [facility] Address [address] [place] [address] Phone Care Team Providers Care Ceo & Co Founder Name Role Phone Erick Angeles Primary Care Provider Encounter Details Date Type Department Care Team (Late st Contact Info) Description 08/15/2023 Documentation Only [facility] [address] [place] [address] Inna Macias [address] [place] [address] Social History Tobacco Use Types [...] Visit [facility] [address] [place] [address] Thuan De Guzman MD [address] [place] [address] [place] [address] documented as of this encounter Visit Diagnoses Not on filedocumented in this encounter Care Teams Ceo & Co Founder Relationship Specialty Start Date End Date Erick Angeles PCP - General 09/22/22 documented as of this encounter
--- OUTSIDE RECORDS SUMMARY | 2024-08-03 08:00 | XMS_ITS | Encounter Summary ---
Author Organization [facility] Address [address] [place] [address] Phone Care Team Providers Care Clinical Data Management Director Name Role Phone Erick Angeles Primary Care Provider [phone] Encounter Details Date Type Department Care Team (Late st Contact Info) Description 08/15/2023 Documentation Only [facility] [address] [place] [address] Inna Macias [address] [place] [address] Social History Tobacco Use Types [...] Visit [facility] [address] [place] [address] Thuan De Guzman MD [address] [place] [address] [place] [address] documented as of this encounter Visit Diagnoses Not on filedocumented in this encounter Care Teams Clinical Data Management Director Relationship Specialty Start Date End Date Erick Angeles PCP - General 09/22/22 documented as of this encounter
--- OUTSIDE RECORDS SUMMARY | 2024-08-03 08:00 | XMS_ITS | Encounter Summary ---
Author Organization [facility] Address [address] [place] [address] Phone Care Team Providers Care Strap Machine Operator Name Role Phone Erick Angeles Primary Care Provider Encounter Details Date Type Department Care Team (Late Contact Info) Description 12/09/2023 Documentation Only [facility] [address] [place] [place] [address] Shane Barr MD [address] [place] [address] [place] [address] Social History Tobacco Use Types [...] Visit [facility] [address] [place] [place] [address] Thuan De Guzman MD [address] [place] [address] [place] [address] documented as of this encounter Visit Diagnoses Not on filedocumented in this encounter Care Teams Strap Machine Operator Relationship Specialty Start Date End Date Erick Angeles PCP - General 09/22/22 documented as of this encounter
--- OUTSIDE RECORDS SUMMARY | 2024-08-03 08:00 | XMS_ITS | Encounter Summary ---
Author Organization [facility] Address [address] [place] [address] Phone Care Team Providers Care Records Analyst Name Role Phone Erick Angeles Primary Care Provider Encounter Details Date Type Department Care Team (Late st Contact Info) Description 08/25/2023 Documentation Only [facility] [address] [place] [address] Inna Macias [address] [place] [address] Social History Tobacco Use Types [...] Visit [facility] [address] [place] [address] Thuan De Guzman MD [address] [place] [address] [place] [address] documented as of this encounter Visit Diagnoses Not on filedocumented in this encounter Care Teams Records Analyst Relationship Specialty Start Date End Date Erick Angeles PCP - General 09/22/22 documented as of this encounter
--- OUTSIDE RECORDS SUMMARY | 2024-08-03 08:00 | XMS_ITS | Encounter Summary ---
Author Organization [facility] Address [address] [place] [address] Phone Care Team Providers Care Residential Leasing Manager Name Role Phone Erick Angeles Primary Care Provider Reason for Visit * Reason Comments Med Refill Encounter Details Date Type Department Care Team (Late st Contact Info) Description 09/10/2023 Refill [facility] [address] [place] [address] Thuan De Guzman MD [address] [place] [address] [place] [address] Social History Tobacco Use Types [...] [facility] [address] [place] [address] Thuan De Guzman MD [address] [facility] [place] [address] documented as of this encounter Visit Diagnoses Not on filedocumented in this encounter Care Teams Residential Leasing Manager Relationship Specialty Start Date End Date Erick Angeles PCP - General 6/14/23 documented as of this encounter
--- NOTE | 2024-08-03 08:03 | A.OFFVIS_ITS ---
Intake Visit Reasons: PO RT knee JOHNNY 07/25/24 NE Intake Note: Karol is a 33 year old female who presents today for a wound check s/p right knee removal of hardware 07/25/24 NE. Patient reports she was trying to get in her car and she lost her balance and she felt on rocks. She noticed that she was bleeding and the steri strips got dirty. Allergies Iodinated Contrast Media [IV Contrast Dye] Allergy (Severe, Verified 08/03/24 08:10) Rash, Nausea HPI HPI PO RT knee JOHNNY 07/25/24 NE: Details: Mr. Sheffield is a 33-year-old female status post right knee removal of hardware on 07/25/2024. The patient was seen in our office yesterday for her routine postoperative follow-up. After her appointment she was getting out of her vehicle to go home she fell and landed directly into the dirt with the right knee. She called the office and reported that there were some areas of mild bleeding over the incision site and the Steri-Strips had gotten dirty. She was instructed to wash the area with soap and water pat dry and to present to the office 1st thing this morning 08/03/2024. [facility] Medical History (Updated 08/03/24 @ 00:02 by Background Daemon) Essential hypertension Type 1 diabetes mellitus Insulin pump in place History of blood transfusion Hyperlipidemia Surgical History (Updated 08/03/24 @ 00:02 by Background Daemon) History of appendectomy H/O hand surgery H/O eye surgery Tubal ligation status H/O knee surgery Social History Household Members: Children Housing: House Are you a primary progressive care unit registered nurse to a significant other at home: No Do you presently have visiting nurse or other home services: No Comment: faces scale; pt was asleep most of the time in pacu Patient Tobacco Use Status: Never used Tobacco Second Hand Smoke Exposure: No service: No Review of Systems Const All systems reviewed & are unremarkable except as noted in HPI and below Physical Exam Const General: cooperative, healthy appearing and no acute distress Resp Effort & Inspection: normal respiratory effort and able to speak in complete sentences Extrem Other: Right knee incision site is intact. No surrounding erythema or drainage. No signs of infection. Full knee range of motion. NVI. Assessment & Plan Assessment & Plan (1) Type 1 diabetes mellitus: Code(s): E10.9 - Type 1 diabetes mellitus without complications Category: Medical Qualifiers: Diabetes mellitus complication status: with other specified complication Qualified Code(s): E10.69 - Type 1 diabetes mellitus with other specified complication (2) Painful orthopaedic hardware: Code(s): T84.84XA - Pain due to internal orthopedic prosthetic devices, implants and grafts, initial encounter Category: Medical Plan Mr. Sheffield is a 33-year-old female status post right knee removal of hardware on 07/25/2024. The patient was seen in our office yesterday for her routine postoperative follow-up. After her appointment she was getting out of her vehicle to go home she fell and landed directly into the dirt with the right knee. She called the office and reported that there were some areas of mild ble eding over the incision site and the Steri-Strips had gotten dirty. She was instructed to wash the area with soap and water pat dry and to present to the office 1st thing this morning 08/03/2024. While in the office today, the Steri-Strips were removed and the incision site was cleansed with hydrogen peroxide diluted in water, ChloraPrep and new Steri- Strips were reapplied to the area. The patient is also a type 1 diabetic, therefore, out of an abundance of caution I did send cephalexin 500 mg p.o. b.i.d. for 7 days. She was educated on signs of infection, which are as follows but not limited to erythema, edema, drainage, or warmth. If he/she is to experience any of these symptoms, he/she must contact the office immediately or present to the ED for evaluation. Patient understands and accepts. She will follow up on 08/16/2024, sooner if needed. Medications: New cephalexin 500 mg PO BID 7 days 14 caps 0RF Coding Level of Care Code Global (55937) Diagnoses Type 1 diabetes mellitus with other specified complication E10.69 Diabetes mellitus complication status: with other specified complication Painful orthopaedic hardware T84.84XA
== END 2024-08-03 08:57 | disposition home or self-care (01) ==
LOC: HO.HOS 07:58
PROVIDERS: PCP Family Medicine; Visit Provider Physician Assistant
DX: E10.69 Type 1 diabetes mellitus with other specified complication (principal); T84.84XA Pain due to internal orthopedic prosthetic devices, implants and grafts, initial encounter
CPT/HCPCS: 99024

== ENCOUNTER → 2024-08-03 07:57 | Outpatient (BNVA) | payer OTHER, SELFPAY | PROVIDERS: PCP Family Medicine; Visit Provider Physician Assistant | DX: Z47.2 Encounter for removal of internal fixation device (principal); T84.84XA Pain due to internal orthopedic prosthetic devices, implants and grafts, initial encounter; E10.69 Type 1 diabetes mellitus with other specified complication | CPT/HCPCS: 99212 ==

== ENCOUNTER 2024-08-16 11:38 | Outpatient (AMB) | payer OTHER, SELFPAY ==
--- NOTE | 2024-08-16 11:40 | A.OFFVIS_ITS ---
Intake Visit Reasons: PO RT knee JOHNNY 07/25/24 NE/ wound check Intake Note: Karol is a 33 year old female who presents today for a wound check s/p right knee removal of hardware 07/25/24 NE. Patient report she is doing well. She has some concerns about the appearance of the incision site. Allergies Iodinated Contrast Media [IV Contrast Dye] Allergy (Severe, Verified 08/16/24 11:44) Rash, Nausea HPI HPI PO RT knee JOHNNY 07/25/24 NE/ wound check: Details: Ms. Sheffield is a 33-year-old female status post removal of hardware right tibial plateau on 07/25/[address] Flores. Patient overall has been doing very well. Unfortunately, the patient did sustain a fall landing in dirt over the incision site on 08/02/2024. The patient was seen last on 08/03/2024 where the Steri-Strips were removed and patient was given oral antibiotics. Patient presents to the office today for a wound check. Unfortunately the patient states that she did not warehouse order picker the antibiotics that were prescribed to her because she was worried about GI upset. Of note the patient is a type 1 diabetic. [facility] Medical History (Updated 08/03/24 @ 00:02 by Background Daemon) Essential hypertension Type 1 diabetes mellitus Insulin pump in place History of blood transfusion Hyperlipidemia Surgical History (Updated 08/03/24 @ 00:02 by Background Daemon) History of appendectomy H/O hand surgery H/O eye surgery Tubal ligation status H/O knee surgery Social History Household Members: Children Housing: House Are you a primary career placement services counselor to a significant other at home: No Do you presently have visiting nurse or other home services: No Comment: faces scale; pt was asleep most of the time in pacu Patient Tobacco Use Status: Never used Tobacco Second Hand Smoke Exposure: No service: No Review of Systems Const All systems reviewed & are unremarkable except as noted in HPI and below Physical Exam Const General: cooperative, healthy appearing and no acute distress Resp Effort & Inspection: normal respiratory effort and able to speak in complete sentences Extrem Other: Right knee incision site is intact. There are some areas over the incision site that look erythematous. There is eschar tissue in the areas in which the dirty Steri-Strips were removed and pulled off some healthy to healing tissue. No signs of infection, no drainage. Full knee range of motion. NVI. Assessment & Plan Assessment & Plan (1) Type 1 diabetes mellitus: Code(s): E10.9 - Type 1 diabetes mellitus without complications Category: Medical Qualifiers: Diabetes mellitus complication status: with other specified complication Qualified Code(s): E10.69 - Type 1 diabetes mellitus with other specified complication (2) Painful orthopaedic hardware: Code(s): T84.84XA - Pain due to internal orthopedic prosthetic devices, implants and grafts, initial encounter Category: Medical Plan Ms. Sheffield is a 33-year-old female status post removal of hardware right tibial plateau on 07/25/[address] Flores. Patient overall has been doing very well. Unfortunately, the patient did sustain a fall landing in dirt over the incision site on 08/02/2024. The patient was seen last on 08/03/2024 where the Steri-Strips were removed and patient was given oral antibiotics. Patient presents to the office today for a wound check. Unfortunately the patient states that she did not warehouse order picker the antibiotics that were prescribed to her because she was worried about GI upset. Of note the patient is a type 1 diabetic. While in the office today, the patient does not appear to have any evidence of infection at this time. I instructed the patient that she can shower and get the area wet. She should apply gentle soap and water to cleanse the area. She was educated on signs of infection, which are as follows but not limited to erythema, edema, drainage, or warmth. She is to experience any of these symp toms, she must contact the office immediately or present to the ED for evaluation. Patient understands and accepts. She will present in 1 week for a wound check, sooner if needed. Coding Level of Care Code Global (81609) Diagnoses Type 1 diabetes mellitus with other specified complication E10.69 Diabetes mellitus complication status: with other specified complication Painful orthopaedic hardware T84.84XA
--- OUTSIDE RECORDS SUMMARY | 2024-08-16 13:12 | XMS_ITS | Encounter Summary ---
Author Organization [facility] Address [address] [place] [address] Phone Care Team Providers Care Mold Stacker Name Role Phone Erick Angeles Primary Care Provider Encounter Details Date Type Department Care Team (Late st Contact Info) Description 08/15/2024 Documentation Only [facility] [address] [place] [address] Inna Macias [address] [place] [address] Social History Tobacco Use Types [...] Visit [facility] [address] [place] [address] Thuan De Guzman MD [address] [place] [address] [place] [address] Arrived documented as of this encounter Visit Diagnoses Not on filedocumented in this encounter Care Teams Mold Stacker Relationship Specialty Start Date End Date Erick Angeles PCP - General 09/22/22 documented as of this encounter
--- OUTSIDE RECORDS SUMMARY | 2024-08-16 13:12 | XMS_ITS | Clinical Summary ---
Author Organization [employer] Address [address] [facility] 7t [place] [address] Care Team Providers Care Stain Remover Name Role Phone Unavailable Primary Care Provider [...] Continuous Blood Gluc Sensor (Dexcom G6 Sensor) [facility] 08/19/19 23 Active Continuous Blood Gluc Transmit (Dexcom G6 transmitter) [facility] 07/28/19 23 Active cyclobenzaprine (Flexeril) 5 MG tablet 08/19/19 23 Active ergocalciferol (Vitamin D2) 1.25 MG (99547 UT) capsule TAKE 1 CAPSULE BY MOUTH ONCE A WEEK FOR 56 DAYS. 06/17/19 23 Active Baqsimi Two Pack 3 MG/DOSE nasal powder PLEASE SEE ATTACHED FOR DETAILED DIRECTIONS 03/30/20 22 Active FREESTYLE LITE test strip 08/24/19 23 Active hydrOXYzine HCl (Atarax) 25 MG tablet 08/19/19 23 Active Insulin Disposable Pump (Omnipod 5 G6 Pod, Gen 5,) [facility] 07/27/19 23 Active B-D UF III MINI PEN NEEDLES 31G X 5 MM [facility] USE PEN NEEDLES TO INJECT INSULIN 4 TIMES A DAY 06/04/19 23 Active lisinopril 40 MG tablet Take 40 mg by mouth in the morning. 06/29/19 23 Active Continuous Blood Gluc Sensor (Dexcom G6 Sensor) [facility] Dexcom G6 sensor 3 pack, See Instructions, # 3 each, Refills 3, Tot. Refills 3, Maintenance, E11.9 for 90 days supply [facility]: [id number], 11/30/22 15:21:00 EDT, Supply, 153, cm, 11/29/22 [...] Description 07/09/2024 3:30 PM EDT Office Visit [facility] [address] [place] [address] Syd, Aidee, OD Dry eye syndrome of [...] Date Last Done Comments Depression Screening 1992 HIV Screening 1992 Lipid Panel 1992 [...] 2023 , 03/07/2018, 01/17/2014, Additional history exists Diabetes: Hemoglobin A1C 05/22/2024 02/20/2024 Eye Exam 07/09/2025 07/09/2024, 06/11, 07/09/2024, Additional [...] file Group ID:[id number] Type:Not on file Address: [address] [employer]
--- OUTSIDE RECORDS SUMMARY | 2024-08-16 13:12 | XMS_ITS | Encounter Summary ---
Author Organization [facility] Address [address] [place] [address] Phone Care Team Providers Care Wheelchair Driver Name Role Phone Erick Angeles Primary Care Provider Encounter Details Date Type Department Care Team (Late st Contact Info) Description 08/15/2023 Documentation Only [facility] [address] [place] [address] Inna Macias [address] [place] [address] Social History Tobacco Use [...] [facility] [address] [place] [address] Thuan De Guzman MD [address] [place] [address] [place] [address] Arrived documented as of this encounter Visit Diagnoses Not on filedocumented in this encounter Care Teams Wheelchair Driver Relationship Specialty Start Date End Date Erick Angeles PCP - General 09/22/22 documented as of this encounter
--- OUTSIDE RECORDS SUMMARY | 2024-08-16 13:12 | XMS_ITS | Encounter Summary ---
Author Organization [facility] Address [address] [place] [address] Phone Care Team Providers Care Shelter Monitor Name Role Phone Erick Angeles Primary Care Provider [phone] Encounter Details Date Type Department Care Team (Late st Contact Info) Description 08/16/2023 Documentation Only [facility] [address] [place] [address] Inna Macias [address] [place] [address] Social History Tobacco Use Types [...] [facility] [address] [place] [address] Thuan De Guzman MD [address] [place] [address] [place] [address] Arrived documented as of this encounter Visit Diagnoses Not on filedocumented in this encounter Care Teams Shelter Monitor Relationship Specialty Start Date End Date Erick Angeles PCP - General 09/22/22 documented as of this encounter
--- OUTSIDE RECORDS SUMMARY | 2024-08-16 13:12 | XMS_ITS | Data Portability ---
Author Organization [facility], [facility] Address [address] [place] [address] Care Team Providers Care Glass Vial Filler Name Role Phone JAKE LOVETT Primary Care Provider [phone] Assessment No assessment recorded. Plan of Treatment Reminders Order Date Submit Date Provider Last Modified By Organization Details Last Modified Time Details Appointments None recorded. Lab rapid SARS CoV 2 Ag, QL IA, respiratory specimen 2022 023 [place] [address] [facility], [address] [place] [address], [phone], 18:39:28 rapid strep group A, throat 2022 023 [place] [address] [facility], [address] [place] [address], [phone], 18:39:27 Referral None recorded. Procedures None recorded. Surgeries None recorded. Imaging None recorded. Medication Orders amoxicillin 875 mg tablet 2022 023 [id number], [address] [facility], [place], [address], 18:40:06 Patient TargetsNo targets recorded. Patient Instructions Encounter Date Encounter Id Patient Instructions Last Modified By Organization Details Last Modified Time 06/28/2022 [id number] strep throat: care instructions eal Not available 06/28/2022 18:39:28 Reason for Referral None Reported. Results Created Date Observation Date Name Description Value Unit Range Abnormal Flag Note LastModifiedBy Organization Detail LastModifiedTime 06/29/19 23 06/28/2022 rapid strep group A, throa t Unknown Analyte Normal = Negati ve Not Available [address] [address] [address], [address], 06/28/2022 18:08:47 06/29/19 23 06/28/2022 rapid strep group A, throa t Unknown Analyte positi ve Not Available [address], [address], 06/28/2022 18:08:47 Result Notes None recorded. Problems Name Problem SNOMED Code Status Onset Date Resolution Date Notes Provider Name and Address Organization Details Recorded Time Diabetes mellitus 34353948 Active 2022 [facility] Farrell - [facility] 3 18:12:30 Hypertensive disorder 46795302 Active 2022 Mehreen wood PA - [facility] 18:12:36 Hypercholestero lemia 74045634 Active 2022 Mehreen wood PA - [facility] [...] Last Updated DateTime 152.4 cm 27.3 kg/m2 17004.9 3 g 7 99 % 99 % 102 /min 18 /min 98.2 [degF] 119 mm[Hg] 83 mm[Hg] Mehreen [facility] 18:16:02 Social History Question Answer Notes LastModified by Organizat ion Details LastModified Time Tobacco Smoking Status Never Smoker [facility] 06/28/2022 18:13:05 What Is Your Level [...] PA - [facility] 06/28/2022 18:10:01 Novel yndauwiea-U8N7-94, preservative-free 9 completed Mehreen Monfette null, PA - [facility] 06/28/2022 18:10:01 Hep B, adult 2 completed Mehreen Monfette null, PA - [facility] 06/28/2022 18:10:01 Hep B, adult 1 completed Mehreen Monfette null, PA - [facility] 06/28/2022 18:10:01 Influenza, split virus, quadrivalent, PF 3 completed Mehreen [facility] 06/28/2022 18:10:01 Past Encounters Encounter ID Performer Location Encounter Start Date Encounter Closed Date Diagnosis/Indication Diagnosis SNOMED-CT Code Diagnosis ICD10 Code Diagnosis Note [id number] [facility] [address] [place] [address] 11/08/2017 17:55:18 11/08/2017 20:02:04 [id number] [facility] [address] [place] [address] 03/07/2017 15:22:26 03/07/2017 16:55:09 [id number] [address] [facility] [address] [place] [address] 05/17/2018 17:28:36 05/17/2018 18:20:48 [id number] [address] [facility] [address] [place] [address] 04/27/2017 14:06:25 04/27/2017 14:31:00 [id number] [address] [place] [address] 10/31/2021 12:37:26 10/31/2021 13:24:23 [id number] [address] [place] [address] 12/05/2017 14:02:01 12/05/2017 15:13:33 [id number] [address] [place] [address] 05/17/2021 12:07:21 05/17/2021 12:59:00 [id number] [address] [place] [address] 07/17/2017 13:29:56 07/17/2017 14:19:38 [id number] [address] [place] [address] 08/26/2020 15:48:54 08/26/2020 17:03:04 [id number] [address] [place] [address] 10/17/2017 14:03:10 10/17/2017 14:28:02 [id number] [address] [place] [address] 03/09/2016 18:21:27 03/09/2016 18:54:12 [id number] [address] [place] [address] 11/06/2017 19:42:44 11/06/2017 20:17:26 [id number] [address] [place] [address] 10/04/2016 09:41:44 10/04/2016 11:06:41 [id number] [address] [place] [address] 06/28/2017 17:04:49 06/28/2017 17:52:31 [id number] [address] [place] [address] 08/15/2018 12:11:29 08/15/2018 13:06:45 [id number] [address] [place] [address] 11/21/2021 19:40:10 11/23/2021 20:02:35 [id number] [address] [address] [place] [address] 02/09/2016 13:59:41 02/09/2016 14:27:17 [id number] Oleg Walters MD [address] [address] [place] [address] 06/28/2022 14:49:19 06/28/2022 18:53:19 Streptococcal sore throat 51886896 J02.0 Health Concerns Section Related Observation LastModified by Organization Detai ls LastModified Time None Recorded Concern Status LastModified by Organization Details LastModified Time None Recorded Advance Directives Directive None Recorded Payers Insurance Date Sequence Insurance Name Policy Number Policy Basilio Covered Member ID Basilio Member ID Guarantor Name 07/11/2022 1 [facility] (MEDICAID HMO) DENISSEMT Karol Sheffield [id number] Karol Sheffield Notes Date Note Type Note Provider Name and Address Organization Details Recorded Time 06/28/2022 text/html Sore throatRepor shantell bypatient.Location:[facility] Severity:moderate Quality:sharp Onset/Timin days Associated Symptoms:no cough; no sputum production; no shortness of breath; no wheezing; no sinus pain; no vomiting; no nausea; No hoarseness Context:sick contact Modifying Factors:exposed to Strep household * Oleg Walters MD [address] [place], [place] [address], [address], [place] - [facility] 06/29/2022 11:35:32 OBGyn Episode No OBEpisode recorded.
--- OUTSIDE RECORDS SUMMARY | 2024-08-16 13:12 | XMS_ITS | Clinical Summary ---
Author Organization [facility] Address [address] [place] [address] Care Team Providers Care Orange Picker Name Role Phone Pcp, No Primary Care [...] series) 12/09/2011 Pap Smear (Ages 21-65) 2013 COVID-19 Vaccine (2023-2 5 season) 2023 Influenza Vaccine 11/09/2024 HPV Vaccines Aged Out No longer eligi ble based on patient's age to complete this topic Pneumococcal Vaccine: Pediat bang (0-5 Years) and At-Risk Patients (6 to 49 Years) Aged Out No longer eligible b ased on patient's age to complete this topic Insurance [facility] Care Teams Orange Picker Relationship Specialty Start Date End Date Pcp, No PCP - General 11/28/22
--- OUTSIDE RECORDS SUMMARY | 2024-08-16 13:12 | XMS_ITS | Clinical Summary ---
Author Organization [address] Address [address] [place] [address] Phone Care Team Providers Care Seafood Process Worker Name Role Phone Erick [place] MD Primary [...] associat ed with type 1 diabetes mellitus ([facility] V24, [facility] V28) 10/19/2023 Fatty liver 10/19/2023 Generalized anxiety disorder 10/19/2023 Hemorrhoids 10/19/2023 Menorrhagia with regular cycle 10/19/2023 Moderate episode of recurren t major depressive disorder ([facility] V24, [facility] V28) 10/19/2023 Recurrent UTI 10/19/2023 Tibia/fibula fracture, [...] associa shantell with type 1 diabetes mellitus ([facility] V24, [facility] V28) 02/24/2023 Insomnia due to other mental [...] anemia 06/15/2022 Primary hypertension 06/15/2022 Diabetic retinopathy ([facility] V24, [facility] V28) 06/26/2021 Vitamin D deficiency 01/05/2021 Type 1 diabetes mellitus ([facility] V24, [facility] V 28) 07/20/2018 Hyperlipidemia 12/31/2016 Tattoo of skin 01/30/2015 Encounters Date Type Department Care Team Description 08/07/2024 Telephone Adult Medicine [address] [address] Erick Angeles MD Hospital Follow-up (Pt needs to reschedule apt for 08/08/24- @ 4:00 pm w/ Adrianne Bass) 08/03/2024 Telephone Adult Medicine [address] [address] Sumi Otero RN 07/17/2024 Telephone Gastroenterology - [address] [phone] Emmy Davis [place] [employer] 07/09/2024 11:20 AM EDT Office Visit Gastroenterology - [address] [phone] Aj Riley PA Chronic constipation (Primary Dx); Pharyngoesophageal dysphagia; Gastroesophageal reflux disease without esophagitis; BRINK (nonalcoholic steatohepatitis) 06/28/2024 10:30 AM EDT Office Visit Orthopedic Surgery [facility] [address] [phone] Juan Luis Geronimo, DPM Diabetic mononeuropathy simplex ([facility] V24, [facility] V28) (Primary Dx) 06/07/2024 Telephone Gastroenterology - 299 Thu 299 [facility] [address] [place] [address] Johnny YessyKENDRA from Last 3 Months Immunizations Name Administration [...] Medical History Date Comments Type 1 diabetes ([facility] V24 , [facility] V28) DX:Type 1 diabetes (HCC) HSV-1 (herpes [...] AM EDT Office Visit Gastroenterology - 299 [facility] [address] [phone] Aj Riley PA [address] [address] 10/15/2024 8:[address] 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 V24, 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 V24, [facility] V28) LIPID PANEL WITH REFLEX TO DIRECT [...] LAB CHEMISTRY METHOD 02/20/2024 12:[address] [facility] Triglycerides 260(H) 0 - 150 mg/dL LAB CHEMISTRY METHOD 02/20/2024 12:[address] [facility] HDL 55 >=40 mg/dL LAB CHEMISTRY METHOD 02/20/2024 12:[address] [facility] LDL Calculated 130(H) 0 - 100 mg/dL LAB CHEMISTRY METHOD 02/20/2024 12:[address] [facility] VLDL Cholesterol [place] 52 mg/dL LAB CHEMISTRY METHOD 02/20/2024 12:34 PM [facility] Non HDL Chol. (LDL+VLDL) 182(H) <145 mg/dL LAB CHEMISTRY METHOD 02/20/2024 12:34 PM [facility] Chol/HDL Ratio 4.3 0.0 - 4.4 LAB CHEMISTRY METHOD 02/20/2024 12:34 PM [facility] Blood Venous blood specimen / Unknown Venipuncture / Unknown 02/20/2024 10:23 AM EST 02/20/2024 10:23 AM EST Erick Angeles MD LAB BLOOD ORDERA BLES Final Result Performing Organization Address City/[facility]/ZIP Co de Phone Number [facility] [address] [place] [address], [place] [phone] * (ABNORMAL) Hemoglobin A1c (02/20/2024 10:23 AM EST) Hemoglobin A1C 8.2(H) <6.5 % LAB CHEMISTRY METHOD 02/20/2024 2:17 PM [facility] Mean Bld Glu Estim. 189 mg/dL LAB CHEMISTRY METHOD 02/20/2024 2:17 PM [facility] Blood Venous blood specimen / Unknown Venipuncture / Unknown 02/20/2024 10:23 AM EST 02/20/2024 10:23 AM EST Erick Angeles MD LAB BLOOD ORDERA BLES Final Result [facility] [address] [place] [address], [place] [phone] * (ABNORMAL) Comprehensive metabolic panel (02/20/2024 10:23 AM EST) [facility] Sodium 139 133 - 145 mmol/L LAB CHEMISTRY METHOD 02/20/2024 12:34 PM [facility] Potassium 4.5 3.5 - 5.5 mmol/L LAB CHEMISTRY METHOD 02/20/2024 12:34 PM [facility] Chloride 106 96 - 110 mmol/L LAB CHEMISTRY METHOD 02/20/2024 12:34 PM [facility] CO2 26 21 - 32 mmol/L LAB CHEMISTRY METHOD 02/20/2024 12:34 PM [facility] Anion Gap 7 3 - 11 LAB CHEMISTRY METHOD 02/20/2024 12:34 PM [facility] Glucose 174(H) 70 - 100 mg/dL LAB CHEMISTRY METHOD 02/20/2024 12:34 PM [facility] BUN 25 5 - 25 mg/dL LAB CHEMISTRY METHOD 02/20/2024 12:34 PM [facility] Creatinine 1.07 0.50 - 1.10 mg/dL LAB CHEMISTRY METHOD 02/20/2024 12:34 PM [facility] eGFR 71 >=60 mL/min/1. 73m2 LAB CHEMISTRY METHOD 02/20/2024 12:34 PM [facility] Comment:Calculation based on the??Chronic Kidney Disease Epidemiology Collaboration (CKD-EPI) equation refit??without adjustment for race. BUN/Creatinine Ratio 23.4 LAB CHEMISTRY METHOD 02/20/2024 12:34 PM [facility] Calcium 9.8 8.5 - 10.5 mg/dL LAB CHEMISTRY METHOD 02/20/2024 12:34 PM [facility] AST (SGOT) 81(H) 10 - 42 unit/L LAB CHEMISTRY METHOD 02/20/2024 12:34 PM [facility] ALT (SGPT) 88(H) 10 - 60 unit/L LAB CHEMISTRY METHOD 02/20/2024 12:34 PM [facility] Alkaline Phosphatase 229(H) 42 - 121 unit/L LAB CHEMISTRY METHOD 02/20/2024 12:[address] [facility] Total Protein 7.0 6.0 - 8.0 g/dL LAB CHEMISTRY METHOD 02/20/2024 12:[address] [facility] Albumin 3.6 3.2 - 5.0 g/dL LAB CHEMISTRY METHOD 02/20/2024 12:34 PM [facility] Total Bilirubin 0.2 0.0 - 1.4 mg/dL LAB CHEMISTRY METHOD 02/20/2024 12:34 PM [facility] Blood Venous blood specimen / Unknown Venipuncture / Unknown 02/20/2024 10:23 AM EST 02/20/2024 10:23 AM EST Erick Angeles MD LAB BLOOD ORDERA BLES Final Result [facility] [address] [place] [address], * Depression Screening (10/19/2023) [facility] Depression Screening abstracted [facility] Provider HEALTH MAINTENANCE Final Result * Urine Albumin Creatinine Ratio (06/22/2023) [facility] Urine Albumin Creatinine Ratio abstracted [facility] Provider HEALTH MAINTENANCE Final Result * Diabetes Foot Exam (06/22/2023) [facility] Diabetes: Annual Foot Exam abstracted [facility] Provider HEALTH MAINTENANCE Final Result * Cervical Cancer Screening: HPV (06/09/2023) [facility] Cervical Cancer Screening: HPV negative,a bstracted [facility] Provider HEALTH MAINTENANCE Final Result * HIV Screening (06/09/2023) HIV Screening abstracted Historical Provider HEALTH MAINTENANCE Final Result * Hepatitis C Screening (06/09/2023) Pathologist [facility] Hepatitis C Screening abstracted Historical Provider HEALTH MAINTENANCE Final Result * Diabetes Eye Exam (02/22/2023) Pathologist [facility] Diabetes: Annual Retina Eye Exam abstracted Historical Provider HEALTH MAINTENANCE Final Result from Last 3 Months or Most Recently Relevant to Health Maintenance Insurance [facility] Care Teams Seafood Process Worker Relationship Specialty Start Date End Date Erick Angeles MD [address] [facility], [place] PCP - General Internal Medicine 10/30/21
--- OUTSIDE RECORDS SUMMARY | 2024-08-16 13:12 | XMS_ITS | Encounter Summary ---
Author Organization [facility] Address [address] [place] [address] Phone Care Team Providers Care Cad Administrator Name Role Phone Erick Angeles Primary Care Provider Encounter Details Date Type Department Care Team (Late st Contact Info) Description 08/15/2024 Documentation Only [facility] [address] [place] [address] Inna Macias [address] [place] [address] Social History Tobacco Use Types [...] Visit [facility] [address] [place] [address] Thuan De Guzman MD [address] [place] [address] [place] [address] Arrived documented as of this encounter Visit Diagnoses Not on filedocumented in this encounter Care Teams Cad Administrator Relationship Specialty Start Date End Date Erick Angeles PCP - General 09/22/22 documented as of this encounter
--- OUTSIDE RECORDS SUMMARY | 2024-08-16 13:12 | XMS_ITS | Encounter Summary ---
Author Organization [employer] Address [address] [place] [address] Care Team Providers Care Wall Crane Operator Name Role Phone Erick Angeles MD Primary Care Pr ovider Reason for Visit * Reason Onset Date Comments Hospital Follow-up 08/07/2024 Pt needs to r eschedule apt for 08/08/24- @ 4:00 pm thien Bass Encounter Details Date Type Department Care Team (Late st Contact Info) Description 08/07/2024 Telephone Adult Medicine [address] [address] Erick Angeles MD [address] [place] [id number] Hospital Follow-up (Pt needs to reschedule apt for 08/08/24- @ 4:00 pm thien Bass) Social History Tobacco Use Types Packs/Day Years [...] Orientation Straight 07/24/2024 12 :08 PM EDT documented as of this encounter Progress Notes * Kandis Shea RN - 08/15/2024 12:15 PM EDT Pt declines follow-up at this time. * Sue Horton RN - 08/07/2024 4:56 PM EDT Called pt left vm to return call * Aviva Cao - 08/07/2024 4:50 PM EDT Please reschedule apt for 08/08/24 @ 4:00 pm with Adrianne Bass, pt is not able to make it documented in this encounter Plan of Treatment Upcoming Encounters Date Type Department Care Team (Late st Contact Info) Description 10/08/2024 9:40 AM EDT Office Visit Gastroenterology - 299 [facility] [address] [phone] Aj Riley PA [address] [address] 10/15/2024 8:45 AM EDT Appointment [facility] Xray [address] [place] [id number] documented as of this encounter Visit Diagnoses Not on filedocumented in this encounter Care Teams Wall Crane Operator Relationship Specialty Start Date End Date Erick Angeles MD [address] [facility], [place] PCP - General Internal Medicine 10/30/21 documented as of this encounter
--- OUTSIDE RECORDS SUMMARY | 2024-08-16 13:12 | XMS_ITS | Encounter Summary ---
Author Organization [facility] Address [address] [place] [address] Phone Care Team Providers Care Pegger Name Role Phone Erick Angeles Primary Care Provider Encounter Details Date Type Department Care Team (Late st Contact Info) Description 08/15/2023 Documentation Only [facility] [address] [place] [address] Inna Macias [address] [place] [address] Social History Tobacco Use Types [...] Visit [facility] [address] [place] [address] Thuan De Guzman MD [address] [place] [address] [place] [address] Arrived documented as of this encounter Visit Diagnoses Not on filedocumented in this encounter Care Teams Pegger Relationship Specialty Start Date End Date Erick Angeles PCP - General 09/22/22 documented as of this encounter
--- OUTSIDE RECORDS SUMMARY | 2024-08-16 13:12 | XMS_ITS | Encounter Summary ---
Author Organization [facility] Address [address] [place] [address] Phone Care Team Providers Care Flagger Name Role Phone Erick Angeles Primary Care Provider Encounter Details Date Type Department Care Team (Late Contact Info) Description 12/09/2023 Documentation Only [facility] [address] [place] [address] Shane Barr MD [address] [place] [place] [address] [place] [address] Social History Tobacco Use Types [...] Visit [facility] [address] [place] [address] Thuan De Guzman MD [address] [place] [place] [address] [place] [address] Arrived documented as of this encounter Visit Diagnoses Not on filedocumented in this encounter Care Teams Flagger Relationship Specialty Start Date End Date Erick Angeles PCP - General 09/22/22 documented as of this encounter
--- OUTSIDE RECORDS SUMMARY | 2024-08-16 13:12 | XMS_ITS | Encounter Summary ---
Author Organization [facility] Address [address] [place] [address] Phone Care Team Providers Care Posting Specialist Name Role Phone Erick Angeles Primary Care Provider Encounter Details Date Type Department Care Team (Late st Contact Info) Description 08/17/2023 Documentation Only [facility] [address] [place] [address] Inna Macias [address] [place] [address] Social History Tobacco Use Types [...] [facility] [address] [place] [address] Thuan De Guzman MD [address] [place] [address] [place] [address] Arrived documented as of this encounter Visit Diagnoses Not on filedocumented in this encounter Care Teams Posting Specialist Relationship Specialty Start Date End Date Erick Angeles PCP - General 09/22/22 documented as of this encounter
--- OUTSIDE RECORDS SUMMARY | 2024-08-16 13:12 | XMS_ITS | Clinical Summary ---
Author Organization [facility], Address [address] [place] [address] [place] [address] Phone Care Team Providers Care Gas Treater Name Role Phone Erick Angeles Primary Care [...] diabetes mellitus 10/29/2022 Hyperlipidemia 10/29/2022 Anemia 10/29/2022 Encounters Date Type Department Care Team Description 08/15/2024 Documentation Only [facility] [address] [place] [address] Colleen, Inna 08/15/2024 Documentation Only [facility] [address] [place] [address] Colleen, Inna 08/15/2024 Documentation Only [facility] [address] [place] [address] Colleen, Inna 08/15/2024 Documentation Only [facility] [address] [place] [address] Colleen, Inna 08/15/2024 Documentation Only [facility] [address] [place] [address] Colleen, Inna 08/15/2024 Documentation Only [facility] [address] [place] [address] Colleen, Inna 08/15/2024 Documentation Only [facility] [address] [place] [address] Colleen, Inna from Last 3 Months Immunizations Immunization Administration Dates Next Due H1N1 Inj Preservative Free 03/05/2009 Hep B, Dialysis 06/25/2021,04/06/2021 Hepatitis B 06/25/2021,04/06/2021 Influenza Whole 03/05/2009 Influenza, MDCK, PF, Quadrivalent 03/07/2018 Influenza, Quadrivalent, Preservative Free 04/28 Influenza, Unspecified 03/05/2009 PPD Test 12/07/2017 Pfizer SARS-COV-2 01/23/2021,01/02/2021 Tdap 07/19/2018,03/07/2018,04/18/2014 Family History Medical History Relation [...] Visit [facility] [address] [facility] [address] Thuan De Guzman MD [address] [facility] [place] [address] Arrived Health Maintenance Due Date Last Done Comments [...] 04/28/2022, 03/07/2018, 03/05/2009, Additional history exists Insurance [facility] [employer] Care Teams Gas Treater Relationship Specialty Start Date End Date Erick Angeles PCP - General 09/22/22
--- OUTSIDE RECORDS SUMMARY | 2024-08-16 13:12 | XMS_ITS | Encounter Summary ---
Author Organization [facility] Address [address] [place] [address] Phone Care Team Providers Care Technical System Analyst Name Role Phone Erick Angeles Primary Care Provider Encounter Details Date Type Department Care Team (Late st Contact Info) Description 08/15/2024 Documentation Only [facility] [address] [place] [address] Inna Macias [address] [place] [address] Social History Tobacco Use Types [...] Visit [facility] [address] [place] [address] Thuan De Guzman MD [address] [place] [address] [place] [address] Arrived documented as of this encounter Visit Diagnoses Not on filedocumented in this encounter Care Teams Technical System Analyst Relationship Specialty Start Date End Date Erick Angeles PCP - General 09/22/22 documented as of this encounter
--- OUTSIDE RECORDS SUMMARY | 2024-08-16 13:12 | XMS_ITS | Encounter Summary ---
Author Organization [facility] Address [address] [place] [address] Phone Care Team Providers Care Block Trimmer Name Role Phone Erick Angeles Primary Care Provider Encounter Details Date Type Department Care Team (Late st Contact Info) Description 08/15/2024 Documentation Only [facility] [address] [place] [address] Inna Macias [address] [place] [address] Social History Tobacco Use Types [...] [facility] [address] [place] [address] Thuan De Guzman MD [address] [place] [address] [place] [address] Arrived documented as of this encounter Visit Diagnoses Not on filedocumented in this encounter Care Teams Block Trimmer Relationship Specialty Start Date End Date Erick Angeles PCP - General 09/22/22 documented as of this encounter
--- OUTSIDE RECORDS SUMMARY | 2024-08-16 13:12 | XMS_ITS | Encounter Summary ---
Author Organization [facility] Address [address] [place] [address] Phone Care Team Providers Care Certified Endoscopy Technician Name Role Phone Erick Angeles Primary Care Provider Encounter Details Date Type Department Care Team (Late st Contact Info) Description 08/15/2024 Documentation Only [facility] [address] [place] [place] [address] Inna aMcias [address] [place] [address] Social History Tobacco Use Types [...] Visit [facility] [address] [place] [place] [address] Thuan De Guzman MD [address] [place] [address] [place] [address] Arrived documented as of this encounter Visit Diagnoses Not on filedocumented in this encounter Care Teams Certified Endoscopy Technician Relationship Specialty Start Date End Date Erick Angeles PCP - General 09/22/22 documented as of this encounter
--- OUTSIDE RECORDS SUMMARY | 2024-08-16 13:12 | XMS_ITS | Encounter Summary ---
Author Organization [facility] Address [address] [place] [address] Phone Care Team Providers Care Folded Cloth Taper Name Role Phone Erick Angeles Primary Care Provider Encounter Details Date Type Department Care Team (Late st Contact Info) Description 08/15/2024 Documentation Only [facility] [address] [place] [address] Inna Macias [address] [place] [address] Social History Tobacco Use Types [...] Visit [facility] [address] [place] [address] Thuan De Guzman MD [address] [place] [address] [place] [address] Arrived documented as of this encounter Visit Diagnoses Not on filedocumented in this encounter Care Teams Folded Cloth Taper Relationship Specialty Start Date End Date Erick Angeles PCP - General 09/22/22 documented as of this encounter
--- OUTSIDE RECORDS SUMMARY | 2024-08-16 13:12 | XMS_ITS | Encounter Summary ---
Author Organization [facility] Address [address] [place] [address] Phone Care Team Providers Care Electrical Troubleshooter Name Role Phone Erick Angeles Primary Care Provider [phone] Encounter Details Date Type Department Care Team (Late st Contact Info) Description 08/25/2023 Documentation Only [facility] [address] [place] [address] Inna Macias [address] [place] [address] Social History Tobacco Use Types [...] Visit [facility] [address] [place] [address] Thuan De Guzman MD [address] [place] [address] [place] [address] Arrived documented as of this encounter Visit Diagnoses Not on filedocumented in this encounter Care Teams Electrical Troubleshooter Relationship Specialty Start Date End Date Erick Angeles PCP - General 09/22/22 documented as of this encounter
--- OUTSIDE RECORDS SUMMARY | 2024-08-16 13:12 | XMS_ITS | Encounter Summary ---
Author Organization [facility] Address [address] [place] [address] Phone Care Team Providers Care Manager Academic Name Role Phone Erick Angeles Primary Care Provider Reason for Visit * Reason Comments Med Refill Encounter Details Date Type Department Care Team (Late st Contact Info) Description 09/10/2023 Refill [facility] [address] [place] [address] Thuan De Guzman MD [address] [place] [address] [place] [address] Social History Tobacco Use Types [...] [facility] [address] [place] [address] Thuan De Guzman MD [address] [place] [address] [place] [address] Arrived documented as of this encounter Visit Diagnoses Not on filedocumented in this encounter Care Teams Manager Academic Relationship Specialty Start Date End Date Erick Angeles PCP - General 09/22/22 documented as of this encounter
--- OUTSIDE RECORDS SUMMARY | 2024-08-16 13:12 | XMS_ITS | Encounter Summary ---
Author Organization [facility] Address [address] [place] [address] Phone Care Team Providers Care Driver License Examiner Name Role Phone Erick Angeles Primary Care Provider Encounter Details Date Type Department Care Team (Late st Contact Info) Description 09/22/2022 Documentation Only [facility] [address] [place] [address] Erick Angeles [address] [place] [address] Social History Tobacco Use Types Packs/Day Years [...] Visit [facility] [address] [place] [address] Thuan De Guzman MD [address] [place] [address] [place] [address] Arrived documented as of this encounter Visit Diagnoses Not on filedocumented in this encounter Care Teams Driver License Examiner Relationship Specialty Start Date End Date Erick Angeles PCP - General 09/22/22 documented as of this encounter
--- OUTSIDE RECORDS SUMMARY | 2024-08-16 13:12 | XMS_ITS | Encounter Summary ---
Author Organization [facility] Address [address] [place] [address] Phone Care Team Providers Care Label Drier Name Role Phone Erick Angeles Primary Care Provider Encounter Details Date Type Department Care Team (Late st Contact Info) Description 08/15/2023 Documentation Only [facility] [address] [place] [address] Inna Macias [address] [place] [address] Social History Tobacco Use Types [...] [facility] [address] [place] [address] Thuan De Guzman MD [address] [place] [address] [place] [address] Arrived documented as of this encounter Visit Diagnoses Not on filedocumented in this encounter Care Teams Label Drier Relationship Specialty Start Date End Date Erick Angeles PCP - General 09/22/22 documented as of this encounter
--- OUTSIDE RECORDS SUMMARY | 2024-08-16 13:12 | XMS_ITS | Encounter Summary ---
Author Organization [facility] Address [address] [place] [address] Phone Care Team Providers Care Angiography Nurse Name Role Phone Erick Angeles Primary Care Provider Encounter Details Date Type Department Care Team (Late st Contact Info) Description 08/15/2024 Documentation Only [facility] [address] [place] [address] Inna Macias [address] [place] [address] Social History Tobacco Use Types [...] [facility] [address] [place] [address] Thuan De Guzman MD [address] [place] [address] [place] [address] Arrived documented as of this encounter Visit Diagnoses Not on filedocumented in this encounter Care Teams Angiography Nurse Relationship Specialty Start Date End Date Erick Angeles PCP - General 09/22/22 documented as of this encounter
== END 2024-08-16 11:45 | disposition home or self-care (01) ==
LOC: HO.HOS 11:39
PROVIDERS: PCP Family Medicine; Visit Provider Physician Assistant
DX: E10.69 Type 1 diabetes mellitus with other specified complication (principal); T84.84XA Pain due to internal orthopedic prosthetic devices, implants and grafts, initial encounter
CPT/HCPCS: 99024

== ENCOUNTER → 2024-08-16 11:38 | Outpatient (BNVA) | payer OTHER, SELFPAY | PROVIDERS: PCP Family Medicine; Visit Provider Physician Assistant | DX: T84.84XD Pain due to internal orthopedic prosthetic devices, implants and grafts, subsequent encounter (principal); E10.9 Type 1 diabetes mellitus without complications; X58.XXXD Exposure to other specified factors, subsequent encounter; Z91.81 History of falling; Z98.890 Other specified postprocedural states | CPT/HCPCS: 99212 ==